=== PATIENT | female | born 1995 | race African-American/Black ===

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

== ENCOUNTER 2017-01-08 22:08 | Inpatient (IN) | payer MEDICAID ==
[~2017-01-08] VITALS: Ht 154.9 cm; Wt 49.9 kg
[2017-01-08] MEDS ORDERED: Famotidine 20 MG/ 2ML VIAL IVP ONE (22:15)
[2017-01-08] MEDS ORDERED: Morphine Sulfate 4mg/ml Inj IVP ONE (22:15)
[2017-01-08 22:35] VITALS: BP 127/63
[2017-01-08 22:48] LABS: BASOPHILS % (AUTO) 1.3 % (0.0-2.0); EOSINOPHILS % (AUTO) 1.8 % (0.0-3.0); LYMPHOCYTES % (AUTO) 43.3 % (20.0-45.0); MEAN CORPUSCULAR HEMOGLOBIN 25.8 PG (27.0-31.0); MEAN CORPUSCULAR HGB CONC 28.7 G/DL (32.0-36.0); MEAN CORPUSCULAR VOLUME 90 FL (80-99); MEAN PLATELET VOLUME 4.9 FL (6.5-10.1); MONOCYTES % (AUTO) 9.4 % (1.0-10.0); NEUTROPHILS % (AUTO) 44.2 % (45.0-75.0); PLATELET COUNT 189 K/UL (150-450); RED CELL DISTRIBUTION WIDTH 20.1 % (11.6-14.8); WHITE BLOOD COUNT 3.8 K/UL (4.8-10.8)
[2017-01-08 23:12] LABS: ALANINE AMINOTRANSFERASE 23 U/L (12-78); ANION GAP 14 mmol/L (5-15); ASPARTATE AMINO TRANSFERASE 73 U/L (15-37); CARBON DIOXIDE 26 MMOL/L (21-32); CHLORIDE 99 MMOL/L (98-107); CREATININE 0.8 MG/DL (0.55-1.30); GLOMERULAR FILTRATION RATE > 60 mL/min (>60); LIPASE 839 U/L (73-393); POTASSIUM 3.8 MMOL/L (3.5-5.1); SODIUM 139 MMOL/L (136-145); TOTAL PROTEIN 8.9 G/DL (6.4-8.2)
[2017-01-09] VITALS (7 sets, daily range): BP systolic 104–128; BP diastolic 66–80
--- NOTE | 2017-01-09 00:28 | Emergency Room Report ---
History of Present Illness General Chief Complaint: Abdominal Pain Source: EMS Present Illness HPI 21-year-old female presents ED complaining of abdominal pain with vomiting which started today. Patient is coming from home stating she has history of alcohol use and gastritis. States she was vomiting blood as well. States pain is sharp, epigastric, 10 out of 10, nonradiating. Also notes history of pancreatitis. Denies fevers or chills. Denies chest pain or shortness of breath. No aggravating relieving factors. Denies any other associated symptoms Allergies: Coded Allergies: AMOXICILLIN (Unverified Allergy, Unknown, 01/08/17) Patient History Past Medical History: GERD Past Surgical History: none Pertinent Family History: none Social History: Reports: alcohol use, Denies: smoking, drug use Last Menstrual Period: 2 weeks ago Now: No Immunizations: UTD Reviewed Nursing Documentation: PMH: Agreed, PSxH: Agreed Nursing Documentation-PMH Hx Asthma: No - BRONCHITIS Review of Systems All Other Systems: negative except mentioned in HPI Physical Exam Vital Signs Date Time Temp Pulse Resp B/P (MAP) Pulse Ox O2 Delivery O2 Flow Rate FiO2 01/08/17 22:04 98.1 80 18 151/100 98 Room Air Sp02 EP Interpretation: reviewed, normal General Appearance: alert, GCS 15, non-toxic, mild distress Head: normocephalic, atraumatic Eyes: bilateral eye normal inspection, bilateral eye PERRL ENT: hearing grossly normal, normal pharynx, no angioedema, normal voice Neck: full range of motion, supple/symm/no masses Respiratory: chest non-tender, lungs clear, normal breath sounds, speaking full sentences Cardiovascular #1: regular rate, rhythm, no edema Cardiovascular #2: 2+ carotid (R), 2+ carotid (L), 2+ radial (R), 2+ radial (L) , 2+ dorsalis pedis (R), 2+ dorsalis pedis (L) Gastrointestinal: normal bowel sounds, soft, non-distended, no guarding, no rebound, tenderness - epigastric Rectal: deferred Genitourinary: normal inspection, no CVA tenderness Musculoskeletal: back normal, gait/station normal, normal range of motion, non- tender Neurologic: alert, oriented x3, responsive, motor strength/tone normal, sensory intact, speech normal Psychiatric: judgement/insight normal, memory normal, mood/affect normal, no suicidal/homicidal ideation Reflexes: 3+ bicep (R), 3+ bicep (L), 3+ tricep (R), 3+ tricep (L), 3+ knee (R) , 3+ knee (L) Skin: normal color, no rash, warm/dry, well hydrated Lymphatic: no adenopathy Medical Decision Making Diagnostic Impression: Primary Impression: Pancreatitis, alcoholic, acute Qualified Codes: K85.20 - Alcohol induced acute pancreatitis without necrosis or infection Additional Impression: Gastritis Qualified Codes: K29.21 - Alcoholic gastritis with bleeding ER Course Hospital Course 21-year-old female presents to ED with abdominal pain Differential diagnoses include: BPH, cystitis, pyelonephritis, kidney stone Clinical course 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 After initial history and physical I ordered labs, IV fluids, pain medication and CT scan Labs - no leukocytosis, Hb/Hct stable. electrolytes ok. Lipase > [address] is down. Case discussed with Dr. Nguyen and he agreed to accept the patient to his service for further care and support I feel this is a highly complex case requiring extensive working including EKG/ Rhythm strip, Xray/CT/US, Blood/urine lab work, repeat exams while in ED, and administration of strong opiates/narcotics for pain control, admission to hospital or close patient follow up. Diagnosis - alcoholic pancreatiits, gastritis Patient admitted to floor in serious condition Labs Test 01/08/17 22:20 White Blood Count 3.8 K/UL (4.8-10.8) Red Blood Count 4.10 M/UL (4.20-5.40) Hemoglobin 10.6 G/DL (12.0-16.0) Hematocrit 36.8 % (37.0-47.0) Mean Corpuscular Volume 90 FL (80-99) Mean Corpuscular Hemoglobin 25.8 PG (27.0-31.0) Mean Corpuscular Hemoglobin Concent 28.7 G/DL (32.0-36.0) Red Cell Distribution Width 20.1 % (11.6-14.8) Platelet Count 189 K/UL (150-450) Mean Platelet Volume 4.9 FL (6.5-10.1) Neutrophils (%) (Auto) 44.2 % (45.0-75.0) Lymphocytes (%) (Auto) 43.3 % (20.0-45.0) Monocytes (%) (Auto) 9.4 % (1.0-10.0) Eosinophils (%) (Auto) 1.8 % (0.0-3.0) Basophils (%) (Auto) 1.3 % (0.0-2.0) Sodium Level 139 MMOL/L (136-145) Potassium Level 3.8 MMOL/L (3.5-5.1) Chloride Level 99 MMOL/L (98-107) Carbon Dioxide Level 26 MMOL/L (21-32) Anion Gap 14 mmol/L (5-15) Blood Urea Nitrogen 11 mg/dL (7-18) Creatinine 0.8 MG/DL (0.55-1.30) Estimat Glomerular Filtration Rate > 60 mL/min (>60) Glucose Level 78 MG/DL (74-106) Calcium Level 10.0 MG/DL (8.5-10.1) Total Bilirubin 0.8 MG/DL (0.2-1.0) Aspartate Amino Transf (AST/SGOT) 73 U/L (15-37) Alanine Aminotransferase (ALT/SGPT) 23 U/L (12-78) Alkaline Phosphatase 59 U/L (46-116) Total Protein 8.9 G/DL (6.4-8.2) Albumin 4.5 G/DL (3.4-5.0) Globulin 4.4 g/dL Albumin/Globulin Ratio 1.0 (1.0-2.7) Lipase 839 U/L (73-393) Human Chorionic Gonadotropin, Qual Negative Last Vital Signs Date Time Temp Pulse Resp B/P (MAP) Pulse Ox O2 Delivery O2 Flow Rate FiO2 01/08/17 23:18 98.1 01/08/17 22:35 67 18 127/63 98 Room Air Status: improved Disposition: ADMITTED INPATIENT Condition: Serious MINOR VALLADARES M.D. Jan 09, 2017 00:28
[2017-01-09] MEDS ORDERED: Morphine Sulfate 4mg/ml Inj IVP ONE (02:00)
[2017-01-09] MEDS ORDERED: NEXIUM20 MG ORAL (02:36)
[2017-01-09] MEDS: D5NS 1,000 ML IV SCH ×3 (05:52→23:56)
[2017-01-09] MEDS: Heparin 5000 units/ml inj SUBQ SCH ×2 (08:15→20:10)
[2017-01-09 09:30] LABS: MEAN CORPUSCULAR HEMOGLOBIN 26.6 PG (27.0-31.0); MEAN CORPUSCULAR HGB CONC 29.8 G/DL (32.0-36.0); MEAN CORPUSCULAR VOLUME 89 FL (80-99); PLATELET COUNT 164 K/UL (150-450); RED CELL DISTRIBUTION WIDTH 19.6 % (11.6-14.8)
[2017-01-09 10:38] LABS: ANION GAP 13 mmol/L (5-15); CARBON DIOXIDE 25 MMOL/L (21-32); CHLORIDE 100 MMOL/L (98-107); CREATININE 0.8 MG/DL (0.55-1.30); GLOMERULAR FILTRATION RATE > 60 mL/min (>60); LIPASE 482 U/L (73-393); POTASSIUM 3.2 MMOL/L (3.5-5.1); SODIUM 138 MMOL/L (136-145)
[2017-01-09 11:27] LABS: BAND NEUTROPHILS % (MANUAL) 0 % (0-8); BASOPHILS % (MANUAL) 0 % (0-2); EOSINOPHILS % (MANUAL) 2 % (0-3); LYMPHOCYTES % (MANUAL) 52 % (20-45); NEUTROPHILS % (MANUAL) 39 % (45-75); PLATELET ESTIMATE ADEQUATE; PLATELET MORPHOLOGY NORMAL; TOTAL CELLS COUNTED 100
[2017-01-09] MEDS ORDERED: D5NS 1000ml IV ONE (17:23)
--- NOTE | 2017-01-09 19:00 | Consultation ---
DATE OF CONSULTATION: SOURCE OF INFORMATION: The patient and EMR. HISTORY OF PRESENT ILLNESS: The patient is a 21-year-old, female. She has a history of alcohol abuse for the last 5 years and has a known history of pancreatitis. The patient reported increasing worsening pain in the periumbilical area associated with nausea and vomitus x2. Denies any hematemesis or hematochezia. Denies any fever or chills. ALLERGIES: Amoxicillin. HOME MEDICATIONS: Nexium. SOCIAL HISTORY: The patient is living by herself. The patient reported using half a pint of hard liquor for the last 5 years. Denies history of illicit drug use. REVIEW OF SYSTEMS: All 12 elements of review of systems are reviewed with the patient. Pertinent negatives and positives are as above. PHYSICAL EXAMINATION: VITAL SIGNS: Blood pressure 150/100, temperature 98.2, pulse oximetry 98% on room, and pulse rate 80 to 85. HEAD AND NECK: Atraumatic and normocephalic. CHEST: Clear to auscultation. HEART: S1 and S2. Regular rate and rhythm. ABDOMEN: Soft. No organomegaly. ABDOMEN: Positive for tenderness on deep palpation in the periumbilical area. Negative for rebound tenderness. MUSCULOSKELETAL: No gross focal motor deficit. NEUROLOGIC: The patient is awake, alert, and oriented x3. LABORATORY DATA: Labs dated 01/08/2017 shows WBC of 3.8, hemoglobin 10.6, and platelets 189. Sodium 139, potassium 3.8, BUN 11, and creatinine 0.8. AST 73. Lipase 839. IMAGING: Chest x-ray, pending. ASSESSMENT: 1. Acute on chronic alcoholic pancreatitis. 2. Anemia. 3. Abnormal liver function test. 4. Gastrointestinal and deep vein thrombosis prophylaxes. PLAN OF CARE: I will check the patient for hepatitis C and human immunodeficiency virus. Matteo Nguyen M.D. DR: SHANON JOB#: [id number] CC:
[2017-01-10] VITALS: BP 119/66
[2017-01-10] MEDS: Zolpidem 5mg tab ORAL PRN ×2 (00:43→20:16)
[2017-01-10 04:00] VITALS: BP 115/69
[2017-01-10 07:52] LABS: MEAN CORPUSCULAR HEMOGLOBIN 27.1 PG (27.0-31.0); MEAN CORPUSCULAR HGB CONC 30.6 G/DL (32.0-36.0); MEAN CORPUSCULAR VOLUME 89 FL (80-99); MEAN PLATELET VOLUME 5.8 FL (6.5-10.1); PLATELET COUNT 162 K/UL (150-450); RED BLOOD COUNT 3.62 M/UL (4.20-5.40); WHITE BLOOD COUNT 2.9 K/UL (4.8-10.8)
[2017-01-10 07:55] LABS: ANION GAP 5 mmol/L (5-15); CALCIUM 8.7 MG/DL (8.5-10.1); CARBON DIOXIDE 29 MMOL/L (21-32); CHLORIDE 104 MMOL/L (98-107); CREATININE 0.7 MG/DL (0.55-1.30); GLOMERULAR FILTRATION RATE > 60 mL/min (>60); LIPASE 607 U/L (73-393); POTASSIUM 3.5 MMOL/L (3.5-5.1); SODIUM 138 MMOL/L (136-145)
[2017-01-10 08:00] VITALS: BP 109/72
[2017-01-10] MEDS: Heparin 5000 units/ml inj SUBQ SCH ×2 (08:48→20:16)
[2017-01-10 09:39] LABS: ANISOCYTOSIS 2+; BAND NEUTROPHILS % (MANUAL) 0 % (0-8); BASOPHILS % (MANUAL) 0 % (0-2); EOSINOPHILS % (MANUAL) 3 % (0-3); HYPOCHROMASIA 1+; LYMPHOCYTES % (MANUAL) 38 % (20-45); NEUTROPHILS % (MANUAL) 56 % (45-75); PLATELET ESTIMATE ADEQUATE; PLATELET MORPHOLOGY NORMAL; TOTAL CELLS COUNTED 100
[2017-01-10] MEDS: D5NS 1,000 ML IV SCH ×2 (10:09→20:16)
--- NOTE | 2017-01-10 11:20 | General Progress Note ---
Assessment/Plan Status: stable Assessment/Plan 1. Acute on chronic alcoholic pancreatitis. 2. Anemia. 3. Abnormal liver function test. 4. Gastrointestinal and deep vein thrombosis prophylaxes. Plan: Once clear by GI, may followup as outpatient Subjective ROS Limited/Unobtainable: Yes Constitutional: Reports: no symptoms HEENT: Reports: no symptoms Cardiovascular: Reports: no symptoms Allergies: Coded Allergies: AMOXICILLIN (Unverified Allergy, Unknown, 01/08/17) Objective Last 24 Hour Vital Signs Date Time Temp Pulse Resp B/P (MAP) Pulse Ox O2 Delivery O2 Flow Rate FiO2 01/10/17 08:00 95.0 62 16 109/72 94 01/10/17 04:00 97.7 52 20 115/69 99 Room Air 01/10/17 00:00 98.4 70 21 119/66 96 Room Air 01/09/17 20:00 98.6 60 22 113/75 96 Room Air 01/09/17 18:34 97.0 01/09/17 16:00 97.3 60 18 127/68 98 Room Air 01/09/17 12:00 97.2 57 18 124/70 96 Room Air Intake and Output 01/10/17 01/11/17 19:00 07:00 Intake Total 300 ml Balance 300 ml IV Total 300 ml Laboratory Tests 01/10/17 05:35: White Blood Count 2.9L, Red Blood Count 3.62L, Hemoglobin 9.8L, Hematocrit 32.1L , Mean Corpuscular Volume 89, Mean Corpuscular Hemoglobin 27.1, Mean Corpuscular Hemoglobin Concent 30.6L, Red Cell Distribution Width 20.0H, Platelet Count 162, Mean Platelet Volume 5.8L, Neutrophils (%) (Auto) , Lymphocytes (%) (Auto) , Monocytes (%) (Auto) , Eosinophils (%) (Auto) , Basophils (%) (Auto) , Differential Total Cells Counted 100, Neutrophils % ( Manual) 56, Lymphocytes % (Manual) 38, Monocytes % (Manual) 3, Eosinophils % ( Manual) 3, Basophils % (Manual) 0, Band Neutrophils 0, Platelet Estimate Adequate, Platelet Morphology Normal, Hypochromasia 1+, Anisocytosis 2+, Sodium Level 138, Potassium Level 3.5, Chloride Level 104, Carbon Dioxide Level 29, Anion Gap 5, Blood Urea Nitrogen 3L, Creatinine 0.7, Estimat Glomerular Filtration Rate > 60, Glucose Level 117H, Calcium Level 8.7, Lipase 607H Height (Feet): 5 Height (Inches): 1.00 Weight (Pounds): 110 General Appearance: no apparent distress EENT: PERRL/EOMI Neck: supple Respiratory/Chest: lungs clear Abdomen: soft Extremities: non-tender Neurologic: signal timer II-XII grossly normal Matteo Nguyen MD Jan 10, 2017 11:20
[2017-01-10 12:00] VITALS: BP 116/78
[2017-01-10 20:00] VITALS: BP 122/78
[2017-01-11] VITALS: BP 131/76
[2017-01-11 04:00] VITALS: BP 132/95
[2017-01-11 08:00] VITALS: BP 120/79
[2017-01-11] MEDS: D5NS 1,000 ML IV SCH (08:00)
[2017-01-11 08:23] LABS: MEAN CORPUSCULAR HEMOGLOBIN 27.9 PG (27.0-31.0); MEAN CORPUSCULAR HGB CONC 31.2 G/DL (32.0-36.0); MEAN CORPUSCULAR VOLUME 89 FL (80-99); MEAN PLATELET VOLUME 6.5 FL (6.5-10.1); PLATELET COUNT 163 K/UL (150-450); RED BLOOD COUNT 3.77 M/UL (4.20-5.40); RED CELL DISTRIBUTION WIDTH 19.4 % (11.6-14.8); WHITE BLOOD COUNT 3.1 K/UL (4.8-10.8)
[2017-01-11] MEDS: Heparin 5000 units/ml inj SUBQ SCH (08:51)
[2017-01-11 08:56] LABS: ANION GAP 11 mmol/L (5-15); CALCIUM 8.6 MG/DL (8.5-10.1); CARBON DIOXIDE 26 MMOL/L (21-32); CHLORIDE 103 MMOL/L (98-107); CREATININE 0.7 MG/DL (0.55-1.30); GLOMERULAR FILTRATION RATE > 60 mL/min (>60); LIPASE 408 U/L (73-393); SODIUM 140 MMOL/L (136-145)
--- NOTE | 2017-01-11 09:01 | General Progress Note ---
Assessment/Plan Status: stable Assessment/Plan 1. Acute on chronic alcoholic pancreatitis. 2. Anemia. 3. Abnormal liver function test. 4. Gastrointestinal and deep vein thrombosis prophylaxes. Plan: Once clear by GI, may followup as outpatient Subjective ROS Limited/Unobtainable: No Constitutional: Reports: malaise HEENT: Reports: no symptoms Cardiovascular: Reports: no symptoms Allergies: Coded Allergies: AMOXICILLIN (Unverified Allergy, Unknown, 01/08/17) Objective Last 24 Hour Vital Signs Date Time Temp Pulse Resp B/P (MAP) Pulse Ox O2 Delivery O2 Flow Rate FiO2 01/11/17 04:00 97.9 105 20 132/95 98 Room Air 01/11/17 00:00 97.7 68 20 131/76 97 Room Air 01/10/17 20:00 97.5 68 18 122/78 97 Room Air 01/10/17 12:36 95.0 01/10/17 12:00 95.0 69 17 116/78 100 Laboratory Tests 01/11/17 06:30: White Blood Count 3.1L, Red Blood Count 3.77L, Hemoglobin 10.5L, Hematocrit 33.7L, Mean Corpuscular Volume 89, Mean Corpuscular Hemoglobin 27.9, Mean Corpuscular Hemoglobin Concent 31.2L, Red Cell Distribution Width 19.4H, Platelet Count 163, Mean Platelet Volume 6.5, Neutrophils (%) (Auto) , Lymphocytes (%) (Auto) , Monocytes (%) (Auto) , Eosinophils (%) (Auto) , Basophils (%) (Auto) , Neutrophils % (Manual) [Pending], Lymphocytes % (Manual) [Pending], Platelet Estimate [Pending], Platelet Morphology [Pending], Sodium Level [Pending], Potassium Level [Pending], Chloride Level [Pending], Carbon Dioxide Level [Pending], Blood Urea Nitrogen [Pending], Creatinine [Pending], Estimat Glomerular Filtration Rate [Pending], Glucose Level [Pending], Calcium Level [Pending], Lipase [Pending] Height (Feet): 5 Height (Inches): 1.00 Weight (Pounds): 110 General Appearance: no apparent distress EENT: PERRL/EOMI Neck: supple Cardiovascular: normal rate Respiratory/Chest: lungs clear Abdomen: soft Extremities: non-tender Neurologic: supervisor edging II-XII grossly normal Matteo Nguyen MD Jan 11, 2017 09:01
[2017-01-11 09:05] LABS: ANISOCYTOSIS 2+; BAND NEUTROPHILS % (MANUAL) 0 % (0-8); BASOPHILS % (MANUAL) 0 % (0-2); EOSINOPHILS % (MANUAL) 0 % (0-3); HYPOCHROMASIA 1+; LYMPHOCYTES % (MANUAL) 32 % (20-45); NEUTROPHILS % (MANUAL) 59 % (45-75); PLATELET ESTIMATE ADEQUATE; PLATELET MORPHOLOGY NORMAL; TOTAL CELLS COUNTED 100
[2017-01-11 12:00] VITALS: BP 131/76
[2017-01-11] MEDS ORDERED: LORazepam 1mg tab ORAL ONE (12:45)
--- NOTE | 2017-01-13 12:56 | Discharge Summary ---
Discharge Summary Hospital Course Date of Admission Jan 09, 2017 at 02:22 Date of Discharge Jan 11, 2017 at 12:45 Admitting Diagnosis pancreatitis HPI Heydi Johnson is a 21 year old female who was admitted on Jan 09, 2017 at 02:22 for Pancreatits Hospital Course [id number] Discharge Discharge Disposition Patient left AMA Discharge Diagnoses: Rosetta Tineo NP Jan 13, 2017 12:56
--- NOTE | 2017-01-13 23:16 | Discharge Summary 2 SIG ---
DATE OF ADMISSION: 01/09/2017 DATE OF DISCHARGE: 01/11/2017 BRIEF HOSPITAL COURSE: The patient is a 21-year-old female with history of alcohol abuse for the last five years and has known history of pancreatitis. The patient reported increasing worsening of pain in the periumbilical area associated with nausea and vomiting x2. On evaluation at ED, lipase was greater than 800. There was no leukocytosis. AST was 73. She was admitted for alcoholic pancreatitis and for evaluation of abnormal liver tests. Hepatitis panel was negative. Full treatment was not carried out as the patient left against medical advice. FINAL DIAGNOSES: 1. Acute on chronic alcoholic pancreatitis. 2. Anemia. 3. Abnormal liver function tests. 4. Noncompliance as the patient signed out against medical advice. Matteo Nguyen M.D. I have been assigned to dictate discharge summary on this account and I was not involved in the patient's management. Rosetta Tineo N.P. DR: LUI JOB#: [id number] CC:
== END 2017-01-11 12:45 | disposition left against medical advice (07) | DRG 282 ==
LOC: EDBD 22:08 → EMR 22:40 → ENRESERV 23:45 → 4E 01-09 02:22 → EDBEDREQ 01-09 02:28 → 4E 01-09 05:31
DX: K85.20 Alcohol induced acute pancreatitis without necrosis or infection (principal); K29.21 Alcoholic gastritis with bleeding; D64.9 Anemia, unspecified; K86.0 Alcohol-induced chronic pancreatitis; R94.5 Abnormal results of liver function studies; Z88.0 Allergy status to penicillin
CPT/HCPCS: 36415; 74177; 80048; 80053; 83690; 84703; 85007; 85025; 86703; 86705; 86709; 86803; 87340; 99285; J2405

== ENCOUNTER 2018-01-21 14:13 | Inpatient (IN) | payer MEDICAID ==
[~2018-01-21] VITALS: Ht 157.5 cm; Wt 62.6 kg
[~2018-01-21 14:13] MED LIST changes: +NEXIUM20 MG ORAL
[2018-01-21 14:15] VITALS: BP 123/78
--- NOTE | 2018-01-21 14:28 | Emergency Room Report ---
History of Present Illness General Chief Complaint: Abdominal Pain Source: Patient Present Illness HPI Patient is a 22-year-old female brought in by EMS after increased abdominal pain. Patient reports having prior history of CHF as well as pancreatitis. The patient presented increased the sharp intermittent abdominal pain. This is associated with nausea and vomiting. The patient stated that she had the been drinking alcohol. She states she was discharged from the hospital 2 days ago.Patient denies any fever. She states she that she drank several shots as well as some beer Allergies: Coded Allergies: AMOXICILLIN (Unverified Allergy, Unknown, 01/08/17) Uncoded Allergies: AMOXICILIN (Allergy, Unknown, 01/21/18) Patient History Past Medical History: see triage record Last Menstrual Period: 12/2017 Now: No Reviewed Nursing Documentation: PMH: Agreed; PSxH: Agreed Nursing Documentation-PMH Past Medical History: No History, Except For Hx Hypertension: Yes Hx Asthma: No - BRONCHITIS Hx Cancer: No Hx Gastrointestinal Problems: Yes - Gastritis History Of Psychiatric Problem: Yes - Depression, Anxiety, Substance Abuse Hx Neurological Problems: No Review of Systems All Other Systems: negative except mentioned in HPI Physical Exam Vital Signs Date Time Temp Pulse Resp B/P (MAP) Pulse Ox O2 Delivery O2 Flow Rate FiO2 01/21/18 14:10 99.0 105 14 111/77 99 Room Air Sp02 EP Interpretation: reviewed, normal General Appearance: normal inspection, well appearing, no apparent distress, alert, GCS 15, Chronically Ill Head: atraumatic ENT: normal ENT inspection, hearing grossly normal, normal voice Neck: normal inspection, full range of motion, supple, no bony tend Respiratory: normal inspection, lungs clear, normal breath sounds, no respiratory distress, no retraction, no wheezing Cardiovascular #1: regular rate, rhythm, no edema Gastrointestinal: normal inspection, soft, no guarding, no hernia, tenderness - mild diffuse tenderness Genitourinary: no CVA tenderness Musculoskeletal: normal inspection, back normal, normal range of motion Neurologic: normal inspection, alert, oriented x3, responsive, artist blacksmith III-XII nml as tested, speech normal Psychiatric: normal inspection, judgement/insight normal, mood/affect normal Skin: normal inspection, normal color, no rash Medical Decision Making Diagnostic Impression: Primary Impression: Pancreatitis Additional Impressions: Alcohol abuse Anemia ER Course Patient presented for abdominal pain. Differential diagnoses included ischemic bowel, appendicitis, perforated viscus, abdominal aortic aneurysm, inferior myocardial infarction, viral gastroenteritis Because of complexity of patient's case laboratory studies were ordered. The patient was noted to have evidence of anemia as well as pancreatitis on laboratory testing. Noted also noted to have elevated blood alcohol level. The patient given IV acid blockers as well as pain medications. The patient was advised alcohol cessation. Dr. Nguyen was contacted for inpatient management due to need for inpatient monitoring and treatment. Labs Test 01/21/18 14:30 01/21/18 14:35 White Blood Count 3.5 K/UL (4.8-10.8) Red Blood Count 3.61 M/UL (4.20-5.40) Hemoglobin 9.3 G/DL (12.0-16.0) Hematocrit 30.6 % (37.0-47.0) Mean Corpuscular Volume 85 FL (80-99) Mean Corpuscular Hemoglobin 25.7 PG (27.0-31.0) Mean Corpuscular Hemoglobin Concent 30.2 G/DL (32.0-36.0) Red Cell Distribution Width 16.1 % (11.6-14.8) Platelet Count 372 K/UL (150-450) Mean Platelet Volume 6.0 FL (6.5-10.1) Neutrophils (%) (Auto) 47.0 % (45.0-75.0) Lymphocytes (%) (Auto) 41.0 % (20.0-45.0) Monocytes (%) (Auto) 10.1 % (1.0-10.0) Eosinophils (%) (Auto) 0.7 % (0.0-3.0) Basophils (%) (Auto) 1.2 % (0.0-2.0) Prothrombin Time 11.5 SEC (9.30-11.50) Prothromb Time International Ratio 1.1 (0.9-1.1) Activated Partial Thromboplast Time 25 SEC (23-33) Sodium Level 143 MMOL/L (136-145) Potassium Level 3.8 MMOL/L (3.5-5.1) Chloride Level 109 MMOL/L (98-107) Carbon Dioxide Level 25 MMOL/L (21-32) Anion Gap 9 mmol/L (5-15) Blood Urea Nitrogen 6 mg/dL (7-18) Creatinine 0.8 MG/DL (0.55-1.30) Estimat Glomerular Filtration Rate > 60 mL/min (>60) Glucose Level 93 MG/DL (74-106) Calcium Level 8.9 MG/DL (8.5-10.1) Total Bilirubin 0.4 MG/DL (0.2-1.0) Aspartate Amino Transf (AST/SGOT) 30 U/L (15-37) Alanine Aminotransferase (ALT/SGPT) 22 U/L (12-78) Alkaline Phosphatase 65 U/L (46-116) Total Protein 7.1 G/DL (6.4-8.2) Albumin 3.0 G/DL (3.4-5.0) Globulin 4.1 g/dL Albumin/Globulin Ratio 0.7 (1.0-2.7) Lipase 565 U/L (73-393) Serum Alcohol 137 mg/dL Urine Color Pale yellow Urine Appearance Clear Urine pH 7 (4.5-8.0) Urine Specific Almo 1.010 (1.005-1.035) Urine Protein Negative (NEGATIVE) Urine Glucose (UA) Negative (NEGATIVE) Urine Ketones Negative (NEGATIVE) Urine Blood 1+ (NEGATIVE) Urine Nitrite Negative (NEGATIVE) Urine Bilirubin Negative (NEGATIVE) Urine Urobilinogen Normal MG/DL (0.0-1.0) Urine Leukocyte Esterase 1+ (NEGATIVE) Urine RBC 0-2 /HPF (0 - 2) Urine WBC 0-2 /HPF (0 - 2) Urine Squamous Epithelial Cells Occasional /LPF Urine Bacteria Occasional /HPF (NONE) Urine HCG, Qualitative Negative (NEGATIVE) Urine Opiates Screen Negative (NEGATIVE) Urine Barbiturates Screen Negative (NEGATIVE) Phencyclidine (PCP) Screen Negative (NEGATIVE) Urine Amphetamines Screen Negative (NEGATIVE) Urine Benzodiazepines Screen Negative (NEGATIVE) Urine Cocaine Screen Negative (NEGATIVE) Urine Marijuana (THC) Screen Negative (NEGATIVE) Last Vital Signs Date Time Temp Pulse Resp B/P (MAP) Pulse Ox O2 Delivery O2 Flow Rate FiO2 01/21/18 14:10 99.0 105 14 111/77 99 Room Air Status: unchanged Disposition: XFER SHT-TRM HOSP Condition: Stable Rodrigo Thrasher MD Jan 21, 2018 14:28
[2018-01-21] MEDS ORDERED: Pantoprazole Inj IV ONE (14:30)
[2018-01-21] MEDS ORDERED: Sucralfate 1gm tab ORAL ONE (14:30)
[2018-01-21 14:53] LABS: BASOPHILS % (AUTO) 1.2 % (0.0-2.0); EOSINOPHILS % (AUTO) 0.7 % (0.0-3.0); HEMATOCRIT 30.6 % (37.0-47.0); HEMOGLOBIN 9.3 G/DL (12.0-16.0); MEAN CORPUSCULAR VOLUME 85 FL (80-99); MONOCYTES % (AUTO) 10.1 % (1.0-10.0); PLATELET COUNT 372 K/UL (150-450); RED BLOOD COUNT 3.61 M/UL (4.20-5.40); RED CELL DISTRIBUTION WIDTH 16.1 % (11.6-14.8); WHITE BLOOD COUNT 3.5 K/UL (4.8-10.8)
[2018-01-21 14:54] LABS: APPEARANCE,URINE CLEAR; BILIRUBIN, URINE NEGATIVE (NEGATIVE); COLOR,URINE PALE YELLOW; GLUCOSE, URINE (UA) NEGATIVE (NEGATIVE); KETONES,URINE NEGATIVE (NEGATIVE); LEUKOCYTE ESTERASE ,URINE 1+ (NEGATIVE); NITRITE,URINE NEGATIVE (NEGATIVE); PH,URINE 7 (4.5-8.0); PROTEIN,URINE NEGATIVE (NEGATIVE); UROBILINOGEN,URINE NORMAL MG/DL (0.0-1.0)
[2018-01-21 15:03] LABS: ANION GAP 9 mmol/L (5-15); BLOOD UREA NITROGEN 6 mg/dL (7-18); CALCIUM 8.9 MG/DL (8.5-10.1); CARBON DIOXIDE 25 MMOL/L (21-32); CHLORIDE 109 MMOL/L (98-107); CREATININE 0.8 MG/DL (0.55-1.30); POTASSIUM 3.8 MMOL/L (3.5-5.1); SODIUM 143 MMOL/L (136-145)
[2018-01-21 15:08] LABS: ALANINE AMINOTRANSFERASE 22 U/L (12-78); ALBUMIN/GLOBULIN RATIO 0.7 (1.0-2.7); ALKALINE PHOSPHATASE 65 U/L (46-116); ASPARTATE AMINO TRANSFERASE 30 U/L (15-37); BILIRUBIN,TOTAL 0.4 MG/DL (0.2-1.0)
[2018-01-21 15:17] LABS: INR 1.1 (0.9-1.1)
[2018-01-21] MEDS ORDERED: PROTONIX40 MG ORAL (15:18)
[2018-01-21] MEDS ORDERED: Norco 5mg/325mg tab ORAL ONE (15:30)
[2018-01-21] MEDS ORDERED: Sodium Chloride 500ML 500 ML IV ONE (15:30)
[2018-01-21] MEDS ORDERED: Thiamine HCl 100 MG in D5W 55 ML IVPB ONE (15:30)
--- NOTE | 2018-01-21 15:31 | Diagnostic Imaging Report ---
EXAM: XR Chest, 1 View CLINICAL HISTORY: SOB TECHNIQUE: Frontal view of the chest. COMPARISON: 12/02/13. FINDINGS: Lungs: Unremarkable. No consolidation. Pleural space: Unremarkable. No pneumothorax. Heart: Borderline cardiomegaly. Mediastinum: Unremarkable. Bones/joints: Thoracic dextrocurvature is likely positional as it was not demonstrated previously. IMPRESSION: Borderline cardiomegaly. No overt edema. No consolidation.
[2018-01-21 16:00] VITALS: BP 116/73
[2018-01-21] MEDS ORDERED: Morphine Sulfate 4mg/ml Inj (IV/IM USE ONLY) IVP ONE (16:00)
[2018-01-21 18:00] VITALS: BP 126/68
[2018-01-21 18:10] VITALS: BP 103/72
[2018-01-21] MEDS ORDERED: Ketorolac 30mg Inj IV PRN (18:30)
[2018-01-21] MEDS ORDERED: LORazepam 1mg tab ORAL PRN (18:30)
[2018-01-21] MEDS: D5NS 1,000 ML IV SCH (19:30)
[2018-01-21] MEDS: Morphine Sulfate 2mg/ml Inj IVP PRN (19:58)
[2018-01-21 20:00] VITALS: BP 108/73
[2018-01-21 20:03] LABS: BASOPHILS % (AUTO) 1.1 % (0.0-2.0); EOSINOPHILS % (AUTO) 0.5 % (0.0-3.0); HEMATOCRIT 31.7 % (37.0-47.0); HEMOGLOBIN 9.8 G/DL (12.0-16.0); LYMPHOCYTES % (AUTO) 42.5 % (20.0-45.0); MEAN CORPUSCULAR VOLUME 87 FL (80-99); NEUTROPHILS % (AUTO) 47.8 % (45.0-75.0); PLATELET COUNT 361 K/UL (150-450); RED BLOOD COUNT 3.62 M/UL (4.20-5.40); RED CELL DISTRIBUTION WIDTH 15.9 % (11.6-14.8); WHITE BLOOD COUNT 3.7 K/UL (4.8-10.8)
[2018-01-21] MEDS: chlordiazePOXIDE 25mg Cap ORAL SCH (21:33)
[2018-01-22] VITALS (8 sets, daily range): BP systolic 99–147; BP diastolic 60–95
[2018-01-22] MEDS: Morphine Sulfate 2mg/ml Inj IVP PRN ×2 (04:07→22:35)
[2018-01-22] MEDS: D5NS 1,000 ML IV SCH ×2 (04:50→12:55)
[2018-01-22 05:06] LABS: HEMATOCRIT 30.5 % (37.0-47.0); HEMOGLOBIN 9.2 G/DL (12.0-16.0); MEAN CORPUSCULAR VOLUME 85 FL (80-99); PLATELET COUNT 313 K/UL (150-450); RED BLOOD COUNT 3.58 M/UL (4.20-5.40); RED CELL DISTRIBUTION WIDTH 16.2 % (11.6-14.8); WHITE BLOOD COUNT 3.1 K/UL (4.8-10.8)
[2018-01-22 06:38] LABS: ALANINE AMINOTRANSFERASE 23 U/L (12-78); ALBUMIN 2.9 G/DL (3.4-5.0); ALBUMIN/GLOBULIN RATIO 0.7 (1.0-2.7); ALKALINE PHOSPHATASE 64 U/L (46-116); ANION GAP 10 mmol/L (5-15); ASPARTATE AMINO TRANSFERASE 31 U/L (15-37); BILIRUBIN,TOTAL 0.4 MG/DL (0.2-1.0); BLOOD UREA NITROGEN 5 mg/dL (7-18); CALCIUM 8.1 MG/DL (8.5-10.1); CARBON DIOXIDE 24 MMOL/L (21-32); CHLORIDE 109 MMOL/L (98-107); CREATININE 0.9 MG/DL (0.55-1.30); SODIUM 143 MMOL/L (136-145)
[2018-01-22] MEDS ORDERED: LORazepam Inj 2mg/ml 1ml IVP PRN (08:00)
--- NOTE | 2018-01-22 08:25 | History & Physical ---
History and Physical History & Physicial History and exam are reviewed. Dictation is completed Matteo Nguyen MD Jan 22, 2018 08:25
[2018-01-22] MEDS: chlordiazePOXIDE 25mg Cap ORAL SCH ×4 (08:48→21:46)
[2018-01-22] MEDS ORDERED: Pantoprazole Inj IVP SCH (09:00)
[2018-01-22 09:18] LABS: % IRON SATURATION 5 % (15-50); IRON 20 ug/dL (50-175); TOTAL IRON BINDING CAPACITY 389 ug/dL (250-450)
[2018-01-22] MEDS ORDERED: Morphine Sulfate 2mg/ml Inj IVP PRN ×2 (10:00→12:33)
--- NOTE | 2018-01-22 10:32 | General Progress Note ---
Assessment/Plan Assessment/Plan GI CONSULT Dictated Assessment - Recurrent EtOH pancreatitis Recommendations - abdominal U/S - Bowel rest - IVF - d/c EtOH Thank you Kalin Tena MD Subjective Allergies: Coded Allergies: AMOXICILLIN (Unverified Allergy, Unknown, 01/08/17) Uncoded Allergies: AMOXICILIN (Allergy, Unknown, 01/21/18) Objective Last 24 Hour Vital Signs Date Time Temp Pulse Resp B/P (MAP) Pulse Ox O2 Delivery O2 Flow Rate FiO2 01/22/18 09:23 Room Air 01/22/18 08:03 98.4 112 20 123/89 (100) 91 01/22/18 04:00 97.6 117 20 128/90 (103) 96 01/22/18 00:00 97.2 97 17 99/60 (73) 93 01/21/18 21:00 Room Air 01/21/18 21:00 Room Air 01/21/18 20:28 97.7 01/21/18 20:00 97.5 79 18 108/73 (85) 94 01/21/18 18:10 97.7 86 20 103/72 (82) 100 01/21/18 18:00 98.5 82 14 126/68 95 Room Air 2.0 01/21/18 18:00 98.5 82 14 126/68 95 Room Air 2.0 01/21/18 16:00 98.5 80 15 116/73 98 Room Air 01/21/18 14:20 78 14 Room Air 01/21/18 14:15 98.7 78 14 123/78 99 Room Air 01/21/18 14:10 99.0 105 14 111/77 99 Room Air Intake and Output 01/21/18 01/22/18 18:59 06:59 Intake Total 2760 ml Balance 2760 ml Intake Oral 1760 ml IV Total 1000 ml # Voids 2 2 Laboratory Tests 01/21/18 14:30: White Blood Count 3.5L, Red Blood Count 3.61L, Hemoglobin 9.3L, Hematocrit 30.6L , Mean Corpuscular Volume 85, Mean Corpuscular Hemoglobin 25.7L, Mean Corpuscular Hemoglobin Concent 30.2L, Red Cell Distribution Width 16.1H, Platelet Count 372, Mean Platelet Volume 6.0L, Neutrophils (%) (Auto) 47.0, Lymphocytes (%) (Auto) 41.0, Monocytes (%) (Auto) 10.1H, Eosinophils (%) (Auto) 0.7, Basophils (%) (Auto) 1.2, Prothrombin Time 11.5, Prothromb Time International Ratio 1.1, Activated Partial Thromboplast Time 25, Sodium Level 143, Potassium Level 3.8, Chloride Level 109H, Carbon Dioxide Level 25, Anion Gap 9, Blood Urea Nitrogen 6L, Creatinine 0.8, Estimat Glomerular Filtration Rate > 60, Glucose Level 93, Calcium Level 8.9, Total Bilirubin 0.4, Aspartate Amino Transf (AST/SGOT) 30, Alanine Aminotransferase (ALT/SGPT) 22, Alkaline Phosphatase 65, Total Protein 7.1, Albumin 3.0L, Globulin 4.1, Albumin/Globulin Ratio 0.7L, Lipase 565H, Serum Alcohol 137 01/21/18 14:35: Urine Color Pale yellow, Urine Appearance Clear, Urine pH 7, Urine Specific [place] 1.010, Urine Protein Negative, Urine Glucose (UA) Negative, Urine Ketones Negative, Urine Blood 1+H, Urine Nitrite Negative, Urine Bilirubin Negative, Urine Urobilinogen Normal, Urine Leukocyte Esterase 1+H, Urine RBC 0-2 , Urine WBC 0-2, Urine Squamous Epithelial Cells Occasional, Urine Bacteria Occasional, Urine HCG, Qualitative Negative, Urine Opiates Screen Negative, Urine Barbiturates Screen Negative, Phencyclidine (PCP) Screen Negative, Urine Amphetamines Screen Negative, Urine Benzodiazepines Screen Negative, Urine Cocaine Screen Negative, Urine Marijuana (THC) Screen Negative 01/21/18 19:45: White Blood Count 3.7L, Red Blood Count 3.62L, Hemoglobin 9.8L, Hematocrit 31.7L , Mean Corpuscular Volume 87, Mean Corpuscular Hemoglobin 27.0, Mean Corpuscular Hemoglobin Concent 30.9L, Red Cell Distribution Width 15.9H, Platelet Count 361, Mean Platelet Volume 5.6L, Neutrophils (%) (Auto) 47.8, Lymphocytes (%) (Auto) 42.5, Monocytes (%) (Auto) 8.0, Eosinophils (%) (Auto) 0.5, Basophils (%) (Auto) 1.1 01/22/18 04:40: Iron Level 20L, Total Iron Binding Capacity 389, Percent Iron Saturation 5L, Unsaturated Iron Binding 369H, HIV (1&2) Antibody Rapid Negative 01/22/18 04:45: White Blood Count 3.1L, Red Blood Count 3.58L, Hemoglobin 9.2L, Hematocrit 30.5L , Mean Corpuscular Volume 85, Mean Corpuscular Hemoglobin 25.8L, Mean Corpuscular Hemoglobin Concent 30.3L, Red Cell Distribution Width 16.2H, Platelet Count 313, Mean Platelet Volume 5.4L, Neutrophils (%) (Auto) , Lymphocytes (%) (Auto) , Monocytes (%) (Auto) , Eosinophils (%) (Auto) , Basophils (%) (Auto) , Differential Total Cells Counted 100, Neutrophils % ( Manual) 32L, Lymphocytes % (Manual) 63H, Monocytes % (Manual) 5, Eosinophils % ( Manual) 0, Basophils % (Manual) 0, Band Neutrophils 0, Platelet Estimate Adequate, Platelet Morphology Normal, Anisocytosis 1+, Sodium Level 143, Potassium Level 4.0, Chloride Level 109H, Carbon Dioxide Level 24, Anion Gap 10 , Blood Urea Nitrogen 5L, Creatinine 0.9, Estimat Glomerular Filtration Rate > 60, Glucose Level 98, Calcium Level 8.1L, Total Bilirubin 0.4, Aspartate Amino Transf (AST/SGOT) 31, Alanine Aminotransferase (ALT/SGPT) 23, Alkaline Phosphatase 64, Troponin I 0.008, Total Protein 7.3, Albumin 2.9L, Globulin 4.4 , Albumin/Globulin Ratio 0.7L Height (Feet): 5 Height (Inches): 2.00 Weight (Pounds): 120 Kalin Tena MD Jan 22, 2018 10:32
[2018-01-22] MEDS ORDERED: D5NS 1,000 ML IV SCH (12:00)
[2018-01-22] MEDS ORDERED: Ketorolac 30mg Inj IV PRN (12:33)
[2018-01-22] MEDS ORDERED: Albuterol ud Inhalation HHN PRN (12:50)
[2018-01-22] MEDS: Levalbuterol Inh UD 1.25mg/0.5ml HHN SCH ×2 (13:07→19:13)
[2018-01-22] MEDS: Pantoprazole Inj IVP SCH (17:53)
--- NOTE | 2018-01-22 20:29 | History and Physical Report ---
DATE OF ADMISSION: 01/21/2018 SOURCE OF INFORMATION: The patient and EMR. HISTORY OF PRESENT ILLNESS: The patient is a 22-year-old female with a history of alcoholism, who presented with acute onset of pain in the left upper quadrant of abdomen. The patient describes the pain as sharp as 9, positive for radiation to the back. Positive for nausea. The patient reportedly had given care. The patient denies any diarrhea. Denies any fever or chills. REVIEW OF SYSTEMS: All 14 elements of review of systems reviewed, pertinent positive and negative as above. PAST SURGICAL HISTORY: Denies. FAMILY HISTORY: Reviewed and noncontributory. SOCIAL HISTORY: Positive for alcohol abuse (quantification limited). The patient is single. The patient denies history of illicit drug abuse. Describes herself as a social tobacco user. MEDICATIONS: Current hospital medications including, but not limited to, , folic acid, lorazepam, morphine sulfate, and multivitamin. IMAGING: The chest x-ray shows borderline cardiomegaly, otherwise unremarkable. PHYSICAL EXAMINATION: VITAL SIGNS: Blood pressure 110/80, temperature 98.2 degrees, pulse oximetry 98% on room air, and pulse rate 110. HEAD AND NECK: Atraumatic and normocephalic. CHEST: Clear to auscultation. HEART: S1 and S2. Regular rate and rhythm. ABDOMEN: Positive for tenderness. Negative for rebound tenderness. NEUROLOGIC: The patient is awake, alert, and oriented x3. LABORATORY DATA: Laboratories dated January 21, 2018 shows WBC 3.5, hemoglobin 9.3, and platelet count of 372,000. Sodium 143, potassium 3.8, BUN 6, and creatinine 0.8. Albumin of 3. Lipase of 565. Urinalysis is unremarkable. Serum alcohol of 137. ASSESSMENT: 1. Acute alcoholic pancreatitis. 2. Leukopenia. 3. Anemia. 4. GI and DVT prophylaxis. PLAN OF CARE: I agree to keep the patient NPO. We will continue with the IV fluids maintenance rate. Pain management. GI and Infectious Disease are consulted. I will check for the HIV and also for the iron levels. Matteo Nguyen M.D. DR: ABRAHAM JOB#: [id number] CC:
--- NOTE | 2018-01-22 22:29 | Consultation ---
DATE OF CONSULTATION: 01/22/2018 GASTROENTEROLOGY CONSULTATION CONSULTING PHYSICIAN: Kalin Tena M.D. REFERRING PHYSICIAN: Matteo Nguyen M.D. CHIEF COMPLAINT: I was asked to see this patient by Dr. Nguyen for evaluation of pancreatitis. HISTORY OF PRESENT ILLNESS: The patient states that she was having abdominal pain, which was severe. She was discharged from a hospital about two days ago for similar issue. She has been drinking alcohol. She has had history of pancreatitis and alcohol abuse. She also has history of congestive heart failure. PAST MEDICAL HISTORY: History of bronchitis, history of gastritis, history of anxiety, substance abuse, depression, recurrent pancreatitis, congestive heart failure. FAMILY HISTORY: Noncontributory. SOCIAL HISTORY: The patient drinks alcohol and smokes cigarettes. REVIEW OF SYSTEMS: Otherwise negative. MEDICATIONS: See the chart list for details. PHYSICAL EXAMINATION: GENERAL: Thin woman seen in her room with a nurse at bedside. HEENT: Normocephalic and atraumatic. NECK: Supple. CHEST: Clear to auscultation. CARDIOVASCULAR: Revealed regular rate. ABDOMEN: Soft with epigastric tenderness and voluntary guarding. EXTREMITIES: Revealed no edema. LABORATORY DATA: Noted. ASSESSMENT: This patient presents with enzymatic pancreatitis with abdominal pain and elevated lipase as the laboratory diagnosis. The patient should have an ultrasound to evaluate the gallbladder and biliary tract for gallstones. The presumptive diagnosis however is recurrent alcoholic pancreatitis. The patient was strongly advised to discontinue drinking in order to avoid recurrent pancreatitis and long-term consequences of this disease. RECOMMENDATIONS: 1. Bowel rest. 2. Pain control. 3. IV fluids. 4. Abdominal ultrasound. Thank you for asking me to participate in the care of this patient. Kalin Tena M.D. DR: Poonam JOB#: [id number] CC: TACOS
[2018-01-23] VITALS: BP 126/95
[2018-01-23] MEDS: LORazepam Inj 2mg/ml 1ml IVP PRN ×3 (01:15→18:07)
[2018-01-23] MEDS: D5NS 1,000 ML IV SCH ×2 (01:16→18:08)
[2018-01-23 04:00] VITALS: BP 131/97
[2018-01-23] MEDS: Morphine Sulfate 2mg/ml Inj IVP PRN ×3 (04:57→22:04)
[2018-01-23] MEDS: Levalbuterol Inh UD 1.25mg/0.5ml HHN SCH ×3 (07:23→19:00)
[2018-01-23 08:00] VITALS: BP 125/89
[2018-01-23 08:04] LABS: BASOPHILS % (AUTO) 1.2 % (0.0-2.0); EOSINOPHILS % (AUTO) 0.4 % (0.0-3.0); HEMATOCRIT 30.8 % (37.0-47.0); HEMOGLOBIN 9.7 G/DL (12.0-16.0); LYMPHOCYTES % (AUTO) 30.1 % (20.0-45.0); MEAN CORPUSCULAR VOLUME 85 FL (80-99); MONOCYTES % (AUTO) 5.6 % (1.0-10.0); NEUTROPHILS % (AUTO) 62.8 % (45.0-75.0); PLATELET COUNT 290 K/UL (150-450); RED BLOOD COUNT 3.63 M/UL (4.20-5.40); RED CELL DISTRIBUTION WIDTH 16.5 % (11.6-14.8); WHITE BLOOD COUNT 5.7 K/UL (4.8-10.8)
[2018-01-23 08:23] LABS: ALANINE AMINOTRANSFERASE 19 U/L (12-78); ALBUMIN 2.6 G/DL (3.4-5.0); ALBUMIN/GLOBULIN RATIO 0.6 (1.0-2.7); ALKALINE PHOSPHATASE 63 U/L (46-116); ANION GAP 10 mmol/L (5-15); ASPARTATE AMINO TRANSFERASE 29 U/L (15-37); BILIRUBIN,TOTAL 1.1 MG/DL (0.2-1.0); BLOOD UREA NITROGEN 9 mg/dL (7-18); CALCIUM 8.1 MG/DL (8.5-10.1); CARBON DIOXIDE 23 MMOL/L (21-32); CHLORIDE 108 MMOL/L (98-107); CREATININE 0.9 MG/DL (0.55-1.30); POTASSIUM 3.7 MMOL/L (3.5-5.1); SODIUM 141 MMOL/L (136-145)
[2018-01-23 08:34] LABS: BILIRUBIN,DIRECT 0.2 MG/DL (0.0-0.3)
[2018-01-23] MEDS: chlordiazePOXIDE 25mg Cap ORAL SCH ×4 (09:07→21:58)
[2018-01-23] MEDS: Pantoprazole Inj IVP SCH ×2 (09:08→18:07)
--- NOTE | 2018-01-23 10:29 | General Progress Note ---
Assessment/Plan Assessment/Plan S: I have lots of pain O: appears comfortable, denies any diarrhea or fever PHYSICAL EXAMINATION: HEAD AND NECK: Atraumatic and normocephalic. CHEST: Clear to auscultation. HEART: S1 and S2. Regular rate and rhythm. ABDOMEN: Positive for tenderness. Negative for rebound tenderness. NEUROLOGIC: The patient is awake, alert, and oriented x3. Medication: including Morphin 2 mg IV tid PRN , reviewed and reconciled in the chart ASSESSMENT: 1. Acute alcoholic pancreatitis. 2. Leukopenia. 3. Anemia. 4. GI and DVT prophylaxis. Plan: Advance diet as tolerated. Will followup with GI services rec Subjective Allergies: Coded Allergies: AMOXICILLIN (Unverified Allergy, Unknown, 01/08/17) Uncoded Allergies: AMOXICILIN (Allergy, Unknown, 01/21/18) Objective Last 24 Hour Vital Signs Date Time Temp Pulse Resp B/P (MAP) Pulse Ox O2 Delivery O2 Flow Rate FiO2 01/23/18 09:00 Nasal Cannula 3.0 01/23/18 08:00 97.7 110 20 125/89 (101) 97 01/23/18 07:34 115 21 98 Nasal Cannula 2.0 28 01/23/18 07:24 113 23 96 Nasal Cannula 3.0 32 01/23/18 04:00 99.1 115 22 131/97 (108) 95 01/23/18 04:00 107 01/23/18 00:00 98.4 109 28 126/95 (105) 98 01/23/18 00:00 106 01/22/18 20:14 Nasal Cannula 3.0 01/22/18 20:00 98.4 107 28 125/95 (105) 98 01/22/18 20:00 106 01/22/18 19:25 103 20 97 Nasal Cannula 3.0 32 01/22/18 19:13 103 22 Room Air 01/22/18 19:13 103 22 98 Nasal Cannula 3.0 32 01/22/18 19:13 36 01/22/18 16:00 99.5 123 20 123/94 (104) 98 01/22/18 16:00 119 01/22/18 13:11 123 32 100 Nasal Cannula 3.0 32 01/22/18 13:02 125 28 94 Nasal Cannula 3.0 32 01/22/18 13:02 36 01/22/18 12:30 98.6 125 20 121/94 (103) 96 01/22/18 12:00 127 01/22/18 12:00 98.4 116 21 123/89 (100) 90 01/22/18 11:44 97.6 117 20 123/90 (101) 96 01/22/18 10:58 98.4 Intake and Output 01/22/18 01/23/18 19:00 07:00 Intake Total 950 ml 880 ml Balance 950 ml 880 ml IV Total 950 ml 880 ml # Voids 2 2 Laboratory Tests 01/23/18 07:20: White Blood Count 5.7#, Red Blood Count 3.63L, Hemoglobin 9.7L, Hematocrit 30.8L , Mean Corpuscular Volume 85, Mean Corpuscular Hemoglobin 26.6L, Mean Corpuscular Hemoglobin Concent 31.4L, Red Cell Distribution Width 16.5H, Platelet Count 290, Mean Platelet Volume 6.0L, Neutrophils (%) (Auto) 62.8, Lymphocytes (%) (Auto) 30.1, Monocytes (%) (Auto) 5.6, Eosinophils (%) (Auto) 0.4, Basophils (%) (Auto) 1.2, Sodium Level 141, Potassium Level 3.7, Chloride Level 108H, Carbon Dioxide Level 23, Anion Gap 10, Blood Urea Nitrogen 9, Creatinine 0.9, Estimat Glomerular Filtration Rate > 60, Glucose Level 103, Calcium Level 8.1L, Total Bilirubin 1.1H, Direct Bilirubin 0.2, Aspartate Amino Transf (AST/SGOT) 29, Alanine Aminotransferase (ALT/SGPT) 19, Alkaline Phosphatase 63, Total Protein 6.6, Albumin 2.6L, Globulin 4.0, Albumin/Globulin Ratio 0.6L, Lipase [Pending] Height (Feet): 5 Height (Inches): 2.00 Weight (Pounds): 120 Matteo Nguyen MD Jan 23, 2018 10:29
--- NOTE | 2018-01-23 11:06 | GI Progress Note ---
Assessment/Plan Problems: (1) Drug-seeking behavior ICD Codes: Z76.5 - Malingerer [conscious simulation] SNOMED: 287597978 (2) Alcohol abuse ICD Codes: F10.10 - Alcohol abuse, uncomplicated SNOMED: 58930403 (3) Anemia ICD Codes: D64.9 - Anemia, unspecified SNOMED: 741657145 (4) Pancreatitis ICD Codes: K85.90 - Acute pancreatitis without necrosis or infection, unspecified SNOMED: 05970636 Status: unchanged Status Narrative Discussed with Dr. Smith. Assessment/Plan CLD, adv as tolerated pain mgmt IV/PO hydration venofer avoid ETOH trend lipase The patient was seen and examined at bedside and all new and available data was reviewed in the patients chart. I agree with the above findings, impression and plan. (Patient seen earlier today. Signature stamp does not reflect patient encounter time.). - Margarito Smith MD Subjective Subjective c/o of worsening abdominal pain requesting dilaudid 2mg Objective Last 24 Hour Vital Signs Date Time Temp Pulse Resp B/P (MAP) Pulse Ox O2 Delivery O2 Flow Rate FiO2 01/23/18 09:00 Nasal Cannula 3.0 01/23/18 08:00 97.7 110 20 125/89 (101) 97 01/23/18 08:00 109 01/23/18 07:34 115 21 98 Nasal Cannula 2.0 28 01/23/18 07:24 113 23 96 Nasal Cannula 3.0 32 01/23/18 04:00 99.1 115 22 131/97 (108) 95 01/23/18 04:00 107 01/23/18 00:00 98.4 109 28 126/95 (105) 98 01/23/18 00:00 106 01/22/18 20:14 Nasal Cannula 3.0 01/22/18 20:00 98.4 107 28 125/95 (105) 98 01/22/18 20:00 106 01/22/18 19:25 103 20 97 Nasal Cannula 3.0 32 01/22/18 19:13 103 22 Room Air 01/22/18 19:13 103 22 98 Nasal Cannula 3.0 32 01/22/18 19:13 36 01/22/18 16:00 99.5 123 20 123/94 (104) 98 01/22/18 16:00 119 01/22/18 13:11 123 32 100 Nasal Cannula 3.0 32 01/22/18 13:02 125 28 94 Nasal Cannula 3.0 32 01/22/18 13:02 36 01/22/18 12:30 98.6 125 20 121/94 (103) 96 01/22/18 12:00 127 01/22/18 12:00 98.4 116 21 123/89 (100) 90 01/22/18 11:44 97.6 117 20 123/90 (101) 96 Intake and Output 01/22/18 01/23/18 18:59 06:59 Intake Total 950 ml 805 ml Balance 950 ml 805 ml IV Total 950 ml 805 ml # Voids 2 2 Laboratory Tests Test 01/23/18 07:20 White Blood Count 5.7 K/UL (4.8-10.8) # Red Blood Count 3.63 M/UL (4.20-5.40) L Hemoglobin 9.7 G/DL (12.0-16.0) L Hematocrit 30.8 % (37.0-47.0) L Mean Corpuscular Volume 85 FL (80-99) Mean Corpuscular Hemoglobin 26.6 PG (27.0-31.0) L Mean Corpuscular Hemoglobin Concent 31.4 G/DL (32.0-36.0) L Red Cell Distribution Width 16.5 % (11.6-14.8) H Platelet Count 290 K/UL (150-450) Mean Platelet Volume 6.0 FL (6.5-10.1) L Neutrophils (%) (Auto) 62.8 % (45.0-75.0) Lymphocytes (%) (Auto) 30.1 % (20.0-45.0) Monocytes (%) (Auto) 5.6 % (1.0-10.0) Eosinophils (%) (Auto) 0.4 % (0.0-3.0) Basophils (%) (Auto) 1.2 % (0.0-2.0) Sodium Level 141 MMOL/L (136-145) Potassium Level 3.7 MMOL/L (3.5-5.1) Chloride Level 108 MMOL/L (98-107) H Carbon Dioxide Level 23 MMOL/L (21-32) Anion Gap 10 mmol/L (5-15) Blood Urea Nitrogen 9 mg/dL (7-18) Creatinine 0.9 MG/DL (0.55-1.30) Estimat Glomerular Filtration Rate > 60 mL/min (>60) Glucose Level 103 MG/DL (74-106) Calcium Level 8.1 MG/DL (8.5-10.1) L Total Bilirubin 1.1 MG/DL (0.2-1.0) H Direct Bilirubin 0.2 MG/DL (0.0-0.3) Aspartate Amino Transf (AST/SGOT) 29 U/L (15-37) Alanine Aminotransferase (ALT/SGPT) 19 U/L (12-78) Alkaline Phosphatase 63 U/L (46-116) Total Protein 6.6 G/DL (6.4-8.2) Albumin 2.6 G/DL (3.4-5.0) L Globulin 4.0 g/dL Albumin/Globulin Ratio 0.6 (1.0-2.7) L Lipase 235 U/L (73-393) Height (Feet): 5 Height (Inches): 2.00 Weight (Pounds): 120 General Appearance: WD/WN, no apparent distress, alert Cardiovascular: normal rate Respiratory/Chest: normal breath sounds, no respiratory distress Abdominal Exam: normal bowel sounds, non tender, soft Extremities: normal range of motion, non-tender Ayesha Chavarria NP Jan 23, 2018 11:06
[2018-01-23 12:00] VITALS: BP 132/93
--- NOTE | 2018-01-23 14:13 | Cardiology Progress Note ---
Assessment/Plan Assessment/Plan The patient is seen and examined, full consult report will be dictated shortly. Objective Last 24 Hour Vital Signs Date Time Temp Pulse Resp B/P (MAP) Pulse Ox O2 Delivery O2 Flow Rate FiO2 01/23/18 13:46 106 20 98 Room Air 21 01/23/18 13:36 104 18 94 Room Air 21 01/23/18 12:00 98.9 107 17 132/93 (106) 92 01/23/18 09:00 Nasal Cannula 3.0 01/23/18 08:00 97.7 110 20 125/89 (101) 97 01/23/18 08:00 109 01/23/18 07:34 115 21 98 Nasal Cannula 2.0 28 01/23/18 07:24 113 23 96 Nasal Cannula 3.0 32 01/23/18 04:00 99.1 115 22 131/97 (108) 95 01/23/18 04:00 107 01/23/18 00:00 98.4 109 28 126/95 (105) 98 01/23/18 00:00 106 01/22/18 20:14 Nasal Cannula 3.0 01/22/18 20:00 98.4 107 28 125/95 (105) 98 01/22/18 20:00 106 01/22/18 19:25 103 20 97 Nasal Cannula 3.0 32 01/22/18 19:13 103 22 Room Air 01/22/18 19:13 103 22 98 Nasal Cannula 3.0 32 01/22/18 19:13 36 01/22/18 16:00 99.5 123 20 123/94 (104) 98 01/22/18 16:00 119 Intake and Output 01/22/18 01/23/18 18:59 06:59 Intake Total 950 ml 805 ml Balance 950 ml 805 ml IV Total 950 ml 805 ml # Voids 2 2 Laboratory Tests Test 01/23/18 07:20 White Blood Count 5.7 K/UL (4.8-10.8) # Red Blood Count 3.63 M/UL (4.20-5.40) L Hemoglobin 9.7 G/DL (12.0-16.0) L Hematocrit 30.8 % (37.0-47.0) L Mean Corpuscular Volume 85 FL (80-99) Mean Corpuscular Hemoglobin 26.6 PG (27.0-31.0) L Mean Corpuscular Hemoglobin Concent 31.4 G/DL (32.0-36.0) L Red Cell Distribution Width 16.5 % (11.6-14.8) H Platelet Count 290 K/UL (150-450) Mean Platelet Volume 6.0 FL (6.5-10.1) L Neutrophils (%) (Auto) 62.8 % (45.0-75.0) Lymphocytes (%) (Auto) 30.1 % (20.0-45.0) Monocytes (%) (Auto) 5.6 % (1.0-10.0) Eosinophils (%) (Auto) 0.4 % (0.0-3.0) Basophils (%) (Auto) 1.2 % (0.0-2.0) Sodium Level 141 MMOL/L (136-145) Potassium Level 3.7 MMOL/L (3.5-5.1) Chloride Level 108 MMOL/L (98-107) H Carbon Dioxide Level 23 MMOL/L (21-32) Anion Gap 10 mmol/L (5-15) Blood Urea Nitrogen 9 mg/dL (7-18) Creatinine 0.9 MG/DL (0.55-1.30) Estimat Glomerular Filtration Rate > 60 mL/min (>60) Glucose Level 103 MG/DL (74-106) Calcium Level 8.1 MG/DL (8.5-10.1) L Total Bilirubin 1.1 MG/DL (0.2-1.0) H Direct Bilirubin 0.2 MG/DL (0.0-0.3) Aspartate Amino Transf (AST/SGOT) 29 U/L (15-37) Alanine Aminotransferase (ALT/SGPT) 19 U/L (12-78) Alkaline Phosphatase 63 U/L (46-116) Total Protein 6.6 G/DL (6.4-8.2) Albumin 2.6 G/DL (3.4-5.0) L Globulin 4.0 g/dL Albumin/Globulin Ratio 0.6 (1.0-2.7) L Lipase 235 U/L (73-393) Efrain Golden MD Jan 23, 2018 14:13
[2018-01-23] MEDS ORDERED: Iron Sucrose 100 MG in NS 55 ML IV SCH (14:30)
[2018-01-23] MEDS: Enalapril 5mg tab ORAL SCH (14:58)
[2018-01-23 16:00] VITALS: BP 137/101
[2018-01-23] MEDS ORDERED: Morphine Sulfate 2mg/ml Inj IVP PRN (18:15)
[2018-01-23 20:00] VITALS: BP 122/94
[2018-01-24] VITALS: BP 116/80
--- NOTE | 2018-01-24 03:45 | Consultation ---
DATE OF CONSULTATION: 01/23/2018 CARDIOLOGY CONSULTATION CONSULTING PHYSICIAN: Efrain Golden M.D. REFERRING PHYSICIAN: Matteo Nguyen M.D. REASON FOR CONSULTATION: Congestive heart failure. HISTORY OF PRESENT ILLNESS: The patient is a very unfortunate 22-year-old female with history of alcohol abuse, who was brought in by EMS after increased abdominal pain. The patient apparently has history of prior congestive heart failure as well as pancreatitis. The patient had associated nausea and vomiting and according to the records, the patient had been drinking alcohol. She was just recently discharged from the hospital 2 days prior to this event. At the time of arrival to the hospital, blood pressure was 111/77 and heart rate was 105. She had a urine tox screen, which showed no evidence of recreational drugs. However, her serum lipase levels confirmed the presence of acute pancreatitis. The serum alcohol level was 137 mg/dL as well. She was admitted to Med/Surg unit with diagnosis of hypertension, however, she remained to be tachycardic and given the abnormal 2D echocardiography findings, she was transferred to telemetry for further evaluation and management. At the time of my evaluation, the patient was sedated with morphine as well as Librium. PAST MEDICAL HISTORY: 1. History of congestive heart failure. 2. History of bronchitis. 3. History of hypertension. 4. History of gastritis. 5. History of pancreatitis. 6. History of depression. 7. History of anxiety disorder. 8. History of substance abuse. PAST SURGICAL HISTORY: None. LIST OF MEDICATIONS: Nexium 20 mg p.o. daily and pantoprazole 40 mg p.o. daily. The rest of medication is unknown. ALLERGIES: Amoxicillin. SOCIAL HISTORY: Drink alcohol heavily. Denies any tobacco or illicit drug use. REVIEW OF SYSTEM: A 12-system review could not be done due to the patient's lethargic state. PHYSICAL EXAMINATION: VITAL SIGNS: Blood pressure at the time of arrival to the hospital was 111/77, pulse of 105, respiration rate 14, temperature 98.2 degrees Fahrenheit, and O2 saturation 99% on room air. GENERAL: The patient is a very unfortunate 22-year-old, female, who appears to be diaphoretic, ill-appearing, currently lethargic, and not verbally communicating HEENT: Atraumatic and normocephalic. Anicteric. Pupils are equal, round, and reactive to light and accommodation. NECK: Hyperdynamic carotid. JVP is elevated about 10 cm. No carotid bruit. CVS: Normal S1, S2, tachycardic. There is some mention of gallop, both S3 and S4. A 2/6 mid systolic murmur at the left sternal border. PMI is at fourth intercostal space at the midclavicular line. LUNGS: Clear to auscultation bilaterally. ABDOMEN: Soft, nontender, and nondistended. Positive bowel sounds. EXTREMITIES: No evidence of edema, clubbing, or cyanosis. LABORATORY FINDINGS: WBC was 3.5, hemoglobin 9.3, hematocrit of 30.6, and platelet count 372,000. Sodium 142, potassium 3.8, chloride 109, bicarb 25, BUN of 6, creatinine 0.8, glucose 93, and calcium is 8.9. Magnesium was 1.2. Lipase was 565. INR is 1.1. A 2D echocardiography showed global left ventricular hypokinesia with left ventricular ejection fraction of approximately 30 to 35 percent, [id number] mitral regurgitation, moderate tricuspid regurgitation with right ventricular systolic pressure measured at 69 mmHg, and presence of a pseudo normal LV physiology consistent with moderately elevated left atrial pressure. There is evidence of mild pulmonary regurgitation as well. Chest x-ray was significant for borderline cardiomegaly, but no acute cardiopulmonary disease. ASSESSMENT AND PLAN: The patient is a very unfortunate 22-year-old female seen in Cardiology consultation. 1. Acute systolic and diastolic congestive heart failure. 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 The patient will require to be on beta-blockers, JACOB inhibitor, as well as digoxin. Doubt, in view of her age, ischemic workup is necessary. We will continue guideline directed medical therapy. The patient requires rehab social work professor for alcohol abstinence. We may require clonidine to sympathetic activity from central nervous system as well. 2. Acute relapsing on chronic pancreatitis. Pain control, bowel rest, currently on benzodiazepines for withdrawal symptoms. 3. Severe pulmonary hypertension due to left heart failure. 4. History of depression. I would like to thank, Dr. Coy, for allowing me to participate in the care of this patient. Efrain Golden M.D. DR: RALPH JOB#: [id number] CC:
[2018-01-24] MEDS: Morphine Sulfate 2mg/ml Inj IVP PRN ×3 (04:12→17:12)
[2018-01-24] MEDS: D5NS 1,000 ML IV SCH (04:14)
[2018-01-24 07:16] LABS: BASOPHILS % (AUTO) 0.4 % (0.0-2.0); EOSINOPHILS % (AUTO) 0.9 % (0.0-3.0); HEMATOCRIT 28.2 % (37.0-47.0); HEMOGLOBIN 8.7 G/DL (12.0-16.0); LYMPHOCYTES % (AUTO) 24.6 % (20.0-45.0); MEAN CORPUSCULAR VOLUME 84 FL (80-99); MONOCYTES % (AUTO) 6.3 % (1.0-10.0); NEUTROPHILS % (AUTO) 67.8 % (45.0-75.0); PLATELET COUNT 252 K/UL (150-450); RED BLOOD COUNT 3.35 M/UL (4.20-5.40); RED CELL DISTRIBUTION WIDTH 16.3 % (11.6-14.8); WHITE BLOOD COUNT 5.5 K/UL (4.8-10.8)
[2018-01-24] MEDS: Levalbuterol Inh UD 1.25mg/0.5ml HHN SCH ×2 (07:27→13:11)
[2018-01-24 07:35] LABS: ALANINE AMINOTRANSFERASE 25 U/L (12-78); ALBUMIN 2.4 G/DL (3.4-5.0); ALBUMIN/GLOBULIN RATIO 0.6 (1.0-2.7); ALKALINE PHOSPHATASE 61 U/L (46-116); ASPARTATE AMINO TRANSFERASE 46 U/L (15-37); BILIRUBIN,TOTAL 1.2 MG/DL (0.2-1.0); BLOOD UREA NITROGEN 10 mg/dL (7-18); CHLORIDE 109 MMOL/L (98-107); POTASSIUM 4.1 MMOL/L (3.5-5.1); SODIUM 138 MMOL/L (136-145)
[2018-01-24 07:49] LABS: BILIRUBIN,DIRECT 0.2 MG/DL (0.0-0.3)
[2018-01-24 07:55] LABS: CARBON DIOXIDE 19 MMOL/L (21-32)
[2018-01-24 08:00] VITALS: BP_SYST 128; BP_SYST 152; BP_DIAS 84; BP_DIAS 96
--- NOTE | 2018-01-24 08:13 | Cardiology Report ---
APPROVED REPORT EXAM: Two-dimensional and M-mode echocardiogram with Doppler and color Doppler. INDICATION Atrial Fibrillation M-Mode DIMENSIONS IVSd1.1 (0.7-1.1cm)Left Atrium (MM)4.0 (1.6-4.0cm) LVDd5.0 (3.5-5.6cm)Aortic Root2.2 (2.0-3.7cm) PWd1.0 (0.7-1.1cm)Aortic Cusp Exc.1.6 (1.5-2.0cm) LVDs4.0 (2.5-4.0cm) PWs1.6 cm Mild left ventricularl enlargment . Global left ventricular hypokinesia. A round amorphous density is seen in the apical wall which may represent apical wall thrombus. Left ventricular ejection fraction estimated to be 30%. Borderline left ventricular hypertrophy. Trivial pericardial effusion. Mild left atrial enlargment . Right cardiac chamber sizes are within normal limits. Normal aortic valve structure with adequate cusp excursion. Mildly thickened mitral valve leaflets with normal excursion. Mild mitral annulus and aortic root calcification. Normal pulmonic valve structure. Normal tricuspid valve structure. IVC dilated at 2.3 cm without physiological collapse, suggestive of increased RA pressure. A color flow and spectral Doppler study was performed and revealed: No aortic insufficiency. Moderate mitral regurgitation. Mitral inflow velocities indicates possible E/A reversal implying impaired LV relaxation (Grade I ). Moderate tricuspid regurgitation. Tricuspid systolic velocities suggests peak right ventricular systolic pressure of 69 mmHg, consistent with severe pulmonary hypertension. Mild pulmonic regurgitation present.
--- NOTE | 2018-01-24 08:25 | Cardiology Report ---
APPROVED REPORT EKG Measurement Heart [id number] Sinus tachycardia Rightward axis T wave abnormality, consider anterior ischemia Abnormal ECG
--- NOTE | 2018-01-24 08:28 | Cardiology Report ---
APPROVED REPORT EKG Measurement Heart [id number] Sinus tachycardia Nonspecific T wave abnormality Abnormal ECG
[2018-01-24] MEDS: Enalapril 5mg tab ORAL SCH (09:54)
[2018-01-24] MEDS: chlordiazePOXIDE 25mg Cap ORAL SCH ×4 (09:57→21:43)
[2018-01-24] MEDS ORDERED: NovoLOG Insulin Flexpen SUBQ SCH ×2 (11:30→11:50)
[2018-01-24 12:00] VITALS: BP 116/83
--- NOTE | 2018-01-24 12:12 | General Progress Note ---
Assessment/Plan Assessment/Plan S: I have lots of pain O: appears comfortable, denies any diarrhea or fever PHYSICAL EXAMINATION: HEAD AND NECK: Atraumatic and normocephalic. CHEST: Clear to auscultation. HEART: S1 and S2. Regular rate and rhythm. ABDOMEN: Positive for tenderness. Negative for rebound tenderness. NEUROLOGIC: The patient is awake, alert, and oriented x3. Medication: including Morphin 2 mg IV tid PRN , reviewed and reconciled in the chart ASSESSMENT: 1. Acute alcoholic pancreatitis. 2. Leukopenia. 3. CHF- D+E : Stable. 4. Anemia. 5. Alcoholism 6. Narcotic seeking behavior 4. GI and DVT prophylaxis. Plan: Advance diet as tolerated. Medically stable for outpatient followup after Gurpreet by GI services rec Subjective Allergies: Coded Allergies: AMOXICILLIN (Unverified Allergy, Unknown, 01/08/17) Uncoded Allergies: AMOXICILIN (Allergy, Unknown, 01/21/18) Objective Last 24 Hour Vital Signs Date Time Temp Pulse Resp B/P (MAP) Pulse Ox O2 Delivery O2 Flow Rate FiO2 01/24/18 09:54 128/96 01/24/18 09:54 109 01/24/18 09:54 109 128/96 01/24/18 09:00 Room Air 01/24/18 08:32 108 20 99 Room Air 21 01/24/18 08:32 109 20 99 Room Air 21 01/24/18 08:00 98.5 113 21 128/96 (107) 99 01/24/18 07:51 114 01/24/18 04:00 102 01/24/18 04:00 97.9 99 20 99 01/24/18 00:00 98.2 100 20 116/80 (92) 92 01/23/18 23:57 99 01/23/18 21:59 111 122/94 01/23/18 21:00 Room Air 01/23/18 20:03 Room Air 21 01/23/18 20:02 Room Air 21 01/23/18 20:00 97.4 111 18 122/94 (103) 97 01/23/18 20:00 101 01/23/18 16:00 113 01/23/18 16:00 97.5 110 18 137/101 (113) 97 01/23/18 14:58 127/87 01/23/18 14:57 112 127/87 11/5/18 14:55 112 01/23/18 13:46 106 20 98 Room Air 21 01/23/18 13:36 104 18 94 Room Air 21 Intake and Output 01/23/18 01/24/18 19:00 07:00 Intake Total 480 ml Balance 480 ml Intake Oral 480 ml # Voids 4 1 Laboratory Tests 01/24/18 05:20: White Blood Count 5.5, Red Blood Count 3.35L, Hemoglobin 8.7L, Hematocrit 28.2L , Mean Corpuscular Volume 84, Mean Corpuscular Hemoglobin 26.0L, Mean Corpuscular Hemoglobin Concent 30.9L, Red Cell Distribution Width 16.3H, Platelet Count 252, Mean Platelet Volume 6.3L, Neutrophils (%) (Auto) 67.8, Lymphocytes (%) (Auto) 24.6, Monocytes (%) (Auto) 6.3, Eosinophils (%) (Auto) 0.9, Basophils (%) (Auto) 0.4, Sodium Level 138, Potassium Level 4.1, Chloride Level 109H, Carbon Dioxide Level 19L, Blood Urea Nitrogen 10, Creatinine 1.0, Estimat Glomerular Filtration Rate > 60, Glucose Level 112H, Calcium Level 8.0L , Total Bilirubin 1.2H, Direct Bilirubin 0.2, Aspartate Amino Transf (AST/SGOT) 46H, Alanine Aminotransferase (ALT/SGPT) 25, Alkaline Phosphatase 61, Total Protein 6.3L, Albumin 2.4L, Globulin 3.9, Albumin/Globulin Ratio 0.6L, Lipase 309 Height (Feet): 5 Height (Inches): 2.00 Weight (Pounds): 120 Matteo Nguyen MD Jan 24, 2018 12:12
--- NOTE | 2018-01-24 13:36 | Consultation ---
History of Present Illness General Chief Complaint: Abdominal Pain Present Illness HPI 22-year-old female with a history of alcoholism, who presented with acute onset of pain in the left upper quadrant of abdomen. The patient describes the pain as sharp as 9. the pt has tachycardia and is very agitated. the pt is minimizing her drinking. Allergies: Coded Allergies: AMOXICILLIN (Unverified Allergy, Unknown, 01/08/17) Uncoded Allergies: AMOXICILIN (Allergy, Unknown, 01/21/18) Medication History Scheduled Esomeprazole Magnesium (Nexium), 20 MG ORAL DAILY, (Reported) No Known Medications* (NKM - No Known Medications*), 0 ., (Reported) Pantoprazole* (Protonix*), 40 MG ORAL DAILY, (Reported) Patient History Limited by: medical condition History Provided By: Patient, Medical Record Healthcare decision maker REID WHE[employer]ER Resuscitation status Full Code Advanced Directive on File No Past Medical/Surgical History Past Medical/Surgical History: (1) Alcohol abuse (2) Anemia (3) Pancreatitis Review of Systems Psychiatric: Reports: prior hx, anxiety, depressed feelings, emotional problems Physical Exam General Appearance: no apparent distress, alert Neurologic: oriented x 3, responsive, depressed affect Last 24 Hour Vital Signs Date Time Temp Pulse Resp B/P (MAP) Pulse Ox O2 Delivery O2 Flow Rate FiO2 01/24/18 13:15 100 20 99 Room Air 21 01/24/18 13:12 111 20 97 Room Air 21 01/24/18 12:00 98.8 110 18 116/83 (94) 98 01/24/18 11:24 107 01/24/18 09:54 128/96 01/24/18 09:54 109 01/24/18 09:54 109 128/96 01/24/18 09:00 Room Air 01/24/18 08:32 108 20 99 Room Air 21 01/24/18 08:32 109 20 99 Room Air 21 01/24/18 08:00 98.5 113 21 128/96 (107) 99 01/24/18 07:51 114 01/24/18 04:00 102 01/24/18 04:00 97.9 99 20 99 01/24/18 00:00 98.2 100 20 116/80 (92) 92 01/23/18 23:57 99 01/23/18 21:59 111 122/94 01/23/18 21:00 Room Air 01/23/18 20:03 Room Air 21 01/23/18 20:02 Room Air 21 01/23/18 20:00 97.4 111 18 122/94 (103) 97 01/23/18 20:00 101 01/23/18 16:00 113 01/23/18 16:00 97.5 110 18 137/101 (113) 97 01/23/18 14:58 127/87 01/23/18 14:57 112 127/87 01/23/18 14:55 112 01/23/18 13:46 106 20 98 Room Air 21 01/23/18 13:36 104 18 94 Room Air 21 Intake and Output 01/23/18 01/24/18 18:59 06:59 Intake Total 555 ml Balance 555 ml Intake Oral 480 ml IV Total 75 ml # Voids 4 1 Laboratory Tests Test 01/24/18 05:20 White Blood Count 5.5 K/UL (4.8-10.8) Red Blood Count 3.35 M/UL (4.20-5.40) L Hemoglobin 8.7 G/DL (12.0-16.0) L Hematocrit 28.2 % (37.0-47.0) L Mean Corpuscular Volume 84 FL (80-99) Mean Corpuscular Hemoglobin 26.0 PG (27.0-31.0) L Mean Corpuscular Hemoglobin Concent 30.9 G/DL (32.0-36.0) L Red Cell Distribution Width 16.3 % (11.6-14.8) H Platelet Count 252 K/UL (150-450) Mean Platelet Volume 6.3 FL (6.5-10.1) L Neutrophils (%) (Auto) 67.8 % (45.0-75.0) Lymphocytes (%) (Auto) 24.6 % (20.0-45.0) Monocytes (%) (Auto) 6.3 % (1.0-10.0) Eosinophils (%) (Auto) 0.9 % (0.0-3.0) Basophils (%) (Auto) 0.4 % (0.0-2.0) Sodium Level 138 MMOL/L (136-145) Potassium Level 4.1 MMOL/L (3.5-5.1) Chloride Level 109 MMOL/L (98-107) H Carbon Dioxide Level 19 MMOL/L (21-32) L Blood Urea Nitrogen 10 mg/dL (7-18) Creatinine 1.0 MG/DL (0.55-1.30) Estimat Glomerular Filtration Rate > 60 mL/min (>60) Glucose Level 112 MG/DL (74-106) H Calcium Level 8.0 MG/DL (8.5-10.1) L Total Bilirubin 1.2 MG/DL (0.2-1.0) H Direct Bilirubin 0.2 MG/DL (0.0-0.3) Aspartate Amino Transf (AST/SGOT) 46 U/L (15-37) H Alanine Aminotransferase (ALT/SGPT) 25 U/L (12-78) Alkaline Phosphatase 61 U/L (46-116) Total Protein 6.3 G/DL (6.4-8.2) L Albumin 2.4 G/DL (3.4-5.0) L Globulin 3.9 g/dL Albumin/Globulin Ratio 0.6 (1.0-2.7) L Lipase 309 U/L (73-393) Height (Feet): 5 Height (Inches): 2.00 Weight (Pounds): 120 Medications Current Medications Medications (Trade) Dose Ordered Sig/Leora Route PRN Reason Start Time Stop Time Status Last Admin Dose Admin Albuterol Sulfate (Proventil) 2.5 mg Q4H PRN HHN Shortness of Breath 01/22/18 12:50 01/27/18 12:49 Carvedilol (Coreg) 3.125 mg EVERY 12 HOURS ORAL 01/23/18 14:33 02/22/18 14:32 01/24/18 09:54 Chlordiazepoxide (Librium) 25 mg QID ORAL 01/22/18 13:00 01/28/18 20:59 01/24/18 13:25 Digoxin (Lanoxin) 0.25 mg DAILY ORAL 01/23/18 14:34 02/22/18 14:33 01/24/18 09:54 Enalapril Maleate (Vasotec) 5 mg DAILY ORAL 01/23/18 14:33 02/22/18 14:32 01/24/18 09:54 Folic Acid (Folate) 1 mg DAILY ORAL 11/5/18 09:00 02/21/18 08:59 01/24/18 09:57 Ketorolac Tromethamine (Toradol 30mg) 30 mg Q12H PRN IV PAIN 1-6 01/22/18 12:33 01/26/18 12:32 01/22/18 17:03 Levalbuterol HCl (Xopenex) 1.25 mg TIDRT HHN 01/22/18 13:02 01/27/18 13:01 01/24/18 13:11 Lorazepam (Ativan 2mg/ml 1ml) 1 mg TIDPRN PRN IVP For Anxiety 01/22/18 12:33 01/29/18 12:32 01/23/18 18:07 Morphine Sulfate (Morphine Sulfate) 2 mg Q6H PRN IVP Severe Pain (Pain Scale 7-10) 01/23/18 18:30 01/30/18 18:14 01/24/18 10:58 Multivitamins (Multivitamins) 1 tab DAILY ORAL 01/23/18 09:00 02/21/18 08:59 01/24/18 09:55 Pantoprazole (Protonix) 40 mg EVERY 12 HOURS ORAL 01/24/18 09:00 02/23/18 08:59 01/24/18 09:54 Assessment/Plan Problem List: (1) Alcohol abuse ICD Codes: F10.10 - Alcohol abuse, uncomplicated SNOMED: 26884533 Assessment/Plan dc Ativan Valium prn folate and thiamine Raciel Stout MD Jan 24, 2018 13:36
[2018-01-24] MEDS ORDERED: Thiamine 100mg tab ORAL SCH (13:45)
--- NOTE | 2018-01-24 14:51 | GI Progress Note ---
Assessment/Plan Problems: (1) Drug-seeking behavior ICD Codes: Z76.5 - Malingerer [conscious simulation] SNOMED: 615593135 (2) Alcohol abuse ICD Codes: F10.10 - Alcohol abuse, uncomplicated SNOMED: 63523531 (3) Anemia ICD Codes: D64.9 - Anemia, unspecified SNOMED: 039928063 (4) Pancreatitis ICD Codes: K85.90 - Acute pancreatitis without necrosis or infection, unspecified SNOMED: 22048047 Status: unchanged Status Narrative Discussed with Dr. Smith. Assessment/Plan history of CHF, EF 20% patient is medically cleared for discharge per GI standpoint lipase levels are within normal limits patient states she vomited her breakfast, however no reports from nursing noted pain mgmt IV/PO hydration venofer folate/MVI bowel regime avoid ETOH The patient was seen and examined at bedside and all new and available data was reviewed in the patients chart. I agree with the above findings, impression and plan. (Patient seen earlier today. Signature stamp does not reflect patient encounter time.). - Margarito Smith MD Subjective Subjective c/o of worsening abdominal pain 12/28 states she vomited this morning states she is not tolerating diet requesting dilaudid 2mg, which is the only thing that relieves her pain Objective Last 24 Hour Vital Signs Date Time Temp Pulse Resp B/P (MAP) Pulse Ox O2 Delivery O2 Flow Rate FiO2 01/24/18 13:15 100 20 99 Room Air 21 01/24/18 13:12 111 20 97 Room Air 21 01/24/18 12:00 98.8 110 18 116/83 (94) 98 01/24/18 11:24 107 01/24/18 09:54 128/96 01/24/18 09:54 109 01/24/18 09:54 109 128/96 01/24/18 09:00 Room Air 01/24/18 08:32 108 20 99 Room Air 21 01/24/18 08:32 109 20 99 Room Air 21 01/24/18 08:00 98.5 113 21 128/96 (107) 99 01/24/18 07:51 114 01/24/18 04:00 102 01/24/18 04:00 97.9 99 20 99 01/24/18 00:00 98.2 100 20 116/80 (92) 92 01/23/18 23:57 99 01/23/18 21:59 111 122/94 01/23/18 21:00 Room Air 01/23/18 20:03 Room Air 21 01/23/18 20:02 Room Air 21 01/23/18 20:00 97.4 111 18 122/94 (103) 97 01/23/18 20:00 101 01/23/18 16:00 113 01/23/18 16:00 97.5 110 18 137/101 (113) 97 01/23/18 14:58 127/87 01/23/18 14:57 112 127/87 01/23/18 14:55 112 Intake and Output 01/23/18 01/24/18 18:59 06:59 Intake Total 555 ml Balance 555 ml Intake Oral 480 ml IV Total 75 ml # Voids 4 1 Laboratory Tests Test 01/24/18 05:20 White Blood Count 5.5 K/UL (4.8-10.8) Red Blood Count 3.35 M/UL (4.20-5.40) L Hemoglobin 8.7 G/DL (12.0-16.0) L Hematocrit 28.2 % (37.0-47.0) L Mean Corpuscular Volume 84 FL (80-99) Mean Corpuscular Hemoglobin 26.0 PG (27.0-31.0) L Mean Corpuscular Hemoglobin Concent 30.9 G/DL (32.0-36.0) L Red Cell Distribution Width 16.3 % (11.6-14.8) H Platelet Count 252 K/UL (150-450) Mean Platelet Volume 6.3 FL (6.5-10.1) L Neutrophils (%) (Auto) 67.8 % (45.0-75.0) Lymphocytes (%) (Auto) 24.6 % (20.0-45.0) Monocytes (%) (Auto) 6.3 % (1.0-10.0) Eosinophils (%) (Auto) 0.9 % (0.0-3.0) Basophils (%) (Auto) 0.4 % (0.0-2.0) Sodium Level 138 MMOL/L (136-145) Potassium Level 4.1 MMOL/L (3.5-5.1) Chloride Level 109 MMOL/L (98-107) H Carbon Dioxide Level 19 MMOL/L (21-32) L Blood Urea Nitrogen 10 mg/dL (7-18) Creatinine 1.0 MG/DL (0.55-1.30) Estimat Glomerular Filtration Rate > 60 mL/min (>60) Glucose Level 112 MG/DL (74-106) H Calcium Level 8.0 MG/DL (8.5-10.1) L Total Bilirubin 1.2 MG/DL (0.2-1.0) H Direct Bilirubin 0.2 MG/DL (0.0-0.3) Aspartate Amino Transf (AST/SGOT) 46 U/L (15-37) H Alanine Aminotransferase (ALT/SGPT) 25 U/L (12-78) Alkaline Phosphatase 61 U/L (46-116) Total Protein 6.3 G/DL (6.4-8.2) L Albumin 2.4 G/DL (3.4-5.0) L Globulin 3.9 g/dL Albumin/Globulin Ratio 0.6 (1.0-2.7) L Lipase 309 U/L (73-393) Height (Feet): 5 Height (Inches): 2.00 Weight (Pounds): 120 General Appearance: WD/WN, no apparent distress, alert Cardiovascular: normal rate Respiratory/Chest: normal breath sounds, no respiratory distress Abdominal Exam: normal bowel sounds, non tender, soft Extremities: normal range of motion, non-tender Ayesha Chavarria NP Jan 24, 2018 14:51
[2018-01-24 16:00] VITALS: BP 119/83
[2018-01-24 20:00] VITALS: BP 125/91
[2018-01-24 20:43] VITALS: BP 116/79
[2018-01-24] MEDS ORDERED: Albuterol ud Inhalation HHN PRN (21:00)
[2018-01-24] MEDS ORDERED: Carvedilol 6.25mg Tab ORAL SCH (21:00)
[2018-01-24] MEDS ORDERED: Ketorolac 30mg Inj IV PRN (21:30)
[2018-01-24] MEDS: Carvedilol 6.25mg Tab ORAL SCH (21:43)
--- NOTE | 2018-01-24 23:55 | Cardiology Progress Note ---
Assessment/Plan Assessment/Plan 1. Acute systolic congestive heart failure. Continue GDMT, optimize carvedilol since she is still tachycardic. Echo showed probably well compensated CHF. 2. Acute relapsing on chronic pancreatitis. Pain control, bowel rest, currently on benzodiazepines for withdrawal symptoms. 3. Severe pulmonary hypertension due to left heart failure. 4. History of depression. Subjective Subjective Sinus rhythm at rate of 92. Objective Last 24 Hour Vital Signs Date Time Temp Pulse Resp B/P (MAP) Pulse Ox O2 Delivery O2 Flow Rate FiO2 01/24/18 21:43 92 116/79 01/24/18 20:43 98.7 92 16 116/79 (91) 93 01/24/18 20:00 98.2 90 20 125/91 (102) 98 01/24/18 20:00 92 01/24/18 20:00 Room Air 01/24/18 16:00 98.7 99 18 119/83 (95) 98 01/24/18 15:44 95 01/24/18 13:15 100 20 99 Room Air 21 01/24/18 13:12 111 20 97 Room Air 21 01/24/18 12:00 98.8 110 18 116/83 (94) 98 01/24/18 11:24 107 01/24/18 09:54 128/96 01/24/18 09:54 109 01/24/18 09:54 109 128/96 01/24/18 09:00 Room Air 01/24/18 08:32 108 20 99 Room Air 21 01/24/18 08:32 109 20 99 Room Air 21 01/24/18 08:00 98.5 113 21 128/96 (107) 99 01/24/18 07:51 114 01/24/18 04:00 102 01/24/18 04:00 97.9 99 20 99 01/24/18 00:00 98.2 100 20 116/80 (92) 92 01/23/18 23:57 99 Intake and Output 01/23/18 01/24/18 19:00 07:00 Intake Total 480 ml Balance 480 ml Intake Oral 480 ml # Voids 4 1 2D Echo: LVEF ~30%, Moderate-Sev MR, RVSP 69 mmHg, E/A reversal or Grade I LVDD Laboratory Tests Test 01/24/18 05:20 White Blood Count 5.5 K/UL (4.8-10.8) Red Blood Count 3.35 M/UL (4.20-5.40) L Hemoglobin 8.7 G/DL (12.0-16.0) L Hematocrit 28.2 % (37.0-47.0) L Mean Corpuscular Volume 84 FL (80-99) Mean Corpuscular Hemoglobin 26.0 PG (27.0-31.0) L Mean Corpuscular Hemoglobin Concent 30.9 G/DL (32.0-36.0) L Red Cell Distribution Width 16.3 % (11.6-14.8) H Platelet Count 252 K/UL (150-450) Mean Platelet Volume 6.3 FL (6.5-10.1) L Neutrophils (%) (Auto) 67.8 % (45.0-75.0) Lymphocytes (%) (Auto) 24.6 % (20.0-45.0) Monocytes (%) (Auto) 6.3 % (1.0-10.0) Eosinophils (%) (Auto) 0.9 % (0.0-3.0) Basophils (%) (Auto) 0.4 % (0.0-2.0) Sodium Level 138 MMOL/L (136-145) Potassium Level 4.1 MMOL/L (3.5-5.1) Chloride Level 109 MMOL/L (98-107) H Carbon Dioxide Level 19 MMOL/L (21-32) L Blood Urea Nitrogen 10 mg/dL (7-18) Creatinine 1.0 MG/DL (0.55-1.30) Estimat Glomerular Filtration Rate > 60 mL/min (>60) Glucose Level 112 MG/DL (74-106) H Calcium Level 8.0 MG/DL (8.5-10.1) L Total Bilirubin 1.2 MG/DL (0.2-1.0) H Direct Bilirubin 0.2 MG/DL (0.0-0.3) Aspartate Amino Transf (AST/SGOT) 46 U/L (15-37) H Alanine Aminotransferase (ALT/SGPT) 25 U/L (12-78) Alkaline Phosphatase 61 U/L (46-116) Total Protein 6.3 G/DL (6.4-8.2) L Albumin 2.4 G/DL (3.4-5.0) L Globulin 3.9 g/dL Albumin/Globulin Ratio 0.6 (1.0-2.7) L Lipase 309 U/L (73-393) Objective HEENT: Atraumatic and normocephalic. Anicteric. Pupils are equal, round, and reactive to light and accommodation. NECK: Hyperdynamic carotid. JVP is elevated about 10 cm. No carotid bruit. CVS: Normal S1, S2, summation gallop(S3 and S4). A 2/6 mid systolic murmur at the left sternal border. PMI is at fourth intercostal space at the midclavicular line. LUNGS: Clear to auscultation bilaterally. ABDOMEN: Soft, nontender, and nondistended. Positive bowel sounds. EXTREMITIES: No evidence of edema, clubbing, or cyanosis. Efrain Golden MD Jan 24, 2018 23:55
[2018-01-25] VITALS: BP 116/81
[2018-01-25] MEDS: Morphine Sulfate 2mg/ml Inj IVP PRN ×2 (02:22→08:20)
[2018-01-25 04:00] VITALS: BP 119/81
[2018-01-25] MEDS ORDERED: Levalbuterol Inh UD 1.25mg/0.5ml HHN SCH (07:00)
[2018-01-25 07:15] LABS: EOSINOPHILS % (AUTO) 1.5 % (0.0-3.0); HEMATOCRIT 27.5 % (37.0-47.0); HEMOGLOBIN 8.5 G/DL (12.0-16.0); LYMPHOCYTES % (AUTO) 32.2 % (20.0-45.0); MEAN CORPUSCULAR VOLUME 83 FL (80-99); MONOCYTES % (AUTO) 6.4 % (1.0-10.0); PLATELET COUNT 217 K/UL (150-450); RED BLOOD COUNT 3.31 M/UL (4.20-5.40); RED CELL DISTRIBUTION WIDTH 16.4 % (11.6-14.8); WHITE BLOOD COUNT 4.3 K/UL (4.8-10.8)
[2018-01-25 07:29] LABS: ALANINE AMINOTRANSFERASE 31 U/L (12-78); ALBUMIN 2.4 G/DL (3.4-5.0); ALBUMIN/GLOBULIN RATIO 0.6 (1.0-2.7); ALKALINE PHOSPHATASE 60 U/L (46-116); ANION GAP 9 mmol/L (5-15); ASPARTATE AMINO TRANSFERASE 45 U/L (15-37); BILIRUBIN,TOTAL 0.9 MG/DL (0.2-1.0); BLOOD UREA NITROGEN 9 mg/dL (7-18); CALCIUM 8.3 MG/DL (8.5-10.1); CARBON DIOXIDE 23 MMOL/L (21-32); CHLORIDE 108 MMOL/L (98-107); POTASSIUM 3.8 MMOL/L (3.5-5.1); SODIUM 140 MMOL/L (136-145)
[2018-01-25 08:00] VITALS: BP 128/88
[2018-01-25] MEDS: chlordiazePOXIDE 25mg Cap ORAL SCH (08:20)
[2018-01-25] MEDS: Carvedilol 6.25mg Tab ORAL SCH (08:25)
[2018-01-25] MEDS ORDERED: Spironolactone 25mg tab ORAL SCH (09:00)
[2018-01-25] MEDS ORDERED: Thiamine 100mg tab ORAL SCH (09:00)
[2018-01-25] MEDS ORDERED: Enalapril 5mg tab ORAL SCH (09:00)
[2018-01-25] MEDS ORDERED: ALDACTONE25 MG ORAL (10:42)
[2018-01-25] MEDS ORDERED: ENALAPRIL MALEAT5 MG ORAL (10:42)
[2018-01-25] MEDS ORDERED: COREG6.25 MG ORAL (10:42)
[2018-01-25] MEDS ORDERED: LANOXIN250 MCG ORAL (10:42)
--- NOTE | 2018-01-25 10:48 | General Progress Note ---
Assessment/Plan Assessment/Plan S: I have lots of pain O: appears comfortable, denies any diarrhea or fever PHYSICAL EXAMINATION: HEAD AND NECK: Atraumatic and normocephalic. CHEST: Clear to auscultation. HEART: S1 and S2. Regular rate and rhythm. ABDOMEN: Positive for tenderness. Negative for rebound tenderness. NEUROLOGIC: The patient is awake, alert, and oriented x3. Medication: including Morphin 2 mg IV tid PRN , reviewed and reconciled in the chart ASSESSMENT: 1. Acute alcoholic pancreatitis. 2. Leukopenia. 3. CHF- D+E : Stable. 4. Anemia. 5. Alcoholism 6. Narcotic seeking behavior 4. GI and DVT prophylaxis. Plan: Advance diet as tolerated. Medically stable for outpatient followup after Gurpreet by GI services rec Subjective Allergies: Coded Allergies: AMOXICILLIN (Unverified Allergy, Unknown, 01/08/17) Uncoded Allergies: AMOXICILIN (Allergy, Unknown, 01/21/18) Objective Last 24 Hour Vital Signs Date Time Temp Pulse Resp B/P (MAP) Pulse Ox O2 Delivery O2 Flow Rate FiO2 01/25/18 09:00 Room Air 01/25/18 08:26 128/88 01/25/18 08:25 88 128/88 01/25/18 08:20 88 01/25/18 08:00 99.0 88 20 128/88 (101) 96 01/25/18 07:55 95 20 99 Room Air 01/25/18 07:46 93 20 99 Room Air 01/25/18 04:00 97.9 93 16 119/81 (94) 92 01/25/18 02:52 97.9 01/25/18 00:00 97.9 95 16 116/81 (93) 96 01/24/18 21:43 92 116/79 01/24/18 20:43 98.7 92 16 116/79 (91) 93 01/24/18 20:00 98.2 90 20 125/91 (102) 98 01/24/18 20:00 92 01/24/18 20:00 Room Air 01/24/18 16:00 98.7 99 18 119/83 (95) 98 01/24/18 15:44 95 01/24/18 13:15 100 20 99 Room Air 21 01/24/18 13:12 111 20 97 Room Air 21 01/24/18 12:00 98.8 110 18 116/83 (94) 98 01/24/18 11:24 107 Intake and Output 01/24/18 01/25/18 19:00 07:00 Intake Total 240 ml Balance 240 ml Intake Oral 240 ml # Voids 2 3 Laboratory Tests 01/25/18 06:42: White Blood Count 4.3L, Red Blood Count 3.31L, Hemoglobin 8.5L, Hematocrit 27.5L , Mean Corpuscular Volume 83, Mean Corpuscular Hemoglobin 25.8L, Mean Corpuscular Hemoglobin Concent 30.9L, Red Cell Distribution Width 16.4H, Platelet Count 217, Mean Platelet Volume 6.2L, Neutrophils (%) (Auto) 59.0, Lymphocytes (%) (Auto) 32.2, Monocytes (%) (Auto) 6.4, Eosinophils (%) (Auto) 1.5, Basophils (%) (Auto) 1.0, Sodium Level 140, Potassium Level 3.8, Chloride Level 108H, Carbon Dioxide Level 23, Anion Gap 9, Blood Urea Nitrogen 9, Creatinine 1.0, Estimat Glomerular Filtration Rate > 60, Glucose Level 103, Calcium Level 8.3L, Total Bilirubin 0.9, Aspartate Amino Transf (AST/SGOT) 45H, Alanine Aminotransferase (ALT/SGPT) 31, Alkaline Phosphatase 60, Total Protein 6.5, Albumin 2.4L, Globulin 4.1, Albumin/Globulin Ratio 0.6L Height (Feet): 5 Height (Inches): 2.00 Weight (Pounds): 138 Matteo Nguyen MD Jan 25, 2018 10:48
--- NOTE | 2018-01-25 11:03 | General Progress Note ---
Assessment/Plan Problem List: (1) Alcohol abuse ICD Codes: F10.10 - Alcohol abuse, uncomplicated SNOMED: 10995620 Status: stable, progressing Assessment/Plan provided ro/st Valium prn folate and thiamine Subjective Date patient seen: Jan 25, 2018 Neurologic/Psychiatric: Reports: anxiety Allergies: Coded Allergies: AMOXICILLIN (Unverified Allergy, Unknown, 01/08/17) Uncoded Allergies: AMOXICILIN (Allergy, Unknown, 01/21/18) Subjective the pt c/o pain GI cleared her. she is on valium for withdrawal stable Objective Last 24 Hour Vital Signs Date Time Temp Pulse Resp B/P (MAP) Pulse Ox O2 Delivery O2 Flow Rate FiO2 01/25/18 09:00 Room Air 01/25/18 08:26 128/88 01/25/18 08:25 88 128/88 01/25/18 08:20 88 01/25/18 08:00 99.0 88 20 128/88 (101) 96 01/25/18 07:55 95 20 99 Room Air 21 01/25/18 07:46 93 20 99 Room Air 21 01/25/18 04:00 97.9 93 16 119/81 (94) 92 01/25/18 02:52 97.9 01/25/18 00:00 97.9 95 16 116/81 (93) 96 01/24/18 21:43 92 116/79 01/24/18 20:43 98.7 92 16 116/79 (91) 93 01/24/18 20:00 98.2 90 20 125/91 (102) 98 01/24/18 20:00 92 01/24/18 20:00 Room Air 01/24/18 16:00 98.7 99 18 119/83 (95) 98 01/24/18 15:44 95 01/24/18 13:15 100 20 99 Room Air 21 01/24/18 13:12 111 20 97 Room Air 21 01/24/18 12:00 98.8 110 18 116/83 (94) 98 01/24/18 11:24 107 Intake and Output 01/24/18 01/25/18 19:00 07:00 Intake Total 240 ml Balance 240 ml Intake Oral 240 ml # Voids 2 3 Laboratory Tests 01/25/18 06:42: White Blood Count 4.3L, Red Blood Count 3.31L, Hemoglobin 8.5L, Hematocrit 27.5L , Mean Corpuscular Volume 83, Mean Corpuscular Hemoglobin 25.8L, Mean Corpuscular Hemoglobin Concent 30.9L, Red Cell Distribution Width 16.4H, Platelet Count 217, Mean Platelet Volume 6.2L, Neutrophils (%) (Auto) 59.0, Lymphocytes (%) (Auto) 32.2, Monocytes (%) (Auto) 6.4, Eosinophils (%) (Auto) 1.5, Basophils (%) (Auto) 1.0, Sodium Level 140, Potassium Level 3.8, Chloride Level 108H, Carbon Dioxide Level 23, Anion Gap 9, Blood Urea Nitrogen 9, Creatinine 1.0, Estimat Glomerular Filtration Rate > 60, Glucose Level 103, Calcium Level 8.3L, Total Bilirubin 0.9, Aspartate Amino Transf (AST/SGOT) 45H, Alanine Aminotransferase (ALT/SGPT) 31, Alkaline Phosphatase 60, Total Protein 6.5, Albumin 2.4L, Globulin 4.1, Albumin/Globulin Ratio 0.6L Height (Feet): 5 Height (Inches): 2.00 Weight (Pounds): 138 General Appearance: alert Neurologic: oriented x 3, responsive, depressed affect Raciel Stout MD Jan 25, 2018 11:03
[2018-01-25 12:08] VITALS: BP 113/74
[2018-01-25] MEDS ORDERED: D5NS 1000ml IV ONE (12:29)
[2018-01-25] MEDS ORDERED: Tubing IV Secondary IV ONE (12:29)
--- NOTE | 2018-01-25 12:54 | GI Progress Note ---
Assessment/Plan Problems: (1) Drug-seeking behavior ICD Codes: Z76.5 - Malingerer [conscious simulation] SNOMED: 929777844 (2) Alcohol abuse ICD Codes: F10.10 - Alcohol abuse, uncomplicated SNOMED: 26407390 (3) Anemia ICD Codes: D64.9 - Anemia, unspecified SNOMED: 911310478 (4) Pancreatitis ICD Codes: K85.90 - Acute pancreatitis without necrosis or infection, unspecified SNOMED: 57244026 Status: stable Status Narrative Discussed with Dr. Smith. Assessment/Plan history of CHF, EF 20% patient is medically cleared for discharge per GI standpoint lipase levels are within normal limits patient states she vomited her breakfast, however no reports from nursing noted pain mgmt IV/PO hydration venofer folate/MVI bowel regime avoid ETOH The patient was seen and examined at bedside and all new and available data was reviewed in the patients chart. I agree with the above findings, impression and plan. (Patient seen earlier today. Signature stamp does not reflect patient encounter time.). - Margarito Smith MD Subjective Subjective c/o of worsening abdominal pain 12/28 states she vomited this morning states she is not tolerating diet requesting dilaudid 2mg, which is the only thing that relieves her pain Objective Last 24 Hour Vital Signs Date Time Temp Pulse Resp B/P (MAP) Pulse Ox O2 Delivery O2 Flow Rate FiO2 01/25/18 12:08 98.1 100 19 113/74 (87) 01/25/18 09:00 Room Air 01/25/18 08:26 128/88 01/25/18 08:25 88 128/88 01/25/18 08:20 88 01/25/18 08:00 99.0 88 20 128/88 (101) 96 01/25/18 07:55 95 20 99 Room Air 21 01/25/18 07:46 93 20 99 Room Air 21 01/25/18 04:00 97.9 93 16 119/81 (94) 92 01/25/18 02:52 97.9 01/25/18 00:00 97.9 95 16 116/81 (93) 96 01/24/18 21:43 92 116/79 01/24/18 20:43 98.7 92 16 116/79 (91) 93 01/24/18 20:00 98.2 90 20 125/91 (102) 98 01/24/18 20:00 92 01/24/18 20:00 Room Air 01/24/18 16:00 98.7 99 18 119/83 (95) 98 01/24/18 15:44 95 01/24/18 13:15 100 20 99 Room Air 21 01/24/18 13:12 111 20 97 Room Air 21 Intake and Output 01/24/18 01/25/18 19:00 07:00 Intake Total 240 ml Balance 240 ml Intake Oral 240 ml # Voids 2 3 Laboratory Tests Test 01/25/18 06:42 White Blood Count 4.3 K/UL (4.8-10.8) L Red Blood Count 3.31 M/UL (4.20-5.40) L Hemoglobin 8.5 G/DL (12.0-16.0) L Hematocrit 27.5 % (37.0-47.0) L Mean Corpuscular Volume 83 FL (80-99) Mean Corpuscular Hemoglobin 25.8 PG (27.0-31.0) L Mean Corpuscular Hemoglobin Concent 30.9 G/DL (32.0-36.0) L Red Cell Distribution Width 16.4 % (11.6-14.8) H Platelet Count 217 K/UL (150-450) Mean Platelet Volume 6.2 FL (6.5-10.1) L Neutrophils (%) (Auto) 59.0 % (45.0-75.0) Lymphocytes (%) (Auto) 32.2 % (20.0-45.0) Monocytes (%) (Auto) 6.4 % (1.0-10.0) Eosinophils (%) (Auto) 1.5 % (0.0-3.0) Basophils (%) (Auto) 1.0 % (0.0-2.0) Sodium Level 140 MMOL/L (136-145) Potassium Level 3.8 MMOL/L (3.5-5.1) Chloride Level 108 MMOL/L (98-107) H Carbon Dioxide Level 23 MMOL/L (21-32) Anion Gap 9 mmol/L (5-15) Blood Urea Nitrogen 9 mg/dL (7-18) Creatinine 1.0 MG/DL (0.55-1.30) Estimat Glomerular Filtration Rate > 60 mL/min (>60) Glucose Level 103 MG/DL (74-106) Calcium Level 8.3 MG/DL (8.5-10.1) L Total Bilirubin 0.9 MG/DL (0.2-1.0) Aspartate Amino Transf (AST/SGOT) 45 U/L (15-37) H Alanine Aminotransferase (ALT/SGPT) 31 U/L (12-78) Alkaline Phosphatase 60 U/L (46-116) Total Protein 6.5 G/DL (6.4-8.2) Albumin 2.4 G/DL (3.4-5.0) L Globulin 4.1 g/dL Albumin/Globulin Ratio 0.6 (1.0-2.7) L Height (Feet): 5 Height (Inches): 2.00 Weight (Pounds): 138 General Appearance: WD/WN, no apparent distress, alert Cardiovascular: normal rate Respiratory/Chest: normal breath sounds, no respiratory distress Abdominal Exam: normal bowel sounds, non tender, soft Extremities: normal range of motion, non-tender Ayesha Chavarria TOUCH UP CARVER Jan 25, 2018 12:53
--- NOTE | 2018-01-25 23:05 | Cardiology Progress Note ---
Assessment/Plan Assessment/Plan 1. Acute systolic congestive heart failure. Continue GDMT, Echo showed probably well compensated CHF. 2. Acute relapsing on chronic pancreatitis. Pain control, bowel rest, currently on benzodiazepines for withdrawal symptoms. 3. Severe pulmonary hypertension due to left heart failure. 4. History of depression. Subjective Subjective No cardiac events. Transferred to the med-surg unit. Objective Last 24 Hour Vital Signs Date Time Temp Pulse Resp B/P (MAP) Pulse Ox O2 Delivery O2 Flow Rate FiO2 01/25/18 12:08 98.1 100 19 113/74 (87) 01/25/18 09:00 Room Air 01/25/18 08:26 128/88 01/25/18 08:25 88 128/88 01/25/18 08:20 88 01/25/18 08:00 99.0 88 20 128/88 (101) 96 01/25/18 07:55 95 20 99 Room Air 21 01/25/18 07:46 93 20 99 Room Air 21 01/25/18 04:00 97.9 93 16 119/81 (94) 92 01/25/18 02:52 97.9 01/25/18 00:00 97.9 95 16 116/81 (93) 96 Intake and Output 01/24/18 01/25/18 18:59 06:59 Intake Total 240 ml Balance 240 ml Intake Oral 240 ml # Voids 2 3 2D Echo: LVEF ~30%, Moderate-Sev MR, RVSP 69 mmHg, E/A reversal or Grade I LVDD Laboratory Tests Test 01/25/18 06:42 White Blood Count 4.3 K/UL (4.8-10.8) L Red Blood Count 3.31 M/UL (4.20-5.40) L Hemoglobin 8.5 G/DL (12.0-16.0) L Hematocrit 27.5 % (37.0-47.0) L Mean Corpuscular Volume 83 FL (80-99) Mean Corpuscular Hemoglobin 25.8 PG (27.0-31.0) L Mean Corpuscular Hemoglobin Concent 30.9 G/DL (32.0-36.0) L Red Cell Distribution Width 16.4 % (11.6-14.8) H Platelet Count 217 K/UL (150-450) Mean Platelet Volume 6.2 FL (6.5-10.1) L Neutrophils (%) (Auto) 59.0 % (45.0-75.0) Lymphocytes (%) (Auto) 32.2 % (20.0-45.0) Monocytes (%) (Auto) 6.4 % (1.0-10.0) Eosinophils (%) (Auto) 1.5 % (0.0-3.0) Basophils (%) (Auto) 1.0 % (0.0-2.0) Sodium Level 140 MMOL/L (136-145) Potassium Level 3.8 MMOL/L (3.5-5.1) Chloride Level 108 MMOL/L (98-107) H Carbon Dioxide Level 23 MMOL/L (21-32) Anion Gap 9 mmol/L (5-15) Blood Urea Nitrogen 9 mg/dL (7-18) Creatinine 1.0 MG/DL (0.55-1.30) Estimat Glomerular Filtration Rate > 60 mL/min (>60) Glucose Level 103 MG/DL (74-106) Calcium Level 8.3 MG/DL (8.5-10.1) L Total Bilirubin 0.9 MG/DL (0.2-1.0) Aspartate Amino Transf (AST/SGOT) 45 U/L (15-37) H Alanine Aminotransferase (ALT/SGPT) 31 U/L (12-78) Alkaline Phosphatase 60 U/L (46-116) Total Protein 6.5 G/DL (6.4-8.2) Albumin 2.4 G/DL (3.4-5.0) L Globulin 4.1 g/dL Albumin/Globulin Ratio 0.6 (1.0-2.7) L Objective HEENT: Atraumatic and normocephalic. Anicteric. Pupils are equal, round, and reactive to light and accommodation. NECK: Hyperdynamic carotid. JVP is elevated about 10 cm. No carotid bruit. CVS: Normal S1, S2, summation gallop(S3 and S4). A 2/6 mid systolic murmur at the left sternal border. PMI is at fourth intercostal space at the midclavicular line. LUNGS: Clear to auscultation bilaterally. ABDOMEN: Soft, nontender, and nondistended. Positive bowel sounds. EXTREMITIES: No evidence of edema, clubbing, or cyanosis. [place],Efrain MD Jan 25, 2018 23:05
--- NOTE | 2018-01-26 15:45 | Discharge Summary ---
Discharge Summary Discharge Summary _ DATE OF ADMISSION: 01/21/2018 DATE OF DISCHARGE: 01/25/2018 CONSULTANTS: Dr. Margarito Stout BRIEF HOSPITAL COURSE: Patient is a 22-year-old female, with history of alcoholism, presented to ED with acute onset of pain in the left upper quadrant of the abdomen. The patient described pain to be sharp, 9 out of 10, with radiation to the back. Positive for nausea. She denied diarrhea. Denied fever or chills. On evaluation at ED, blood pressure was 111/77, pulse rate 105, temperature 99. Blood work showed elevated lipase and blood alcohol level. WBC was 3.5, hemoglobin 9.3, hematocrit 30, LFTs were normal. Urine toxicology was negative. She was given IV acid jie. She was counselled against alcohol cessation. She was then admitted for acute alcoholic pancreatitis. She was placed on NPO and was given bowel rest. She was given multivitamin, thiamine and folate. She was placed on Librium 4 times a day. She was placed on benzodiazepine prn withdrawal symptoms/anxiety. She had leukopenia. HIV screen was negative. Warehouse Operations Manager was consulted for evaluation of CHF. Echocardiogram showed global left ventricular hypokinesia with left ventricular ejection fraction of approximately 30-35%, moderate to severe mitral regurgitation, moderate tricuspid regurgitation with right ventricular systolic pressure measured at 69 mmHg, and presence of pseudo-normal LV physiology consistent with moderately elevated left atrial pressure. There is evidence of mild pulmonary regurgitation as well. She was given beta blockers, JACOB inhibitor as well as digoxin. In view of her age, ischemic workup was not necessary. She was given guidelines directed medical therapy. Lipase down trended and normalized. Diet was advanced. She was given Morphine although was requesting for Dilaudid for pain relief. She was seen by psychiatrist for substance abuse disorder. She was also seen by social service. Patient was not receptive to substance abuse resources. She was eventually cleared for discharge back to recuperative care. FINAL DIAGNOSES: Acute alcoholic pancreatitis Acute systolic heart failure, well compensated Leukopenia Anemia Alcoholism Narcotic seeking behavior Severe pulmonary hypertension due to left heart failure Depression DISPOSITION: Patient was discharged back to recuperative care. DISCHARGE MEDICATIONS: Refer to Discharge Medication List. DISCHARGE INSTRUCTIONS: Follow up with PCP in a week. I have been assigned to dictate discharge summary on this account, and I was not involved in the patient's management. Rosetta Tineo NP Jan 26, 2018 15:45
== END 2018-01-25 12:30 | disposition home or self-care (01) | DRG 282 ==
LOC: EDBD 14:13 → EMR 15:36 → 3E 16:50 → EDBEDREQ 16:57 → 2E 01-22 12:30 → 4E 01-24 20:25
DX: K85.20 Alcohol induced acute pancreatitis without necrosis or infection (principal); I50.21 Acute systolic (congestive) heart failure; I27.20 Pulmonary hypertension, unspecified; I36.1 Nonrheumatic tricuspid (valve) insufficiency; K86.1 Other chronic pancreatitis; D64.9 Anemia, unspecified; F10.20 Alcohol dependence, uncomplicated; Z76.5 Malingerer [conscious simulation]; I34.0 Nonrheumatic mitral (valve) insufficiency; F32.9 Major depressive disorder, single episode, unspecified; F41.9 Anxiety disorder, unspecified; Z88.1 Allergy status to other antibiotic agents
CPT/HCPCS: 36415; 71045; 80053; 80307; 80329; 81003; 81025; 82248; 83540; 83550; 83690; 83735; 84484; 85007; 85025; 85610; 85730; 86703; 86850; 86900; 86901; 93005; 93306; 94640; 94664; 96361; 96365; 96375; 99285; J1815; J2405

== ENCOUNTER 2018-01-31 16:21 | Inpatient (IN) | payer MEDICAID ==
[~2018-01-31] VITALS: Ht 162.6 cm; Wt 60.8 kg
[~2018-01-31 16:21] MED LIST changes: +ALDACTONE25 MG ORAL; +COREG6.25 MG ORAL; +ENALAPRIL MALEAT5 MG ORAL; +LANOXIN250 MCG ORAL; +PROTONIX40 MG ORAL
[2018-01-31] MEDS ORDERED: FUROSEMIDE20 M1 ORAL (16:27)
[2018-01-31] MEDS ORDERED: NORCO 7.5-3251 EACH ORAL (16:27)
[2018-01-31 16:40] VITALS: BP 104/67
--- NOTE | 2018-01-31 16:51 | Emergency Room Report ---
History of Present Illness General Chief Complaint: Abdominal Pain Source: Patient, Medical Record, EMS Present Illness HPI 22-year-old female, history of alcoholism, pancreatitis, new onset CHF likely alcohol related, recent discharge from [facility], presenting with abdominal pain. Patient states that she has had return of her abdominal pain, it was in the same region and same character as last time she was admitted and diagnosed pancreatitis, constant, nauseous, not vomiting. No fever no chills. Allergies: Coded Allergies: AMOXICILLIN (Unverified Allergy, Unknown, 01/08/17) Patient History Past Medical History: see triage record Past Surgical History: none Pertinent Family History: none Reviewed Nursing Documentation: PMH: Agreed; PSxH: Agreed Nursing Documentation-PMH Past Medical History: No History, Except For Hx Hypertension: Yes Hx Asthma: Yes Hx Cancer: No Hx Gastrointestinal Problems: Yes - GASTRITIS, pancreatitis Hx Neurological Problems: No Review of Systems All Other Systems: negative except mentioned in HPI Physical Exam Vital Signs Date Time Temp Pulse Resp B/P (MAP) Pulse Ox O2 Delivery O2 Flow Rate FiO2 01/31/18 16:24 98.1 96 18 105/69 98 Room Air Sp02 EP Interpretation: reviewed, normal General Appearance: alert, GCS 15, non-toxic, mild distress Head: normocephalic, atraumatic Eyes: bilateral eye normal inspection, bilateral eye PERRL, bilateral eye EOMI ENT: normal ENT inspection, normal pharynx, normal voice, moist mucus membranes Neck: normal inspection, full range of motion, supple Respiratory: normal inspection, lungs clear, normal breath sounds, no respiratory distress, no retraction, no wheezing, speaking full sentences, chest symmetrical Cardiovascular #1: normal inspection, regular rate, rhythm, no edema, normal capillary refill Cardiovascular #2: 2+ radial (R), 2+ radial (L) Gastrointestinal: other - Epigastric tenderness midline and left upper quadrant , no guarding no rebound Musculoskeletal: normal inspection, back normal, normal range of motion, non- tender Neurologic: normal inspection, alert, oriented x3, responsive, motor strength/ tone normal, sensory intact, normal gait, speech normal Psychiatric: normal inspection, judgement/insight normal, memory normal Skin: normal inspection, normal color, no rash, warm/dry, well hydrated, normal turgor Medical Decision Making Diagnostic Impression: Primary Impression: Pancreatitis Additional Impression: Intractable abdominal pain ER Course 22-year-old female with upper abdominal pain Differential Diagnosis: Pancreatitis, Gastritis, gastroenteritis, cholecystitis,UTI/pyelo Plan: Basic labs, ua, ekg Pepcid, maalox, pain control, IVF ER course: Patient has remained stable during ED stay continues to have pain nausea. Disposition: Patient is to be admitted to Dr Nguyen Please note that this Emergency Department Report was dictated using [employer] clerk technology software, occasionally this can lead to erroneous entry secondary to interpretation by the dictation equipment Laboratory Tests Test 01/31/18 17:17 01/31/18 17:18 Urine Color Pale yellow Urine Appearance Clear Urine pH 6.5 (4.5-8.0) Urine Specific [place] 1.005 (1.005-1.035) Urine Protein Negative (NEGATIVE) Urine Glucose (UA) Negative (NEGATIVE) Urine Ketones Negative (NEGATIVE) Urine Blood Negative (NEGATIVE) Urine Nitrite Negative (NEGATIVE) Urine Bilirubin Negative (NEGATIVE) Urine Urobilinogen Normal MG/DL (0.0-1.0) Urine Leukocyte Esterase Negative (NEGATIVE) Urine HCG, Qualitative Negative (NEGATIVE) White Blood Count 4.3 K/UL (4.8-10.8) L Red Blood Count 3.63 M/UL (4.20-5.40) L Hemoglobin 9.5 G/DL (12.0-16.0) L Hematocrit 30.8 % (37.0-47.0) L Mean Corpuscular Volume 85 FL (80-99) Mean Corpuscular Hemoglobin 26.3 PG (27.0-31.0) L Mean Corpuscular Hemoglobin Concent 31.0 G/DL (32.0-36.0) L Red Cell Distribution Width 18.0 % (11.6-14.8) H Platelet Count 227 K/UL (150-450) Mean Platelet Volume 6.8 FL (6.5-10.1) Neutrophils (%) (Auto) 50.9 % (45.0-75.0) Lymphocytes (%) (Auto) 35.6 % (20.0-45.0) Monocytes (%) (Auto) 9.8 % (1.0-10.0) Eosinophils (%) (Auto) 2.1 % (0.0-3.0) Basophils (%) (Auto) 1.7 % (0.0-2.0) Sodium Level 141 MMOL/L (136-145) Potassium Level 5.0 MMOL/L (3.5-5.1) Chloride Level 104 MMOL/L (98-107) Carbon Dioxide Level 28 MMOL/L (21-32) Anion Gap 9 mmol/L (5-15) Blood Urea Nitrogen 6 mg/dL (7-18) L Creatinine 0.8 MG/DL (0.55-1.30) Estimate Glomerular Filtration Rate > 60 mL/min (>60) Glucose Level 87 MG/DL (74-106) Calcium Level 9.4 MG/DL (8.5-10.1) Total Bilirubin 0.6 MG/DL (0.2-1.0) Aspartate Amino Transferase (AST) 54 U/L (15-37) H Alanine Aminotransferase (ALT) 30 U/L (12-78) Alkaline Phosphatase 85 U/L (46-116) Total Protein 8.3 G/DL (6.4-8.2) H Albumin 3.3 G/DL (3.4-5.0) L Globulin 5.0 g/dL Albumin/Globulin Ratio 0.7 (1.0-2.7) L Lipase 456 U/L (73-393) H CT/MRI/US Diagnostic Results CT/MRI/US Diagnostic Results : Imaging Test Ordered: CT abdo pelvis Impression No CT evidence of acute pancreatitis. Lipase not more sensitive. Unusual enhancement pattern of liver. Clearly congestion could be related to CHF or hepatitis, other edema or infiltration of the liver. Hepatomegaly noted. Spleen normal. No ascites. Small pericardial effusion. Contracted gallbladder no free air SBO or hydronephrosis Last Vital Signs Date Time Temp Pulse Resp B/P (MAP) Pulse Ox O2 Delivery O2 Flow Rate FiO2 01/31/18 16:24 98.1 96 18 105/69 98 Room Air Disposition: ADMITTED INPATIENT Condition: Mika Crews M.D. Jan 31, 2018 16:51
[2018-01-31] MEDS ORDERED: Isovue-300 100ml vial INJ PRN (17:15)
[2018-01-31 17:29] LABS: APPEARANCE,URINE CLEAR; BILIRUBIN, URINE NEGATIVE (NEGATIVE); COLOR,URINE PALE YELLOW; GLUCOSE, URINE (UA) NEGATIVE (NEGATIVE); KETONES,URINE NEGATIVE (NEGATIVE); LEUKOCYTE ESTERASE ,URINE NEGATIVE (NEGATIVE); NITRITE,URINE NEGATIVE (NEGATIVE); PH,URINE 6.5 (4.5-8.0); PROTEIN,URINE NEGATIVE (NEGATIVE); UROBILINOGEN,URINE NORMAL MG/DL (0.0-1.0)
[2018-01-31 17:36] LABS: BASOPHILS % (AUTO) 1.7 % (0.0-2.0); EOSINOPHILS % (AUTO) 2.1 % (0.0-3.0); HEMATOCRIT 30.8 % (37.0-47.0); HEMOGLOBIN 9.5 G/DL (12.0-16.0); LYMPHOCYTES % (AUTO) 35.6 % (20.0-45.0); MEAN CORPUSCULAR VOLUME 85 FL (80-99); MONOCYTES % (AUTO) 9.8 % (1.0-10.0); NEUTROPHILS % (AUTO) 50.9 % (45.0-75.0); PLATELET COUNT 227 K/UL (150-450); RED BLOOD COUNT 3.63 M/UL (4.20-5.40); WHITE BLOOD COUNT 4.3 K/UL (4.8-10.8)
[2018-01-31 17:44] LABS: ANION GAP 9 mmol/L (5-15); BLOOD UREA NITROGEN 6 mg/dL (7-18); CALCIUM 9.4 MG/DL (8.5-10.1); CARBON DIOXIDE 28 MMOL/L (21-32); CHLORIDE 104 MMOL/L (98-107); CREATININE 0.8 MG/DL (0.55-1.30); SODIUM 141 MMOL/L (136-145)
[2018-01-31 17:49] LABS: ALANINE AMINOTRANSFERASE 30 U/L (12-78); ALBUMIN 3.3 G/DL (3.4-5.0); ALBUMIN/GLOBULIN RATIO 0.7 (1.0-2.7); ALKALINE PHOSPHATASE 85 U/L (46-116); ASPARTATE AMINO TRANSFERASE 54 U/L (15-37); BILIRUBIN,TOTAL 0.6 MG/DL (0.2-1.0)
[2018-01-31] MEDS ORDERED: Morphine Sulfate 4mg/ml Inj (IV/IM USE ONLY) IVP ONE (18:00)
[2018-01-31] MEDS ORDERED: MACROBID100 MG ORAL (18:57)
[2018-01-31] MEDS ORDERED: ONDANSETRON ODT4 MG BC (18:58)
[2018-01-31] MEDS ORDERED: NORCO 5-325 TA1 EACH ORAL (18:59)
[2018-01-31 21:20] VITALS: BP 102/50
[2018-01-31] MEDS ORDERED: Morphine Sulfate 2mg/ml Inj IVP PRN (21:30)
[2018-01-31] MEDS ORDERED: LORazepam 1mg tab ORAL PRN (21:30)
[2018-02-01 04:00] VITALS: BP 104/78
[2018-02-01 06:36] LABS: HEMATOCRIT 31.6 % (37.0-47.0); HEMOGLOBIN 9.4 G/DL (12.0-16.0); MEAN CORPUSCULAR VOLUME 85 FL (80-99); PLATELET COUNT 210 K/UL (150-450); RED BLOOD COUNT 3.71 M/UL (4.20-5.40); WHITE BLOOD COUNT 3.3 K/UL (4.8-10.8)
[2018-02-01 07:22] LABS: ANION GAP 9 mmol/L (5-15); CARBON DIOXIDE 27 MMOL/L (21-32); CHLORIDE 107 MMOL/L (98-107); POTASSIUM 4.9 MMOL/L (3.5-5.1); SODIUM 143 MMOL/L (136-145)
[2018-02-01 07:35] LABS: BLOOD UREA NITROGEN 5 mg/dL (7-18); CALCIUM 8.8 MG/DL (8.5-10.1); CREATININE 0.9 MG/DL (0.55-1.30)
[2018-02-01 08:00] VITALS: BP 104/73
[2018-02-01 09:00] VITALS: BP 104/73
[2018-02-01] MEDS ORDERED: Enalapril 5mg tab ORAL SCH (09:00)
[2018-02-01] MEDS ORDERED: Heparin 5000 units/ml inj SUBQ SCH (09:00)
[2018-02-01] MEDS ORDERED: Carvedilol 6.25mg Tab ORAL SCH (09:00)
[2018-02-01] MEDS ORDERED: Spironolactone 25mg tab ORAL SCH (09:00)
--- NOTE | 2018-02-01 09:16 | History & Physical ---
History and Physical History & Physicial HISTORY OF PRESENT ILLNESS: The patient is a 22-year-old female with a history of alcoholism, cardiomyopathy who presented with acute onset of pain in the left upper quadrant of abdomen. The patient describes the pain as sharp as 9, positive for radiation to the back. Positive for nausea. The patient reportedly had given care. The patient denies any diarrhea. Denies any fever or chills. REVIEW OF SYSTEMS: All 14 elements of review of systems reviewed, pertinent positive and negative as above. PAST SURGICAL HISTORY: Denies. FAMILY HISTORY: Reviewed and noncontributory. SOCIAL HISTORY: Positive for alcohol abuse (quantification limited). The patient is single. The patient denies history of illicit drug abuse. Describes herself as a social tobacco user. MEDICATIONS: Current hospital medications including, but not limited to, folic acid, lorazepam, morphine sulfate, and multivitamin. PMH: CHF, Alcoholism, Pancreatitis, anemia, narcotic seeking behavior IMAGING: The chest x-ray shows borderline cardiomegaly, otherwise unremarkable. PHYSICAL EXAMINATION: VITAL SIGNS: Blood pressure 110/80, temperature 98.2 degrees, pulse oximetry 98% on room air, and pulse rate 110. HEAD AND NECK: Atraumatic and normocephalic. CHEST: Clear to auscultation. HEART: S1 and S2. Regular rate and rhythm. ABDOMEN: Positive for tenderness. Negative for rebound tenderness. NEUROLOGIC: The patient is awake, alert, and oriented x3. LABORATORY DATA: Laboratories dated January 21, 2018 shows WBC 3.5, hemoglobin 9.3, and platelet count of 372,000. Sodium 143, potassium 3.8, BUN 6, and creatinine 0.8. Albumin of 3. Lipase of 565. Urinalysis is unremarkable. Serum alcohol of 137. ASSESSMENT: 1. Acute alcoholic pancreatitis. 2. Leukopenia. 3. CHF- D+E : Stable. 4. Anemia. 5. Alcoholism 6. Narcotic seeking behavior 4. GI and DVT prophylaxis. PLAN OF CARE: I agree to start patient diet as tolerated. GI is consulted. Will KOURTNEY Powell. Current medical management, as patient had refused to pickup her medications from prior admission at discharge. Matteo Nguyen MD Feb 01, 2018 09:16
[2018-02-01] MEDS ORDERED: Digoxin 0.125mg tab ONE (09:28)
[2018-02-01 09:37] VITALS: BP 104/73
--- NOTE | 2018-02-01 10:58 | Diagnostic Imaging Report ---
Clinical Indication: Abdominal pain, history of alcoholism, pancreatitis, congestive heart failure Technique: No oral contrast utilized, per emergency room physician request IV administration nonionic contrast. Venous phase spiral acquisition obtained through the abdomen and pelvis. Multiplanar reconstructions were generated. Total dose length product 516.45 mGycm. CTDIvol(s) 10.58 mGy. Dose reduction achieved using automated exposure control Comparison: none Findings: The liver is enlarged. Unusual diffusely heterogeneous contrast opacification pattern noted. No focal abnormality. The hepatic veins are not opacified but appear to be present and normal in caliber. There is a small pericardial effusion. The heart is enlarged. The gallbladder is nondistended. Bile ducts are normal in caliber. The pancreas, spleen, adrenals, kidneys are unremarkable. No retroperitoneal or mesenteric mass or adenopathy. No pelvic mass or adenopathy. Unremarkable uterus and ovaries. Trace fluid is seen in the pelvis. No evidence of diverticulosis or diverticulitis. The appendix is normal. No small bowel distention. No free intraperitoneal gas. Distal esophagus, stomach unremarkable The included lung bases demonstrate atelectasis and consolidation on the left, minimal atelectasis or scarring on the right. The bones are unremarkable. Impression: Cardiomegaly Enlarged liver with unusual enhancement pattern. Suspect related to early phase of contrast opacification combined with hepatic congestion related to congestive heart failure. Small pericardial effusion Unremarkable pancreas. No CT findings to suggest acute pancreatitis. However, diagnosis should be based on laboratory findings Trace free pelvic fluid, most likely physiologic Left basilar pulmonary consolidation and atelectasis. Minimal right basilar atelectasis or scarring This agrees with the preliminary interpretation provided overnight by Dr. Pretty The CT scanner at [facility] is accredited by the [employer] and the scans are performed using protocols designed to limit radiation exposure to as low as reasonably achievable to attain images of sufficient resolution adequate for diagnostic evaluation.
--- NOTE | 2018-02-01 11:01 | GI Initial Consult Note ---
History of Present Illness General Date patient seen: Feb 01, 2018 Time patient seen: 10:55 Reason for Hospitalization: Abdominal Pain Referring physician: NICOLE NGUYEN Reason for Consultation: ABDOMINAL PAIN Present Illness HPI 22-year-old female, history of alcoholism, pancreatitis, new onset CHF likely alcohol related, recent discharge from [facility], presenting with abdominal pain. Patient states that she has had return of her abdominal pain, it was in the same region and same character as last time she was admitted and diagnosed pancreatitis, constant, nauseous, not vomiting. No fever no chills. GI consulted for abdominal pain. Pt seen, awake A&Ox4 NAD c/o of severe abdominal pain 12/28 requesting for specific pain medication. This patient had recent admission here at [facility] [place] for similar reasons. She presents today with mild lipase elevation, now normal. CT AP unremarkable. Home Meds Active Scripts Spironolactone (ALDACTONE) 25 Mg Tablet, 25 MG ORAL DAILY for 10 Days, TAB Prov:Matteo Nguyen MD 01/25/18 Enalapril Maleate* (ENALAPRIL MALEATE*) 5 Mg Tablet, 5 MG ORAL DAILY for 10 Days , TAB Prov:Matteo Nguyen MD 01/25/18 Digoxin* (LANOXIN*) 250 Mcg Tablet, 0.25 MG ORAL DAILY for 10 Days, TAB Prov:Matteo Nguyen MD 01/25/18 Carvedilol (Coreg) 6.25 Mg Tablet, 6.25 MG ORAL EVERY 12 HOURS for 10 Days, TAB Prov:Matteo Nguyen MD 01/25/18 Reported Medications Ondansetron Odt* (ZOFRAN ODT*) 4 Mg Tab.rapdis, 4 MG BC EVERY 6 HOURS PRN for Nausea & Vomiting, #15 TAB 01/31/18 Furosemide* (LASIX*) 20 Mg Tablet, ORAL DAILY, TAB 01/31/18 Pantoprazole* (PROTONIX*) 40 Mg Tablet.dr, 40 MG ORAL DAILY, TAB 01/21/18 Discontinued Reported Medications Hydrocodone Bit/Acetaminophen 5-325* (NORCO 5-325*) 1 Each Tablet, 1 TAB ORAL Q6H PRN for For Pain 01/31/18 Nitrofurantoin Monohyd/M-Cryst (Nitrofurantoin Pacific-Mcr 100 mg) 100 Mg Capsule, 100 MG ORAL BID for 7 Days, #14 01/31/18 Esomeprazole Magnesium (NEXIUM) 20 Mg Capsule.dr, 20 MG ORAL DAILY, CAP 01/09/17 Med list reviewed/reconciled: Yes Allergies: Coded Allergies: AMOXICILLIN (Unverified Allergy, Unknown, 01/08/17) Patient History History Provided By: Patient, Medical Record PMH Narrative Past Medical History: see triage record Past Surgical History: none Pertinent Family History: none Reviewed Nursing Documentation: PMH: Agreed; PSxH: Agreed Nursing Documentation-PMH Past Medical History: No History, Except For Hx Hypertension: Yes Hx Asthma: Yes Hx Cancer: No Hx Gastrointestinal Problems: Yes - GASTRITIS, pancreatitis Hx Neurological Problems: No Social History: Reports: alcohol use Review of Systems All Other Systems: negative except mentioned in HPI Physical Exam Vital Signs Date Time Temp Pulse Resp B/P (MAP) Pulse Ox O2 Delivery O2 Flow Rate FiO2 01/31/18 16:24 98.1 96 18 105/69 98 Room Air Sp02 EP Interpretation: reviewed, normal Labs Laboratory Tests Test 01/31/18 17:17 01/31/18 17:18 02/01/18 05:00 Urine Color Pale yellow Urine Appearance Clear Urine pH 6.5 (4.5-8.0) Urine Specific [place] 1.005 (1.005-1.035) Urine Protein Negative (NEGATIVE) Urine Glucose (UA) Negative (NEGATIVE) Urine Ketones Negative (NEGATIVE) Urine Blood Negative (NEGATIVE) Urine Nitrite Negative (NEGATIVE) Urine Bilirubin Negative (NEGATIVE) Urine Urobilinogen Normal MG/DL (0.0-1.0) Urine Leukocyte Esterase Negative (NEGATIVE) Urine HCG, Qualitative Negative (NEGATIVE) White Blood Count 4.3 K/UL (4.8-10.8) L 3.3 K/UL (4.8-10.8) L Red Blood Count 3.63 M/UL (4.20-5.40) L 3.71 M/UL (4.20-5.40) L Hemoglobin 9.5 G/DL (12.0-16.0) L 9.4 G/DL (12.0-16.0) L Hematocrit 30.8 % (37.0-47.0) L 31.6 % (37.0-47.0) L Mean Corpuscular Volume 85 FL (80-99) 85 FL (80-99) Mean Corpuscular Hemoglobin 26.3 PG (27.0-31.0) L 25.3 PG (27.0-31.0) L Mean Corpuscular Hemoglobin Concent 31.0 G/DL (32.0-36.0) L 29.6 G/DL (32.0-36.0) L Red Cell Distribution Width 18.0 % (11.6-14.8) H 18.0 % (11.6-14.8) H Platelet Count 227 K/UL (150-450) 210 K/UL (150-450) Mean Platelet Volume 6.8 FL (6.5-10.1) 7.5 FL (6.5-10.1) Neutrophils (%) (Auto) 50.9 % (45.0-75.0) % (45.0-75.0) Lymphocytes (%) (Auto) 35.6 % (20.0-45.0) % (20.0-45.0) Monocytes (%) (Auto) 9.8 % (1.0-10.0) % (1.0-10.0) Eosinophils (%) (Auto) 2.1 % (0.0-3.0) % (0.0-3.0) Basophils (%) (Auto) 1.7 % (0.0-2.0) % (0.0-2.0) Sodium Level 141 MMOL/L (136-145) 143 MMOL/L (136-145) Potassium Level 5.0 MMOL/L (3.5-5.1) 4.9 MMOL/L (3.5-5.1) Chloride Level 104 MMOL/L (98-107) 107 MMOL/L (98-107) Carbon Dioxide Level 28 MMOL/L (21-32) 27 MMOL/L (21-32) Anion Gap 9 mmol/L (5-15) 9 mmol/L (5-15) Blood Urea Nitrogen 6 mg/dL (7-18) L 5 mg/dL (7-18) L Creatinine 0.8 MG/DL (0.55-1.30) 0.9 MG/DL (0.55-1.30) Estimat Glomerular Filtration Rate > 60 mL/min (>60) > 60 mL/min (>60) Glucose Level 87 MG/DL (74-106) 77 MG/DL (74-106) Calcium Level 9.4 MG/DL (8.5-10.1) 8.8 MG/DL (8.5-10.1) Total Bilirubin 0.6 MG/DL (0.2-1.0) Aspartate Amino Transf (AST/SGOT) 54 U/L (15-37) H Alanine Aminotransferase (ALT/SGPT) 30 U/L (12-78) Alkaline Phosphatase 85 U/L (46-116) Total Protein 8.3 G/DL (6.4-8.2) H Albumin 3.3 G/DL (3.4-5.0) L Globulin 5.0 g/dL Albumin/Globulin Ratio 0.7 (1.0-2.7) L Lipase 456 U/L (73-393) H 249 U/L (73-393) Differential Total Cells Counted 100 Neutrophils % (Manual) 32 % (45-75) L Lymphocytes % (Manual) 56 % (20-45) H Monocytes % (Manual) 12 % (1-10) H Eosinophils % (Manual) 0 % (0-3) Basophils % (Manual) 0 % (0-2) Band Neutrophils 0 % (0-8) Platelet Estimate Adequate Platelet Morphology Normal Polychromasia 1+ Hypochromasia 2+ Anisocytosis 1+ General Appearance: well appearing, no apparent distress, alert Head: normocephalic EENT: PERRL/EOMI, normal ENT inspection Neck: supple Respiratory: normal breath sounds, no respiratory distress Cardiovascular: normal rate Gastrointestinal: normal inspection, non tender, soft, normal bowel sounds, non -distended Rectal: deferred Genitourinary: no CVA tenderness Musculoskeletal: normal inspection, back normal Neurologic: normal inspection, alert, oriented x3, responsive Psychiatric: normal inspection, judgement/insight normal, memory normal Skin: normal inspection, normal color, no rash, warm/dry, palpation normal, well hydrated Lymphatic: normal inspection, no adenopathy Current Medications Current Medications Medications (Trade) Dose Ordered Sig/Leora Route PRN Reason Start Time Stop Time Status Last Admin Dose Admin Acetaminophen (Tylenol) 650 mg Q6H PRN ORAL Mild Pain/Temp > 100.5 01/31/18 21:30 03/02/18 21:29 Carvedilol (Coreg) 6.25 mg EVERY 12 HOURS ORAL 02/01/18 09:00 03/03/18 08:59 Digoxin (Lanoxin) 0.25 mg DAILY ORAL 02/01/18 09:00 03/03/18 08:59 Enalapril Maleate (Vasotec) 5 mg DAILY ORAL 02/01/18 09:00 03/03/18 08:59 Furosemide (Lasix) 20 mg DAILY ORAL 02/01/18 09:00 03/03/18 08:59 02/01/18 09:45 Heparin Sodium (Porcine) (Heparin 5000 units/ml) 5,000 units EVERY 12 HOURS SUBQ 02/01/18 09:00 03/03/18 08:59 Iopamidol (Isovue-300 100ml) 100 ml NOW PRN INJ Radiology Procedure 01/31/18 17:15 Lorazepam (Ativan) 1 mg Q6H PRN ORAL For Anxiety 01/31/18 21:30 02/07/18 21:29 02/01/18 09:49 Ondansetron HCl (Zofran) 4 mg Q6H PRN IVP Nausea & Vomiting 01/31/18 21:45 03/02/18 21:44 Pantoprazole (Protonix) 40 mg DAILY ORAL 02/01/18 09:00 03/03/18 08:59 02/01/18 09:46 Spironolactone (Aldactone) 25 mg DAILY ORAL 02/01/18 09:00 03/03/18 08:59 02/01/18 09:45 GI: Plan Problems: (1) ETOH abuse (2) Drug-seeking behavior (3) Intractable abdominal pain (4) Abdominal pain (5) Pancreatitis Plan history of CHF, EF 20% most likely self induced pancreatitis 2/[address] AP unremarkable lipase levels now normal patient is medically cleared for discharge per GI standpoint symptomatic treatment advance diet pain mgmt IV/PO hydration venofer folate/MVI bowel regime avoid ETOH Discussed with Dr. Smith. Thank you for this patient referral, we will follow. The patient was seen and examined at bedside and all new and available data was reviewed in the patients chart. I agree with the above findings, impression and plan. (Patient seen earlier today. Signature stamp does not reflect patient encounter time.). - Margarito Vosoghi, MD [place],[facility] [facility] Feb 01, 2018 11:01
--- NOTE | 2018-02-02 08:55 | Discharge Summary ---
Discharge Summary Discharge Summary _ DATE OF ADMISSION: 01/31/2018 DATE OF DISCHARGE: 02/01/2018 CONSULTANTS: Dr. Margarito Smith BRIEF HOSPITAL COURSE: Patient is a 22-year-old female, with history of alcoholism, cardiomyopathy and recent admission for pancreatitis, presented to ED with complaints of acute onset of pain in the left upper quadrant of the abdomen. Pain was described to be sharp, 9/10 in intensity and radiates to the back. There was nausea, no diarrhea, denied fever or chills. On admission to ED, vital signs were stable. Blood work showed WBC of 4.3, hemoglobin 9.5, platelet of 227. BUN was 6, creatinine 0.8. Lipase was elevated to 456. HCG negative. Urinalysis was unremarkable. CT of the abdomen showed unremarkable pancreas. No CT findings to suggest acute pancreatitis. There was an enlarged liver with unusual enhancement pattern. She was admitted for evaluation of acute alcoholic pancreatitis. She was initially placed on nothing by mouth. Advance diet as tolerated. GI was consulted. Patient most likely had self-induced pancreatitis secondary to EtOH abuse. She was counseled on alcohol cessation. She was continued on prior medications, digoxin, Coreg, enalapril, Lasix and Aldactone. Lipase normalized. She was cleared for discharge. She was demanding pain medications and transfer to another hospital. She was seen by clinical social work therapist, case management and warehouse team member prior to discharge. She was arranged placement to [facility], however, patient declined. Patient eventually left premises. FINAL DIAGNOSES: Acute alcoholic pancreatitis Leukopenia Acute on chronic diastolic CHF Anemia Alcoholism Narcotic seeking behavior DISPOSITION: Patient was discharged. DISCHARGE MEDICATIONS: Refer to Discharge Medication List. DISCHARGE INSTRUCTIONS: Follow up with PCP in a week. I have been assigned to dictate discharge summary on this account, and I was not involved in the patient's management. Rosetta Tineo NP Feb 02, 2018 08:55
== END 2018-02-01 13:24 | disposition home or self-care (01) | DRG 282 ==
LOC: EDBD 16:21 → EMR 16:56 → 3E 18:10 → EDBEDREQ 19:17 → 3E 20:26
DX: K85.20 Alcohol induced acute pancreatitis without necrosis or infection (principal); I50.33 Acute on chronic diastolic (congestive) heart failure; D64.9 Anemia, unspecified; F10.20 Alcohol dependence, uncomplicated; Z76.5 Malingerer [conscious simulation]; Z88.1 Allergy status to other antibiotic agents
CPT/HCPCS: 36415; 74177; 80048; 80053; 81003; 81025; 83690; 85007; 85025; 96361; 96374; 96375; 99284; J2405

== ENCOUNTER 2018-04-02 03:11 | Inpatient (IN) | payer MEDICAID ==
[~2018-04-02] VITALS: Ht 157.5 cm; Wt 45.4 kg
[~2018-04-02 03:11] MED LIST changes: +FUROSEMIDE20 M1 ORAL; +MACROBID100 MG ORAL; +NORCO 5-325 TA1 EACH ORAL; +NORCO 7.5-3251 EACH ORAL; +ONDANSETRON ODT4 MG BC
[2018-04-02 03:14] VITALS: BP 138/87
--- NOTE | 2018-04-02 03:14 | NUR ---
ED Nurse Note: Patient BIBA RA 70 from home c/o SOB, and left upper quadrant abdominal pain for 1x hour. Patient reports tightness in chest. Patient states she had 1x episode of vomiting. Pt is AO x 4times, VSS, on room air no distress. KAREND seen Pt at bedside.
--- NOTE | 2018-04-02 03:30 | NUR ---
ED Nurse Note: Blood sample sent to lab.
--- NOTE | 2018-04-02 03:31 | Emergency Room Report ---
History of Present Illness General Chief Complaint: Abdominal Pain Source: Patient, EMS Present Illness HPI Patient complains of shortness of breath and abdominal pain. She states that this started about a half an hour before calling paramedics. She's had this problem before. She claims that she has asthma and pancreatitis. She's also complaining about nausea and vomiting. there is no coffee ground emesis. She denies any fevers. She felt well recent recently. No melena. Patient feels that the abdominal pain is what triggered to shortness of breath. She states the pain is 9/10 at this time. It is aching pressure in the epigastric region not radiating to her back. It is constant. The patient also alleges to have a history of congestive heart failure. She also has anemia. She denies diabetes. She does not believe she is at this time. Denies dysuria. No fevers and chills. No sore throat, cough, chest pain, calf pain or edema. No rashes. She is unclear as to the etiology of her pancreatitis denies any gallbladder disease or alcohol ingestion. When she was initially admitted for pancreatitis she had a positive alcohol of 137. She also does not know the etiology of the congestive heart failure. Allergies: Coded Allergies: AMOXICILLIN (Unverified Allergy, Unknown, 01/08/17) Patient History Past Medical History: see triage record Social History: Reports: alcohol use - In the past; Denies: smoking Social History Narrative from home Last Menstrual Period: 03/28/2018 Now: No : 0 Para: 0 Reviewed Nursing Documentation: PMH: Agreed; PSxH: Agreed Nursing Documentation-PMH Hx Cardiac Problems: Yes - CHF, anemia Hx Hypertension: Yes Hx Asthma: Yes Hx Cancer: No Hx Gastrointestinal Problems: Yes - GASTRITIS, pancreatitis Hx Neurological Problems: No Review of Systems All Other Systems: negative except mentioned in HPI Physical Exam Vital Signs Date Time Temp Pulse Resp B/P (MAP) Pulse Ox O2 Delivery O2 Flow Rate FiO2 04/02/18 03:13 98.4 64 16 141/98 100 Room Air Sp02 EP Interpretation: reviewed, normal General Appearance: no apparent distress, alert, GCS 15, Chronically Ill Head: normocephalic Eyes: bilateral eye PERRL, bilateral eye conjunctivae pale ENT: moist mucus membranes Neck: supple Respiratory: lungs clear, normal breath sounds Cardiovascular #1: regular rate, rhythm Cardiovascular #2: 2+ radial (R) Gastrointestinal: normal inspection, normal bowel sounds, soft, no mass, non- distended, no guarding, no rebound, tenderness - Epigastric Genitourinary: no CVA tenderness Musculoskeletal: back normal, gait/station normal, normal range of motion Neurologic: alert, oriented x3, grossly normal Psychiatric: depressed affect Skin: pallor Medical Decision Making Diagnostic Impression: Primary Impression: Abdominal pain Qualified Codes: R10.13 - Epigastric pain Additional Impressions: CHF (congestive heart failure) Qualified Codes: I50.9 - Heart failure, unspecified UTI (urinary tract infection) Qualified Codes: N30.00 - Acute cystitis without hematuria ER Course Patient presents with abdominal pain and dyspnea. Differential includes acute myocardial infarction, pulmonary embolus, acute otitis, congestive heart failure amongst others. Patient will be with EKG, chest x-ray and labs. The patient will be treated with Pepcid and morphine. She'll be placed on a diagnostic cardiac sonographer. EKG without acute injury. Chest x-ray with congestive heart failure. Labs significant for anemia with normal white count. Lipase normal. Pyuria and nitrites. Troponin negative. Elevated BNP. Lasix given. Rocephin started. Patient still complaining about pain and Dilaudid given. Due to the constellation of congestive heart failure, anemia and abdominal pain the patient is admitted to telemetry unit. Laboratory Tests Test 04/02/18 03:40 04/02/18 05:00 04/03/18 12:00 04/03/18 19:25 White Blood Count 4.3 K/UL (4.8-10.8) L 4.2 K/UL (4.8-10.8) L Red Blood Count 3.28 M/UL (4.20-5.40) L 3.41 M/UL (4.20-5.40) L Hemoglobin 8.1 G/DL (12.0-16.0) L 8.3 G/DL (12.0-16.0) L Hematocrit 26.4 % (37.0-47.0) L 27.5 % (37.0-47.0) L Mean Corpuscular Volume 81 FL (80-99) 81 FL (80-99) Mean Corpuscular Hemoglobin 24.6 PG (27.0-31.0) L 24.3 PG (27.0-31.0) L Mean Corpuscular Hemoglobin Concent 30.6 G/DL (32.0-36.0) L 30.2 G/DL (32.0-36.0) L Red Cell Distribution Width 22.7 % (11.6-14.8) H 22.1 % (11.6-14.8) H Platelet Count 252 K/UL (150-450) 211 K/UL (150-450) Mean Platelet Volume 6.2 FL (6.5-10.1) L 4.9 FL (6.5-10.1) L Neutrophils (%) (Auto) 51.0 % (45.0-75.0) 69.4 % (45.0-75.0) Lymphocytes (%) (Auto) 37.5 % (20.0-45.0) 20.8 % (20.0-45.0) Monocytes (%) (Auto) 10.0 % (1.0-10.0) 9.0 % (1.0-10.0) Eosinophils (%) (Auto) 0.2 % (0.0-3.0) 0.4 % (0.0-3.0) Basophils (%) (Auto) 1.2 % (0.0-2.0) 0.4 % (0.0-2.0) Prothrombin Time 13.0 SEC (9.30-11.50) H Prothrombin Time INR 1.2 (0.9-1.1) H PTT 27 SEC (23-33) Sodium Level 139 MMOL/L (136-145) 137 MMOL/L (136-145) 140 MMOL/L (136-145) Potassium Level 3.6 MMOL/L (3.5-5.1) 3.5 MMOL/L (3.5-5.1) 3.5 MMOL/L (3.5-5.1) Chloride Level 105 MMOL/L (98-107) 99 MMOL/L (98-107) 97 MMOL/L (98-107) L Carbon Dioxide Level 22 MMOL/L (21-32) 31 MMOL/L (21-32) 34 MMOL/L (21-32) H Anion Gap 12 mmol/L (5-15) 7 mmol/L (5-15) 9 mmol/L (5-15) Blood Urea Nitrogen 6 mg/dL (7-18) L 6 mg/dL (7-18) L 8 mg/dL (7-18) Creatinine 0.8 MG/DL (0.55-1.30) 1.1 MG/DL (0.55-1.30) 1.1 MG/DL (0.55-1.30) Estimate Glomerular Filtration Rate > 60 mL/min (>60) > 60 mL/min (>60) > 60 mL/min (>60) Glucose Level 92 MG/DL (74-106) 133 MG/DL (74-106) H 109 MG/DL (74-106) H Calcium Level 8.2 MG/DL (8.5-10.1) L 7.6 MG/DL (8.5-10.1) L Pending Total Bilirubin 0.9 MG/DL (0.2-1.0) Aspartate Amino Transferase (AST) 70 U/L (15-37) H Alanine Aminotransferase (ALT) 28 U/L (12-78) Alkaline Phosphatase 118 U/L (46-116) H Total Creatine Kinase 85 U/L (26-308) Troponin I 0.013 ng/mL (0.000-0.056) 0.017 ng/mL (0.000-0.056) Pro-B-Type Natriuretic Peptide 3325 pg/mL (0-125) H Total Protein 7.4 G/DL (6.4-8.2) Albumin 2.8 G/DL (3.4-5.0) L 2.8 G/DL (3.4-5.0) L Globulin 4.6 g/dL Albumin/Globulin Ratio 0.6 (1.0-2.7) L Lipase 262 U/L (73-393) Urine Color Hoa Urine Appearance Slightly cloudy Urine pH 6 (4.5-8.0) Urine Specific [place] 1.015 (1.005-1.035) Urine Protein 3+ (NEGATIVE) H Urine Glucose (UA) Negative (NEGATIVE) Urine Ketones 1+ (NEGATIVE) H Urine Blood 4+ (NEGATIVE) H Urine Nitrite Positive (NEGATIVE) H Urine Bilirubin Negative (NEGATIVE) Urine Ictotest Neg (NEGATIVE) Urine Urobilinogen 1 MG/DL (0.0-1.0) H Urine Leukocyte Esterase 2+ (NEGATIVE) H Urine RBC 2-4 /HPF (0 - 2) H Urine WBC 10-15 /HPF (0 - 2) H Urine Squamous Epithelial Cells Many /LPF (NONE/OCC) H Urine Bacteria Moderate /HPF (NONE) H Urine Mucus Many /LPF (NONE/OCC) H Urine Opiates Screen Positive (NEGATIVE) H Urine Barbiturates Screen Negative (NEGATIVE) Phencyclidine (PCP) Screen Negative (NEGATIVE) Urine Amphetamines Screen Negative (NEGATIVE) Urine Benzodiazepines Screen Negative (NEGATIVE) Urine Cocaine Screen Negative (NEGATIVE) Urine Marijuana (THC) Screen Negative (NEGATIVE) Phosphorus Level 4.5 MG/DL (2.5-4.9) Iron Level 36 ug/dL (50-175) L Total Iron Binding Capacity 361 ug/dL (250-450) Percent Iron Saturation 10 % (15-50) L Unsaturated Iron Binding 325 ug/dL (112-346) Hepatitis A IgM Antibody Pending Hepatitis B Surface Antigen Pending Hepatitis B Core IgM Antibody Pending Hepatitis C Antibody Pending HIV (1&2) Antibody Rapid Negative (NEGATIVE) Magnesium Level Pending EKG Diagnostic Results Rate: tachycardiac ST Segments: no acute changes - Nonspecific ST-T wave changes with T-wave inversions laterally and inferiorly Rhythm Strip Diag. Results EP Interpretation: yes Rhythm: no PVC's, no ectopy, other - ST Chest X-Ray Diagnostic Results Chest X-Ray Diagnostic Results : Chest X-Ray Ordered: Yes # of Views/Limited/Complete: 1 View Indication: Other EP Interpretation: Yes Interpretation: no effusion, no pneumothorax, other - CHF Impression: Other Electronically Signed by: Electronically signed by Reinaldo Brewer MD Status: improved Disposition: ADMITTED INPATIENT Condition: Serious Referrals: NOT CHOSEN POOJA/,REFERRING (PCP) Reinaldo Brewer MD Apr 02, 2018 03:31
[2018-04-02 04:09] LABS: BASOPHILS % (AUTO) 1.2 % (0.0-2.0); EOSINOPHILS % (AUTO) 0.2 % (0.0-3.0); HEMATOCRIT 26.4 % (37.0-47.0); HEMOGLOBIN 8.1 G/DL (12.0-16.0); LYMPHOCYTES % (AUTO) 37.5 % (20.0-45.0); MEAN CORPUSCULAR VOLUME 81 FL (80-99); PLATELET COUNT 252 K/UL (150-450); RED BLOOD COUNT 3.28 M/UL (4.20-5.40); RED CELL DISTRIBUTION WIDTH 22.7 % (11.6-14.8); WHITE BLOOD COUNT 4.3 K/UL (4.8-10.8)
[2018-04-02] MEDS ORDERED: Morphine Sulfate 4mg/ml Inj (IV/IM USE ONLY) IVP ONE (04:15)
[2018-04-02 04:22] LABS: INR 1.2 (0.9-1.1)
--- NOTE | 2018-04-02 05:02 | Diagnostic Imaging Report ---
EXAM: XR Chest, 1 View CLINICAL HISTORY: CP TECHNIQUE: Frontal view of the chest. COMPARISON: 01/21/2018 FINDINGS: Lungs: Low lung volumes with bronchovascular crowding. Pleural space: No pleural effusion, pneumothorax, or focal consolidation. Heart: Unchanged prominent cardiomediastinal silhouette, likely at least partially due to low lung volumes and portable technique. Alternatively, this could represent cardiomegaly or pericardial effusion. Mediastinum: Unremarkable. Bones/joints: Unremarkable. IMPRESSION: 1. Low lung volumes with bronchovascular crowding. 2. Unchanged prominent cardiomediastinal silhouette, likely at least partially due to low lung volumes and portable technique. Alternatively, this could represent cardiomegaly or pericardial effusion. 3. Otherwise no acute cardiopulmonary disease. 4. If there is continued concern, recommend formal frontal and lateral chest radiographs.
[2018-04-02 06:00] LABS: APPEARANCE,URINE SLIGHTLY CLOUDY; BILIRUBIN, URINE NEGATIVE (NEGATIVE); GLUCOSE, URINE (UA) NEGATIVE (NEGATIVE); KETONES,URINE 1+ (NEGATIVE); LEUKOCYTE ESTERASE ,URINE 2+ (NEGATIVE); NITRITE,URINE POSITIVE (NEGATIVE); PH,URINE 6 (4.5-8.0); PROTEIN,URINE 3+ (NEGATIVE); UROBILINOGEN,URINE 1 MG/DL (0.0-1.0)
[2018-04-02 06:01] LABS: COLOR,URINE AMBER
[2018-04-02] MEDS ORDERED: cefTRIAXone 1 GM in NS 55 ML IVPB ONE (06:15)
[2018-04-02] MEDS ORDERED: Hydromorphone 0.5mg/0.5ml inj IVP ONE (06:30)
[2018-04-02 06:37] LABS: ANION GAP 12 mmol/L (5-15); BLOOD UREA NITROGEN 6 mg/dL (7-18); CALCIUM 8.2 MG/DL (8.5-10.1); CARBON DIOXIDE 22 MMOL/L (21-32); CHLORIDE 105 MMOL/L (98-107); CREATININE 0.8 MG/DL (0.55-1.30); POTASSIUM 3.6 MMOL/L (3.5-5.1); SODIUM 139 MMOL/L (136-145)
[2018-04-02 06:47] LABS: ALANINE AMINOTRANSFERASE 28 U/L (12-78); ALBUMIN 2.8 G/DL (3.4-5.0); ALBUMIN/GLOBULIN RATIO 0.6 (1.0-2.7); ALKALINE PHOSPHATASE 118 U/L (46-116); ASPARTATE AMINO TRANSFERASE 70 U/L (15-37); BILIRUBIN,TOTAL 0.9 MG/DL (0.2-1.0); CREATINE KINASE 85 U/L (26-308)
--- NOTE | 2018-04-02 07:25 | NUR ---
HAND-OFF: Report given to Sil DUMONT.
--- NOTE | 2018-04-02 07:30 | NUR ---
ED Nurse Note: received patient in bed, patient resting comfortably in bed
[2018-04-02 07:35] VITALS: BP 128/82
[2018-04-02] MEDS ORDERED: Albuterol/Ipratropium 3ml neb HHN PRN (09:00)
[2018-04-02] MEDS ORDERED: Miralax 17gm pkt ORAL PRN (09:00)
--- NOTE | 2018-04-02 10:36 | NUR ---
ED Nurse Note: left msg to Dr. Lovell PMD regarding pt's c/o pain patient refused to do 2d echo. Dr. King also made aware, per him, follow up with PMD
--- NOTE | 2018-04-02 11:16 | NUR ---
ED Nurse Note: called 2E for report, RONI Chi said will call back in 2 minutes
--- NOTE | 2018-04-02 11:16 | NUR ---
ED Nurse Note: belonging list done patient has 2 sunglasses, 3 smartphones, 1 set up and charger, 1 yellow necklace, 1 watch, 1 earphone, bhagat $15, witnessed with other nurse mohini, 1 ID, 1 debit card, and clothings
--- NOTE | 2018-04-02 11:38 | NUR ---
ED Nurse Note: report given to Paco DUMONT
--- NOTE | 2018-04-02 12:25 | NUR ---
HAND-OFF: Report given to PACO rn. all the belongings hand off to Paco, and got signed on the belonging list
--- NOTE | 2018-04-02 12:30 | NUR ---
NURSE NOTES: RN received from JULIA Mujica alert and oriented x4 complaining of 10/10 abdominal pain but no complaints or s/s of SOB or n/v. IV site asymptomatic and patent. Bed in lowest position, call light and belongings within reach. Belongings all with patient upon transfer, signed with transferring RN. No wounds upon admission. Tele box on patient, no home meds with patient.
[2018-04-02] MEDS: Morphine Sulfate 4mg/ml Inj (IV/IM USE ONLY) IVP PRN ×3 (13:21→21:41)
--- NOTE | 2018-04-02 14:59 | NUR ---
CASE MANAGEMENT: INITIAL REVIEW 04/02/2018 23 YO F NORBERT FROM HOME CC: ABD PAIN. CHEST TIGHTNESS. PMHX: ASTHAM. PANCREATITIS. CHF. ANEMIA. SI: CHF. ANEMIA. T 98.4 HR 64 RR 16 B/P 141/98 SATS 100% ON RA WBC 4.3 BUN 6 CA 8.2 AST 70 ALP 118 BNP 3325 TROPONIN 0.013 IS: LASIX IV X1 DILAUDID IV X1 ROCEPHIN IV X1 ZOFRAN IV X1 MORPHINE IV X1 PATIENT ADMITTED TO TELE 04/02/2018 @ 1136 DCP: PATIENT TO BE DISCHARGED TO HOME PLAN OF CARE: VENOUS DUPLEX 2D ECHO CXR Addendum: 04/02/18 at 1841 by Maria Fernanda Mauricio CM INTERQUAL MET FOR ACUTE
--- NOTE | 2018-04-02 15:00 | History and Physical Report ---
DATE OF ADMISSION: 04/02/2018 TIME: 10 a.m. CONSULTANTS: 1. Shonna Lovell M.D. 2. Efrain Camarillo M.D. 3. Eloy Prescott M.D. 4. Margarito Smith M.D. CHIEF COMPLAINT: Abdominal pain, nausea, vomiting, pancreatitis, UTI, CHF, and alcoholic cardiomyopathy. BRIEF HISTORY: This is a 23-year-old female, who lives at home, presents with one-day history of increased abdominal pain, nausea, and vomiting, came to [place], diagnosed the above in the ER [facility], being admitted to telemetry shortly. Currently, slightly anxious in bed, abdominal pain 7/10, no complaints. REVIEW OF SYSTEMS: No chest pain. Slight short of breath. Slight nausea and vomiting. No diarrhea. PAST MEDICAL HISTORY: Pancreatitis, CHF, and alcoholic cardiomyopathy. PAST SURGICAL HISTORY: None. ALLERGIES: Amoxicillin. SOCIAL HISTORY: Positive smoke. Positive alcohol. No intravenous drug abuse. FAMILY HISTORY: Noncontributory. PHYSICAL EXAMINATION: GENERAL: Slightly anxious in bed, oriented x3, in no acute distress. VITAL SIGNS: Temperature is 98 degrees, pulse 72, respirations 16, and blood pressure 128/82. CARDIOVASCULAR: No murmur. LUNGS: Distant and clear. ABDOMEN: Bowel sounds positive. Slightly tender. No guarding. No rigidity. No rebound. EXTREMITIES: No cyanosis, clubbing, or edema. NEUROLOGIC: The patient moves all extremities, slightly weak. LABORATORY AND DIAGNOSTIC DATA: White count 4.3, hemoglobin and hematocrit 8.1 and 26, otherwise CBC is normal. BMP shows BUN 6 and calcium 8.2. AST 70 and alkaline phosphatase 118. BNP is 3325. Albumin 2.8. Lipase 262. INR is 1.2 and PTT is 27. Urine tox positive for opiates. Urinalysis, 2+ leukocyte esterase. MEDICATIONS: Digoxin, Vasotec, Protonix, Aldactone, Coreg, Lasix, Restoril, Zofran, and MiraLAX. ASSESSMENT: 1. Pancreatitis. 2. Nausea. 3. Vomiting. 4. UTI. 5. CHF. 6. Anemia. 7. Malnutrition. 8. Alcoholic cardiomyopathy. PLAN: 1. NPO. 2. IV fluids. 3. Pain control. 4. Antibiotics per Infectious Disease. 5. CBC and BMP in the morning. 6. We will continue to follow the patient. Yaakov Wilson D.O. DR: MARA JOB#: [id number] CC:
--- NOTE | 2018-04-02 15:01 | Cardiology Report ---
APPROVED REPORT EKG Measurement Heart [id number] Sinus tachycardia Possible Anterior infarct, age undetermined Abnormal ECG
--- NOTE | 2018-04-02 15:38 | Consultation ---
History of Present Illness General Date patient seen: Apr 02, 2018 Chief Complaint: Abdominal Pain Present Illness HPI 23 year old female with ETOH induced cardiomyopathy, presented with Dyspnea and abdominal pain. she is admitted to telemetry for further work up. Allergies: Coded Allergies: AMOXICILLIN (Unverified Allergy, Unknown, 01/08/17) Medication History Scheduled Carvedilol (Coreg), 6.25 MG ORAL EVERY 12 HOURS Digoxin* (Lanoxin*), 0.25 MG ORAL DAILY Enalapril Maleate* (Enalapril Maleate*), 5 MG ORAL DAILY Furosemide* (Lasix*), Unknown Dose ORAL DAILY, (Reported) Furosemide* (Lasix*), 20 MG ORAL DAILY Pantoprazole* (Protonix*), 40 MG ORAL DAILY, (Reported) Spironolactone (Aldactone), 25 MG ORAL DAILY Scheduled PRN Ondansetron Odt* (Zofran Odt*), 4 MG BC EVERY 6 HOURS PRN for Nausea & Vomiting, (Reported) Patient History Healthcare decision maker N Resuscitation status Advanced Directive on File Past Medical/Surgical History Past Medical/Surgical History: (1) Malnutrition (2) ETOH abuse (3) Drug-seeking behavior Review of Systems Constitutional: Reports: no symptoms Physical Exam General Appearance: cachetic Lines, tubes and drains: peripheral, central line HEENT: normocephalic, atraumatic Neck: non-tender, normal alignment Respiratory/Chest: chest wall non-tender, lungs clear Cardiovascular/Chest: normal peripheral pulses, regular rhythm Abdomen: normal bowel sounds Last 24 Hour Vital Signs Date Time Temp Pulse Resp B/P (MAP) Pulse Ox O2 Delivery O2 Flow Rate FiO2 04/02/18 12:25 98.2 72 16 128/82 100 Room Air 04/02/18 12:04 Room Air 04/02/18 07:35 98.2 72 16 128/82 100 Room Air 04/02/18 04:56 77 16 Room Air 04/02/18 03:14 98.1 77 16 138/87 100 Room Air 04/02/18 03:13 98.4 64 16 141/98 100 Room Air Intake and Output 04/01/18 04/02/18 19:00 07:00 Intake Total 250 ml Balance 250 ml Intake Oral 250 ml # Voids 1 Laboratory Tests Test 04/02/18 03:40 04/02/18 05:00 White Blood Count 4.3 K/UL (4.8-10.8) L Red Blood Count 3.28 M/UL (4.20-5.40) L Hemoglobin 8.1 G/DL (12.0-16.0) L Hematocrit 26.4 % (37.0-47.0) L Mean Corpuscular Volume 81 FL (80-99) Mean Corpuscular Hemoglobin 24.6 PG (27.0-31.0) L Mean Corpuscular Hemoglobin Concent 30.6 G/DL (32.0-36.0) L Red Cell Distribution Width 22.7 % (11.6-14.8) H Platelet Count 252 K/UL (150-450) Mean Platelet Volume 6.2 FL (6.5-10.1) L Neutrophils (%) (Auto) 51.0 % (45.0-75.0) Lymphocytes (%) (Auto) 37.5 % (20.0-45.0) Monocytes (%) (Auto) 10.0 % (1.0-10.0) Eosinophils (%) (Auto) 0.2 % (0.0-3.0) Basophils (%) (Auto) 1.2 % (0.0-2.0) Prothrombin Time 13.0 SEC (9.30-11.50) H Prothromb Time International Ratio 1.2 (0.9-1.1) H Activated Partial Thromboplast Time 27 SEC (23-33) Sodium Level 139 MMOL/L (136-145) Potassium Level 3.6 MMOL/L (3.5-5.1) Chloride Level 105 MMOL/L (98-107) Carbon Dioxide Level 22 MMOL/L (21-32) Anion Gap 12 mmol/L (5-15) Blood Urea Nitrogen 6 mg/dL (7-18) L Creatinine 0.8 MG/DL (0.55-1.30) Estimat Glomerular Filtration Rate > 60 mL/min (>60) Glucose Level 92 MG/DL (74-106) Calcium Level 8.2 MG/DL (8.5-10.1) L Total Bilirubin 0.9 MG/DL (0.2-1.0) Aspartate Amino Transf (AST/SGOT) 70 U/L (15-37) H Alanine Aminotransferase (ALT/SGPT) 28 U/L (12-78) Alkaline Phosphatase 118 U/L (46-116) H Total Creatine Kinase 85 U/L (26-308) Troponin I 0.013 ng/mL (0.000-0.056) Pro-B-Type Natriuretic Peptide 3325 pg/mL (0-125) H Total Protein 7.4 G/DL (6.4-8.2) Albumin 2.8 G/DL (3.4-5.0) L Globulin 4.6 g/dL Albumin/Globulin Ratio 0.6 (1.0-2.7) L Lipase 262 U/L (73-393) Urine Color Hoa Urine Appearance Slightly cloudy Urine pH 6 (4.5-8.0) Urine Specific [place] 1.015 (1.005-1.035) Urine Protein 3+ (NEGATIVE) H Urine Glucose (UA) Negative (NEGATIVE) Urine Ketones 1+ (NEGATIVE) H Urine Blood 4+ (NEGATIVE) H Urine Nitrite Positive (NEGATIVE) H Urine Bilirubin Negative (NEGATIVE) Urine Ictotest Neg (NEGATIVE) Urine Urobilinogen 1 MG/DL (0.0-1.0) H Urine Leukocyte Esterase 2+ (NEGATIVE) H Urine RBC 2-4 /HPF (0 - 2) H Urine WBC 10-15 /HPF (0 - 2) H Urine Squamous Epithelial Cells Many /LPF (NONE/OCC) H Urine Bacteria Moderate /HPF (NONE) H Urine Mucus Many /LPF (NONE/OCC) H Urine Opiates Screen Positive (NEGATIVE) H Urine Barbiturates Screen Negative (NEGATIVE) Phencyclidine (PCP) Screen Negative (NEGATIVE) Urine Amphetamines Screen Negative (NEGATIVE) Urine Benzodiazepines Screen Negative (NEGATIVE) Urine Cocaine Screen Negative (NEGATIVE) Urine Marijuana (THC) Screen Negative (NEGATIVE) Height (Feet): 5 Height (Inches): 2.00 Weight (Pounds): 100 Medications Current Medications Medications (Trade) Dose Ordered Sig/Leora Route PRN Reason Start Time Stop Time Status Last Admin Dose Admin Acetaminophen (Tylenol) 650 mg Q4H PRN ORAL Fever 04/02/18 09:00 05/02/18 08:59 Albuterol/ Ipratropium (Albuterol/ Ipratropium) 3 ml Q4H PRN HHN Shortness of Breath 04/02/18 09:00 04/07/18 08:59 Carvedilol (Coreg) 6.25 mg EVERY 12 HOURS ORAL 04/02/18 21:00 05/02/18 20:59 Dextrose (Dextrose 50%) 25 ml Q30M PRN IV Hypoglycemia 04/02/18 09:00 05/02/18 08:59 Dextrose (Dextrose 50%) 50 ml Q30M PRN IV Hypoglycemia 04/02/18 09:00 05/02/18 08:59 Digoxin (Lanoxin) 0.25 mg DAILY ORAL 04/03/18 09:00 05/03/18 08:59 Enalapril Maleate (Vasotec) 5 mg DAILY ORAL 04/03/18 09:00 05/03/18 08:59 Furosemide (Lasix) 40 mg EVERY 8 HOURS IV 04/02/18 14:00 05/02/18 13:59 04/02/18 13:21 Heparin Sodium (Porcine) (Heparin 5000 units/ml) 5,000 units EVERY 12 HOURS SUBQ 04/02/18 21:00 05/02/18 20:59 Levofloxacin 100 ml @ 100 mls/hr Q24H IVPB 04/02/18 14:00 04/09/18 13:59 Morphine Sulfate (Morphine Sulfate) 2 mg Q4H PRN IVP For Pain 04/02/18 13:11 04/09/18 13:10 04/02/18 13:21 Ondansetron HCl (Zofran) 4 mg Q6H PRN IVP Nausea & Vomiting 04/02/18 09:00 05/02/18 08:59 Pantoprazole (Protonix) 40 mg DAILY ORAL 04/03/18 09:00 05/03/18 08:59 Polyethylene Glycol (Miralax) 17 gm DAILYPRN PRN ORAL Constipation 04/02/18 09:00 05/02/18 08:59 Spironolactone (Aldactone) 25 mg DAILY ORAL 04/03/18 09:00 05/03/18 08:59 Temazepam (Restoril) 15 mg HSPRN PRN ORAL Insomnia 04/02/18 09:00 04/09/18 08:59 Assessment/Plan Problem List: (1) UTI (urinary tract infection) ICD Codes: N39.0 - Urinary tract infection, site not specified SNOMED: 50764090 Qualifiers: Qualified Codes: N30.00 - Acute cystitis without hematuria (2) CHF (congestive heart failure) ICD Codes: I50.9 - Heart failure, unspecified SNOMED: 49969132 Qualifiers: Qualified Codes: I50.9 - Heart failure, unspecified (3) ETOH abuse ICD Codes: F10.10 - Alcohol abuse, uncomplicated SNOMED: 38384254 (4) Drug-seeking behavior ICD Codes: Z76.5 - Malingerer [conscious simulation] SNOMED: 227029590 Assessment/Plan diuretics check urine for c/s symptomatic treatment GI evaluation cardiology to see. Shonna Lovell MD Apr 02, 2018 15:38
--- NOTE | 2018-04-02 17:23 | Diagnostic Imaging Report ---
EXAM: US Duplex Bilateral Lower Extremity Veins CLINICAL HISTORY: DVT TECHNIQUE: Real-time duplex ultrasound scan of the bilateral lower extremity veins integrating B-mode two-dimensional vascular structure, Doppler spectral analysis, color flow Doppler imaging and compression. COMPARISON: No relevant prior studies available. FINDINGS: Right deep veins: Unremarkable. No DVT in the right common femoral, femoral, proximal deep femoral or popliteal veins. The veins demonstrate normal color flow, are normally compressible, with normal phasic flow and/or augmentation response. Right superficial veins: Unremarkable. No thrombus in the visualized right great saphenous vein. Left deep veins: Unremarkable. No DVT in the left common femoral, femoral, proximal deep femoral or popliteal veins. The veins demonstrate normal color flow, are normally compressible, with normal phasic flow and/or augmentation response. Left superficial veins: Unremarkable. No thrombus in the visualized left great saphenous vein. Soft tissues: No acute findings. IMPRESSION: No DVT.
--- NOTE | 2018-04-02 18:00 | Consultation ---
History of Present Illness General Date patient seen: Apr 02, 2018 Chief Complaint: Abdominal Pain Present Illness HPI 23 y/o F with hx of asthma and pancreatitis, anemia, CHF, alcoholic cardiomyopathy, gastritis presents to ED on 04/02 with SOB and acute abd pain (~ 30min before calling paramedics), nausea and vomiting Denies hematesis, fevers Allergies: Coded Allergies: AMOXICILLIN (Unverified Allergy, Unknown, 01/08/17) Medication History Scheduled Carvedilol (Coreg), 6.25 MG ORAL EVERY 12 HOURS Digoxin* (Lanoxin*), 0.25 MG ORAL DAILY Enalapril Maleate* (Enalapril Maleate*), 5 MG ORAL DAILY Furosemide* (Lasix*), Unknown Dose ORAL DAILY, (Reported) Pantoprazole* (Protonix*), 40 MG ORAL DAILY, (Reported) Spironolactone (Aldactone), 25 MG ORAL DAILY Scheduled PRN Ondansetron Odt* (Zofran Odt*), 4 MG BC EVERY 6 HOURS PRN for Nausea & Vomiting, (Reported) Patient History Healthcare decision maker N Resuscitation status Advanced Directive on File Patient History Narrative PMhx: as above SHx: Positive smoke. Positive alcohol. No intravenous drug abuse. FHx: non contributor Physical Exam Physical Exam Narrative PHYSICAL EXAMINATION: GENERAL: Slightly anxious in bed, oriented x3, in no acute distress. CARDIOVASCULAR: No murmur. LUNGS: Distant and clear. ABDOMEN: Bowel sounds positive. Slightly tender. No guarding. No rigidity. No rebound. EXTREMITIES: No cyanosis, clubbing, or edema. NEUROLOGIC: The patient moves all extremities, slightly weak. Last 24 Hour Vital Signs Date Time Temp Pulse Resp B/P (MAP) Pulse Ox O2 Delivery O2 Flow Rate FiO2 04/02/18 12:25 98.2 72 16 128/82 100 Room Air 04/02/18 12:04 Room Air 04/02/18 07:35 98.2 72 16 128/82 100 Room Air 04/02/18 04:56 77 16 Room Air 04/02/18 03:14 98.1 77 16 138/87 100 Room Air 04/02/18 03:13 98.4 64 16 141/98 100 Room Air Intake and Output 04/01/18 04/02/18 19:00 07:00 Intake Total 250 ml Balance 250 ml Intake Oral 250 ml # Voids 1 Laboratory Tests Test 04/02/18 03:40 04/02/18 05:00 White Blood Count 4.3 K/UL (4.8-10.8) L Red Blood Count 3.28 M/UL (4.20-5.40) L Hemoglobin 8.1 G/DL (12.0-16.0) L Hematocrit 26.4 % (37.0-47.0) L Mean Corpuscular Volume 81 FL (80-99) Mean Corpuscular Hemoglobin 24.6 PG (27.0-31.0) L Mean Corpuscular Hemoglobin Concent 30.6 G/DL (32.0-36.0) L Red Cell Distribution Width 22.7 % (11.6-14.8) H Platelet Count 252 K/UL (150-450) Mean Platelet Volume 6.2 FL (6.5-10.1) L Neutrophils (%) (Auto) 51.0 % (45.0-75.0) Lymphocytes (%) (Auto) 37.5 % (20.0-45.0) Monocytes (%) (Auto) 10.0 % (1.0-10.0) Eosinophils (%) (Auto) 0.2 % (0.0-3.0) Basophils (%) (Auto) 1.2 % (0.0-2.0) Prothrombin Time 13.0 SEC (9.30-11.50) H Prothromb Time International Ratio 1.2 (0.9-1.1) H Activated Partial Thromboplast Time 27 SEC (23-33) Sodium Level 139 MMOL/L (136-145) Potassium Level 3.6 MMOL/L (3.5-5.1) Chloride Level 105 MMOL/L (98-107) Carbon Dioxide Level 22 MMOL/L (21-32) Anion Gap 12 mmol/L (5-15) Blood Urea Nitrogen 6 mg/dL (7-18) L Creatinine 0.8 MG/DL (0.55-1.30) Estimat Glomerular Filtration Rate > 60 mL/min (>60) Glucose Level 92 MG/DL (74-106) Calcium Level 8.2 MG/DL (8.5-10.1) L Total Bilirubin 0.9 MG/DL (0.2-1.0) Aspartate Amino Transf (AST/SGOT) 70 U/L (15-37) H Alanine Aminotransferase (ALT/SGPT) 28 U/L (12-78) Alkaline Phosphatase 118 U/L (46-116) H Total Creatine Kinase 85 U/L (26-308) Troponin I 0.013 ng/mL (0.000-0.056) Pro-B-Type Natriuretic Peptide 3325 pg/mL (0-125) H Total Protein 7.4 G/DL (6.4-8.2) Albumin 2.8 G/DL (3.4-5.0) L Globulin 4.6 g/dL Albumin/Globulin Ratio 0.6 (1.0-2.7) L Lipase 262 U/L (73-393) Urine Color Hoa Urine Appearance Slightly cloudy Urine pH 6 (4.5-8.0) Urine Specific [place] 1.015 (1.005-1.035) Urine Protein 3+ (NEGATIVE) H Urine Glucose (UA) Negative (NEGATIVE) Urine Ketones 1+ (NEGATIVE) H Urine Blood 4+ (NEGATIVE) H Urine Nitrite Positive (NEGATIVE) H Urine Bilirubin Negative (NEGATIVE) Urine Ictotest Neg (NEGATIVE) Urine Urobilinogen 1 MG/DL (0.0-1.0) H Urine Leukocyte Esterase 2+ (NEGATIVE) H Urine RBC 2-4 /HPF (0 - 2) H Urine WBC 10-15 /HPF (0 - 2) H Urine Squamous Epithelial Cells Many /LPF (NONE/OCC) H Urine Bacteria Moderate /HPF (NONE) H Urine Mucus Many /LPF (NONE/OCC) H Urine Opiates Screen Positive (NEGATIVE) H Urine Barbiturates Screen Negative (NEGATIVE) Phencyclidine (PCP) Screen Negative (NEGATIVE) Urine Amphetamines Screen Negative (NEGATIVE) Urine Benzodiazepines Screen Negative (NEGATIVE) Urine Cocaine Screen Negative (NEGATIVE) Urine Marijuana (THC) Screen Negative (NEGATIVE) Height (Feet): 5 Height (Inches): 2.00 Weight (Pounds): 100 Medications Current Medications Medications (Trade) Dose Ordered Sig/Leora Route PRN Reason Start Time Stop Time Status Last Admin Dose Admin Acetaminophen (Tylenol) 650 mg Q4H PRN ORAL Fever 04/02/18 09:00 05/02/18 08:59 Albuterol/ Ipratropium (Albuterol/ Ipratropium) 3 ml Q4H PRN HHN Shortness of Breath 04/02/18 09:00 04/07/18 08:59 Carvedilol (Coreg) 6.25 mg EVERY 12 HOURS ORAL 04/02/18 21:00 05/02/18 20:59 Dextrose (Dextrose 50%) 25 ml Q30M PRN IV Hypoglycemia 04/02/18 09:00 05/02/18 08:59 Dextrose (Dextrose 50%) 50 ml Q30M PRN IV Hypoglycemia 04/02/18 09:00 05/02/18 08:59 Digoxin (Lanoxin) 0.25 mg DAILY ORAL 04/03/18 09:00 05/03/18 08:59 Enalapril Maleate (Vasotec) 5 mg DAILY ORAL 04/03/18 09:00 05/03/18 08:59 Furosemide (Lasix) 40 mg EVERY 8 HOURS IV 04/02/18 14:00 05/02/18 13:59 04/02/18 13:21 Heparin Sodium (Porcine) (Heparin 5000 units/ml) 5,000 units EVERY 12 HOURS SUBQ 04/02/18 21:00 05/02/18 20:59 Levofloxacin 100 ml @ 100 mls/hr Q24H IVPB 04/02/18 14:00 04/09/18 13:59 04/02/18 16:21 Morphine Sulfate (Morphine Sulfate) 2 mg Q4H PRN IVP For Pain 04/02/18 13:11 04/09/18 13:10 04/02/18 17:30 Ondansetron HCl (Zofran) 4 mg Q6H PRN IVP Nausea & Vomiting 04/02/18 09:00 05/02/18 08:59 Pantoprazole (Protonix) 40 mg DAILY ORAL 04/03/18 09:00 05/03/18 08:59 Polyethylene Glycol (Miralax) 17 gm DAILYPRN PRN ORAL Constipation 04/02/18 09:00 05/02/18 08:59 Spironolactone (Aldactone) 25 mg DAILY ORAL 04/03/18 09:00 05/03/18 08:59 Temazepam (Restoril) 15 mg HSPRN PRN ORAL Insomnia 04/02/18 09:00 04/09/18 08:59 Assessment/Plan Assessment/Plan Abx: Ceftriaxone x1 04/02 Levaquin 1/13- Assessment: Abd pain, probable pancreatitis (based on hx, n/v), however lipase normal -CXR: Low lung volumes with bronchovascular crowding. Unchanged prominent cardiomediastinal silhouette, likely at least partially due to low lung volumes and portable technique. Alternatively, this could represent cardiomegaly or pericardial effusion.. Otherwise no acute cardiopulmonary disease. Afebrile Mild leukopenia asthma and pancreatitis anemia CHF alcoholic cardiomyopathy gastritis Plan: -Continue empiric LEvaquin #1 for now -f/u cx -Monitor CBC/CMP, temperatures -HIV ab, hep panel -Abd US -aspiration precautions -GI eval Thank you for this consultation. Will continue to follow along with you. Discussed with Alma Delia Kenyon M.D. Apr 02, 2018 18:00
--- NOTE | 2018-04-02 18:45 | NUR ---
NURSE NOTES: Pt started complaining of 10/10 epigastric pain radiating towards the left abdomen and down her spine. Pt was given Morphine 2 mg IV q4h at 1800 and still complains of pain 10/10. RN endorsed and informed Jahaira BONILLA. No new orders at this time.
--- NOTE | 2018-04-02 19:35 | NUR ---
HAND-OFF: Report given to JULIA Salmon.
--- NOTE | 2018-04-02 19:40 | NUR ---
NURSE NOTES: Received pt from JULIA Antonio. Pt asleep. Bed in lowest position. Call light within reach. Will continue to monitor.
[2018-04-02 20:00] VITALS: BP 117/70
--- NOTE | 2018-04-02 20:45 | Consultation ---
DATE OF CONSULTATION: 04/02/2018 GASTROENTEROLOGY CONSULTATION CHIEF COMPLAINT: I am going to see this patient by Dr. Yaakov Wilson for evaluation of abdominal pain. HISTORY OF PRESENT ILLNESS: The patient is a 23-year-old woman who was brought into the hospital due to abdominal pain with nausea, vomiting, and shortness of breath. The patient is somewhat vague about her complaints, but states that this morning she started having all these symptoms and she had to call ambulance to bring her bring her in. She has had previous admissions to the hospital as outlined in the chart. She had an episode of alcoholic pancreatitis history of alcoholism including alcoholic cardiomyopathy. The patient states she drinks 2 to 3 beers a day on the current basis. She also has had history of anemia, although on this admission, her blood count seems to be lower. She has a pattern of liver test abnormalities, which are consistent with alcoholic hepatitis. PAST MEDICAL HISTORY: History of alcoholic pancreatitis, history of for congestive heart failure presumed to be due to alcoholism, history of anemia. FAMILY HISTORY: Noncontributory. SOCIAL HISTORY: The patient has long-term alcohol use as explained above. ALLERGIES: Penicillin. REVIEW OF SYSTEMS: Otherwise negative. MEDICATIONS: See the chart list for details. PHYSICAL EXAMINATION: GENERAL: The patient is well-developed and well-nourished woman, seen with echocardiography x ray service technician at bedside. She appeared to be in no distress upon my arrival with echocardiographic examination. HEENT: Normocephalic and atraumatic. Sclerae anicteric. Dentition was fair. NECK: Supple. ABDOMEN: Soft with a voluntary guarding, but it is clearly less tender when the patient was distracted. EXTREMITIES: Revealed no edema. NEUROLOGIC: Appeared to be grossly nonfocal. LABORATORY DATA: Noted. ASSESSMENT: The patient presents with history of abdominal pain with nausea and vomiting. Symptoms may be in part due to her alcohol use. She was strongly advised to discontinue her alcohol use especially since her cardiomyopathy showed an ejection fraction of 20% by history. The patient also has anemia, which is somewhat worse than the previous admissions. Her stool occult blood to be checked to rule out a heme-positive stools and also her iron panel should be checked. Should her pain persists or should she show heme-positive stools, then an endoscopy can be done to evaluate the upper GI tract. Proton pump inhibitor can also be given to protect gastric lining. RECOMMENDATIONS: Per above discussion and per orders written in the chart. Thank you for asking me to participate in care of this patient. Kalin Tena M.D. DR: Shadia JOB#: [id number] CC:
[2018-04-02] MEDS: Heparin 5000 units/ml inj SUBQ SCH (21:00)
--- NOTE | 2018-04-02 21:04 | NUR ---
HAND-OFF: Report given to JULIA Arreola. Endorsed pts dilaudid request.
--- NOTE | 2018-04-02 21:15 | NUR ---
NURSE NOTES: Received report from JULIA Salmon. Patient awake, alert and verbally responsive. No SOB, no acute distress, complaining of abdominal pain 10/10, pain medication administered as ordered. IV site on R hand #20, patent and intact. Bed at lowest position, call light within reach. Will continue plan of care.
[2018-04-02] MEDS: Carvedilol 6.25mg Tab ORAL SCH (21:31)
--- NOTE | 2018-04-02 22:00 | NUR ---
NURSE NOTES: Reassessment done for abdominal pain, per patient, still with 10/10 pain, Morphine 2 mg ineffective per patient, requesting for stronger pain medication, Dr. Lovell made aware, awaiting for response. Patient made comfortable at this time.
[2018-04-03] VITALS: BP 110/76
[2018-04-03] MEDS: Morphine Sulfate 4mg/ml Inj (IV/IM USE ONLY) IVP PRN ×6 (01:26→22:15)
--- NOTE | 2018-04-03 02:50 | NUR ---
NURSE NOTES: Patient awake, watching TV, breathing even and unlabored, no s/sx of pain nor any discomfort at this time. Bed at lowest position, call light within reach. Will continue to monitor.
[2018-04-03 04:00] VITALS: BP 120/70
--- NOTE | 2018-04-03 07:26 | NUR ---
NURSE NOTES: received rc t report from ami fragoso. patient is on bed awake. compalining of pain 11/28. morphine 2mg was given by the previous nurse more than an hour ago. kept npo for ultrasound of abdomen. bed is low and locked. will continue to monitor.
--- NOTE | 2018-04-03 07:28 | NUR ---
HAND-OFF: Report given to JULIA Green. Endorsed plan of care.
[2018-04-03 08:00] VITALS: BP 106/71
[2018-04-03] MEDS: Carvedilol 6.25mg Tab ORAL SCH ×2 (08:33→21:07)
[2018-04-03] MEDS: Enalapril 5mg tab ORAL SCH (08:34)
[2018-04-03] MEDS: Spironolactone 25mg tab ORAL SCH (08:34)
[2018-04-03] MEDS: Heparin 5000 units/ml inj SUBQ SCH ×2 (08:34→21:00)
--- NOTE | 2018-04-03 09:34 | NUR ---
RADIOLOGY DEPT CHEST X-RAY DONE.-P.DYE
[2018-04-03] MEDS ORDERED: Morphine Sulfate 4mg/ml Inj (IV/IM USE ONLY) IVP PRN (09:46)
[2018-04-03 12:00] VITALS: BP 118/85
--- NOTE | 2018-04-03 12:04 | GI Progress Note ---
Assessment/Plan Problems: (1) Drug-seeking behavior ICD Codes: Z76.5 - Malingerer [conscious simulation] SNOMED: 552966691 (2) ETOH abuse ICD Codes: F10.10 - Alcohol abuse, uncomplicated SNOMED: 51664466 (3) CHF (congestive heart failure) ICD Codes: I50.9 - Heart failure, unspecified SNOMED: 33556186 (4) Abdominal pain ICD Codes: R10.9 - Unspecified abdominal pain SNOMED: 83701794 Status: stable, unchanged Status Narrative Discussed with Dr. Smith Assessment/Plan Alcohol pain most likely due to alcoholic abuse History of cardiomyopathy with ejection fraction of 20% Symptomatic treatment at this time Occult blood stool to be checked to rule out any GI bleed Monitor hemoglobin and hematocrit, PRN transfusions Pain management PPI Zofran as needed Will consider endoscopy pending workup Follow-up labs The patient was seen and examined at bedside and all new and available data was reviewed in the patients chart. I agree with the above findings, impression and plan. (Patient seen earlier today. Signature stamp does not reflect patient encounter time.). - Margarito Smith MD Subjective Gastrointestinal/Abdominal: Reports: abdominal pain Objective Last 24 Hour Vital Signs Date Time Temp Pulse Resp B/P (MAP) Pulse Ox O2 Delivery O2 Flow Rate FiO2 04/03/18 10:36 99.8 04/03/18 09:00 Room Air 04/03/18 08:34 106/71 04/03/18 08:33 110 04/03/18 08:33 110 106/71 04/03/18 08:00 99.8 110 18 106/71 (83) 100 04/03/18 07:32 105 04/03/18 04:00 98.1 98 18 120/70 (87) 98 04/03/18 04:00 98 04/03/18 00:00 109 04/03/18 00:00 98.9 109 18 110/76 (87) 97 04/02/18 21:31 62 109/50 04/02/18 21:00 Room Air 04/02/18 20:00 116 04/02/18 20:00 98.2 111 18 117/70 (86) 97 04/02/18 16:00 97 04/02/18 12:25 98.2 72 16 128/82 100 Room Air 04/02/18 12:10 105 04/02/18 12:04 Room Air Intake and Output 04/02/18 04/03/18 19:00 07:00 Intake Total 360 ml 360 ml Balance 360 ml 360 ml Intake Oral 360 ml 360 ml # Voids 2 Height (Feet): 5 Height (Inches): 2.00 Weight (Pounds): 100 General Appearance: WD/WN, no apparent distress, alert Cardiovascular: normal rate Respiratory/Chest: normal breath sounds, no respiratory distress Abdominal Exam: normal bowel sounds, non tender, soft Extremities: normal range of motion, non-tender Ayesha Chavarrai NP Apr 03, 2018 12:04
[2018-04-03 12:45] LABS: BASOPHILS % (AUTO) 0.4 % (0.0-2.0); EOSINOPHILS % (AUTO) 0.4 % (0.0-3.0); HEMATOCRIT 27.5 % (37.0-47.0); HEMOGLOBIN 8.3 G/DL (12.0-16.0); LYMPHOCYTES % (AUTO) 20.8 % (20.0-45.0); MEAN CORPUSCULAR VOLUME 81 FL (80-99); NEUTROPHILS % (AUTO) 69.4 % (45.0-75.0); PLATELET COUNT 211 K/UL (150-450); RED BLOOD COUNT 3.41 M/UL (4.20-5.40); RED CELL DISTRIBUTION WIDTH 22.1 % (11.6-14.8); WHITE BLOOD COUNT 4.2 K/UL (4.8-10.8)
[2018-04-03 12:59] LABS: % IRON SATURATION 10 % (15-50); ALBUMIN 2.8 G/DL (3.4-5.0); ANION GAP 7 mmol/L (5-15); BLOOD UREA NITROGEN 6 mg/dL (7-18); CALCIUM 7.6 MG/DL (8.5-10.1); CARBON DIOXIDE 31 MMOL/L (21-32); CHLORIDE 99 MMOL/L (98-107); CREATININE 1.1 MG/DL (0.55-1.30); IRON 36 ug/dL (50-175); PHOSPHORUS 4.5 MG/DL (2.5-4.9); POTASSIUM 3.5 MMOL/L (3.5-5.1); SODIUM 137 MMOL/L (136-145); TOTAL IRON BINDING CAPACITY 361 ug/dL (250-450)
--- NOTE | 2018-04-03 13:09 | Diagnostic Imaging Report ---
Indication:Abdominal pain Technique: Grayscale and duplex Doppler imaging of the abdomen performed. Comparison: None Findings: The liver is prominent measuring 18 to 19 cm. The gallbladder is unremarkable. The demonstrated part of the pancreas, aorta and IVC show no abnormalities. Both kidneys appear unremarkable. The spleen is normal in size. There is no biliary ductal dilatation identified. Doppler evaluation of the main portal vein shows patency. There is no ascites. No hydronephrosis seen. CBD is 5 mm. Impression: Hepatomegaly. Negative exam otherwise
--- NOTE | 2018-04-03 13:13 | Diagnostic Imaging Report ---
Indication: Dyspnea Comparison: 04/02/2018 A single view chest radiograph was obtained. Findings: Borderline cardiomegaly is present. The lungs are clear. Pulmonary vascularity is within normal limits although increased on the prior day. The diaphragmatic contour is smooth and costophrenic angles are sharp. No pleural effusions are identified. The bones are unremarkable. Impression: Borderline cardiomegaly. Pulmonary vascularity is now normalized.
--- NOTE | 2018-04-03 13:50 | Infectious Diseases Prog Note ---
Assessment/Plan Assessment/Plan Abx: Ceftriaxone x1 04/02 Levaquin 04/02- Assessment: Abd pain, probable pancreatitis (based on hx, n/v), however lipase normal -Abd US: Hepatomegaly. Negative exam otherwise -CXR: Low lung volumes with bronchovascular crowding. Unchanged prominent cardiomediastinal silhouette, likely at least partially due to low lung volumes and portable technique. Alternatively, this could represent cardiomegaly or pericardial effusion.. Otherwise no acute cardiopulmonary disease. -u/a wbc 10-15,nit +, leuk +1; no dysuria Afebrile Mild leukopenia Mild AST elvation -HIV ab neg _hep ab p asthma and pancreatitis anemia CHF alcoholic cardiomyopathy gastritis Plan: -D/c Levaquin #2 and monitor off abx -f/u cx -Monitor CBC/CMP, temperatures -f/u hep panel -aspiration precautions -GI eval Thank you for this consultation. Will continue to follow along with you. Discussed with RN. Subjective Allergies: Coded Allergies: AMOXICILLIN (Unverified Allergy, Unknown, 01/08/17) Subjective afebrile no elukocytosis no dysuria Objective Vital Signs Last 24 Hour Vital Signs Date Time Temp Pulse Resp B/P (MAP) Pulse Ox O2 Delivery O2 Flow Rate FiO2 04/03/18 12:00 98.2 91 18 118/85 (96) 100 04/03/18 10:36 99.8 04/03/18 09:00 Room Air 04/03/18 08:34 106/71 04/03/18 08:33 110 04/03/18 08:33 110 106/71 04/03/18 08:00 99.8 110 18 106/71 (83) 100 04/03/18 07:32 105 04/03/18 04:00 98.1 98 18 120/70 (87) 98 04/03/18 04:00 98 04/03/18 00:00 109 04/03/18 00:00 98.9 109 18 110/76 (87) 97 04/02/18 21:31 62 109/50 04/02/18 21:00 Room Air 04/02/18 20:00 116 04/02/18 20:00 98.2 111 18 117/70 (86) 97 04/02/18 16:00 97 Height (Feet): 5 Height (Inches): 2.00 Weight (Pounds): 100 Objective GENERAL: Slightly anxious in bed, oriented x3, in no acute distress. CARDIOVASCULAR: No murmur. LUNGS: Distant and clear. ABDOMEN: Bowel sounds positive. Slightly tender. No guarding. No rigidity. No rebound. EXTREMITIES: No cyanosis, clubbing, or edema. NEUROLOGIC: The patient moves all extremities, slightly weak. Microbiology Date/Time Source Procedure Growth Status 04/02/18 05:00 Urine,Clean Catch Urine Culture - Preliminary Resulted Laboratory Tests Test 04/03/18 12:00 White Blood Count 4.2 K/UL (4.8-10.8) L Red Blood Count 3.41 M/UL (4.20-5.40) L Hemoglobin 8.3 G/DL (12.0-16.0) L Hematocrit 27.5 % (37.0-47.0) L Mean Corpuscular Volume 81 FL (80-99) Mean Corpuscular Hemoglobin 24.3 PG (27.0-31.0) L Mean Corpuscular Hemoglobin Concent 30.2 G/DL (32.0-36.0) L Red Cell Distribution Width 22.1 % (11.6-14.8) H Platelet Count 211 K/UL (150-450) Mean Platelet Volume 4.9 FL (6.5-10.1) L Neutrophils (%) (Auto) 69.4 % (45.0-75.0) Lymphocytes (%) (Auto) 20.8 % (20.0-45.0) Monocytes (%) (Auto) 9.0 % (1.0-10.0) Eosinophils (%) (Auto) 0.4 % (0.0-3.0) Basophils (%) (Auto) 0.4 % (0.0-2.0) Sodium Level 137 MMOL/L (136-145) Potassium Level 3.5 MMOL/L (3.5-5.1) Chloride Level 99 MMOL/L (98-107) Carbon Dioxide Level 31 MMOL/L (21-32) Anion Gap 7 mmol/L (5-15) Blood Urea Nitrogen 6 mg/dL (7-18) L Creatinine 1.1 MG/DL (0.55-1.30) Estimat Glomerular Filtration Rate > 60 mL/min (>60) Glucose Level 133 MG/DL (74-106) H Calcium Level 7.6 MG/DL (8.5-10.1) L Phosphorus Level 4.5 MG/DL (2.5-4.9) Iron Level 36 ug/dL (50-175) L Total Iron Binding Capacity 361 ug/dL (250-450) Percent Iron Saturation 10 % (15-50) L Unsaturated Iron Binding 325 ug/dL (112-346) Troponin I 0.017 ng/mL (0.000-0.056) Albumin 2.8 G/DL (3.4-5.0) L Hepatitis A IgM Antibody Pending Hepatitis B Surface Antigen Pending Hepatitis B Core IgM Antibody Pending Hepatitis C Antibody Pending HIV (1&2) Antibody Rapid Negative (NEGATIVE) Current Medications Medications (Trade) Dose Ordered Sig/Leora Route PRN Reason Start Time Stop Time Status Last Admin Dose Admin Acetaminophen (Tylenol) 650 mg Q4H PRN ORAL Fever 04/02/18 09:00 05/02/18 08:59 Albuterol/ Ipratropium (Albuterol/ Ipratropium) 3 ml Q4H PRN HHN Shortness of Breath 04/02/18 09:00 04/07/18 08:59 Carvedilol (Coreg) 6.25 mg EVERY 12 HOURS ORAL 04/02/18 21:00 05/02/18 20:59 04/03/18 08:33 Dextrose (Dextrose 50%) 25 ml Q30M PRN IV Hypoglycemia 04/02/18 09:00 05/02/18 08:59 Dextrose (Dextrose 50%) 50 ml Q30M PRN IV Hypoglycemia 04/02/18 09:00 05/02/18 08:59 Digoxin (Lanoxin) 0.25 mg DAILY ORAL 04/03/18 09:00 05/03/18 08:59 04/03/18 08:33 Enalapril Maleate (Vasotec) 5 mg DAILY ORAL 04/03/18 09:00 05/03/18 08:59 Furosemide (Lasix) 40 mg EVERY 8 HOURS IV 04/02/18 14:00 05/02/18 13:59 04/03/18 13:41 Heparin Sodium (Porcine) (Heparin 5000 units/ml) 5,000 units EVERY 12 HOURS SUBQ 04/02/18 21:00 05/02/18 20:59 Levofloxacin 100 ml @ 100 mls/hr Q24H IVPB 04/02/18 14:00 04/09/18 13:59 04/03/18 13:41 Morphine Sulfate (Morphine Sulfate) 2 mg Q4H PRN IVP for pain scale 1-08/2804/03/18 09:46 04/10/18 09:45 Morphine Sulfate (Morphine Sulfate) 4 mg Q4H PRN IVP Severe Pain (Pain Scale 7-10) 04/03/18 09:46 04/10/18 09:45 04/03/18 10:06 Ondansetron HCl (Zofran) 4 mg Q6H PRN IVP Nausea & Vomiting 04/02/18 09:00 05/02/18 08:59 Pantoprazole (Protonix) 40 mg DAILY ORAL 04/03/18 09:00 05/03/18 08:59 04/03/18 08:33 Polyethylene Glycol (Miralax) 17 gm DAILYPRN PRN ORAL Constipation 04/02/18 09:00 05/02/18 08:59 Spironolactone (Aldactone) 25 mg DAILY ORAL 04/03/18 09:00 05/03/18 08:59 Temazepam (Restoril) 15 mg HSPRN PRN ORAL Insomnia 04/02/18 09:00 04/09/18 08:59 Alma Delia Andrade M.D. Apr 03, 2018 13:50
--- NOTE | 2018-04-03 14:12 | Cardiac Electrophysiology PN ---
Subjective Subjective [id number] Objective Last 24 Hour Vital Signs Date Time Temp Pulse Resp B/P (MAP) Pulse Ox O2 Delivery O2 Flow Rate FiO2 04/03/18 12:00 98.2 91 18 118/85 (96) 100 04/03/18 10:36 99.8 04/03/18 09:00 Room Air 04/03/18 08:34 106/71 04/03/18 08:33 110 04/03/18 08:33 110 106/71 04/03/18 08:00 99.8 110 18 106/71 (83) 100 04/03/18 07:32 105 04/03/18 04:00 98.1 98 18 120/70 (87) 98 04/03/18 04:00 98 04/03/18 00:00 109 04/03/18 00:00 98.9 109 18 110/76 (87) 97 04/02/18 21:31 62 109/50 04/02/18 21:00 Room Air 04/02/18 20:00 116 04/02/18 20:00 98.2 111 18 117/70 (86) 97 04/02/18 16:00 97 Intake and Output 04/02/18 04/03/18 19:00 07:00 Intake Total 360 ml 360 ml Balance 360 ml 360 ml Intake Oral 360 ml 360 ml # Voids 2 Laboratory Tests Test 04/03/18 12:00 White Blood Count 4.2 K/UL (4.8-10.8) L Red Blood Count 3.41 M/UL (4.20-5.40) L Hemoglobin 8.3 G/DL (12.0-16.0) L Hematocrit 27.5 % (37.0-47.0) L Mean Corpuscular Volume 81 FL (80-99) Mean Corpuscular Hemoglobin 24.3 PG (27.0-31.0) L Mean Corpuscular Hemoglobin Concent 30.2 G/DL (32.0-36.0) L Red Cell Distribution Width 22.1 % (11.6-14.8) H Platelet Count 211 K/UL (150-450) Mean Platelet Volume 4.9 FL (6.5-10.1) L Neutrophils (%) (Auto) 69.4 % (45.0-75.0) Lymphocytes (%) (Auto) 20.8 % (20.0-45.0) Monocytes (%) (Auto) 9.0 % (1.0-10.0) Eosinophils (%) (Auto) 0.4 % (0.0-3.0) Basophils (%) (Auto) 0.4 % (0.0-2.0) Sodium Level 137 MMOL/L (136-145) Potassium Level 3.5 MMOL/L (3.5-5.1) Chloride Level 99 MMOL/L (98-107) Carbon Dioxide Level 31 MMOL/L (21-32) Anion Gap 7 mmol/L (5-15) Blood Urea Nitrogen 6 mg/dL (7-18) L Creatinine 1.1 MG/DL (0.55-1.30) Estimat Glomerular Filtration Rate > 60 mL/min (>60) Glucose Level 133 MG/DL (74-106) H Calcium Level 7.6 MG/DL (8.5-10.1) L Phosphorus Level 4.5 MG/DL (2.5-4.9) Iron Level 36 ug/dL (50-175) L Total Iron Binding Capacity 361 ug/dL (250-450) Percent Iron Saturation 10 % (15-50) L Unsaturated Iron Binding 325 ug/dL (112-346) Troponin I 0.017 ng/mL (0.000-0.056) Albumin 2.8 G/DL (3.4-5.0) L Hepatitis A IgM Antibody Pending Hepatitis B Surface Antigen Pending Hepatitis B Core IgM Antibody Pending Hepatitis C Antibody Pending HIV (1&2) Antibody Rapid Negative (NEGATIVE) Microbiology Date/Time Source Procedure Growth Status 04/02/18 05:00 Urine,Clean Catch Urine Culture - Preliminary Resulted Efrain Camarillo MD Apr 03, 2018 14:12
--- NOTE | 2018-04-03 14:31 | General Progress Note ---
Assessment/Plan Problem List: (1) Anemia ICD Codes: D64.9 - Anemia, unspecified SNOMED: 649167340 (2) Malnutrition ICD Codes: E46 - Unspecified protein-calorie malnutrition SNOMED: 08625119 (3) UTI (urinary tract infection) ICD Codes: N39.0 - Urinary tract infection, site not specified SNOMED: 28402156 (4) Abdominal pain ICD Codes: R10.9 - Unspecified abdominal pain SNOMED: 62027893 (5) CHF (congestive heart failure) ICD Codes: I50.9 - Heart failure, unspecified SNOMED: 86202072 Status: unchanged Assessment/Plan abx pain control adv diet cbc bmp am Subjective Constitutional: Reports: weakness Gastrointestinal/Abdominal: Reports: nausea Allergies: Coded Allergies: AMOXICILLIN (Unverified Allergy, Unknown, 01/08/17) All Systems: reviewed and negative except above Subjective calm in bed Objective Last 24 Hour Vital Signs Date Time Temp Pulse Resp B/P (MAP) Pulse Ox O2 Delivery O2 Flow Rate FiO2 04/03/18 12:00 98.2 91 18 118/85 (96) 100 04/03/18 11:46 78 04/03/18 10:36 99.8 04/03/18 09:00 Room Air 04/03/18 08:34 106/71 04/03/18 08:33 110 04/03/18 08:33 110 106/71 04/03/18 08:00 99.8 110 18 106/71 (83) 100 04/03/18 07:32 105 04/03/18 04:00 98.1 98 18 120/70 (87) 98 04/03/18 04:00 98 04/03/18 00:00 109 04/03/18 00:00 98.9 109 18 110/76 (87) 97 04/02/18 21:31 62 109/50 04/02/18 21:00 Room Air 04/02/18 20:00 116 04/02/18 20:00 98.2 111 18 117/70 (86) 97 04/02/18 16:00 97 Intake and Output 04/02/18 04/03/18 19:00 07:00 Intake Total 360 ml 360 ml Balance 360 ml 360 ml Intake Oral 360 ml 360 ml # Voids 2 Laboratory Tests 04/03/18 12:00: White Blood Count 4.2L, Red Blood Count 3.41L, Hemoglobin 8.3L, Hematocrit 27.5L , Mean Corpuscular Volume 81, Mean Corpuscular Hemoglobin 24.3L, Mean Corpuscular Hemoglobin Concent 30.2L, Red Cell Distribution Width 22.1H, Platelet Count 211, Mean Platelet Volume 4.9L, Neutrophils (%) (Auto) 69.4, Lymphocytes (%) (Auto) 20.8, Monocytes (%) (Auto) 9.0, Eosinophils (%) (Auto) 0.4, Basophils (%) (Auto) 0.4, Sodium Level 137, Potassium Level 3.5, Chloride Level 99, Carbon Dioxide Level 31, Anion Gap 7, Blood Urea Nitrogen 6L, Creatinine 1.1, Estimat Glomerular Filtration Rate > 60, Glucose Level 133H, Calcium Level 7.6L, Phosphorus Level 4.5, Iron Level 36L, Total Iron Binding Capacity 361, Percent Iron Saturation 10L, Unsaturated Iron Binding 325, Troponin I 0.017, Albumin 2.8L, Hepatitis A IgM Antibody [Pending], Hepatitis B Surface Antigen [Pending], Hepatitis B Core IgM Antibody [Pending], Hepatitis C Antibody [Pending], HIV (1&2) Antibody Rapid Negative Height (Feet): 5 Height (Inches): 2.00 Weight (Pounds): 100 General Appearance: lethargic EENT: normal ENT inspection Neck: normal alignment Cardiovascular: normal peripheral pulses, normal rate, regular rhythm Respiratory/Chest: chest wall non-tender, lungs clear, normal breath sounds Abdomen: normal bowel sounds, non tender, soft Extremities: normal inspection Edema: no edema noted Arm (L), no edema noted Arm (R), no edema noted Leg (L), no edema noted Leg (R), no edema noted Pedal (L), no edema noted Pedal (R), no edema noted Generalized Neurologic: responsive, motor weakness Skin: normal pigmentation, warm/dry Yaakov Wilson DO Apr 03, 2018 14:31
--- NOTE | 2018-04-03 15:57 | NUR ---
CASE MANAGEMENT:REVIEW 04/03/18 SI: ANEMIA. UTI. CHF 99.8 91 18 118/85 100% ON RA H/H-8.3/27.5 IS: IV LASIX BID IV MORPHINE Q4 PRN DIGOXIN PO QD VASOTEC PO QD PROTONIX PO QD ALDACTONE PO QD COREG PO Q12 : TELEMETRY STATUS
[2018-04-03 16:00] VITALS: BP 119/83
--- NOTE | 2018-04-03 18:04 | Consultation ---
History of Present Illness General Date patient seen: Apr 03, 2018 Time patient seen: 06:00 - pm Chief Complaint: Abdominal Pain Referring physician: Dr. Lovell Reason for Consultation: Pain Management Present Illness HPI Patient admitted with c/o abdominal pain due to alcohol abuse and gastris as per GI doctor. Has chest pain with h/o CHF. On Morphine 2-4mg IV Q4H PRN mod- severe pain. We were consulted so patient has adequate pain control while here in the hospital. Allergies: Coded Allergies: AMOXICILLIN (Unverified Allergy, Unknown, 01/08/17) Medication History Scheduled Carvedilol (Coreg), 6.25 MG ORAL EVERY 12 HOURS Digoxin* (Lanoxin*), 0.25 MG ORAL DAILY Enalapril Maleate* (Enalapril Maleate*), 5 MG ORAL DAILY Furosemide* (Lasix*), Unknown Dose ORAL DAILY, (Reported) Pantoprazole* (Protonix*), 40 MG ORAL DAILY, (Reported) Spironolactone (Aldactone), 25 MG ORAL DAILY Scheduled PRN Ondansetron Odt* (Zofran Odt*), 4 MG BC EVERY 6 HOURS PRN for Nausea & Vomiting, (Reported) Patient History Healthcare decision maker N Resuscitation status Advanced Directive on File Past Medical/Surgical History Past Medical/Surgical History: (1) CHF (congestive heart failure) (2) Abdominal pain Social History Social History: (1) ETOH abuse Review of Systems Constitutional: Reports: weakness Eye: Reports: no symptoms ENT: Reports: no symptoms Respiratory: Reports: no symptoms Cardiovascular: Reports: chest pain Gastrointestinal: Reports: abdominal pain Genitourinary: Reports: no symptoms Musculoskeletal: Reports: no symptoms Skin: Reports: no symptoms Psychiatric: Reports: no symptoms Neurological: Reports: no symptoms Endocrine: Reports: no symptoms Hematologic/Lymphatic: Reports: no symptoms Physical Exam General Appearance: no apparent distress, alert HEENT: PERRL, EOMI Neck: non-tender, supple Respiratory/Chest: lungs clear, normal breath sounds Cardiovascular/Chest: normal rate, regular rhythm Abdomen: non tender, soft Extremities: normal range of motion, non-tender Skin Exam: warm/dry Neurologic: alert, oriented x 3 Last 24 Hour Vital Signs Date Time Temp Pulse Resp B/P (MAP) Pulse Ox O2 Delivery O2 Flow Rate FiO2 04/03/18 16:00 98.2 98 18 119/83 (95) 97 04/03/18 15:16 83 04/03/18 12:00 98.2 91 18 118/85 (96) 100 04/03/18 11:46 78 04/03/18 10:36 99.8 04/03/18 09:00 Room Air 04/03/18 08:34 106/71 04/03/18 08:33 110 04/03/18 08:33 110 106/71 04/03/18 08:00 99.8 110 18 106/71 (83) 100 04/03/18 07:32 105 04/03/18 04:00 98.1 98 18 120/70 (87) 98 04/03/18 04:00 98 04/03/18 00:00 109 04/03/18 00:00 98.9 109 18 110/76 (87) 97 04/02/18 21:31 62 109/50 04/02/18 21:00 Room Air 04/02/18 20:00 116 04/02/18 20:00 98.2 111 18 117/70 (86) 97 Intake and Output 04/02/18 04/03/18 19:00 07:00 Intake Total 360 ml 360 ml Balance 360 ml 360 ml Intake Oral 360 ml 360 ml # Voids 2 Laboratory Tests Test 04/03/18 12:00 White Blood Count 4.2 K/UL (4.8-10.8) L Red Blood Count 3.41 M/UL (4.20-5.40) L Hemoglobin 8.3 G/DL (12.0-16.0) L Hematocrit 27.5 % (37.0-47.0) L Mean Corpuscular Volume 81 FL (80-99) Mean Corpuscular Hemoglobin 24.3 PG (27.0-31.0) L Mean Corpuscular Hemoglobin Concent 30.2 G/DL (32.0-36.0) L Red Cell Distribution Width 22.1 % (11.6-14.8) H Platelet Count 211 K/UL (150-450) Mean Platelet Volume 4.9 FL (6.5-10.1) L Neutrophils (%) (Auto) 69.4 % (45.0-75.0) Lymphocytes (%) (Auto) 20.8 % (20.0-45.0) Monocytes (%) (Auto) 9.0 % (1.0-10.0) Eosinophils (%) (Auto) 0.4 % (0.0-3.0) Basophils (%) (Auto) 0.4 % (0.0-2.0) Sodium Level 137 MMOL/L (136-145) Potassium Level 3.5 MMOL/L (3.5-5.1) Chloride Level 99 MMOL/L (98-107) Carbon Dioxide Level 31 MMOL/L (21-32) Anion Gap 7 mmol/L (5-15) Blood Urea Nitrogen 6 mg/dL (7-18) L Creatinine 1.1 MG/DL (0.55-1.30) Estimat Glomerular Filtration Rate > 60 mL/min (>60) Glucose Level 133 MG/DL (74-106) H Calcium Level 7.6 MG/DL (8.5-10.1) L Phosphorus Level 4.5 MG/DL (2.5-4.9) Iron Level 36 ug/dL (50-175) L Total Iron Binding Capacity 361 ug/dL (250-450) Percent Iron Saturation 10 % (15-50) L Unsaturated Iron Binding 325 ug/dL (112-346) Troponin I 0.017 ng/mL (0.000-0.056) Albumin 2.8 G/DL (3.4-5.0) L Hepatitis A IgM Antibody Pending Hepatitis B Surface Antigen Pending Hepatitis B Core IgM Antibody Pending Hepatitis C Antibody Pending HIV (1&2) Antibody Rapid Negative (NEGATIVE) Height (Feet): 5 Height (Inches): 2.00 Weight (Pounds): 100 Medications Current Medications Medications (Trade) Dose Ordered Sig/Leora Route PRN Reason Start Time Stop Time Status Last Admin Dose Admin Acetaminophen (Tylenol) 650 mg Q4H PRN ORAL Fever 04/02/18 09:00 05/02/18 08:59 Albuterol/ Ipratropium (Albuterol/ Ipratropium) 3 ml Q4H PRN HHN Shortness of Breath 04/02/18 09:00 04/07/18 08:59 Carvedilol (Coreg) 6.25 mg EVERY 12 HOURS ORAL 04/02/18 21:00 05/02/18 20:59 04/03/18 08:33 Dextrose (Dextrose 50%) 25 ml Q30M PRN IV Hypoglycemia 04/02/18 09:00 05/02/18 08:59 Dextrose (Dextrose 50%) 50 ml Q30M PRN IV Hypoglycemia 04/02/18 09:00 05/02/18 08:59 Digoxin (Lanoxin) 0.25 mg DAILY ORAL 04/03/18 09:00 05/03/18 08:59 04/03/18 08:33 Enalapril Maleate (Vasotec) 5 mg DAILY ORAL 04/03/18 09:00 05/03/18 08:59 Furosemide (Lasix) 40 mg BID IV 04/03/18 18:00 05/02/18 13:59 04/03/18 17:15 Heparin Sodium (Porcine) (Heparin 5000 units/ml) 5,000 units EVERY 12 HOURS SUBQ 04/02/18 21:00 05/02/18 20:59 Morphine Sulfate (Morphine Sulfate) 2 mg Q4H PRN IVP for pain scale 1-/10 04/03/18 09:46 04/10/18 09:45 Morphine Sulfate (Morphine Sulfate) 4 mg Q4H PRN IVP Severe Pain (Pain Scale 7-10) 04/03/18 09:46 04/10/18 09:45 04/03/18 14:13 Ondansetron HCl (Zofran) 4 mg Q6H PRN IVP Nausea & Vomiting 04/02/18 09:00 05/02/18 08:59 Pantoprazole (Protonix) 40 mg DAILY ORAL 04/03/18 09:00 05/03/18 08:59 04/03/18 08:33 Polyethylene Glycol (Miralax) 17 gm DAILYPRN PRN ORAL Constipation 04/02/18 09:00 05/02/18 08:59 Spironolactone (Aldactone) 25 mg DAILY ORAL 04/03/18 09:00 05/03/18 08:59 Temazepam (Restoril) 15 mg HSPRN PRN ORAL Insomnia 04/02/18 09:00 04/09/18 08:59 Assessment/Plan Assessment/Plan (1) Abdominal pain (2) Gastritis (3) Alcohol abuse (4) Chest pain (5) CHF Patient to be continued on Morphine as needed. D/w Dr. Dinero and he concurred. Tank you for consult. Jeovanny Campo Apr 03, 2018 18:04
--- NOTE | 2018-04-03 18:30 | NUR ---
NURSE NOTES: left a message to dr nuñez regarding the patients concern after receiving lasix 40mg IV. patient complains of tingling and cramps all over her body. awaiting callback and new order as of this time.
--- NOTE | 2018-04-03 18:30 | Consultation ---
DATE OF CONSULTATION: 04/03/2018 CARDIOLOGY CONSULTATION CONSULTING PHYSICIAN: Efrain Camarillo M.D. REFERRING PHYSICIAN: Yaakov Wilson D.O. REASON FOR CONSULTATION: Congestive heart failure. HISTORY OF PRESENT ILLNESS: The patient is a 23-year-old lady with history of hypertension and congestive heart failure. Echocardiogram showed ejection fraction of 35%. The patient presented to the emergency room with nausea, vomiting, and increased abdominal pain. The patient was admitted to telemetry and a Cardiology consultation was obtained for further evaluation. PAST MEDICAL HISTORY: Alcoholic cardiomyopathy, congestive heart failure, and pancreatitis. PAST SURGICAL HISTORY: None. ALLERGIES: She is allergic to amoxicillin. SOCIAL HISTORY: Positive for smoking and drinking alcohol. No history of intravenous drug use. REVIEW OF SYSTEMS: Review of systems was negative other than what is mentioned in the history of present illness. PHYSICAL EXAMINATION: VITAL SIGNS: Blood pressure of 118/85, pulse 91, respirations 18, and temperature 98.2. HEAD AND NECK: Showed no JVD. LUNGS: Clear. CARDIOVASCULAR: Regular S1 and S2 with no gallop or murmur. ABDOMEN: Soft. EXTREMITIES: 1+ pitting edema. LABORATORY DATA: Labs show white count of 4.2, hemoglobin 8.7, hematocrit of 27.5, and platelet count of 211,000. Sodium 137, potassium 3.5, BUN of 6, and creatinine 1.1. Troponin negative x2. BNP 3325. ASSESSMENT/PLAN: 1. Exacerbation of congestive heart failure. BNP of more than 3000 in this patient with alcoholic cardiomyopathy and the ejection fraction of 35% to 40%. Continue digoxin 0.25 mg daily, enalapril 5 mg daily, Aldactone 25 mg daily, and Coreg 6.25 mg b.i.d. The patient is on Lasix 40 mg IV every 8 hours. I will switch to 80 mg IV b.i.d. 2. Abdominal pain, likely due to abdominal pancreatitis. 3. Leukopenia and anemia. 4. Mild AST elevation. Hepatitis antibody pending. Human immunodeficiency virus antibody was negative. 5. History of asthma. 6. Gastritis. Thank you very much, Dr. Wilson, for allowing me to participate in the care of this patient. Please do not hesitate to contact me for any questions regarding my evaluation. Efrain Camarillo M.D. DR: TOM JOB#: [id number] CC:
--- NOTE | 2018-04-03 19:28 | NUR ---
NURSE NOTES: dr nuñez called back and ordered STAT BMP, Ca and Mag. will take note and carry out.
--- NOTE | 2018-04-03 19:29 | NUR ---
HAND-OFF: Report given to jaqui fragoso.
[2018-04-03 19:47] LABS: ANION GAP 9 mmol/L (5-15); BLOOD UREA NITROGEN 8 mg/dL (7-18); CALCIUM 7.8 MG/DL (8.5-10.1); CARBON DIOXIDE 34 MMOL/L (21-32); CHLORIDE 97 MMOL/L (98-107); CREATININE 1.1 MG/DL (0.55-1.30); POTASSIUM 3.5 MMOL/L (3.5-5.1); SODIUM 140 MMOL/L (136-145)
--- NOTE | 2018-04-03 19:52 | NUR ---
NURSE NOTES: Received pt from JULIA Green. Pt awake, alert, and on the phone. Bed in lowest position. Call light within reach. Will continue to monitor.
[2018-04-03 20:00] VITALS: BP 116/76
--- NOTE | 2018-04-03 20:17 | NUR ---
NURSE NOTES: Called and left a message with Dr. Wilson regarding pts complaint of tingling all over her body and stiffness on her left side. Will continue to monitor.
--- NOTE | 2018-04-03 20:26 | NUR ---
NURSE NOTES: Called and left a message with Dr. Wilson regarding the critical value of Mg 0.7. Awaiting call back.
--- NOTE | 2018-04-03 20:33 | NUR ---
NURSE NOTES: Dr. Wilson gave instructions to call Dr. Weller and Dr. Brush regarding the critical result. Called and received orders from Dr. Weller for 4gm Mg sulfate IV. Will continue to monitor.
[2018-04-04] VITALS: BP 118/65
[2018-04-04] MEDS: Morphine Sulfate 4mg/ml Inj (IV/IM USE ONLY) IVP PRN ×3 (02:05→10:51)
[2018-04-04 04:00] VITALS: BP 109/69
[2018-04-04 07:17] LABS: HEMATOCRIT 29.7 % (37.0-47.0); HEMOGLOBIN 8.8 G/DL (12.0-16.0); MEAN CORPUSCULAR VOLUME 82 FL (80-99); PLATELET COUNT 220 K/UL (150-450); RED BLOOD COUNT 3.62 M/UL (4.20-5.40); RED CELL DISTRIBUTION WIDTH 21.4 % (11.6-14.8); WHITE BLOOD COUNT 3.1 K/UL (4.8-10.8)
--- NOTE | 2018-04-04 07:19 | NUR ---
NURSE NOTES: received patient report from jaqui fragoso. patient is on bed asleep. no acute distress noted. mag level 0.8, covered with 4g mag so4. pain management. bed is low and locked. will continue to monitor.
[2018-04-04 07:35] LABS: ALANINE AMINOTRANSFERASE 27 U/L (12-78); ALBUMIN 2.5 G/DL (3.4-5.0); ALBUMIN/GLOBULIN RATIO 0.5 (1.0-2.7); ALKALINE PHOSPHATASE 121 U/L (46-116); ANION GAP 8 mmol/L (5-15); ASPARTATE AMINO TRANSFERASE 70 U/L (15-37); BILIRUBIN,TOTAL 1.2 MG/DL (0.2-1.0); BLOOD UREA NITROGEN 7 mg/dL (7-18); CALCIUM 7.6 MG/DL (8.5-10.1); CARBON DIOXIDE 32 MMOL/L (21-32); CHLORIDE 96 MMOL/L (98-107); POTASSIUM 3.2 MMOL/L (3.5-5.1); SODIUM 136 MMOL/L (136-145)
[2018-04-04 07:37] LABS: BILIRUBIN,DIRECT 0.4 MG/DL (0.0-0.3)
--- NOTE | 2018-04-04 07:47 | NUR ---
HAND-OFF: Report given to JULIA Green. pT STABLE.
[2018-04-04 08:00] VITALS: BP 109/64
[2018-04-04 08:00] LABS: PHOSPHORUS 4.1 MG/DL (2.5-4.9)
--- NOTE | 2018-04-04 08:13 | NUR ---
NURSE NOTES: Informed MD Short regarding potassium 3.2, new order potassium chloride 40 mEq IV x1. Will take note and carry out.
[2018-04-04] MEDS: Spironolactone 25mg tab ORAL SCH (08:31)
[2018-04-04] MEDS: Enalapril 5mg tab ORAL SCH (08:33)
[2018-04-04] MEDS: Carvedilol 6.25mg Tab ORAL SCH (08:33)
[2018-04-04] MEDS: Heparin 5000 units/ml inj SUBQ SCH (08:34)
[2018-04-04] MEDS ORDERED: Iron Sucrose 200 MG in NS 110 ML IV SCH (09:00)
--- NOTE | 2018-04-04 09:21 | Cardiac Electrophysiology PN ---
Assessment/Plan Assessment/Plan 1. Exacerbation of congestive heart failure. BNP of more than 3000 in this patient with alcoholic cardiomyopathy and the ejection fraction of 35% to 40%. Continue digoxin 0.25 mg daily, enalapril 5 mg daily, Aldactone 25 mg daily, Coreg 6.25 mg bid and Lasix 80 mg IV b.i.d. 2. Abdominal pain, likely due to abdominal pancreatitis. 3. Leukopenia and anemia. 4. Mild AST elevation. Hepatitis antibody pending. Human immunodeficiency virus antibody was negative. 5. History of asthma. 6. Gastritis. Subjective Subjective Diuresing well. No CP. SOB better Objective Last 24 Hour Vital Signs Date Time Temp Pulse Resp B/P (MAP) Pulse Ox O2 Delivery O2 Flow Rate FiO2 04/04/18 08:34 83 04/04/18 08:33 109/64 04/04/18 08:33 62 109/64 04/04/18 08:32 62 04/04/18 08:00 98.1 62 18 109/64 (79) 96 04/04/18 04:00 98.0 79 17 109/69 (82) 100 04/04/18 04:00 82 04/04/18 00:00 98.0 77 16 118/65 (82) 99 04/04/18 00:00 91 04/03/18 21:07 80 116/76 04/03/18 21:00 Room Air 04/03/18 20:00 98.9 80 17 116/76 (89) 100 04/03/18 20:00 86 04/03/18 16:00 98.2 98 18 119/83 (95) 97 04/03/18 15:16 83 04/03/18 12:00 98.2 91 18 118/85 (96) 100 04/03/18 11:46 78 04/03/18 10:36 99.8 Intake and Output 04/03/18 04/04/18 19:00 07:00 Intake Total 810 ml Balance 810 ml Intake Oral 710 ml IV Total 100 ml # Voids 6 2 Laboratory Tests Test 04/03/18 12:00 04/03/18 19:25 04/04/18 05:55 White Blood Count 4.2 K/UL (4.8-10.8) L 3.1 K/UL (4.8-10.8) L Red Blood Count 3.41 M/UL (4.20-5.40) L 3.62 M/UL (4.20-5.40) L Hemoglobin 8.3 G/DL (12.0-16.0) L 8.8 G/DL (12.0-16.0) L Hematocrit 27.5 % (37.0-47.0) L 29.7 % (37.0-47.0) L Mean Corpuscular Volume 81 FL (80-99) 82 FL (80-99) Mean Corpuscular Hemoglobin 24.3 PG (27.0-31.0) L 24.2 PG (27.0-31.0) L Mean Corpuscular Hemoglobin Concent 30.2 G/DL (32.0-36.0) L 29.5 G/DL (32.0-36.0) L Red Cell Distribution Width 22.1 % (11.6-14.8) H 21.4 % (11.6-14.8) H Platelet Count 211 K/UL (150-450) 220 K/UL (150-450) Mean Platelet Volume 4.9 FL (6.5-10.1) L 5.1 FL (6.5-10.1) L Neutrophils (%) (Auto) 69.4 % (45.0-75.0) % (45.0-75.0) Lymphocytes (%) (Auto) 20.8 % (20.0-45.0) % (20.0-45.0) Monocytes (%) (Auto) 9.0 % (1.0-10.0) % (1.0-10.0) Eosinophils (%) (Auto) 0.4 % (0.0-3.0) % (0.0-3.0) Basophils (%) (Auto) 0.4 % (0.0-2.0) % (0.0-2.0) Sodium Level 137 MMOL/L (136-145) 140 MMOL/L (136-145) 136 MMOL/L (136-145) Potassium Level 3.5 MMOL/L (3.5-5.1) 3.5 MMOL/L (3.5-5.1) 3.2 MMOL/L (3.5-5.1) L Chloride Level 99 MMOL/L (98-107) 97 MMOL/L (98-107) L 96 MMOL/L (98-107) L Carbon Dioxide Level 31 MMOL/L (21-32) 34 MMOL/L (21-32) H 32 MMOL/L (21-32) Anion Gap 7 mmol/L (5-15) 9 mmol/L (5-15) 8 mmol/L (5-15) Blood Urea Nitrogen 6 mg/dL (7-18) L 8 mg/dL (7-18) 7 mg/dL (7-18) Creatinine 1.1 MG/DL (0.55-1.30) 1.1 MG/DL (0.55-1.30) 1.0 MG/DL (0.55-1.30) Estimat Glomerular Filtration Rate > 60 mL/min (>60) > 60 mL/min (>60) > 60 mL/min (>60) Glucose Level 133 MG/DL (74-106) H 109 MG/DL (74-106) H 102 MG/DL (74-106) Calcium Level 7.6 MG/DL (8.5-10.1) L Pending 7.6 MG/DL (8.5-10.1) L Phosphorus Level 4.5 MG/DL (2.5-4.9) 4.1 MG/DL (2.5-4.9) Iron Level 36 ug/dL (50-175) L Total Iron Binding Capacity 361 ug/dL (250-450) Percent Iron Saturation 10 % (15-50) L Unsaturated Iron Binding 325 ug/dL (112-346) Troponin I 0.017 ng/mL (0.000-0.056) 0.012 ng/mL (0.000-0.056) Albumin 2.8 G/DL (3.4-5.0) L 2.5 G/DL (3.4-5.0) L Hepatitis A IgM Antibody Pending Hepatitis B Surface Antigen Pending Hepatitis B Core IgM Antibody Pending Hepatitis C Antibody Pending HIV (1&2) Antibody Rapid Negative (NEGATIVE) Magnesium Level 0.7 MG/DL (1.8-2.4) *L 2.1 MG/DL (1.8-2.4) Neutrophils % (Manual) Pending Lymphocytes % (Manual) Pending Platelet Estimate Pending Platelet Morphology Pending Uric Acid Pending Ferritin 66 NG/ML (8-388) Total Bilirubin 1.2 MG/DL (0.2-1.0) H Direct Bilirubin 0.4 MG/DL (0.0-0.3) H Aspartate Amino Transf (AST/SGOT) 70 U/L (15-37) H Alanine Aminotransferase (ALT/SGPT) 27 U/L (12-78) Alkaline Phosphatase 121 U/L (46-116) H Total Protein 7.6 G/DL (6.4-8.2) Globulin 5.1 g/dL Albumin/Globulin Ratio 0.5 (1.0-2.7) L Vitamin B12 Level 377 PG/ML (193-986) Folate 8.4 NG/ML (8.6-58.9) L Microbiology Date/Time Source Procedure Growth Status 04/02/18 05:00 Urine,Clean Catch Urine Culture - Preliminary Mixed Gram Positive Organism Resulted Objective HEAD AND NECK: No JVD. LUNGS: Clear. CARDIOVASCULAR: Regular S1 and S2 with no gallop or murmur. ABDOMEN: Soft. EXTREMITIES: 1+ pitting edema. Efrain Camarillo MD Apr 04, 2018 09:21
[2018-04-04] MEDS: Vitamin B12 1000mcg/ml Inj IM SCH ×2 (10:00→12:39)
--- NOTE | 2018-04-04 10:59 | Infectious Diseases Prog Note ---
Assessment/Plan Assessment/Plan Abx: Ceftriaxone x1 04/02 Levaquin 04/02- Assessment: Abd pain, probable pancreatitis (based on hx, n/v), however lipase normal -Abd US: Hepatomegaly. Negative exam otherwise -CXR: Low lung volumes with bronchovascular crowding. Unchanged prominent cardiomediastinal silhouette, likely at least partially due to low lung volumes and portable technique. Alternatively, this could represent cardiomegaly or pericardial effusion.. Otherwise no acute cardiopulmonary disease. -u/a wbc 10-15,nit +, leuk +1; ucx m ixed gram positive growth; no dysuria Afebrile Mild leukopenia Mild AST elvation -HIV ab neg _hep ab p asthma and pancreatitis anemia CHF alcoholic cardiomyopathy gastritis Plan: -Cont to monitor off abx -04/03 SP Levaquin #2 -f/u cx -Monitor CBC/CMP, temperatures -f/u hep panel -aspiration precautions -GI eval Thank you for this consultation. Will continue to follow along with you. Discussed with RN. Subjective Allergies: Coded Allergies: AMOXICILLIN (Unverified Allergy, Unknown, 01/08/17) Subjective afebrile no elukocytosis no dysuria Objective Vital Signs Last 24 Hour Vital Signs Date Time Temp Pulse Resp B/P (MAP) Pulse Ox O2 Delivery O2 Flow Rate FiO2 04/04/18 09:00 Room Air 04/04/18 08:34 83 04/04/18 08:33 109/64 04/04/18 08:33 62 109/64 04/04/18 08:32 62 04/04/18 08:00 98.1 62 18 109/64 (79) 96 04/04/18 04:00 98.0 79 17 109/69 (82) 100 04/04/18 04:00 82 04/04/18 00:00 98.0 77 16 118/65 (82) 99 04/04/18 00:00 91 04/03/18 21:07 80 116/76 04/03/18 21:00 Room Air 04/03/18 20:00 98.9 80 17 116/76 (89) 100 04/03/18 20:00 86 04/03/18 16:00 98.2 98 18 119/83 (95) 97 04/03/18 15:16 83 04/03/18 12:00 98.2 91 18 118/85 (96) 100 04/03/18 11:46 78 Height (Feet): 5 Height (Inches): 2.00 Weight (Pounds): 100 Objective GENERAL: Slightly anxious in bed, oriented x3, in no acute distress. CARDIOVASCULAR: No murmur. LUNGS: Distant and clear. ABDOMEN: Bowel sounds positive. Slightly tender. No guarding. No rigidity. No rebound. EXTREMITIES: No cyanosis, clubbing, or edema. NEUROLOGIC: The patient moves all extremities, slightly weak. Microbiology Date/Time Source Procedure Growth Status 04/02/18 05:00 Urine,Clean Catch Urine Culture - Preliminary Mixed Gram Positive Organism Resulted Laboratory Tests Test 04/03/18 12:00 04/03/18 19:25 04/04/18 05:55 White Blood Count 4.2 K/UL (4.8-10.8) L 3.1 K/UL (4.8-10.8) L Red Blood Count 3.41 M/UL (4.20-5.40) L 3.62 M/UL (4.20-5.40) L Hemoglobin 8.3 G/DL (12.0-16.0) L 8.8 G/DL (12.0-16.0) L Hematocrit 27.5 % (37.0-47.0) L 29.7 % (37.0-47.0) L Mean Corpuscular Volume 81 FL (80-99) 82 FL (80-99) Mean Corpuscular Hemoglobin 24.3 PG (27.0-31.0) L 24.2 PG (27.0-31.0) L Mean Corpuscular Hemoglobin Concent 30.2 G/DL (32.0-36.0) L 29.5 G/DL (32.0-36.0) L Red Cell Distribution Width 22.1 % (11.6-14.8) H 21.4 % (11.6-14.8) H Platelet Count 211 K/UL (150-450) 220 K/UL (150-450) Mean Platelet Volume 4.9 FL (6.5-10.1) L 5.1 FL (6.5-10.1) L Neutrophils (%) (Auto) 69.4 % (45.0-75.0) % (45.0-75.0) Lymphocytes (%) (Auto) 20.8 % (20.0-45.0) % (20.0-45.0) Monocytes (%) (Auto) 9.0 % (1.0-10.0) % (1.0-10.0) Eosinophils (%) (Auto) 0.4 % (0.0-3.0) % (0.0-3.0) Basophils (%) (Auto) 0.4 % (0.0-2.0) % (0.0-2.0) Sodium Level 137 MMOL/L (136-145) 140 MMOL/L (136-145) 136 MMOL/L (136-145) Potassium Level 3.5 MMOL/L (3.5-5.1) 3.5 MMOL/L (3.5-5.1) 3.2 MMOL/L (3.5-5.1) L Chloride Level 99 MMOL/L (98-107) 97 MMOL/L (98-107) L 96 MMOL/L (98-107) L Carbon Dioxide Level 31 MMOL/L (21-32) 34 MMOL/L (21-32) H 32 MMOL/L (21-32) Anion Gap 7 mmol/L (5-15) 9 mmol/L (5-15) 8 mmol/L (5-15) Blood Urea Nitrogen 6 mg/dL (7-18) L 8 mg/dL (7-18) 7 mg/dL (7-18) Creatinine 1.1 MG/DL (0.55-1.30) 1.1 MG/DL (0.55-1.30) 1.0 MG/DL (0.55-1.30) Estimat Glomerular Filtration Rate > 60 mL/min (>60) > 60 mL/min (>60) > 60 mL/min (>60) Glucose Level 133 MG/DL (74-106) H 109 MG/DL (74-106) H 102 MG/DL (74-106) Calcium Level 7.6 MG/DL (8.5-10.1) L Pending 7.6 MG/DL (8.5-10.1) L Phosphorus Level 4.5 MG/DL (2.5-4.9) 4.1 MG/DL (2.5-4.9) Iron Level 36 ug/dL (50-175) L Total Iron Binding Capacity 361 ug/dL (250-450) Percent Iron Saturation 10 % (15-50) L Unsaturated Iron Binding 325 ug/dL (112-346) Troponin I 0.017 ng/mL (0.000-0.056) 0.012 ng/mL (0.000-0.056) Albumin 2.8 G/DL (3.4-5.0) L 2.5 G/DL (3.4-5.0) L Hepatitis A IgM Antibody Pending Hepatitis B Surface Antigen Pending Hepatitis B Core IgM Antibody Pending Hepatitis C Antibody Pending HIV (1&2) Antibody Rapid Negative (NEGATIVE) Magnesium Level 0.7 MG/DL (1.8-2.4) *L 2.1 MG/DL (1.8-2.4) Differential Total Cells Counted 100 Neutrophils % (Manual) 50 % (45-75) Lymphocytes % (Manual) 38 % (20-45) Monocytes % (Manual) 10 % (1-10) Eosinophils % (Manual) 1 % (0-3) Basophils % (Manual) 1 % (0-2) Band Neutrophils 0 % (0-8) Nucleated Red Blood Cells 2 /100 WBC Platelet Estimate Adequate Platelet Morphology Normal Polychromasia 1+ Hypochromasia 2+ Anisocytosis 3+ Uric Acid 6.9 MG/DL (2.6-7.2) Ferritin 66 NG/ML (8-388) Total Bilirubin 1.2 MG/DL (0.2-1.0) H Direct Bilirubin 0.4 MG/DL (0.0-0.3) H Aspartate Amino Transf (AST/SGOT) 70 U/L (15-37) H Alanine Aminotransferase (ALT/SGPT) 27 U/L (12-78) Alkaline Phosphatase 121 U/L (46-116) H Total Protein 7.6 G/DL (6.4-8.2) Globulin 5.1 g/dL Albumin/Globulin Ratio 0.5 (1.0-2.7) L Vitamin B12 Level 377 PG/ML (193-986) Folate 8.4 NG/ML (8.6-58.9) L Current Medications Medications (Trade) Dose Ordered Sig/Leora Route PRN Reason Start Time Stop Time Status Last Admin Dose Admin Acetaminophen (Tylenol) 650 mg Q4H PRN ORAL Fever 04/02/18 09:00 05/02/18 08:59 Albuterol/ Ipratropium (Albuterol/ Ipratropium) 3 ml Q4H PRN HHN Shortness of Breath 04/02/18 09:00 04/07/18 08:59 Carvedilol (Coreg) 6.25 mg EVERY 12 HOURS ORAL 04/02/18 21:00 05/02/18 20:59 04/03/18 21:07 Cyanocobalamin (Vitamin B12) 1,000 mcg ONCE IM 04/04/18 10:00 04/04/18 12:00 Dextrose (Dextrose 50%) 25 ml Q30M PRN IV Hypoglycemia 04/02/18 09:00 05/02/18 08:59 Dextrose (Dextrose 50%) 50 ml Q30M PRN IV Hypoglycemia 04/02/18 09:00 05/02/18 08:59 Digoxin (Lanoxin) 0.25 mg DAILY ORAL 04/03/18 09:00 05/03/18 08:59 04/04/18 08:32 Enalapril Maleate (Vasotec) 5 mg DAILY ORAL 04/03/18 09:00 05/03/18 08:59 Folic Acid (Folate) 5 mg DAILY ORAL 04/04/18 09:00 05/04/18 08:59 04/04/18 10:41 Furosemide (Lasix) 40 mg BID IV 04/03/18 18:00 05/02/18 13:59 04/04/18 08:30 Heparin Sodium (Porcine) (Heparin 5000 units/ml) 5,000 units EVERY 12 HOURS SUBQ 04/02/18 21:00 05/02/18 20:59 Iron Sucrose 200 mg/Sodium Chloride 120 ml @ 240 mls/hr ONCE IV 04/04/18 09:00 04/04/18 11:00 04/04/18 10:36 Morphine Sulfate (Morphine Sulfate) 2 mg Q4H PRN IVP for pain scale 1-6/10 04/03/18 09:46 04/10/18 09:45 Morphine Sulfate (Morphine Sulfate) 4 mg Q4H PRN IVP Severe Pain (Pain Scale 7-10) 04/03/18 09:46 04/10/18 09:45 04/04/18 10:51 Ondansetron HCl (Zofran) 4 mg Q6H PRN IVP Nausea & Vomiting 04/02/18 09:00 05/02/18 08:59 Pantoprazole (Protonix) 40 mg DAILY ORAL 04/03/18 09:00 05/03/18 08:59 04/04/18 08:30 Polyethylene Glycol (Miralax) 17 gm DAILYPRN PRN ORAL Constipation 04/02/18 09:00 05/02/18 08:59 Potassium Chloride (K-Dur) 40 meq TWICE A DAY ORAL 04/04/18 09:00 04/05/18 08:59 04/04/18 08:30 Spironolactone (Aldactone) 25 mg DAILY ORAL 04/03/18 09:00 05/03/18 08:59 04/04/18 08:31 Temazepam (Restoril) 15 mg HSPRN PRN ORAL Insomnia 04/02/18 09:00 04/09/18 08:59 Alma Delia Andrade M.D. Apr 04, 2018 10:59
--- NOTE | 2018-04-04 11:17 | Consultation ---
Consult Note Consult Note asked to eval for fluid and electrolyte management Assessment/Plan HypoMagnesemia HypoKalemia Low folate , Iron , B12 congestive heart failure. alcoholic cardiomyopathy and the ejection fraction of 35% to 40%. Abdominal pain Leukopenia and anemia. Mild AST elevation. History of asthma. Gastritis. B12 Folate Iron Mag KCL Monitor labs Down on Lasix optimize cardiac status Jeb Weller MD Apr 04, 2018 11:17
[2018-04-04] MEDS ORDERED: FUROSEMIDE20 M1 ORAL (11:49)
--- NOTE | 2018-04-04 11:59 | Pulmonology Progress Note ---
Assessment/Plan Problems: (1) UTI (urinary tract infection) (2) CHF (congestive heart failure) (3) ETOH abuse (4) Drug-seeking behavior Assessment/Plan optimize cardiac meds symptomatic treatment dc morphine, dc home if ok with consultants Subjective ROS Limited/Unobtainable: No Interval Events: no new complains Allergies: Coded Allergies: AMOXICILLIN (Unverified Allergy, Unknown, 01/08/17) Objective Last 24 Hour Vital Signs Date Time Temp Pulse Resp B/P (MAP) Pulse Ox O2 Delivery O2 Flow Rate FiO2 04/04/18 09:00 Room Air 04/04/18 08:34 83 04/04/18 08:33 109/64 04/04/18 08:33 62 109/64 04/04/18 08:32 62 04/04/18 08:00 98.1 62 18 109/64 (79) 96 04/04/18 04:00 98.0 79 17 109/69 (82) 100 04/04/18 04:00 82 04/04/18 00:00 98.0 77 16 118/65 (82) 99 04/04/18 00:00 91 04/03/18 21:07 80 116/76 04/03/18 21:00 Room Air 04/03/18 20:00 98.9 80 17 116/76 (89) 100 04/03/18 20:00 86 04/03/18 16:00 98.2 98 18 119/83 (95) 97 04/03/18 15:16 83 04/03/18 12:00 98.2 91 18 118/85 (96) 100 Intake and Output 04/03/18 04/04/18 19:00 07:00 Intake Total 810 ml Balance 810 ml Intake Oral 710 ml IV Total 100 ml # Voids 6 2 General Appearance: WD/WN HEENT: normocephalic, anicteric Respiratory/Chest: chest wall non-tender, lungs clear Cardiovascular: normal peripheral pulses, normal rate Abdomen: normal bowel sounds, soft, non tender Microbiology Date/Time Source Procedure Growth Status 04/02/18 05:00 Urine,Clean Catch Urine Culture - Preliminary Mixed Gram Positive Organism Resulted Laboratory Tests 04/03/18 12:00: White Blood Count 4.2L, Red Blood Count 3.41L, Hemoglobin 8.3L, Hematocrit 27.5L , Mean Corpuscular Volume 81, Mean Corpuscular Hemoglobin 24.3L, Mean Corpuscular Hemoglobin Concent 30.2L, Red Cell Distribution Width 22.1H, Platelet Count 211, Mean Platelet Volume 4.9L, Neutrophils (%) (Auto) 69.4, Lymphocytes (%) (Auto) 20.8, Monocytes (%) (Auto) 9.0, Eosinophils (%) (Auto) 0.4, Basophils (%) (Auto) 0.4, Sodium Level 137, Potassium Level 3.5, Chloride Level 99, Carbon Dioxide Level 31, Anion Gap 7, Blood Urea Nitrogen 6L, Creatinine 1.1, Estimat Glomerular Filtration Rate > 60, Glucose Level 133H, Calcium Level 7.6L, Phosphorus Level 4.5, Iron Level 36L, Total Iron Binding Capacity 361, Percent Iron Saturation 10L, Unsaturated Iron Binding 325, Troponin I 0.017, Albumin 2.8L, Hepatitis A IgM Antibody [Pending], Hepatitis B Surface Antigen [Pending], Hepatitis B Core IgM Antibody [Pending], Hepatitis C Antibody [Pending], HIV (1&2) Antibody Rapid Negative 04/03/18 19:25: Sodium Level 140, Potassium Level 3.5, Chloride Level 97L, Carbon Dioxide Level 34H, Anion Gap 9, Blood Urea Nitrogen 8, Creatinine 1.1, Estimat Glomerular Filtration Rate > 60, Glucose Level 109H, Calcium Level [Pending], Magnesium Level 0.7*L 04/04/18 05:55: White Blood Count 3.1L, Red Blood Count 3.62L, Hemoglobin 8.8L, Hematocrit 29.7L , Mean Corpuscular Volume 82, Mean Corpuscular Hemoglobin 24.2L, Mean Corpuscular Hemoglobin Concent 29.5L, Red Cell Distribution Width 21.4H, Platelet Count 220, Mean Platelet Volume 5.1L, Neutrophils (%) (Auto) , Lymphocytes (%) (Auto) , Monocytes (%) (Auto) , Eosinophils (%) (Auto) , Basophils (%) (Auto) , Sodium Level 136, Potassium Level 3.2L, Chloride Level 96L, Carbon Dioxide Level 32, Anion Gap 8, Blood Urea Nitrogen 7, Creatinine 1.0 , Estimat Glomerular Filtration Rate > 60, Glucose Level 102, Calcium Level 7.6L , Phosphorus Level 4.1, Troponin I 0.012, Albumin 2.5L, Magnesium Level 2.1, Differential Total Cells Counted 100, Neutrophils % (Manual) 50, Lymphocytes % ( Manual) 38, Monocytes % (Manual) 10, Eosinophils % (Manual) 1, Basophils % ( Manual) 1, Band Neutrophils 0, Nucleated Red Blood Cells 2, Platelet Estimate Adequate, Platelet Morphology Normal, Polychromasia 1+, Hypochromasia 2+, Anisocytosis 3+, Uric Acid 6.9, Ferritin 66, Total Bilirubin 1.2H, Direct Bilirubin 0.4H, Aspartate Amino Transf (AST/SGOT) 70H, Alanine Aminotransferase (ALT/SGPT) 27, Alkaline Phosphatase 121H, C-Reactive Protein, Quantitative 1.2H , Total Protein 7.6, Globulin 5.1, Albumin/Globulin Ratio 0.5L, Vitamin B12 Level 377, Folate 8.4L Current Medications Medications (Trade) Dose Ordered Sig/Leora Route PRN Reason Start Time Stop Time Status Last Admin Dose Admin Acetaminophen (Tylenol) 650 mg Q4H PRN ORAL Fever 04/02/18 09:00 05/02/18 08:59 Albuterol/ Ipratropium (Albuterol/ Ipratropium) 3 ml Q4H PRN HHN Shortness of Breath 04/02/18 09:00 04/07/18 08:59 Carvedilol (Coreg) 6.25 mg EVERY 12 HOURS ORAL 04/02/18 21:00 05/02/18 20:59 04/03/18 21:07 Cyanocobalamin (Vitamin B12) 1,000 mcg ONCE IM 04/04/18 10:00 04/04/18 12:00 Dextrose (Dextrose 50%) 25 ml Q30M PRN IV Hypoglycemia 04/02/18 09:00 05/02/18 08:59 Dextrose (Dextrose 50%) 50 ml Q30M PRN IV Hypoglycemia 04/02/18 09:00 05/02/18 08:59 Digoxin (Lanoxin) 0.25 mg DAILY ORAL 04/03/18 09:00 05/03/18 08:59 04/04/18 08:32 Enalapril Maleate (Vasotec) 5 mg DAILY ORAL 04/03/18 09:00 05/03/18 08:59 Ergocalciferol (Drisdol) 50,000 intlu QWEEK ORAL 04/04/18 12:00 05/04/18 11:59 Folic Acid (Folate) 5 mg DAILY ORAL 04/04/18 09:00 05/04/18 08:59 04/04/18 10:41 Furosemide (Lasix) 40 mg DAILY IV 04/05/18 09:00 05/02/18 13:59 Heparin Sodium (Porcine) (Heparin 5000 units/ml) 5,000 units EVERY 12 HOURS SUBQ 04/02/18 21:00 05/02/18 20:59 Iron Sucrose 200 mg/Sodium Chloride 60 ml @ 200 mls/hr ONCE ONCE IV 04/04/18 13:00 04/04/18 13:17 Ondansetron HCl (Zofran) 4 mg Q6H PRN IVP Nausea & Vomiting 04/02/18 09:00 05/02/18 08:59 Pantoprazole (Protonix) 40 mg DAILY ORAL 04/03/18 09:00 05/03/18 08:59 04/04/18 08:30 Polyethylene Glycol (Miralax) 17 gm DAILYPRN PRN ORAL Constipation 04/02/18 09:00 05/02/18 08:59 Potassium Chloride (K-Dur) 40 meq TWICE A DAY ORAL 04/04/18 09:00 04/05/18 08:59 04/04/18 08:30 Spironolactone (Aldactone) 25 mg DAILY ORAL 04/03/18 09:00 05/03/18 08:59 04/04/18 08:31 Temazepam (Restoril) 15 mg HSPRN PRN ORAL Insomnia 04/02/18 09:00 04/09/18 08:59 Shonna Lovell MD Apr 04, 2018 11:59
[2018-04-04 12:00] VITALS: BP 104/64
[2018-04-04] MEDS ORDERED: Morphine Sulfate 4mg/ml Inj (IV/IM USE ONLY) IVP PRN (12:00)
[2018-04-04] MEDS ORDERED: Vitamin D 50,000 units cap ORAL SCH (12:00)
--- NOTE | 2018-04-04 12:45 | NUR ---
NURSE NOTES: Patient refused vitamin b12 injection and requesting oral instead. Will request from .
[2018-04-04] MEDS ORDERED: Iron Sucrose 200 MG in NS 50 ML IV ONE (13:00)
--- NOTE | 2018-04-04 13:45 | GI Progress Note ---
Assessment/Plan Problems: (1) Drug-seeking behavior ICD Codes: Z76.5 - Malingerer [conscious simulation] SNOMED: 398777301 (2) ETOH abuse ICD Codes: F10.10 - Alcohol abuse, uncomplicated SNOMED: 54621592 (3) CHF (congestive heart failure) ICD Codes: I50.9 - Heart failure, unspecified SNOMED: 98102740 Qualifiers: Qualified Codes: I50.9 - Heart failure, unspecified (4) Abdominal pain ICD Codes: R10.9 - Unspecified abdominal pain SNOMED: 60428497 Qualifiers: Qualified Codes: R10.13 - Epigastric pain Status: stable, unchanged Status Narrative Discussed with Dr. Smith Assessment/Plan Alcohol pain most likely due to alcoholic abuse History of cardiomyopathy with ejection fraction of 20% Hepatitis panel negative Symptomatic treatment at this time Occult blood stool to be checked to rule out any GI bleed Monitor hemoglobin and hematocrit, PRN transfusions Pain management PPI Zofran as needed Will consider endoscopy pending workup Follow-up labs The patient was seen and examined at bedside and all new and available data was reviewed in the patients chart. I agree with the above findings, impression and plan. (Patient seen earlier today. Signature stamp does not reflect patient encounter time.). - Margarito Smith MD Subjective Subjective Has complaint of mild abdominal pain Complaint of odynophagia Objective Last 24 Hour Vital Signs Date Time Temp Pulse Resp B/P (MAP) Pulse Ox O2 Delivery O2 Flow Rate FiO2 04/04/18 12:00 98.0 64 18 104/64 (77) 95 04/04/18 09:00 Room Air 04/04/18 08:34 83 04/04/18 08:33 109/64 04/04/18 08:33 62 109/64 04/04/18 08:32 62 04/04/18 08:00 98.1 62 18 109/64 (79) 96 04/04/18 04:00 98.0 79 17 109/69 (82) 100 04/04/18 04:00 82 04/04/18 00:00 98.0 77 16 118/65 (82) 99 04/04/18 00:00 91 04/03/18 21:07 80 116/76 04/03/18 21:00 Room Air 04/03/18 20:00 98.9 80 17 116/76 (89) 100 04/03/18 20:00 86 04/03/18 16:00 98.2 98 18 119/83 (95) 97 04/03/18 15:16 83 Intake and Output 04/03/18 04/04/18 19:00 07:00 Intake Total 810 ml Balance 810 ml Intake Oral 710 ml IV Total 100 ml # Voids 6 2 Laboratory Tests Test 04/03/18 19:25 04/04/18 05:55 Sodium Level 140 MMOL/L (136-145) 136 MMOL/L (136-145) Potassium Level 3.5 MMOL/L (3.5-5.1) 3.2 MMOL/L (3.5-5.1) L Chloride Level 97 MMOL/L (98-107) L 96 MMOL/L (98-107) L Carbon Dioxide Level 34 MMOL/L (21-32) H 32 MMOL/L (21-32) Anion Gap 9 mmol/L (5-15) 8 mmol/L (5-15) Blood Urea Nitrogen 8 mg/dL (7-18) 7 mg/dL (7-18) Creatinine 1.1 MG/DL (0.55-1.30) 1.0 MG/DL (0.55-1.30) Estimat Glomerular Filtration Rate > 60 mL/min (>60) > 60 mL/min (>60) Glucose Level 109 MG/DL (74-106) H 102 MG/DL (74-106) Calcium Level Pending 7.6 MG/DL (8.5-10.1) L Magnesium Level 0.7 MG/DL (1.8-2.4) *L 2.1 MG/DL (1.8-2.4) White Blood Count 3.1 K/UL (4.8-10.8) L Red Blood Count 3.62 M/UL (4.20-5.40) L Hemoglobin 8.8 G/DL (12.0-16.0) L Hematocrit 29.7 % (37.0-47.0) L Mean Corpuscular Volume 82 FL (80-99) Mean Corpuscular Hemoglobin 24.2 PG (27.0-31.0) L Mean Corpuscular Hemoglobin Concent 29.5 G/DL (32.0-36.0) L Red Cell Distribution Width 21.4 % (11.6-14.8) H Platelet Count 220 K/UL (150-450) Mean Platelet Volume 5.1 FL (6.5-10.1) L Neutrophils (%) (Auto) % (45.0-75.0) Lymphocytes (%) (Auto) % (20.0-45.0) Monocytes (%) (Auto) % (1.0-10.0) Eosinophils (%) (Auto) % (0.0-3.0) Basophils (%) (Auto) % (0.0-2.0) Differential Total Cells Counted 100 Neutrophils % (Manual) 50 % (45-75) Lymphocytes % (Manual) 38 % (20-45) Monocytes % (Manual) 10 % (1-10) Eosinophils % (Manual) 1 % (0-3) Basophils % (Manual) 1 % (0-2) Band Neutrophils 0 % (0-8) Nucleated Red Blood Cells 2 /100 WBC Platelet Estimate Adequate Platelet Morphology Normal Polychromasia 1+ Hypochromasia 2+ Anisocytosis 3+ Uric Acid 6.9 MG/DL (2.6-7.2) Phosphorus Level 4.1 MG/DL (2.5-4.9) Ferritin 66 NG/ML (8-388) Total Bilirubin 1.2 MG/DL (0.2-1.0) H Direct Bilirubin 0.4 MG/DL (0.0-0.3) H Aspartate Amino Transf (AST/SGOT) 70 U/L (15-37) H Alanine Aminotransferase (ALT/SGPT) 27 U/L (12-78) Alkaline Phosphatase 121 U/L (46-116) H Troponin I 0.012 ng/mL (0.000-0.056) C-Reactive Protein, Quantitative 1.2 mg/dL (0.00-0.90) H Total Protein 7.6 G/DL (6.4-8.2) Albumin 2.5 G/DL (3.4-5.0) L Globulin 5.1 g/dL Albumin/Globulin Ratio 0.5 (1.0-2.7) L Vitamin B12 Level 377 PG/ML (193-986) Folate 8.4 NG/ML (8.6-58.9) L Height (Feet): 5 Height (Inches): 2.00 Weight (Pounds): 100 General Appearance: WD/WN, no apparent distress, alert Cardiovascular: normal rate Respiratory/Chest: normal breath sounds, no respiratory distress Abdominal Exam: normal bowel sounds, non tender, soft Extremities: normal range of motion, non-tender Ayesha Chavarria NP Apr 04, 2018 13:45
--- NOTE | 2018-04-04 13:51 | General Progress Note ---
Assessment/Plan Problem List: (1) Anemia ICD Codes: D64.9 - Anemia, unspecified SNOMED: 554010040 (2) Malnutrition ICD Codes: E46 - Unspecified protein-calorie malnutrition SNOMED: 74088687 (3) UTI (urinary tract infection) ICD Codes: N39.0 - Urinary tract infection, site not specified SNOMED: 00659008 Qualifiers: Qualified Codes: N30.00 - Acute cystitis without hematuria (4) Abdominal pain ICD Codes: R10.9 - Unspecified abdominal pain SNOMED: 60218811 Qualifiers: Qualified Codes: R10.13 - Epigastric pain (5) CHF (congestive heart failure) ICD Codes: I50.9 - Heart failure, unspecified SNOMED: 01136952 Qualifiers: Qualified Codes: I50.9 - Heart failure, unspecified Status: stable, progressing Assessment/Plan abx pain control adv diet cbc bmp am dc if clear Subjective Constitutional: Reports: weakness Allergies: Coded Allergies: AMOXICILLIN (Unverified Allergy, Unknown, 01/08/17) All Systems: reviewed and negative except above Subjective calm in bed Objective Last 24 Hour Vital Signs Date Time Temp Pulse Resp B/P (MAP) Pulse Ox O2 Delivery O2 Flow Rate FiO2 04/04/18 12:00 98.0 64 18 104/64 (77) 95 04/04/18 09:00 Room Air 04/04/18 08:34 83 04/04/18 08:33 109/64 04/04/18 08:33 62 109/64 04/04/18 08:32 62 04/04/18 08:00 98.1 62 18 109/64 (79) 96 04/04/18 04:00 98.0 79 17 109/69 (82) 100 04/04/18 04:00 82 04/04/18 00:00 98.0 77 16 118/65 (82) 99 04/04/18 00:00 91 04/03/18 21:07 80 116/76 04/03/18 21:00 Room Air 04/03/18 20:00 98.9 80 17 116/76 (89) 100 04/03/18 20:00 86 04/03/18 16:00 98.2 98 18 119/83 (95) 97 04/03/18 15:16 83 Intake and Output 04/03/18 04/04/18 19:00 07:00 Intake Total 810 ml Balance 810 ml Intake Oral 710 ml IV Total 100 ml # Voids 6 2 Laboratory Tests 04/03/18 19:25: Sodium Level 140, Potassium Level 3.5, Chloride Level 97L, Carbon Dioxide Level 34H, Anion Gap 9, Blood Urea Nitrogen 8, Creatinine 1.1, Estimat Glomerular Filtration Rate > 60, Glucose Level 109H, Calcium Level [Pending], Magnesium Level 0.7*L 04/04/18 05:55: Sodium Level 136, Potassium Level 3.2L, Chloride Level 96L, Carbon Dioxide Level 32, Anion Gap 8, Blood Urea Nitrogen 7, Creatinine 1.0, Estimat Glomerular Filtration Rate > 60, Glucose Level 102, Calcium Level 7.6L, Magnesium Level 2.1, White Blood Count 3.1L, Red Blood Count 3.62L, Hemoglobin 8.8L, Hematocrit 29.7L, Mean Corpuscular Volume 82, Mean Corpuscular Hemoglobin 24.2L, Mean Corpuscular Hemoglobin Concent 29.5L, Red Cell Distribution Width 21.4H, Platelet Count 220, Mean Platelet Volume 5.1L, Neutrophils (%) (Auto) , Lymphocytes (%) (Auto) , Monocytes (%) (Auto) , Eosinophils (%) (Auto) , Basophils (%) (Auto) , Differential Total Cells Counted 100, Neutrophils % ( Manual) 50, Lymphocytes % (Manual) 38, Monocytes % (Manual) 10, Eosinophils % ( Manual) 1, Basophils % (Manual) 1, Band Neutrophils 0, Nucleated Red Blood Cells 2, Platelet Estimate Adequate, Platelet Morphology Normal, Polychromasia 1 +, Hypochromasia 2+, Anisocytosis 3+, Uric Acid 6.9, Phosphorus Level 4.1, Ferritin 66, Total Bilirubin 1.2H, Direct Bilirubin 0.4H, Aspartate Amino Transf (AST/SGOT) 70H, Alanine Aminotransferase (ALT/SGPT) 27, Alkaline Phosphatase 121H, Troponin I 0.012, C-Reactive Protein, Quantitative 1.2H, Total Protein 7.6, Albumin 2.5L, Globulin 5.1, Albumin/Globulin Ratio 0.5L, Vitamin B12 Level 377, Folate 8.4L Height (Feet): 5 Height (Inches): 2.00 Weight (Pounds): 100 General Appearance: lethargic EENT: normal ENT inspection Neck: normal alignment Cardiovascular: normal peripheral pulses, normal rate, regular rhythm Respiratory/Chest: chest wall non-tender, lungs clear, normal breath sounds Abdomen: normal bowel sounds, non tender, soft Extremities: normal inspection Edema: no edema noted Arm (L), no edema noted Arm (R), no edema noted Leg (L), no edema noted Leg (R), no edema noted Pedal (L), no edema noted Pedal (R), no edema noted Generalized Neurologic: responsive, motor weakness Skin: normal pigmentation, warm/dry Yaakov Wilson DO Apr 04, 2018 13:51
--- NOTE | 2018-04-04 14:54 | NUR ---
CASE MANAGEMENT:REVIEW 04/04/18 SI: ANEMIA. UTI. CHF 98.0 64 18 104/64 95% ON RA H/H-8.8/29.7 IS: IV LASIX BID IV MORPHINE Q4 PRN DIGOXIN PO QD VASOTEC PO QD PROTONIX PO QD ALDACTONE PO QD COREG PO Q12 : TELEMETRY STATUS DCP: FROM HOME
[2018-04-04 16:00] VITALS: BP 108/70
--- NOTE | 2018-04-04 18:04 | NUR ---
NURSE NOTES: PATIENT WAS SO UPSET THAT HER PAIN MEDS (MORPHINE 4MG) WAS DCD. CALLED DR HUNG AND MADE AWARE THAT PATIENT WANTS TO SIGN AMA. DR HUNG ORDERED TO CALL DR RINALDI. DR RINALDI WAS PAGED TO CALL THE STATION. 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 RISK OF SIGNING AMA WAS EXPLAINED. STILL PATIENT INISITED ON SIGNING AMA. PATIENT IS AOX4. NO ACUTE DISTRESS NOTED. EATING CANDY WHILE WALKING THE WHEELER.POST SPLITTER WAS INFORMED.
--- NOTE | 2018-04-05 10:01 | Discharge Summary ---
Discharge Summary Discharge Summary _ DATE OF ADMISSION: 04/02/2018 DATE OF DISCHARGE: 04/04/2018 Patient signed AGAINST MEDICAL ADVICE REASON FOR ADMISSION: 23 years old female with alcohol induced cardiomyopathy presented with complaint of dyspnea and abdominal pain . Upon evaluation, troponin negative. ProBNP 3325. EKG revealed sinus rhythm , no acute ischemic changes. Chest x-ray demonstrated evidence of congestive heart failure. Laboratory workup revealed leukopenia, hemoglobin 8.1 hematocrit 26.4. Lipase in range. Urinalysis revealed evidence of pyuria and positive for nitrate. Urine toxicology screen was positive for opiates. AST 70. Patient received Lasix and Rocephin andrae with analgesia and admitted to telemetry floor for further management. CONSULTANTS: transition advisor Dr. Dela Cruz pulmonary Dr. Lovell ID specialist Dr. Prescott GI specialist Dr. Smith technical designer Dr. Weller [facility] COURSE: Patient admitted to telemetry floor. Serial troponin x3 were negative. EKG revealed no acute ischemic changes. Patient was ruled out for acute ND. Echocardiogram revealed global left ventricular hypokinesis with ejection fraction 25-30%. Borderline left ventricular hypertrophy. Grade 3 diastolic dysfunction and moderate mitral regurgitation. Engineered Wood Designer closely followed. Anti-failure regimen was optimized by transition advisor, including beta-jie ,JACOB inhibitor ,digoxin and diuretics: Lasix and Aldactone. Volumes and cardiorenal parameters were closely monitored. GI specialist closely followed. Pain management was addressed. GI prophylaxis with PPI provided. Hepatitis panel was negative. HIV test nonreactive. Stool for occult blood was ordered. Abdominal ultrasound revealed hepatomegaly, negative exam otherwise. Abdominal pain was likely due to gastritis secondary to alcohol abuse, or possible pancreatitis , given symptoms and chronic ETOH abuse, despite negative lipase ( as per ID specialist). Antiemetic provided symptomatically . GI was considering endoscopy which could be done as an outpatient. Hemoglobin and hematocrit were closely monitored with goal to keep hemoglobin above 7. No need for transfusion. Prior to signing AGAINST MEDICAL ADVICE hemoglobin 8.8 hematocrit 29.7. Blood counts were closely monitored. Patient with evidence of anemia and leukopenia, possibly related to myelosuppression from chronic alcohol use . Patient will benefit from outpatient hematology evaluation. Anemia workup revealed low iron, low B12 and folate. Patient started on replacement with B12 , folate and IV iron infusion. Woven Paper Hat Mender followed. Noted low potassium and extremely low magnesium -0.7. Electrolytes were corrected, and remained stable. Renal parameters were closely monitored. Nephrotoxins were avoided. Supplemental oxygen provided as needed to keep pulse oximetry above 92%. Pulmonary toilet provided as needed. Venous Duplex revealed no evidence of acute DVT. Prior to signing AMA , pulse oximetry 95% on room air. Follow-up chest x-ray revealed improvement . Urine culture revealed mixed gram-positive organism. Antibiotic discontinued as per ID recommendations, and patient was monitored off antibiotics. Pain management was addressed, however patient requested only IV opioids which initially were given and then transitioned to oral. Patient decided to sign AGAINST MEDICAL ADVICE . The risks and consequences of signing AGAINST MEDICAL ADVICE were discussed with patient in detail. Patient verbalized understanding, nevertheless signed AMA form and left. 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 I was not involved in the patient's management. Hodan Stearns NP Apr 05, 2018 10:01
--- NOTE | 2018-04-05 14:40 | Cardiology Report ---
APPROVED REPORT EXAM: Two-dimensional and M-mode echocardiogram with Doppler and color Doppler. INDICATION Left ventricular function M-Mode DIMENSIONS IVSd1.0 (0.7-1.1cm)Left Atrium (MM)3.7 (1.6-4.0cm) LVDd4.9 (3.5-5.6cm)Aortic Root2.2 (2.0-3.7cm) PWd1.1 (0.7-1.1cm)Aortic Cusp Exc.1.4 (1.5-2.0cm) LVDs4.3 (2.5-4.0cm) PWs1.3 cm Normal left ventricular chamber size. Echogenic material noted in left ventricular apex, cannot r/o LV thrombus. Global left ventricular hypokinesis. Left ventricular ejection fraction estimated to be 20-25 %. Borderline left ventricular hypertrophy. Trivial pericardial effusion. All other cardiac chamber sizes are within normal limits. Normal aortic valve structure with adequate cusp excursion. Mildly thickened mitral valve leaflets with normal excursion. Mild mitral annulus and aortic root calcification. Normal pulmonic valve structure. Normal tricuspid valve structure. IVC dilated at 2.5 cm without physiological collapse, suggestive of increased RA pressure. A color flow and spectral Doppler study was performed and revealed: No aortic insufficiency. Moderate mitral regurgitation. Mitral inflow indicates increased left atrial pressure, suggestive restrictive pattern (Grade III). Mild to moderate tricuspid regurgitation. Tricuspid systolic velocities suggests peak right ventricular systolic pressure of 35 mmHg, consistent with mild pulmonary hypertension. No pulmonic regurgitation present.
== END 2018-04-04 17:45 | disposition left against medical advice (07) | DRG 194 ==
LOC: EDBD 03:11 → EMR 03:24 → EDBEDREQ 11:13 → 2E 11:36
DX: I50.33 Acute on chronic diastolic (congestive) heart failure (principal); K85.90 Acute pancreatitis without necrosis or infection, unspecified; I42.6 Alcoholic cardiomyopathy; F10.188 Alcohol abuse with other alcohol-induced disorder; K29.70 Gastritis, unspecified, without bleeding; D64.9 Anemia, unspecified; Z76.5 Malingerer [conscious simulation]; E83.42 Hypomagnesemia; E87.6 Hypokalemia; E53.8 Deficiency of other specified B group vitamins; J45.909 Unspecified asthma, uncomplicated; Z88.1 Allergy status to other antibiotic agents; K70.10 Alcoholic hepatitis without ascites; Z88.0 Allergy status to penicillin; I34.0 Nonrheumatic mitral (valve) insufficiency
CPT/HCPCS: 36415; 71045; 76700; 80048; 80053; 80069; 80307; 81003; 82248; 82550; 82607; 82728; 82746; 83540; 83550; 83690; 83735; 83880; 84100; 84484; 84550; 85007; 85025; 85610; 85730; 86140; 86703; 86705; 86709; 86803; 86900; 86901; 87086; 87340; 93005; 93306; 93970; 96368; 96375; 99285; J2405; J8499

== ENCOUNTER 2018-06-20 08:09 | Emergency (ER) | payer MEDICAID ==
[~2018-06-20] VITALS: Ht 157.5 cm; Wt 54.4 kg
--- NOTE | 2018-06-20 08:31 | Emergency Room Report ---
History of Present Illness General Chief Complaint: Abdominal Pain Source: Patient Present Illness HPI Patient present with complaints of seen blood on the toilet paper after wiping Patient reports that she has had problems in the past with her pancreas and CHF And given that finding she was concerned and presents to the ER patient reports that she recently had a physical by her primary physician Currently denies any chest pain or short of breath She did have an episode of vomiting as well earlier yesterday Complains of epigastric discomfort off-and-on denies any acute pain at this time denies any neck pain or photophobia denies any recent travel or trauma Allergies: Coded Allergies: AMOXICILLIN (Unverified Allergy, Unknown, 01/08/17) Patient History Past Medical History: see triage record Pertinent Family History: none Last Menstrual Period: 05/2018 Now: No Reviewed Nursing Documentation: PMH: Agreed; PSxH: Agreed Nursing Documentation-PMH Past Medical History: No History, Except For Hx Cardiac Problems: Yes - CHF, anemia Hx Hypertension: Yes Hx Asthma: Yes Hx Cancer: No Hx Gastrointestinal Problems: Yes - GASTRITIS, pancreatitis Hx Neurological Problems: No Review of Systems All Other Systems: negative except mentioned in HPI Physical Exam Vital Signs Date Time Temp Pulse Resp B/P (MAP) Pulse Ox O2 Delivery O2 Flow Rate FiO2 06/20/18 08:18 97.9 87 20 124/61 96 Room Air Sp02 EP Interpretation: reviewed, normal General Appearance: well appearing, no apparent distress Head: normocephalic, atraumatic Eyes: bilateral eye PERRL, bilateral eye EOMI ENT: hearing grossly normal, normal pharynx, TMs + canals normal, uvula midline Neck: full range of motion, supple, no meningismus, no bony tend Respiratory: lungs clear, normal breath sounds, no rhonchi, no respiratory distress, no retraction, no accessory muscle use Cardiovascular #1: normal peripheral pulses, regular rate, rhythm, no edema, no gallop, no JVD, no murmur Gastrointestinal: normal bowel sounds, non tender, soft, no mass, no organomegaly, non-distended, no guarding, no hernia, no pulsatile mass, no rebound Genitourinary: no CVA tenderness Musculoskeletal: normal inspection Neurologic: oriented x3, responsive, chemistry manager III-XII nml as tested, motor strength/ tone normal, sensory intact Psychiatric: mood/affect normal Skin: normal color, no rash, warm/dry, palpation normal Lymphatic: normal inspection, no adenopathy Medical Decision Making Diagnostic Impression: Primary Impression: Anemia Additional Impression: Gastritis ER Course With the history exam and presentation, multiple differentials considered, including but not limited to appendicitis, gastritis, cholecystitis, diverticulitis Patient appears comfortable at this time I did not feel IV establishment was required Patient's blood work reveals similar presentation to previous hemoglobin count actually appears improved Lipase has been elevated previously and is not appeared changed significantly from previous Patient's repeat abdominal exam continues to be soft and benign Patient has not had any signs of nausea vomiting and requires close outpatient follow-up Labs Test 06/20/18 08:35 White Blood Count 3.2 K/UL (4.8-10.8) Red Blood Count 4.05 M/UL (4.20-5.40) Hemoglobin 10.9 G/DL (12.0-16.0) Hematocrit 36.5 % (37.0-47.0) Mean Corpuscular Volume 90 FL (80-99) Mean Corpuscular Hemoglobin 27.0 PG (27.0-31.0) Mean Corpuscular Hemoglobin Concent 29.9 G/DL (32.0-36.0) Red Cell Distribution Width 19.0 % (11.6-14.8) Platelet Count 195 K/UL (150-450) Mean Platelet Volume 6.1 FL (6.5-10.1) Neutrophils (%) (Auto) % (45.0-75.0) Lymphocytes (%) (Auto) % (20.0-45.0) Monocytes (%) (Auto) % (1.0-10.0) Eosinophils (%) (Auto) % (0.0-3.0) Basophils (%) (Auto) % (0.0-2.0) Differential Total Cells Counted 100 Neutrophils % (Manual) 50 % (45-75) Lymphocytes % (Manual) 33 % (20-45) Monocytes % (Manual) 14 % (1-10) Eosinophils % (Manual) 2 % (0-3) Basophils % (Manual) 1 % (0-2) Band Neutrophils 0 % (0-8) Platelet Estimate Adequate Platelet Morphology Normal Anisocytosis 1+ Sodium Level 138 MMOL/L (136-145) Potassium Level 3.9 MMOL/L (3.5-5.1) Chloride Level 101 MMOL/L (98-107) Carbon Dioxide Level 27 MMOL/L (21-32) Anion Gap 10 mmol/L (5-15) Blood Urea Nitrogen 11 mg/dL (7-18) Creatinine 0.7 MG/DL (0.55-1.30) Estimat Glomerular Filtration Rate > 60 mL/min (>60) Glucose Level 86 MG/DL (74-106) Calcium Level 9.6 MG/DL (8.5-10.1) Total Bilirubin 0.9 MG/DL (0.2-1.0) Aspartate Amino Transf (AST/SGOT) 89 U/L (15-37) Alanine Aminotransferase (ALT/SGPT) 40 U/L (12-78) Alkaline Phosphatase 94 U/L (46-116) Total Protein 8.9 G/DL (6.4-8.2) Albumin 3.5 G/DL (3.4-5.0) Globulin 5.4 g/dL Albumin/Globulin Ratio 0.6 (1.0-2.7) Lipase 737 U/L (73-393) Last Vital Signs Date Time Temp Pulse Resp B/P (MAP) Pulse Ox O2 Delivery O2 Flow Rate FiO2 06/20/18 08:18 97.9 87 20 124/61 96 Room Air Status: improved Disposition: HOME, SELF-CARE Condition: Improved Scripts Famotidine (PEPCID AC) 20 Mg Tablet 20 MG PO DAILY, #15 TAB Prov: Mercedes King DO 06/20/18 Additional Instructions: Patient is provided with the discharge instructions notified to follow up with primary doctor in the next 2-3 days otherwise return to the er with any worsening symptoms. Please note that this report is being documented using [employer] technology. This can lead to erroneous entry secondary to incorrect interpretation by the dictating instrument. Mercedes King DO Jun 20, 2018 08:31
[2018-06-20 08:39] VITALS: BP 124/77
--- NOTE | 2018-06-20 08:44 | NUR ---
ED Nurse Note: Patient walked in to ER c/o N/V/D and bright red blood in stool since 0600 this morning. pt aao x 4 and ambulatory and calm and cooperative. pt was able to provide urine and ERMD spoke to pt at bedside. skin clean and intact.
--- NOTE | 2018-06-20 08:47 | NUR ---
ED Nurse Note: Patient reported abdominal pain 10/10.
[2018-06-20 08:55] LABS: HEMATOCRIT 36.5 % (37.0-47.0); HEMOGLOBIN 10.9 G/DL (12.0-16.0); MEAN CORPUSCULAR VOLUME 90 FL (80-99); PLATELET COUNT 195 K/UL (150-450); RED BLOOD COUNT 4.05 M/UL (4.20-5.40); WHITE BLOOD COUNT 3.2 K/UL (4.8-10.8)
[2018-06-20 09:01] LABS: ANION GAP 10 mmol/L (5-15); BLOOD UREA NITROGEN 11 mg/dL (7-18); CALCIUM 9.6 MG/DL (8.5-10.1); CARBON DIOXIDE 27 MMOL/L (21-32); CHLORIDE 101 MMOL/L (98-107); CREATININE 0.7 MG/DL (0.55-1.30); POTASSIUM 3.9 MMOL/L (3.5-5.1); SODIUM 138 MMOL/L (136-145)
[2018-06-20 09:05] LABS: ALANINE AMINOTRANSFERASE 40 U/L (12-78); ALBUMIN 3.5 G/DL (3.4-5.0); ALBUMIN/GLOBULIN RATIO 0.6 (1.0-2.7); ALKALINE PHOSPHATASE 94 U/L (46-116); ASPARTATE AMINO TRANSFERASE 89 U/L (15-37); BILIRUBIN,TOTAL 0.9 MG/DL (0.2-1.0)
[2018-06-20] MEDS ORDERED: PEPCID AC20 M2 PO (10:03)
[2018-06-20 10:12] VITALS: BP 122/83
--- NOTE | 2018-06-20 10:14 | NUR ---
ER DISCHARGE NOTE: Patient is cleared to be discharged per ERMD, pt is aox4, on room air, with stable vital signs. pt was given dc and prescription instructions, prescription was sent electronically and the pharmacy information was provided to pt. pt was able to verbalize understanding, pt id band removed. pt is able to ambulate with steady gait. pt took all belongings.
== END 2018-06-20 10:15 | disposition home or self-care (01) ==
LOC: EMR 08:34
DX: D64.9 Anemia, unspecified (principal); K29.70 Gastritis, unspecified, without bleeding; I11.0 Hypertensive heart disease with heart failure; I50.9 Heart failure, unspecified; Z88.0 Allergy status to penicillin
CPT/HCPCS: 36415; 80053; 83690; 85007; 85025; 99283

== ENCOUNTER 2018-06-20 22:46 | Inpatient (IN) | payer MEDICAID ==
[~2018-06-20] VITALS: Ht 165.1 cm; Wt 62.6 kg
[~2018-06-20 22:46] MED LIST changes: +PEPCID AC20 M2 PO
[2018-06-20 22:50] VITALS: BP 120/78
--- NOTE | 2018-06-20 22:50 | NUR ---
ED Nurse Note: pt arrived ambulatory with complaint of chronic adominal pain. Pt was recently d/c'd earlier this AM for same issue. Pt states pain is a 10/10, located throughout abdomen and radiating towards back. Pain described as sharp. VSS. Showing no signs of acute distress.
[2018-06-20] MEDS ORDERED: Pantoprazole Inj IVP ONE (23:00)
[2018-06-20] MEDS ORDERED: Morphine Sulfate 4mg/ml Inj (IV USE ONLY) IVP ONE (23:00)
[2018-06-20] MEDS ORDERED: Promethazine HCl 25 MG in NS 55 ML IVPB ONE (23:00)
--- NOTE | 2018-06-20 23:06 | Emergency Room Report ---
History of Present Illness General Chief Complaint: Abdominal Pain Source: Patient, Medical Record, EMS Present Illness HPI This is a 23-year-old female with history of chronic abdominal pain. She also has a history of nonischemic cardiomyopathy and chronic CHF. She presents with chief complaint abdominal pain. Onset for about 2 days now. Pain is severe 10 out of 10. Epigastric and left upper quadrant. No diarrhea. Has nausea and vomiting. Nothing made it better. Pain is so severe that she can't walk. She was here earlier this morning for same thing. Was discharged home. Denies any other complaint. Asking for IV opioids. Allergies: Coded Allergies: AMOXICILLIN (Unverified Allergy, Unknown, 01/08/17) Patient History Past Medical History: see triage record, old chart reviewed, HTN, CHF Past Surgical History: other Pertinent Family History: none Social History: Denies: smoking Last Menstrual Period: 06/06 Now: No : 0 Para: 0 Immunizations: other Reviewed Nursing Documentation: PMH: Agreed; PSxH: Agreed Nursing Documentation-PMH Hx Cardiac Problems: Yes - CHF, anemia Hx Hypertension: Yes Hx Asthma: Yes Hx Cancer: No Hx Gastrointestinal Problems: Yes - GASTRITIS, pancreatitis Hx Neurological Problems: No Review of Systems Eye: Denies: eye pain, blurred vision ENT: Denies: ear pain, nose congestion, throat swelling Respiratory: Denies: cough, shortness of breath Cardiovascular: Denies: chest pain, palpitations Gastrointestinal: Reports: abdominal pain, nausea, vomiting; Denies: diarrhea Musculoskeletal: Denies: back pain, joint pain Skin: Denies: rash Neurological: Denies: headache, numbness Endocrine: Denies: increased thirst, increased urine Hematologic/Lymphatic: Denies: easy bruising All Other Systems: negative except mentioned in HPI Physical Exam Vital Signs Date Time Temp Pulse Resp B/P (MAP) Pulse Ox O2 Delivery O2 Flow Rate FiO2 06/20/18 22:41 97.9 105 20 120/78 100 Room Air vitals normal Sp02 EP Interpretation: reviewed, normal General Appearance: well appearing, no apparent distress, alert Head: normocephalic, atraumatic Eyes: bilateral eye PERRL, bilateral eye EOMI ENT: hearing grossly normal, normal pharynx Neck: full range of motion, supple, no meningismus Respiratory: chest non-tender, lungs clear, normal breath sounds Cardiovascular #1: regular rate, rhythm, no murmur Gastrointestinal: normal bowel sounds, no mass, no organomegaly, no bruit, non- distended, tenderness - Epigastric and left upper quadrant Musculoskeletal: back normal, gait/station normal, normal range of motion Psychiatric: mood/affect normal Skin: warm/dry Medical Decision Making Diagnostic Impression: Primary Impression: Pancreatitis, acute Qualified Codes: K85.90 - Acute pancreatitis without necrosis or infection, unspecified Additional Impression: Abdominal pain Qualified Codes: R10.12 - Left upper quadrant pain ER Course Patient presents with abdominal pain with nausea and vomiting. Labs show pancreatitis. Abdomen is soft otherwise. This is a episodic issue with her. 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 Ejection fraction is around 3540%. Her oxygenation here is normal. No respiratory issue. Lungs are clear. I contacted Dr. Marroquin for admission. Lab Results Impression labs with elevated lipase Last Vital Signs Date Time Temp Pulse Resp B/P (MAP) Pulse Ox O2 Delivery O2 Flow Rate FiO2 06/20/18 22:41 97.9 105 20 120/78 100 Room Air Status: improved Disposition: ADMITTED INPATIENT Condition: Serious Henrry Chavarria MD Jun 20, 2018 23:06
[2018-06-20 23:29] LABS: EOSINOPHILS % (AUTO) 0.6 % (0.0-3.0); HEMATOCRIT 36.2 % (37.0-47.0); HEMOGLOBIN 11.4 G/DL (12.0-16.0); LYMPHOCYTES % (AUTO) 42.9 % (20.0-45.0); MEAN CORPUSCULAR VOLUME 88 FL (80-99); MONOCYTES % (AUTO) 13.1 % (1.0-10.0); NEUTROPHILS % (AUTO) 42.5 % (45.0-75.0); PLATELET COUNT 226 K/UL (150-450); RED BLOOD COUNT 4.12 M/UL (4.20-5.40); RED CELL DISTRIBUTION WIDTH 18.8 % (11.6-14.8); WHITE BLOOD COUNT 4.3 K/UL (4.8-10.8)
[2018-06-20 23:31] LABS: APPEARANCE,URINE CLEAR; BILIRUBIN, URINE NEGATIVE (NEGATIVE); GLUCOSE, URINE (UA) NEGATIVE (NEGATIVE); KETONES,URINE NEGATIVE (NEGATIVE); LEUKOCYTE ESTERASE ,URINE 1+ (NEGATIVE); NITRITE,URINE NEGATIVE (NEGATIVE); PH,URINE 6 (4.5-8.0); PROTEIN,URINE 1+ (NEGATIVE); UROBILINOGEN,URINE 1 MG/DL (0.0-1.0)
[2018-06-20 23:36] LABS: ANION GAP 12 mmol/L (5-15); BLOOD UREA NITROGEN 11 mg/dL (7-18); CALCIUM 9.4 MG/DL (8.5-10.1); CARBON DIOXIDE 27 MMOL/L (21-32); CHLORIDE 104 MMOL/L (98-107); CREATININE 0.9 MG/DL (0.55-1.30); POTASSIUM 4.1 MMOL/L (3.5-5.1); SODIUM 143 MMOL/L (136-145)
[2018-06-20 23:40] LABS: COLOR,URINE YELLOW
[2018-06-20 23:41] LABS: ALANINE AMINOTRANSFERASE 41 U/L (12-78); ALBUMIN 3.4 G/DL (3.4-5.0); ALBUMIN/GLOBULIN RATIO 0.6 (1.0-2.7); ALKALINE PHOSPHATASE 91 U/L (46-116); ASPARTATE AMINO TRANSFERASE 92 U/L (15-37); BILIRUBIN,TOTAL 0.7 MG/DL (0.2-1.0)
[2018-06-21] MEDS ORDERED: Morphine Sulfate 4mg/ml Inj (IV USE ONLY) IVP ONE
[2018-06-21] MEDS ORDERED: Morphine Sulfate 4mg/ml Inj (IV USE ONLY) IVP PRN (00:30)
--- NOTE | 2018-06-21 00:53 | NUR ---
NURSE NOTES: Received telephone report from JULIA Nevarez (ED).
--- NOTE | 2018-06-21 01:15 | NUR ---
ED Nurse Note: PT SENT UP WITH RAFIQ DOTSON. PT IS AOX4, PT IS IN NO ACUTE DISTRESS, PT SKIN INTACT. ALL BELONGINGS HAVE BEEN SENT UP WITH PT.
[2018-06-21 01:35] VITALS: BP 107/65
--- NOTE | 2018-06-21 01:35 | NUR ---
NURSE NOTES: Received pt from ED. Pt is ambulatory with steady gait. Pt belongings checked & accounted for. Med-recon done. Skin intact. IV site intact & S/L'd. Oriented pt to hospital facility. Bed in lowest position, call light within reach. Will continue to monitor. Called & left msg to Dr. Diaz for admission orders. Addendum: 06/21/18 at 0610 by Denice Dougherty RN @ 0135: Pt has $100 bhagat & refused to keep in hospital safe. Pt wants to keep bhagat instead.
--- NOTE | 2018-06-21 03:30 | NUR ---
NURSE NOTES: Called & left msg again for Dr. Diaz for admission orders. Charge nurse aware.
--- NOTE | 2018-06-21 03:50 | NUR ---
NURSE NOTES: Called ED & asked if pt can have bridging orders from Dr. Chavarria. Pt c/o 10/28 abd pain.
[2018-06-21 04:00] VITALS: BP 91/53
--- NOTE | 2018-06-21 04:07 | NUR ---
NURSE NOTES: RN went down to ER for bridging orders. Pt complaining of abd pain & Dr. diaz hasn't called back yet. RN explained no orders are popping out regarding bridging orders ever since pt came up from ED. RN talked to Dr. Chavarria (ERMD) for bridging orders, & per MD, "I'm not gonna write any more bridging orders. I already did earlier. She's gonna have to wait for Dr. Diaz in the morning. She's not gonna ." Charge nurse Tamia & [facility] aware.
--- NOTE | 2018-06-21 04:55 | NUR ---
NURSE NOTES: Dr. Diaz called back with admission orders
[2018-06-21] MEDS: Morphine Sulfate 4mg/ml Inj (IV USE ONLY) IVP PRN ×5 (05:21→21:33)
--- NOTE | 2018-06-21 07:30 | NUR ---
HAND-OFF: Report given to JULIA Bedoya.
[2018-06-21 08:00] VITALS: BP 94/56
--- NOTE | 2018-06-21 08:00 | NUR ---
NURSE NOTES: Received report from Denice DUMONT, pt in stable condition, laying in bed a/a/o x4 with no signs of distress. during round with outgoing nurse, Rn's saw pt eating chips ([employer]), RN's removed all food that was in her purse since she had other bags of chips and a peace of sandwich as well as some candies and a bottle of juice. pt REFUSED to trow her bottle of juice, she stated that she will put it away. RN educated patient on the importance of keeping her self NPO. pt verbalized understanding and stated that she won't eat nor drink as ordered by MD. pt c/o of pain in upper abdomen. RN will medicated as ordered but explained pt that she was not due for pain medication at this time. call light within reach, bed in lowest position, side rales up x2. I will f/u as needed.
--- NOTE | 2018-06-21 08:48 | General Progress Note ---
Assessment/Plan Assessment/Plan (1) Abdominal pain (2) Alcoholic Pancreatitis (3) Alcohol abuse (4) Chest pain (5) CHF Patient to be continued on Morphine as needed. D/w Dr. Dinero and he concurred. Thank you for consult. Subjective Date patient seen: Jun 21, 2018 Time patient seen: 07:45 - am Allergies: Coded Allergies: AMOXICILLIN (Unverified Allergy, Unknown, 01/08/17) Subjective Constitutional: Reports: weakness Eye: Reports: no symptoms ENT: Reports: no symptoms Respiratory: Reports: no symptoms Cardiovascular: Reports: chest pain Gastrointestinal: Reports: abdominal pain Genitourinary: Reports: no symptoms Musculoskeletal: Reports: no symptoms Skin: Reports: no symptoms Psychiatric: Reports: no symptoms Neurological: Reports: no symptoms Endocrine: Reports: no symptoms Hematologic/Lymphatic: Reports: no symptoms SUBJECTIVE: Patient is a known patient from prior admission now admitted due to abdominal pain and pancreatitis. Started on Morphine 4mg IV Q4H PRN which patient is tolerating her pain with. No new complaints at this time. Objective Last 24 Hour Vital Signs Date Time Temp Pulse Resp B/P (MAP) Pulse Ox O2 Delivery O2 Flow Rate FiO2 06/21/18 04:00 97.5 67 20 91/53 (66) 96 06/21/18 02:41 Room Air 06/21/18 01:35 97.9 73 20 107/65 (79) 95 06/21/18 01:15 97.8 88 18 121/74 100 Room Air 06/21/18 00:56 97.8 06/20/18 22:50 105 20 Room Air 06/20/18 22:50 97.9 98 20 120/78 100 Room Air 06/20/18 22:41 97.9 105 20 120/78 100 Room Air Intake and Output 06/20/18 06/21/18 19:00 07:00 Intake Total 75 ml Balance 75 ml Intake IV Total 75 ml # Voids 1 Laboratory Tests 06/20/18 23:15: White Blood Count 4.3L, Red Blood Count 4.12L, Hemoglobin 11.4L, Hematocrit 36.2L, Mean Corpuscular Volume 88, Mean Corpuscular Hemoglobin 27.6, Mean Corpuscular Hemoglobin Concent 31.4L, Red Cell Distribution Width 18.8H, Platelet Count 226, Mean Platelet Volume 7.7, Neutrophils (%) (Auto) 42.5L, Lymphocytes (%) (Auto) 42.9, Monocytes (%) (Auto) 13.1H, Eosinophils (%) (Auto) 0.6, Basophils (%) (Auto) 1.0, Urine Color Yellow, Urine Appearance Clear, Urine pH 6, Urine Specific [place] 1.020, Urine Protein 1+H, Urine Glucose (UA) Negative, Urine Ketones Negative, Urine Blood 4+H, Urine Nitrite Negative, Urine Bilirubin Negative, Urine Urobilinogen 1H, Urine Leukocyte Esterase 1+H, Urine RBC 40-60H, Urine WBC 0-2, Urine Squamous Epithelial Cells ModerateH, Urine Bacteria Few, Urine HCG, Qualitative Negative, Sodium Level 143, Potassium Level 4.1, Chloride Level 104, Carbon Dioxide Level 27, Anion Gap 12, Blood Urea Nitrogen 11, Creatinine 0.9, Estimat Glomerular Filtration Rate > 60 , Glucose Level 91, Calcium Level 9.4, Total Bilirubin 0.7, Aspartate Amino Transf (AST/SGOT) 92H, Alanine Aminotransferase (ALT/SGPT) 41, Alkaline Phosphatase 91, Total Protein 8.8H, Albumin 3.4, Globulin 5.4, Albumin/Globulin Ratio 0.6L, Lipase 1084H, Urine Opiates Screen Negative, Urine Barbiturates Screen Negative, Phencyclidine (PCP) Screen Negative, Urine Amphetamines Screen Negative, Urine Benzodiazepines Screen Negative, Urine Cocaine Screen Negative, Urine Marijuana (THC) Screen Negative Height (Feet): 5 Height (Inches): 5.00 Weight (Pounds): 138 Objective General Appearance: no apparent distress, alert HEENT: PERRL, EOMI Neck: non-tender, supple Respiratory/Chest: lungs clear, normal breath sounds Cardiovascular/Chest: normal rate, regular rhythm Abdomen: tender, soft Extremities: normal range of motion, non-tender Skin Exam: warm/dry Neurologic: alert, oriented x 3 Jeovanny Campo Jun 21, 2018 08:48
--- NOTE | 2018-06-21 11:17 | GI Initial Consult Note ---
History of Present Illness General Date patient seen: Jun 21, 2018 Time patient seen: 11:16 Reason for Hospitalization: Abdominal Pain Referring physician: MERCEDES Ordoñez Reason for Consultation: PANCREATITIS Present Illness HPI This is a 23-year-old female with history of chronic abdominal pain. She also has a history of nonischemic cardiomyopathy and chronic CHF. She presents with chief complaint abdominal pain. Onset for about 2 days now. Pain is severe 10 out of 10. Epigastric and left upper quadrant. No diarrhea. Has nausea and vomiting. Nothing made it better. Pain is so severe that she can't walk. She was here earlier this morning for same thing. Was discharged home. Denies any other complaint. Asking for IV opioids. GI consulted for pancreatitis. Patient is known to us, with history of chronic alcohol abuse, iron deficiency, folate deficiency. Patient was seen, awake alert and oriented x4. Presents today with chief abdominal pain, elevated lipase levels of 1090 and AST of 92. Denies any diarrhea. Reported morning emesis after p.o. intake despite being n.p.o. no history of endoscopic colonoscopy. Home Meds Active Scripts Famotidine (PEPCID AC) 20 Mg Tablet, 20 MG PO DAILY, #15 TAB Prov:Mercedes King DO 06/20/18 Spironolactone (ALDACTONE) 25 Mg Tablet, 25 MG ORAL DAILY for 10 Days, TAB Prov:Matteo Nguyen MD 01/25/18 Enalapril Maleate* (ENALAPRIL MALEATE*) 5 Mg Tablet, 5 MG ORAL DAILY for 10 Days , TAB Prov:Matteo Nguyen MD 01/25/18 Digoxin* (LANOXIN*) 250 Mcg Tablet, 0.25 MG ORAL DAILY for 10 Days, TAB Prov:Matteo Nguyen MD 01/25/18 Carvedilol (Coreg) 6.25 Mg Tablet, 6.25 MG ORAL EVERY 12 HOURS for 10 Days, TAB Prov:Matteo Nguyen MD 01/25/18 Reported Medications Ondansetron Odt* (ZOFRAN ODT*) 4 Mg Tab.rapdis, 4 MG BC EVERY 6 HOURS PRN for Nausea & Vomiting, #15 TAB 01/31/18 Furosemide* (LASIX*) 20 Mg Tablet, 40 MG ORAL DAILY, TAB 01/31/18 Pantoprazole* (PROTONIX*) 40 Mg Tablet.dr, 40 MG ORAL DAILY, TAB 01/21/18 Discontinued Scripts Furosemide* (LASIX*) 20 Mg Tablet, 20 MG ORAL DAILY for 30 Days, TAB Prov:Shonna Lovell MD 04/04/18 Med list reviewed/reconciled: Yes Allergies: Coded Allergies: AMOXICILLIN (Unverified Allergy, Unknown, 01/08/17) Patient History History Provided By: Patient, Medical Record PMH Narrative Past Medical History: see triage record, old chart reviewed, HTN, CHF Past Surgical History: other Pertinent Family History: none Social History: Denies: smoking Last Menstrual Period: 06/06 Now: No : 0 Para: 0 Immunizations: other Reviewed Nursing Documentation: PMH: Agreed; PSxH: Agreed Nursing Documentation-PMH Hx Cardiac Problems: Yes - CHF, anemia Hx Hypertension: Yes Hx Asthma: Yes Hx Cancer: No Hx Gastrointestinal Problems: Yes - GASTRITIS, pancreatitis Hx Neurological Problems: No Social History: Reports: alcohol use Review of Systems All Other Systems: negative except mentioned in HPI Physical Exam Vital Signs Date Time Temp Pulse Resp B/P (MAP) Pulse Ox O2 Delivery O2 Flow Rate FiO2 06/20/18 22:41 97.9 105 20 120/78 100 Room Air Sp02 EP Interpretation: reviewed, normal Labs Laboratory Tests Test 06/20/18 23:15 White Blood Count 4.3 K/UL (4.8-10.8) L Red Blood Count 4.12 M/UL (4.20-5.40) L Hemoglobin 11.4 G/DL (12.0-16.0) L Hematocrit 36.2 % (37.0-47.0) L Mean Corpuscular Volume 88 FL (80-99) Mean Corpuscular Hemoglobin 27.6 PG (27.0-31.0) Mean Corpuscular Hemoglobin Concent 31.4 G/DL (32.0-36.0) L Red Cell Distribution Width 18.8 % (11.6-14.8) H Platelet Count 226 K/UL (150-450) Mean Platelet Volume 7.7 FL (6.5-10.1) Neutrophils (%) (Auto) 42.5 % (45.0-75.0) L Lymphocytes (%) (Auto) 42.9 % (20.0-45.0) Monocytes (%) (Auto) 13.1 % (1.0-10.0) H Eosinophils (%) (Auto) 0.6 % (0.0-3.0) Basophils (%) (Auto) 1.0 % (0.0-2.0) Urine Color Yellow Urine Appearance Clear Urine pH 6 (4.5-8.0) Urine Specific [place] 1.020 (1.005-1.035) Urine Protein 1+ (NEGATIVE) H Urine Glucose (UA) Negative (NEGATIVE) Urine Ketones Negative (NEGATIVE) Urine Blood 4+ (NEGATIVE) H Urine Nitrite Negative (NEGATIVE) Urine Bilirubin Negative (NEGATIVE) Urine Urobilinogen 1 MG/DL (0.0-1.0) H Urine Leukocyte Esterase 1+ (NEGATIVE) H Urine RBC 40-60 /HPF (0 - 2) H Urine WBC 0-2 /HPF (0 - 2) Urine Squamous Epithelial Cells Moderate /LPF (NONE/OCC) H Urine Bacteria Few /HPF (NONE) Urine HCG, Qualitative Negative (NEGATIVE) Sodium Level 143 MMOL/L (136-145) Potassium Level 4.1 MMOL/L (3.5-5.1) Chloride Level 104 MMOL/L (98-107) Carbon Dioxide Level 27 MMOL/L (21-32) Anion Gap 12 mmol/L (5-15) Blood Urea Nitrogen 11 mg/dL (7-18) Creatinine 0.9 MG/DL (0.55-1.30) Estimat Glomerular Filtration Rate > 60 mL/min (>60) Glucose Level 91 MG/DL (74-106) Calcium Level 9.4 MG/DL (8.5-10.1) Total Bilirubin 0.7 MG/DL (0.2-1.0) Aspartate Amino Transf (AST/SGOT) 92 U/L (15-37) H Alanine Aminotransferase (ALT/SGPT) 41 U/L (12-78) Alkaline Phosphatase 91 U/L (46-116) Total Protein 8.8 G/DL (6.4-8.2) H Albumin 3.4 G/DL (3.4-5.0) Globulin 5.4 g/dL Albumin/Globulin Ratio 0.6 (1.0-2.7) L Lipase 1084 U/L (73-393) H Urine Opiates Screen Negative (NEGATIVE) Urine Barbiturates Screen Negative (NEGATIVE) Phencyclidine (PCP) Screen Negative (NEGATIVE) Urine Amphetamines Screen Negative (NEGATIVE) Urine Benzodiazepines Screen Negative (NEGATIVE) Urine Cocaine Screen Negative (NEGATIVE) Urine Marijuana (THC) Screen Negative (NEGATIVE) General Appearance: well appearing, no apparent distress, alert Head: normocephalic EENT: PERRL/EOMI, normal ENT inspection Neck: supple Respiratory: normal breath sounds, no respiratory distress Cardiovascular: normal rate Gastrointestinal: normal inspection, non tender, soft, normal bowel sounds, non -distended Rectal: deferred Genitourinary: no CVA tenderness Musculoskeletal: normal inspection, back normal Neurologic: normal inspection, alert, oriented x3, responsive Psychiatric: normal inspection, judgement/insight normal, memory normal Skin: normal inspection, normal color, no rash, warm/dry, palpation normal, well hydrated Lymphatic: normal inspection, no adenopathy Current Medications Current Medications Medications (Trade) Dose Ordered Sig/Leora Route PRN Reason Start Time Stop Time Status Last Admin Dose Admin Morphine Sulfate (Morphine Sulfate) 4 mg Q4H PRN IVP Severe Pain (Pain Scale 7-10) 06/21/18 05:00 06/28/18 04:59 06/21/18 09:26 Ondansetron HCl (Zofran) 4 mg Q6H PRN IVP Nausea & Vomiting 06/21/18 05:00 07/21/18 04:59 06/21/18 09:26 Sodium Chloride 1,000 ml @ 75 mls/hr [id number] IV 06/21/18 05:00 07/21/18 04:59 06/21/18 05:21 GI: Plan Problems: (1) Alcoholic pancreatitis (2) Pancreatitis, acute (3) ETOH abuse (4) Electrolyte imbalance (5) Malnutrition (6) Abdominal pain Plan Medical management for pancreatitis Maintain n.p.o. plus IV fluids Pain management Avoid alcohol Folate We will check iron levels given history of deficiency PPI Zofran as needed Repeat LFTs Discussed with Dr. Smith. Thank you for this patient referral, we will follow. The patient was seen and examined at bedside and all new and available data was reviewed in the patients chart. I agree with the above findings, impression and plan. (Patient seen earlier today. Signature stamp does not reflect patient encounter time.). - MD Aura Glass,[facility] PULMONARY FUNCTION TECHNICIAN Jun 21, 2018 11:17
[2018-06-21 12:00] VITALS: BP 97/56
--- NOTE | 2018-06-21 12:00 | NUR ---
NURSE NOTES: During rounds with Dr. Diaz, pt was cut again eating and complaining of epigastric pain. Dr. Diaz and RN educated again pt of the importance to remain NPO. pt verbalized understanding and stated that she was "hungry". MD explained pt that he will advance diet once she is ready. I will f/u as needed.
--- NOTE | 2018-06-21 13:53 | NUR ---
CASE MANAGEMENT:REVIEW 23 YR OLD FEMALE BIBA FROM HOME CC; ABDOMINAL PAIN SI: ACUTE PANCREATITIS 97.8 105 20 120/78 100% ON RA LIPASE+1084 IS: IV MORPHINE X2 500CC NS BOLUS IV PROTONIX : TO MED/SURG PLAN: NPO
--- NOTE | 2018-06-21 14:14 | Consultation ---
Consult Note Consult Note asked to eval at the request of Dr Frank for fluid management This is a 23-year-old female with history of chronic abdominal pain. She also has a history of nonischemic cardiomyopathy and chronic CHF. She presents with chief complaint abdominal pain. Onset for about 2 days now. Pain is severe 10 out of 10. Epigastric and left upper quadrant. No diarrhea. Has nausea and vomiting. Nothing made it better. Pain is so severe that she can't walk. She was here earlier this morning for same thing. Was discharged home. Denies any other complaint. Asking for IV opioids. Allergies: AMOXICILLIN (Unverified Allergy, Unknown, 01/08/17) Patient History Past Medical History: see triage record, old chart reviewed, HTN, CHF Past Surgical History: other Pertinent Family History: none Social History: Denies: smoking Last Menstrual Period: 06/06 Now: No : 0 Para: 0 Immunizations: other Reviewed Nursing Documentation: PMH: Agreed; PSxH: Agreed Hx Cardiac Problems: Yes - CHF, anemia Hx Hypertension: Yes Hx Asthma: Yes Hx Gastrointestinal Problems: Yes - GASTRITIS, pancreatitis abd tender . Assessment/Plan Alcoholic pancreatitis , Pancreatitis, acute Electrolyte imbalance Malnutrition Abdominal pain Anemia IV fluids Monitor electrolytes IV protonix Anemia Jeb Rosales MD Jun 21, 2018 14:14
[2018-06-21] MEDS: Thiamine HCl 100 MG in D5W 55 ML IVPB SCH (15:50)
[2018-06-21 16:00] VITALS: BP 99/58
--- NOTE | 2018-06-21 18:00 | NUR ---
NURSE NOTES: During hourly rounds, RN caught pt eating starburst and a can of soda in the floor. RN confronted pt who stated that was her visitors food. she stated that she is been complain she we talk in the morning. RN notified Jayde DUMONT. I will f/u as needed.
--- NOTE | 2018-06-21 19:15 | History and Physical Report ---
DATE OF ADMISSION: 06/21/2018 HISTORY OF PRESENT ILLNESS: The patient was admitted for pancreatitis. The patient complains of abdominal pain for the past two days. The patient was admitted for pancreatitis, alcoholic cardiomyopathy with ejection fraction of 35% to 40%, also has abdominal pain with vomiting blood as well as rectal bleeding and elevated lipase. The patient has history of alcohol abuse, history of drug abuse, and history of smoking, complains of vomiting blood and rectal bleeding for the past two days and epigastric tenderness. PAST MEDICAL HISTORY: Significant for hypertension, congestive heart failure, GERD, history of anemia, history of hypertension, history of asthma, history of gastritis. PAST SURGICAL HISTORY: None. SOCIAL HISTORY: History of smoking, history of drug and alcohol abuse. ALLERGIES: To penicillin. MEDICATIONS: Coreg, digoxin, Pepcid, Lasix, Aldactone. FAMILY HISTORY: Noncontributory. REVIEW OF SYSTEMS: HEENT: Denies headaches. RESPIRATORY: Denies shortness of breath. Denies cough. CARDIOVASCULAR: Denies chest pain. GASTROINTESTINAL: Reports abdominal pain for two days, vomiting blood and rectal bleeding for two days. Denies constipation. EXTREMITIES: Denies any pain in the lower extremities. CENTRAL NERVOUS SYSTEM: No change in vision or speech pattern. PHYSICAL EXAMINATION: VITAL SIGNS: Temperature 97.8, pulse 88, and blood pressure 121/74. HEENT: PERRLA. NECK: Supple. No lymphadenopathy. CHEST: Clear to auscultation. CARDIOVASCULAR: Regular rate and rhythm. ABDOMEN: Epigastric tenderness. No rebound. Abdomen is soft. Positive bowel sounds. No organomegaly EXTREMITIES: No edema. Reflexes are equal on both sides. Moves all four extremities. LABORATORY DATA: WBC of 4.3, hemoglobin 11.4, platelets 226. Sodium 143, potassium 4.1, BUN of 11, creatinine of 0.9, and glucose of 91. Lipase of 1084. ASSESSMENT AND PLAN: . Give intravenous fluids. Pancreatitis due to alcohol abuse most likely vomited blood and the patient has had congestive heart failure. Keep NPO for time being. I have consulted, Dr. Dinero, Dr. Smith, Dr. Golden, Dr. Weller for pain management as well as further management of the CHF as well as for the management of the GI bleed and pancreatitis. The patient also clinically looks dehydrated. Dr. Weller will help for the management of that as well. Mercedes Diaz M.D. DR: Mario JOB#: [id number] CC:
[2018-06-21 20:00] VITALS: BP 108/71
--- NOTE | 2018-06-21 20:01 | NUR ---
HAND-OFF: Report given to Denice DUMONT, pt in stable condition. RN endorsed to the incoming nurse that pt has been none complain with her diet.
--- NOTE | 2018-06-21 20:02 | NUR ---
NURSE NOTES: Received report & pt from JULIA Bedoya. Pt lying in bed, a&ox4, in room air. No s/s of acute distress & c/o 9/10 pain. Will give PRN pain med when due & pt verbalized understanding. Skin intact. IV site intact with IVF running as ordered. Bed in lowest position, call light within reach. Will continue to monitor.
--- NOTE | 2018-06-21 20:06 | NUR ---
NURSE NOTES: Pt requesting for sleeping pill. Informed Dr. Diaz & said, "denied"
--- NOTE | 2018-06-21 20:51 | Consultation ---
History of Present Illness General Chief Complaint: Abdominal Pain Referring physician: MERCEDES Ordoñez Reason for Consultation: PANCREATITIS Present Illness Allergies: Coded Allergies: AMOXICILLIN (Unverified Allergy, Unknown, 01/08/17) Medication History Scheduled Carvedilol (Coreg), 6.25 MG ORAL EVERY 12 HOURS Digoxin* (Lanoxin*), 0.25 MG ORAL DAILY Enalapril Maleate* (Enalapril Maleate*), 5 MG ORAL DAILY Famotidine (Pepcid Ac), 20 MG PO DAILY Furosemide* (Lasix*), 40 MG ORAL DAILY, (Reported) Pantoprazole* (Protonix*), 40 MG ORAL DAILY, (Reported) Spironolactone (Aldactone), 25 MG ORAL DAILY Scheduled PRN Ondansetron Odt* (Zofran Odt*), 4 MG BC EVERY 6 HOURS PRN for Nausea & Vomiting, (Reported) Discontinued Medications Furosemide* (Lasix*), 20 MG ORAL DAILY Discontinued Reason: Medication dose changed Patient History Healthcare decision maker Resuscitation status Full Code Advanced Directive on File No Physical Exam Last 24 Hour Vital Signs Date Time Temp Pulse Resp B/P (MAP) Pulse Ox O2 Delivery O2 Flow Rate FiO2 06/21/18 18:05 98.0 06/21/18 16:00 98.0 68 17 99/58 (72) 96 06/21/18 12:00 98.2 64 17 97/56 (70) 96 06/21/18 09:00 Room Air 06/21/18 08:00 97.3 78 17 94/56 (69) 96 06/21/18 04:00 97.5 67 20 91/53 (66) 96 06/21/18 02:41 Room Air 06/21/18 01:35 97.9 73 20 107/65 (79) 95 06/21/18 01:15 97.8 88 18 121/74 100 Room Air 06/21/18 00:56 97.8 06/20/18 22:50 105 20 Room Air 06/20/18 22:50 97.9 98 20 120/78 100 Room Air 06/20/18 22:41 97.9 105 20 120/78 100 Room Air Intake and Output 06/20/18 06/21/18 19:00 07:00 Intake Total 75 ml Balance 75 ml Intake IV Total 75 ml # Voids 1 Laboratory Tests Test 06/20/18 23:15 White Blood Count 4.3 K/UL (4.8-10.8) L Red Blood Count 4.12 M/UL (4.20-5.40) L Hemoglobin 11.4 G/DL (12.0-16.0) L Hematocrit 36.2 % (37.0-47.0) L Mean Corpuscular Volume 88 FL (80-99) Mean Corpuscular Hemoglobin 27.6 PG (27.0-31.0) Mean Corpuscular Hemoglobin Concent 31.4 G/DL (32.0-36.0) L Red Cell Distribution Width 18.8 % (11.6-14.8) H Platelet Count 226 K/UL (150-450) Mean Platelet Volume 7.7 FL (6.5-10.1) Neutrophils (%) (Auto) 42.5 % (45.0-75.0) L Lymphocytes (%) (Auto) 42.9 % (20.0-45.0) Monocytes (%) (Auto) 13.1 % (1.0-10.0) H Eosinophils (%) (Auto) 0.6 % (0.0-3.0) Basophils (%) (Auto) 1.0 % (0.0-2.0) Urine Color Yellow Urine Appearance Clear Urine pH 6 (4.5-8.0) Urine Specific [place] 1.020 (1.005-1.035) Urine Protein 1+ (NEGATIVE) H Urine Glucose (UA) Negative (NEGATIVE) Urine Ketones Negative (NEGATIVE) Urine Blood 4+ (NEGATIVE) H Urine Nitrite Negative (NEGATIVE) Urine Bilirubin Negative (NEGATIVE) Urine Urobilinogen 1 MG/DL (0.0-1.0) H Urine Leukocyte Esterase 1+ (NEGATIVE) H Urine RBC 40-60 /HPF (0 - 2) H Urine WBC 0-2 /HPF (0 - 2) Urine Squamous Epithelial Cells Moderate /LPF (NONE/OCC) H Urine Bacteria Few /HPF (NONE) Urine HCG, Qualitative Negative (NEGATIVE) Sodium Level 143 MMOL/L (136-145) Potassium Level 4.1 MMOL/L (3.5-5.1) Chloride Level 104 MMOL/L (98-107) Carbon Dioxide Level 27 MMOL/L (21-32) Anion Gap 12 mmol/L (5-15) Blood Urea Nitrogen 11 mg/dL (7-18) Creatinine 0.9 MG/DL (0.55-1.30) Estimat Glomerular Filtration Rate > 60 mL/min (>60) Glucose Level 91 MG/DL (74-106) Calcium Level 9.4 MG/DL (8.5-10.1) Total Bilirubin 0.7 MG/DL (0.2-1.0) Aspartate Amino Transf (AST/SGOT) 92 U/L (15-37) H Alanine Aminotransferase (ALT/SGPT) 41 U/L (12-78) Alkaline Phosphatase 91 U/L (46-116) Total Protein 8.8 G/DL (6.4-8.2) H Albumin 3.4 G/DL (3.4-5.0) Globulin 5.4 g/dL Albumin/Globulin Ratio 0.6 (1.0-2.7) L Lipase 1084 U/L (73-393) H Urine Opiates Screen Negative (NEGATIVE) Urine Barbiturates Screen Negative (NEGATIVE) Phencyclidine (PCP) Screen Negative (NEGATIVE) Urine Amphetamines Screen Negative (NEGATIVE) Urine Benzodiazepines Screen Negative (NEGATIVE) Urine Cocaine Screen Negative (NEGATIVE) Urine Marijuana (THC) Screen Negative (NEGATIVE) Height (Feet): 5 Height (Inches): 5.00 Weight (Pounds): 138 Medications Current Medications Medications (Trade) Dose Ordered Sig/Leora Route PRN Reason Start Time Stop Time Status Last Admin Dose Admin Dextrose/ Electrolytes 1,000 ml @ 100 mls/hr Q10H IV 06/21/18 15:00 07/21/18 14:59 06/21/18 15:51 Folic Acid (Folate) 1 mg DAILY ORAL 06/22/18 09:00 07/22/18 08:59 Morphine Sulfate (Morphine Sulfate) 4 mg Q4H PRN IVP Severe Pain (Pain Scale 7-10) 06/21/18 05:00 06/28/18 04:59 06/21/18 17:35 Ondansetron HCl (Zofran) 4 mg Q6H PRN IVP Nausea & Vomiting 06/21/18 05:00 07/21/18 04:59 06/21/18 09:26 Pantoprazole (Protonix) 40 mg EVERY 12 HOURS IVP 06/21/18 21:00 07/21/18 20:59 Thiamine HCl 100 mg/Dextrose 56 ml @ 112 mls/hr Q24H IVPB 06/21/18 16:00 07/21/18 15:59 06/21/18 15:50 Assessment/Plan Assessment/Plan Hematology Consultation DOS: 06/21/18 Reason for Hospitalization: Abdominal Pain Referring physician: MERCEDES Ordoñez Reason for Consultation: Leukopenia, hyperproteinemia ID This is a 23-year-old female with history of chronic abdominal pain. She also has a history of nonischemic cardiomyopathy and chronic CHF. She presents with chief complaint abdominal pain. Onset for about 2 days now. Pain is severe 10 out of 10. Epigastric and left upper quadrant. No diarrhea. Has nausea and vomiting. Nothing made it better. Pain is so severe that she can't walk. She was here earlier this morning for same thing. Was discharged home. Denies any other complaint. Asking for IV opioids. GI consulted for pancreatitis. Patient is known to us, with history of chronic alcohol abuse, iron deficiency, folate deficiency. Patient was seen, awake alert and oriented x4. Presents today with chief abdominal pain, elevated lipase levels of 1090 and AST of 92. Denies any diarrhea. Reported morning emesis after p.o. intake despite being n.p.o. no history of endoscopic colonoscopy. meds Active Scripts Famotidine (PEPCID AC) 20 Mg Tablet, 20 MG PO DAILY, #15 TAB Prov:Mercedes King DO 06/20/18 Spironolactone (ALDACTONE) 25 Mg Tablet, 25 MG ORAL DAILY for 10 Days, TAB Prov:Matteo Nguyen MD 01/25/18 Enalapril Maleate* (ENALAPRIL MALEATE*) 5 Mg Tablet, 5 MG ORAL DAILY for 10 Days , TAB Prov:Matteo Nguyen MD 01/25/18 Digoxin* (LANOXIN*) 250 Mcg Tablet, 0.25 MG ORAL DAILY for 10 Days, TAB Prov:Matteo Nguyen MD 01/25/18 Carvedilol (Coreg) 6.25 Mg Tablet, 6.25 MG ORAL EVERY 12 HOURS for 10 Days, TAB Prov:Matteo Nguyen MD 01/25/18 Reported Medications Ondansetron Odt* (ZOFRAN ODT*) 4 Mg Tab.rapdis, 4 MG BC EVERY 6 HOURS PRN for Nausea & Vomiting, #15 TAB 01/31/18 Furosemide* (LASIX*) 20 Mg Tablet, 40 MG ORAL DAILY, TAB 01/31/18 Pantoprazole* (PROTONIX*) 40 Mg Tablet.dr, 40 MG ORAL DAILY, TAB 01/21/18 Discontinued Scripts Furosemide* (LASIX*) 20 Mg Tablet, 20 MG ORAL DAILY for 30 Days, TAB Prov:Shonna Lovell MD 04/04/18 Med list reviewed/reconciled: Yes Allergies: Coded Allergies: AMOXICILLIN (Unverified Allergy, Unknown, 01/08/17) History Provided By: Patient, Medical Record PMH Narrative Past Medical History: see triage record, old chart reviewed, HTN, CHF Past Surgical History: other Pertinent Family History: none Social History: Denies: smoking Last Menstrual Period: 06/06 Now: No : 0 Para: 0 Immunizations: other Reviewed Nursing Documentation: PMH: Agreed; PSxH: Agreed Nursing Documentation-PMH Hx Cardiac Problems: Yes - CHF, anemia Hx Hypertension: Yes Hx Asthma: Yes Hx Cancer: No Hx Gastrointestinal Problems: Yes - GASTRITIS, pancreatitis Hx Neurological Problems: No Social History: Reports: alcohol use Review of Systems: negative except mentioned in HPI PE Vital Signs Date Time Temp Pulse Resp B/P (MAP) Pulse Ox O2 Delivery O2 Flow Rate FiO2 06/20/18 22:41 97.9 105 20 120/78 100 Room Air Laboratory Tests Test 06/20/18 23:15 White Blood Count 4.3 K/UL (4.8-10.8) L Red Blood Count 4.12 M/UL (4.20-5.40) L Hemoglobin 11.4 G/DL (12.0-16.0) L Hematocrit 36.2 % (37.0-47.0) L Mean Corpuscular Volume 88 FL (80-99) Mean Corpuscular Hemoglobin 27.6 PG (27.0-31.0) Mean Corpuscular Hemoglobin Concent 31.4 G/DL (32.0-36.0) L Red Cell Distribution Width 18.8 % (11.6-14.8) H Platelet Count 226 K/UL (150-450) Mean Platelet Volume 7.7 FL (6.5-10.1) Neutrophils (%) (Auto) 42.5 % (45.0-75.0) L Lymphocytes (%) (Auto) 42.9 % (20.0-45.0) Monocytes (%) (Auto) 13.1 % (1.0-10.0) H Eosinophils (%) (Auto) 0.6 % (0.0-3.0) Basophils (%) (Auto) 1.0 % (0.0-2.0) Urine Color Yellow Urine Appearance Clear Urine pH 6 (4.5-8.0) Urine Specific [place] 1.020 (1.005-1.035) Urine Protein 1+ (NEGATIVE) H Urine Glucose (UA) Negative (NEGATIVE) Urine Ketones Negative (NEGATIVE) Urine Blood 4+ (NEGATIVE) H Urine Nitrite Negative (NEGATIVE) Urine Bilirubin Negative (NEGATIVE) Urine Urobilinogen 1 MG/DL (0.0-1.0) H Urine Leukocyte Esterase 1+ (NEGATIVE) H Urine RBC 40-60 /HPF (0 - 2) H Urine WBC 0-2 /HPF (0 - 2) Urine Squamous Epithelial Cells Moderate /LPF (NONE/OCC) H Urine Bacteria Few /HPF (NONE) Urine HCG, Qualitative Negative (NEGATIVE) Sodium Level 143 MMOL/L (136-145) Potassium Level 4.1 MMOL/L (3.5-5.1) Chloride Level 104 MMOL/L (98-107) Carbon Dioxide Level 27 MMOL/L (21-32) Anion Gap 12 mmol/L (5-15) Blood Urea Nitrogen 11 mg/dL (7-18) Creatinine 0.9 MG/DL (0.55-1.30) Estimat Glomerular Filtration Rate > 60 mL/min (>60) Glucose Level 91 MG/DL (74-106) Calcium Level 9.4 MG/DL (8.5-10.1) Total Bilirubin 0.7 MG/DL (0.2-1.0) Aspartate Amino Transf (AST/SGOT) 92 U/L (15-37) H Alanine Aminotransferase (ALT/SGPT) 41 U/L (12-78) Alkaline Phosphatase 91 U/L (46-116) Total Protein 8.8 G/DL (6.4-8.2) H Albumin 3.4 G/DL (3.4-5.0) Globulin 5.4 g/dL Albumin/Globulin Ratio 0.6 (1.0-2.7) L Lipase 1084 U/L (73-393) H Urine Opiates Screen Negative (NEGATIVE) Urine Barbiturates Screen Negative (NEGATIVE) Phencyclidine (PCP) Screen Negative (NEGATIVE) Urine Amphetamines Screen Negative (NEGATIVE) Urine Benzodiazepines Screen Negative (NEGATIVE) Urine Cocaine Screen Negative (NEGATIVE) Urine Marijuana (THC) Screen Negative (NEGATIVE) General Appearance: well appearing, no apparent distress, alert Head: normocephalic EENT: PERRL/EOMI, normal ENT inspection Neck: supple Respiratory: normal breath sounds, no respiratory distress Cardiovascular: normal rate Gastrointestinal: normal inspection, mild abd pain Rectal: deferred Genitourinary: no CVA tenderness Musculoskeletal: normal inspection, back normal Neurologic: normal inspection, alert, oriented x3, responsive Psychiatric: normal inspection, judgement/insight normal, memory normal Skin: normal inspection, normal color, no rash Lymphatic: normal inspection, no adenopathy Current Medications Current Medications Medications (Trade) Dose Ordered Sig/Leora Route PRN Reason Start Time Stop Time Status Last Admin Dose Admin Morphine Sulfate (Morphine Sulfate) 4 mg Q4H PRN IVP Severe Pain (Pain Scale 7-10) 06/21/18 05:00 06/28/18 04:59 06/21/18 09:26 Ondansetron HCl (Zofran) 4 mg Q6H PRN IVP Nausea & Vomiting 06/21/18 05:00 07/21/18 04:59 06/21/18 09:26 Sodium Chloride 1,000 ml @ 75 mls/hr [id number] IV 06/21/18 05:00 07/21/18 04:59 06/21/18 05:21 Assessment and Recs # Decreased white blood cell count, unspec (aka leukopenia) - wbc under 4k, could be related to infection/pancreatitis versus alcohol abuse --> if the total ANC is less than 2000, consider neupogen --> continue antibiotics with ID service, appreciate recs --> medications have been reviewed --> hepatitis and hiv have been ordered # Anemia of chronic disease (or of iron deficiency) due to underlying chronic medical issues, multifactorial --> Anemia workup has been ordered --> No evidence of hemolysis is noted, peripheral smear has been reviewed. --> Hgb goal >7. Transfuse prn. --> Epogen or iron at this time is not particularly indicated --> Medications have been reviewed --> evaluate with Gi team prn # Alcoholic pancreatitis --> eval gi pain, monitor for symptoms # Pancreatitis, acute --> as per surg, gi # ETOH abuse # Electrolyte imbalance # Malnutrition # Abdominal pain The timing of this note does not necessarily reflect the time of the patient was seen. Greatly appreciate consultation! João Eng MD Jun 21, 2018 20:51
--- NOTE | 2018-06-21 21:00 | NUR ---
NURSE NOTES: Vascular lab called stating they will do US ABD tomorrow (no specific time given). Addendum: 06/21/18 at 2220 by Denice Dougherty RN @2100: Pt made aware. Reminded pt of NPO status for US ABD.
[2018-06-21] MEDS: Pantoprazole Inj IVP SCH (21:32)
--- NOTE | 2018-06-21 23:37 | Cardiology Progress Note ---
Assessment/Plan Assessment/Plan The patient is seen and examined, full consult note will be dictated. Objective Last 24 Hour Vital Signs Date Time Temp Pulse Resp B/P (MAP) Pulse Ox O2 Delivery O2 Flow Rate FiO2 06/21/18 21:00 Room Air 06/21/18 20:00 98.6 80 18 108/71 (83) 97 06/21/18 18:05 98.0 06/21/18 16:00 98.0 68 17 99/58 (72) 96 06/21/18 12:00 98.2 64 17 97/56 (70) 96 06/21/18 09:00 Room Air 06/21/18 08:00 97.3 78 17 94/56 (69) 96 06/21/18 04:00 97.5 67 20 91/53 (66) 96 06/21/18 02:41 Room Air 06/21/18 01:35 97.9 73 20 107/65 (79) 95 06/21/18 01:15 97.8 88 18 121/74 100 Room Air 06/21/18 00:56 97.8 Intake and Output 06/20/18 06/21/18 19:00 07:00 Intake Total 75 ml Balance 75 ml Intake IV Total 75 ml # Voids 1 Laboratory Tests Test 06/21/18 21:12 Fibrinogen Pending Total Protein (PEP) Pending Albumin (PEP) Pending Globulin (PEP) Pending Albumin/Globulin Ratio Pending [id number] Pending [id number] Pending Beta Globulins Pending Beta Gamma Globulin Pending PEP Abnormal Protein Bands Pending Protein Electrophoresis Interpret Pending Hepatitis A IgM Antibody Pending Hepatitis B Surface Antigen Pending Hepatitis B Core IgM Antibody Pending Hepatitis C Antibody Pending HIV (1&2) Antibody Rapid Negative (NEGATIVE) Efrain Golden MD Jun 21, 2018 23:37
[2018-06-22] VITALS (7 sets, daily range): BP systolic 110–124; BP diastolic 75–93
--- NOTE | 2018-06-22 01:15 | Consultation ---
DATE OF CONSULTATION: 06/21/2018 CARDIOLOGY CONSULTATION CONSULTING PHYSICIAN: Efrain Golden M.D. REFERRING PHYSICIAN: Mercedes Diaz M.D. REASON FOR CONSULTATION: Management of tachycardia as well as cardiomyopathy. HISTORY OF PRESENT ILLNESS: The patient is a very unfortunate 23-year-old lady with history of nonischemic cardiomyopathy, who presents to the hospital with abdominal pain that is described as diffuse, chronic that has worsened in the past two days. The intensity at 10/10 with associated nausea and vomiting. She states that the pain is so disabling that she was asking for opiates. PAST MEDICAL HISTORY: 1. Hypertension. 2. Congestive heart failure. 3. Nonischemic cardiomyopathy. 4. Chronic abdominal pain. PAST SURGICAL HISTORY: None. FAMILY HISTORY: No premature coronary artery disease in the first-degree relatives. ALLERGIES: Amoxicillin. MEDICATIONS: List of medications at home - digoxin 0.25 mg p.o. daily, carvedilol 6.25 mg q.12 h., enalapril 5 mg p.o. daily, Pepcid AC 20 mg p.o. daily, Lasix 40 mg p.o. daily, Zofran 4 mg before food every six hours p.r.n. nausea and vomiting, Pantoprazole 40 mg p.o. daily, and Aldactone 25 mg p.o. daily. REVIEW OF SYSTEMS: A 12-system review done essentially negative except what is mentioned in History of Present Illness. PHYSICAL EXAMINATION: VITAL SIGNS: Blood pressure 120/78, pulse 105, respirations 20, O2 saturation 100% on room air, and temperature 97.9 degrees Fahrenheit. GENERAL: The patient is a very unfortunate 23-year-old, in no apparent respiratory distress. Alert and oriented x4. HEENT: Atraumatic and normocephalic. Anicteric. Pupils are equal, round, and reactive to light and accommodation. Extraocular muscles intact. NECK: JVP less than 5 cm. No carotid bruit. Carotid upstroke is 2+ bilaterally. CARDIOVASCULAR: Normal S1, S2. Regular rate and rhythm. No murmurs, gallops, or rubs. PMI is at fourth intercostal space in the midclavicular line. LUNGS: Clear to auscultation bilaterally. ABDOMEN: Soft, nontender, and nondistended. No hepatosplenomegaly. Positive bowel sounds. EXTREMITIES: No edema, clubbing, or cyanosis. LABORATORY FINDINGS: WBC 4.3, hemoglobin 11.4, hematocrit 36.2, and platelet count 226,000. Sodium 142, potassium 4.1, chloride 104, bicarbonate 27, BUN 11, and creatinine 0.9. Glucose is 91. Calcium is 9.4. Total protein is 8.8 and albumin 3.4. Lipase is 1084. INR is pending. Urine tox screen was negative. A 2-D echocardiography from March 2018 reveals global left ventricular hypokinesia with LVEF approximately 20% to 25%, echogenic material in the left atrial apex, possibility of LV thrombus, borderline LV hypertrophy with trivial pericardial effusion, moderate mitral regurgitation, and grade 3 LV diastolic dysfunction or restrictive LV physiology. ASSESSMENT AND PLAN: 1. Sinus tachycardia, likely secondary to systemic inflammatory response disease as the patient had acute pancreatitis with elevated lipase level. The treatment is hydration, bowel rest, and pain control. 2. Hx of cardiomyopathy with LVEF at 20-25%, well compensated, continue the current medical therapy. 3. Moderate MR. I would like to thank, Dr. Diaz, for allowing me to participate in the care of this patient. Efrain Golden M.D. DR: DANIEL JOB#: [id number] CC: TACOS
[2018-06-22] MEDS: Morphine Sulfate 4mg/ml Inj (IV USE ONLY) IVP PRN ×6 (01:30→22:10)
--- NOTE | 2018-06-22 06:13 | NUR ---
NURSE NOTES: Per pt, still no BM since last night. Will endorse to AM. Stool sample still needed for OB stool.
[2018-06-22 06:57] LABS: BASOPHILS % (AUTO) 0.4 % (0.0-2.0); EOSINOPHILS % (AUTO) 1.5 % (0.0-3.0); HEMOGLOBIN 9.4 G/DL (12.0-16.0); LYMPHOCYTES % (AUTO) 30.4 % (20.0-45.0); MEAN CORPUSCULAR VOLUME 91 FL (80-99); MONOCYTES % (AUTO) 8.7 % (1.0-10.0); PLATELET COUNT 159 K/UL (150-450); RED BLOOD COUNT 3.41 M/UL (4.20-5.40); RED CELL DISTRIBUTION WIDTH 18.4 % (11.6-14.8)
[2018-06-22 07:11] LABS: ALANINE AMINOTRANSFERASE 36 U/L (12-78); ALBUMIN 3.1 G/DL (3.4-5.0); ALBUMIN/GLOBULIN RATIO 0.7 (1.0-2.7); ALKALINE PHOSPHATASE 77 U/L (46-116); ANION GAP 9 mmol/L (5-15); ASPARTATE AMINO TRANSFERASE 75 U/L (15-37); BLOOD UREA NITROGEN 10 mg/dL (7-18); CALCIUM 8.5 MG/DL (8.5-10.1); CARBON DIOXIDE 27 MMOL/L (21-32); CHLORIDE 101 MMOL/L (98-107); CHOLESTEROL 162 MG/DL (< 200); CREATININE 0.7 MG/DL (0.55-1.30); FERRITIN 95 NG/ML (8-388); HDL CHOLESTEROL 82 MG/DL (40-60); SODIUM 137 MMOL/L (136-145); TRIGLYCERIDES 42 MG/DL (30-150)
[2018-06-22 07:12] LABS: PHOSPHORUS 3.9 MG/DL (2.5-4.9)
--- NOTE | 2018-06-22 07:30 | NUR ---
HAND-OFF: Report given to JULIA Bedoya. Pt in stable condition.
[2018-06-22 07:44] LABS: % IRON SATURATION 42 % (15-50); IRON 145 ug/dL (50-175); TOTAL IRON BINDING CAPACITY 343 ug/dL (250-450)
--- NOTE | 2018-06-22 08:00 | NUR ---
NURSE NOTES: Received report from Denice DUMONT, pt a/a/o x4 laying in bed with no signs of distress or other issues at this time. pt is able to ambulate around the room with steady gait. IV on the right CORLEY gauge #20 running D51/2 +20mEq@100ml/hr. call light with in reach, bed in lowest position, side rales up x2. plan: NPO for abd US. I will f/u as needed.
[2018-06-22] MEDS: Pantoprazole Inj IVP SCH ×2 (08:54→21:00)
--- NOTE | 2018-06-22 09:58 | Diagnostic Imaging Report ---
Indication: Epigastric and left upper quadrant pain, nausea, vomiting, history of pancreatitis, history of abnormal liver function tests Technique: Salgado-scale and duplex images of the upper abdomen were obtained. Doppler interrogation of the hepatic and pancreatic vessels Comparison: 04/03/2018 Findings: Gallbladder is unremarkable, without stones, wall thickening, nor pericholecystic fluid. Sonographic Brown's sign is negative. Common bile duct measures for mm in diameter. No intrahepatic biliary ductal dilatation. Liver demonstrates slightly increased echogenicity. No focal abnormality. It is enlarged. Portal vein and hepatic veins are patent. Pancreas is unremarkable. Spleen is unremarkable, demonstrates an accessory splenule in the hilum. Left kidney measures 9.4 cm in length. Right kidney measures 9.9 cm length. Both kidneys demonstrate normal echogenicity. There is no hydronephrosis. 5 mm echogenic focus is seen in the right upper pole renal sinus . Non-aneurysmal abdominal aorta . Trace free fluid is seen adjacent to the spleen Impression: Mild hepatomegaly, also previously demonstrated. Equivocally slightly increased hepatic echogenicity, if real could indicate hepatocellular disease, most likely fatty change Trace perisplenic fluid fluid, possibly related to stated clinical history of pancreatitis Possible nonobstructive right upper pole renal calculus Negative for gallstones or dilated bile ducts
[2018-06-22] MEDS: Vitamin B12 1000mcg/ml Inj IM ONE ×2 (10:00→11:05)
--- NOTE | 2018-06-22 11:07 | GI Progress Note ---
Assessment/Plan Problems: (1) Alcoholic pancreatitis ICD Codes: K85.20 - Alcohol induced acute pancreatitis without necrosis or infection SNOMED: 883344797 (2) Malnutrition ICD Codes: E46 - Unspecified protein-calorie malnutrition SNOMED: 48600939 (3) Electrolyte imbalance ICD Codes: E87.8 - Other disorders of electrolyte and fluid balance, not elsewhere classified SNOMED: 440100201 (4) Anemia ICD Codes: D64.9 - Anemia, unspecified SNOMED: 359028913 (5) Abdominal pain ICD Codes: R10.9 - Unspecified abdominal pain SNOMED: 86711618 Qualifiers: Qualified Codes: R10.12 - Left upper quadrant pain (6) Drug-seeking behavior ICD Codes: Z76.5 - Malingerer [conscious simulation] SNOMED: 496029393 (7) ETOH abuse ICD Codes: F10.10 - Alcohol abuse, uncomplicated SNOMED: 42213479 Status: progressing Status Narrative Discussed with Dr. Smith Assessment/Plan Abdominal ultrasound reviewed, hepatomegaly with fatty changes Iron levels reviewed, within normal limits Folate deficiency Pancreatitis, trend lipase levels Medical management for pancreatitis Trial clear liquid diet today, advance as tolerated Pain management Avoid alcohol Folate PPI Zofran as needed Repeat LFTs The patient was seen and examined at bedside and all new and available data was reviewed in the patients chart. I agree with the above findings, impression and plan. (Patient seen earlier today. Signature stamp does not reflect patient encounter time.). - Margarito Smith MD Subjective Subjective Patient still has complaint of abdominal pain Objective Last 24 Hour Vital Signs Date Time Temp Pulse Resp B/P (MAP) Pulse Ox O2 Delivery O2 Flow Rate FiO2 06/22/18 08:00 97.7 70 18 115/76 (89) 94 06/22/18 04:00 97.6 71 17 117/78 (91) 96 06/22/18 00:00 97.7 86 16 119/84 (96) 94 06/21/18 21:00 Room Air 06/21/18 20:00 98.6 80 18 108/71 (83) 97 06/21/18 18:05 98.0 06/21/18 16:00 98.0 68 17 99/58 (72) 96 06/21/18 12:00 98.2 64 17 97/56 (70) 96 Intake and Output 06/21/18 06/22/18 19:00 07:00 Intake Total 900 ml 1100 ml Balance 900 ml 1100 ml Intake IV Total 900 ml 1100 ml # Voids 7 Laboratory Tests Test 06/21/18 21:12 06/22/18 05:45 Fibrinogen 222 mg/dL (200-400) Total Protein (PEP) Pending Albumin (PEP) Pending Globulin (PEP) Pending Albumin/Globulin Ratio Pending 0.7 (1.0-2.7) L Lqgmr-4-Ltmtxiydc Pending Eooqe-6-Vtkphiifb Pending Beta Globulins Pending Beta Gamma Globulin Pending PEP Abnormal Protein Bands Pending Protein Electrophoresis Interpret Pending Hepatitis A IgM Antibody Pending Hepatitis B Surface Antigen Pending Hepatitis B Core IgM Antibody Pending Hepatitis C Antibody Pending HIV (1&2) Antibody Rapid Negative (NEGATIVE) White Blood Count 4.0 K/UL (4.8-10.8) L Red Blood Count 3.41 M/UL (4.20-5.40) L Hemoglobin 9.4 G/DL (12.0-16.0) L Hematocrit 31.0 % (37.0-47.0) L Mean Corpuscular Volume 91 FL (80-99) Mean Corpuscular Hemoglobin 27.6 PG (27.0-31.0) Mean Corpuscular Hemoglobin Concent 30.3 G/DL (32.0-36.0) L Red Cell Distribution Width 18.4 % (11.6-14.8) H Platelet Count 159 K/UL (150-450) Mean Platelet Volume 7.7 FL (6.5-10.1) Neutrophils (%) (Auto) 59.0 % (45.0-75.0) Lymphocytes (%) (Auto) 30.4 % (20.0-45.0) Monocytes (%) (Auto) 8.7 % (1.0-10.0) Eosinophils (%) (Auto) 1.5 % (0.0-3.0) Basophils (%) (Auto) 0.4 % (0.0-2.0) Sodium Level 137 MMOL/L (136-145) Potassium Level 4.0 MMOL/L (3.5-5.1) Chloride Level 101 MMOL/L (98-107) Carbon Dioxide Level 27 MMOL/L (21-32) Anion Gap 9 mmol/L (5-15) Blood Urea Nitrogen 10 mg/dL (7-18) Creatinine 0.7 MG/DL (0.55-1.30) Estimat Glomerular Filtration Rate > 60 mL/min (>60) Glucose Level 86 MG/DL (74-106) Hemoglobin A1c 5.4 % (4.3-6.0) Uric Acid 5.4 MG/DL (2.6-7.2) Calcium Level 8.5 MG/DL (8.5-10.1) Phosphorus Level 3.9 MG/DL (2.5-4.9) Magnesium Level 1.0 MG/DL (1.8-2.4) L Iron Level 145 ug/dL (50-175) Total Iron Binding Capacity 343 ug/dL (250-450) Percent Iron Saturation 42 % (15-50) Unsaturated Iron Binding 198 ug/dL (112-346) Ferritin 95 NG/ML (8-388) Total Bilirubin 1.0 MG/DL (0.2-1.0) Aspartate Amino Transf (AST/SGOT) 75 U/L (15-37) H Alanine Aminotransferase (ALT/SGPT) 36 U/L (12-78) Alkaline Phosphatase 77 U/L (46-116) C-Reactive Protein, Quantitative < 0.4 mg/dL (0.00-0.90) Total Protein 7.8 G/DL (6.4-8.2) Albumin 3.1 G/DL (3.4-5.0) L Globulin 4.7 g/dL Triglycerides Level 42 MG/DL (30-150) Cholesterol Level 162 MG/DL (< 200) LDL Cholesterol 73 mg/dL (<100) HDL Cholesterol 82 MG/DL (40-60) H Cholesterol/HDL Ratio 2.0 (3.3-4.4) L Lipase 465 U/L (73-393) H Vitamin B12 Level 322 PG/ML (193-986) Folate 4.5 NG/ML (8.6-58.9) L Thyroid Stimulating Hormone (TSH) 0.650 uiU/mL (0.358-3.740) Height (Feet): 5 Height (Inches): 5.00 Weight (Pounds): 138 General Appearance: WD/WN, no apparent distress, alert Cardiovascular: normal rate Respiratory/Chest: normal breath sounds, no respiratory distress Abdominal Exam: normal bowel sounds, non tender, soft Extremities: normal range of motion, non-tender Ayesha Chavarria NP Jun 22, 2018 11:07
--- NOTE | 2018-06-22 15:36 | Nephrology Progress Note ---
Assessment/Plan Problem List: (1) Alcoholic pancreatitis (2) Electrolyte imbalance (3) Abdominal pain (4) Anemia Assessment Alcoholic pancreatitis , Pancreatitis, acute Electrolyte imbalance Malnutrition Abdominal pain Anemia Plan IV fluids Monitor electrolytes IV protonix Anemia miranda Subjective ROS Limited/Unobtainable: No Constitutional: Reports: malaise Objective Objective Last 24 Hour Vital Signs Date Time Temp Pulse Resp B/P (MAP) Pulse Ox O2 Delivery O2 Flow Rate FiO2 06/22/18 14:13 97.4 06/22/18 12:00 97.4 82 18 110/75 (87) 96 06/22/18 09:00 Room Air 06/22/18 08:00 97.7 70 18 115/76 (89) 94 06/22/18 04:00 97.6 71 17 117/78 (91) 96 06/22/18 00:00 97.7 86 16 119/84 (96) 94 06/21/18 21:00 Room Air 06/21/18 20:00 98.6 80 18 108/71 (83) 97 06/21/18 16:00 98.0 68 17 99/58 (72) 96 Intake and Output 06/21/18 06/22/18 19:00 07:00 Intake Total 900 ml 1100 ml Balance 900 ml 1100 ml Intake IV Total 900 ml 1100 ml # Voids 7 Laboratory Tests 06/21/18 21:12: Fibrinogen 222, Total Protein (PEP) [Pending], Albumin (PEP) [Pending], Globulin (PEP) [Pending], Albumin/Globulin Ratio [Pending], Bpusl-5-Gxfgakfbp [ Pending], Kzzrd-1-Owdnlduhq [Pending], Beta Globulins [Pending], Beta Gamma Globulin [Pending], PEP Abnormal Protein Bands [Pending], Protein Electrophoresis Interpret [Pending], Hepatitis A IgM Antibody [Pending], Hepatitis B Surface Antigen [Pending], Hepatitis B Core IgM Antibody [Pending], Hepatitis C Antibody [Pending], HIV (1&2) Antibody Rapid Negative 06/22/18 05:45: Albumin/Globulin Ratio 0.7L, White Blood Count 4.0L, Red Blood Count 3.41L, Hemoglobin 9.4L, Hematocrit 31.0L, Mean Corpuscular Volume 91, Mean Corpuscular Hemoglobin 27.6, Mean Corpuscular Hemoglobin Concent 30.3L, Red Cell Distribution Width 18.4H, Platelet Count 159, Mean Platelet Volume 7.7, Neutrophils (%) (Auto) 59.0, Lymphocytes (%) (Auto) 30.4, Monocytes (%) (Auto) 8.7, Eosinophils (%) (Auto) 1.5, Basophils (%) (Auto) 0.4, Sodium Level 137, Potassium Level 4.0, Chloride Level 101, Carbon Dioxide Level 27, Anion Gap 9, Blood Urea Nitrogen 10, Creatinine 0.7, Estimat Glomerular Filtration Rate > 60 , Glucose Level 86, Hemoglobin A1c 5.4, Uric Acid 5.4, Calcium Level 8.5, Phosphorus Level 3.9, Magnesium Level 1.0L, Iron Level 145, Total Iron Binding Capacity 343, Percent Iron Saturation 42, Unsaturated Iron Binding 198, Ferritin 95, Total Bilirubin 1.0, Aspartate Amino Transf (AST/SGOT) 75H, Alanine Aminotransferase (ALT/SGPT) 36, Alkaline Phosphatase 77, C-Reactive Protein, Quantitative < 0.4, Total Protein 7.8, Albumin 3.1L, Globulin 4.7, Triglycerides Level 42, Cholesterol Level 162, LDL Cholesterol 73, HDL Cholesterol 82H, Cholesterol/HDL Ratio 2.0L, Lipase 465H, Vitamin B12 Level 322 , Folate 4.5L, Thyroid Stimulating Hormone (TSH) 0.650 Height (Feet): 5 Height (Inches): 5.00 Weight (Pounds): 138 General Appearance: no apparent distress Cardiovascular: normal rate Abdomen: absent bowel sounds Jeb Weller MD Jun 22, 2018 15:36
--- NOTE | 2018-06-22 16:03 | NUR ---
CASE MANAGEMENT:REVIEW 06/22/18 SI: ACUTE PANCREATITIS 97.4 82 18 110/75 96% ON RA LIPASE+465 IS: IV MAG SULFATE Q1HRS X6 IV PROTONIX Q12 IV THIAMINE Q24 IVF@100/HR IV MORPHINE Q4HRS PRN : MED/SURG STATUS 3 EAST PLAN: CLEAR LIQUIDS
[2018-06-22] MEDS: Thiamine HCl 100 MG in D5W 55 ML IVPB SCH (16:19)
--- NOTE | 2018-06-22 16:20 | General Progress Note ---
Assessment/Plan Assessment/Plan Assessment and Recs # Decreased white blood cell count, unspec (aka leukopenia) - wbc under 4k, could be related to infection/pancreatitis versus alcohol abuse --> if the total ANC is less than 2000, consider neupogen --> continue antibiotics with ID service, appreciate recs --> medications have been reviewed --> hepatitis and hiv have been ordered/pend --> trend wbc 4.3-->4 # Anemia of chronic disease (or of iron deficiency) due to underlying chronic medical issues, multifactorial --> Anemia workup has been ordered --> No evidence of hemolysis is noted, peripheral smear has been reviewed. --> Hgb goal >7. Transfuse prn. --> Epogen or iron at this time is not particularly indicated --> Medications have been reviewed --> evaluate with Gi team prn # Alcoholic pancreatitis --> eval gi pain, monitor for symptoms # Pancreatitis, acute --> as per surg, gi # ETOH abuse # Electrolyte imbalance # Malnutrition # Abdominal pain The timing of this note does not necessarily reflect the time of the patient was seen. Greatly appreciate consultation! Subjective Constitutional: Denies: no symptoms, chills, diaphoresis, fever, malaise, weakness, other HEENT: Denies: no symptoms, eye pain, blurred vision, tearing, double vision, ear pain, ear discharge, nose pain, nose congestion, throat pain, throat swelling, mouth pain, mouth swelling, other Cardiovascular: Denies: no symptoms, chest pain, edema, irregular heart rate, lightheadedness, palpitations, syncope, other Respiratory: Denies: no symptoms, cough, orthopnea, shortness of breath, SOB with excertion, SOB at rest, sputum, stridor, wheezing, other Gastrointestinal/Abdominal: Denies: no symptoms, abdomen distended, abdominal pain, black stools, tarry stools, blood in stool, constipated, diarrhea, difficulty swallowing, nausea, poor appetite, poor fluid intake, rectal bleeding , vomiting, other Genitourinary: Denies: no symptoms, burning, discharge, frequency, flank pain, hematuria, incontinence, pain, urgency, other Neurologic/Psychiatric: Denies: no symptoms, anxiety, depressed, emotional problems, headache, numbness, paresthesia, pre-existing deficit, seizure, tingling, tremors, weakness, other Endocrine: Denies: no symptoms, excessive sweating, flushing, intolerance to cold, intolerance to heat, increased hunger, increased thirst, increased urine, unexplained weight gain, unexplained weight loss, other Hematologic/Lymphatic: Denies: no symptoms, anemia, easy bleeding, easy bruising, other Allergies: Coded Allergies: AMOXICILLIN (Unverified Allergy, Unknown, 01/08/17) Subjective 06/22: no events to report, no f/c, hep and hiv is pending Objective Last 24 Hour Vital Signs Date Time Temp Pulse Resp B/P (MAP) Pulse Ox O2 Delivery O2 Flow Rate FiO2 06/22/18 14:13 97.4 06/22/18 12:00 97.4 82 18 110/75 (87) 96 06/22/18 09:00 Room Air 06/22/18 08:00 97.7 70 18 115/76 (89) 94 06/22/18 04:00 97.6 71 17 117/78 (91) 96 06/22/18 00:00 97.7 86 16 119/84 (96) 94 06/21/18 21:00 Room Air 06/21/18 20:00 98.6 80 18 108/71 (83) 97 Intake and Output 06/21/18 06/22/18 19:00 07:00 Intake Total 900 ml 1100 ml Balance 900 ml 1100 ml IV Total 900 ml 1100 ml # Voids 7 Laboratory Tests 06/21/18 21:12: Fibrinogen 222, Total Protein (PEP) [Pending], Albumin (PEP) [Pending], Globulin (PEP) [Pending], Albumin/Globulin Ratio [Pending], Ldoxl-1-Kqqpuqdna [ Pending], Dtknn-7-Lrdqsxtbe [Pending], Beta Globulins [Pending], Beta Gamma Globulin [Pending], PEP Abnormal Protein Bands [Pending], Protein Electrophoresis Interpret [Pending], Hepatitis A IgM Antibody [Pending], Hepatitis B Surface Antigen [Pending], Hepatitis B Core IgM Antibody [Pending], Hepatitis C Antibody [Pending], HIV (1&2) Antibody Rapid Negative 06/22/18 05:45: Albumin/Globulin Ratio 0.7L, White Blood Count 4.0L, Red Blood Count 3.41L, Hemoglobin 9.4L, Hematocrit 31.0L, Mean Corpuscular Volume 91, Mean Corpuscular Hemoglobin 27.6, Mean Corpuscular Hemoglobin Concent 30.3L, Red Cell Distribution Width 18.4H, Platelet Count 159, Mean Platelet Volume 7.7, Neutrophils (%) (Auto) 59.0, Lymphocytes (%) (Auto) 30.4, Monocytes (%) (Auto) 8.7, Eosinophils (%) (Auto) 1.5, Basophils (%) (Auto) 0.4, Sodium Level 137, Potassium Level 4.0, Chloride Level 101, Carbon Dioxide Level 27, Anion Gap 9, Blood Urea Nitrogen 10, Creatinine 0.7, Estimat Glomerular Filtration Rate > 60 , Glucose Level 86, Hemoglobin A1c 5.4, Uric Acid 5.4, Calcium Level 8.5, Phosphorus Level 3.9, Magnesium Level 1.0L, Iron Level 145, Total Iron Binding Capacity 343, Percent Iron Saturation 42, Unsaturated Iron Binding 198, Ferritin 95, Total Bilirubin 1.0, Aspartate Amino Transf (AST/SGOT) 75H, Alanine Aminotransferase (ALT/SGPT) 36, Alkaline Phosphatase 77, C-Reactive Protein, Quantitative < 0.4, Total Protein 7.8, Albumin 3.1L, Globulin 4.7, Triglycerides Level 42, Cholesterol Level 162, LDL Cholesterol 73, HDL Cholesterol 82H, Cholesterol/HDL Ratio 2.0L, Lipase 465H, Vitamin B12 Level 322 , Folate 4.5L, Thyroid Stimulating Hormone (TSH) 0.650 Height (Feet): 5 Height (Inches): 5.00 Weight (Pounds): 138 Objective General Appearance: well appearing, no apparent distress, alert Head: normocephalic EENT: PERRL/EOMI, normal ENT inspection Neck: supple Respiratory: normal breath sounds, no respiratory distress Cardiovascular: normal rate Gastrointestinal: normal inspection, mild abd pain Rectal: deferred Genitourinary: no CVA tenderness Musculoskeletal: normal inspection, back normal Neurologic: normal inspection, alert, oriented x3, responsive Psychiatric: normal inspection, judgement/insight normal, memory normal Skin: normal inspection, normal color, no rash Lymphatic: normal inspection, no adenopathy Current Medications João Eng MD Jun 22, 2018 16:20
--- NOTE | 2018-06-22 17:23 | Cardiology Progress Note ---
Assessment/Plan Assessment/Plan 1. Sinus tachycardia, resolved, likely secondary to systemic inflammatory response, continue gentle hydration, bowel rest, and pain control. 2. Hx of cardiomyopathy with LVEF at 20-25%, well compensated, continue the current medical therapy. 3. Moderate MR. 4. 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 Subjective Subjective Sinus rhythm at rate of 82. Objective Last 24 Hour Vital Signs Date Time Temp Pulse Resp B/P (MAP) Pulse Ox O2 Delivery O2 Flow Rate FiO2 06/22/18 14:13 97.4 06/22/18 12:00 97.4 82 18 110/75 (87) 96 06/22/18 09:00 Room Air 06/22/18 08:00 97.7 70 18 115/76 (89) 94 06/22/18 04:00 97.6 71 17 117/78 (91) 96 06/22/18 00:00 97.7 86 16 119/84 (96) 94 06/21/18 21:00 Room Air 06/21/18 20:00 98.6 80 18 108/71 (83) 97 Intake and Output 06/21/18 06/22/18 19:00 07:00 Intake Total 900 ml 1100 ml Balance 900 ml 1100 ml IV Total 900 ml 1100 ml # Voids 7 2D Echo: EF 20%, Global LV hypokinesia, LV apical thrombus, Mod MR, Grade III LVDD Laboratory Tests Test 06/21/18 21:12 06/22/18 05:45 Fibrinogen 222 mg/dL (200-400) Total Protein (PEP) Pending Albumin (PEP) Pending Globulin (PEP) Pending Albumin/Globulin Ratio Pending 0.7 (1.0-2.7) L Swlpk-4-Bchglmvoc Pending Zuuwk-3-Yllnssxbv Pending Beta Globulins Pending Beta Gamma Globulin Pending PEP Abnormal Protein Bands Pending Protein Electrophoresis Interpret Pending Hepatitis A IgM Antibody Pending Hepatitis B Surface Antigen Pending Hepatitis B Core IgM Antibody Pending Hepatitis C Antibody Pending HIV (1&2) Antibody Rapid Negative (NEGATIVE) White Blood Count 4.0 K/UL (4.8-10.8) L Red Blood Count 3.41 M/UL (4.20-5.40) L Hemoglobin 9.4 G/DL (12.0-16.0) L Hematocrit 31.0 % (37.0-47.0) L Mean Corpuscular Volume 91 FL (80-99) Mean Corpuscular Hemoglobin 27.6 PG (27.0-31.0) Mean Corpuscular Hemoglobin Concent 30.3 G/DL (32.0-36.0) L Red Cell Distribution Width 18.4 % (11.6-14.8) H Platelet Count 159 K/UL (150-450) Mean Platelet Volume 7.7 FL (6.5-10.1) Neutrophils (%) (Auto) 59.0 % (45.0-75.0) Lymphocytes (%) (Auto) 30.4 % (20.0-45.0) Monocytes (%) (Auto) 8.7 % (1.0-10.0) Eosinophils (%) (Auto) 1.5 % (0.0-3.0) Basophils (%) (Auto) 0.4 % (0.0-2.0) Sodium Level 137 MMOL/L (136-145) Potassium Level 4.0 MMOL/L (3.5-5.1) Chloride Level 101 MMOL/L (98-107) Carbon Dioxide Level 27 MMOL/L (21-32) Anion Gap 9 mmol/L (5-15) Blood Urea Nitrogen 10 mg/dL (7-18) Creatinine 0.7 MG/DL (0.55-1.30) Estimat Glomerular Filtration Rate > 60 mL/min (>60) Glucose Level 86 MG/DL (74-106) Hemoglobin A1c 5.4 % (4.3-6.0) Uric Acid 5.4 MG/DL (2.6-7.2) Calcium Level 8.5 MG/DL (8.5-10.1) Phosphorus Level 3.9 MG/DL (2.5-4.9) Magnesium Level 1.0 MG/DL (1.8-2.4) L Iron Level 145 ug/dL (50-175) Total Iron Binding Capacity 343 ug/dL (250-450) Percent Iron Saturation 42 % (15-50) Unsaturated Iron Binding 198 ug/dL (112-346) Ferritin 95 NG/ML (8-388) Total Bilirubin 1.0 MG/DL (0.2-1.0) Aspartate Amino Transf (AST/SGOT) 75 U/L (15-37) H Alanine Aminotransferase (ALT/SGPT) 36 U/L (12-78) Alkaline Phosphatase 77 U/L (46-116) C-Reactive Protein, Quantitative < 0.4 mg/dL (0.00-0.90) Total Protein 7.8 G/DL (6.4-8.2) Albumin 3.1 G/DL (3.4-5.0) L Globulin 4.7 g/dL Triglycerides Level 42 MG/DL (30-150) Cholesterol Level 162 MG/DL (< 200) LDL Cholesterol 73 mg/dL (<100) HDL Cholesterol 82 MG/DL (40-60) H Cholesterol/HDL Ratio 2.0 (3.3-4.4) L Lipase 465 U/L (73-393) H Vitamin B12 Level 322 PG/ML (193-986) Folate 4.5 NG/ML (8.6-58.9) L Thyroid Stimulating Hormone (TSH) 0.650 uiU/mL (0.358-3.740) Objective HEENT: Atraumatic and normocephalic. Anicteric. Pupils are equal, round, and reactive to light and accommodation. Extraocular muscles intact. NECK: JVP less than 5 cm. No carotid bruit. Carotid upstroke is 2+ bilaterally. CARDIOVASCULAR: Normal S1, S2. Regular rate and rhythm. No murmurs, gallops, or rubs. PMI is at fourth intercostal space in the midclavicular line. LUNGS: Clear to auscultation bilaterally. ABDOMEN: Soft, nontender, and nondistended. No hepatosplenomegaly. Positive bowel sounds. EXTREMITIES: No edema, clubbing, or cyanosis. Efrain Golden MD Jun 22, 2018 17:23
--- NOTE | 2018-06-22 20:17 | NUR ---
HAND-OFF: Report given to Loc Beckman pt in stable condition.
--- NOTE | 2018-06-22 20:38 | NUR ---
NURSE NOTES: Recvd pt from jaycob RN; pt in bed a/o x 4; pt on room air no pain at this time; iv fluids running and tolerated well; bed at low position, call light in reach; needs attended in stable condition.
--- NOTE | 2018-06-22 21:57 | General Progress Note ---
Assessment/Plan Problem List: (1) Abdominal pain ICD Codes: R10.9 - Unspecified abdominal pain SNOMED: 41009210 Qualifiers: Qualified Codes: R10.12 - Left upper quadrant pain (2) Pancreatitis, acute ICD Codes: K85.90 - Acute pancreatitis without necrosis or infection, unspecified SNOMED: 660837850 Qualifiers: Qualified Codes: K85.90 - Acute pancreatitis without necrosis or infection, unspecified (3) Electrolyte imbalance ICD Codes: E87.8 - Other disorders of electrolyte and fluid balance, not elsewhere classified SNOMED: 845939829 (4) Malnutrition ICD Codes: E46 - Unspecified protein-calorie malnutrition SNOMED: 12125252 (5) Alcoholic pancreatitis ICD Codes: K85.20 - Alcohol induced acute pancreatitis without necrosis or infection SNOMED: 408467413 (6) Anemia ICD Codes: D64.9 - Anemia, unspecified SNOMED: 246203360 Status: progressing Assessment/Plan pancreatitis is improving diet per gi polysubstance abuse afebrile anemia h/h and check lytes Subjective ROS Limited/Unobtainable: Yes Gastrointestinal/Abdominal: Reports: abdominal pain Allergies: Coded Allergies: AMOXICILLIN (Unverified Allergy, Unknown, 01/08/17) Objective Last 24 Hour Vital Signs Date Time Temp Pulse Resp B/P (MAP) Pulse Ox O2 Delivery O2 Flow Rate FiO2 06/22/18 18:32 97.4 06/22/18 16:00 97.4 92 18 124/85 (98) 98 06/22/18 12:00 97.4 82 18 110/75 (87) 96 06/22/18 09:00 Room Air 06/22/18 08:00 97.7 70 18 115/76 (89) 94 06/22/18 04:00 97.6 71 17 117/78 (91) 96 06/22/18 00:00 97.7 86 16 119/84 (96) 94 Intake and Output 06/21/18 06/22/18 19:00 07:00 Intake Total 900 ml 1100 ml Balance 900 ml 1100 ml IV Total 900 ml 1100 ml # Voids 7 Laboratory Tests 06/22/18 05:45: White Blood Count 4.0L, Red Blood Count 3.41L, Hemoglobin 9.4L, Hematocrit 31.0L , Mean Corpuscular Volume 91, Mean Corpuscular Hemoglobin 27.6, Mean Corpuscular Hemoglobin Concent 30.3L, Red Cell Distribution Width 18.4H, Platelet Count 159, Mean Platelet Volume 7.7, Neutrophils (%) (Auto) 59.0, Lymphocytes (%) (Auto) 30.4, Monocytes (%) (Auto) 8.7, Eosinophils (%) (Auto) 1.5, Basophils (%) (Auto) 0.4, Sodium Level 137, Potassium Level 4.0, Chloride Level 101, Carbon Dioxide Level 27, Anion Gap 9, Blood Urea Nitrogen 10, Creatinine 0.7, Estimat Glomerular Filtration Rate > 60, Glucose Level 86, Hemoglobin A1c 5.4, Uric Acid 5.4, Calcium Level 8.5, Phosphorus Level 3.9, Magnesium Level 1.0L, Iron Level 145, Total Iron Binding Capacity 343, Percent Iron Saturation 42, Unsaturated Iron Binding 198, Ferritin 95, Total Bilirubin 1.0, Aspartate Amino Transf (AST/SGOT) 75H, Alanine Aminotransferase (ALT/SGPT) 36, Alkaline Phosphatase 77, C-Reactive Protein, Quantitative < 0.4, Total Protein 7.8, Albumin 3.1L, Globulin 4.7, Albumin/Globulin Ratio 0.7L, Triglycerides Level 42, Cholesterol Level 162, LDL Cholesterol 73, HDL Cholesterol 82H, Cholesterol/HDL Ratio 2.0L, Lipase 465H, Vitamin B12 Level 322 , Folate 4.5L, Thyroid Stimulating Hormone (TSH) 0.650 Height (Feet): 5 Height (Inches): 5.00 Weight (Pounds): 138 Respiratory/Chest: lungs clear Abdomen: soft Mercedes Diaz MD Jun 22, 2018 21:57
[2018-06-23] VITALS: BP 115/76
[2018-06-23] MEDS: Morphine Sulfate 4mg/ml Inj (IV USE ONLY) IVP PRN ×5 (02:06→18:08)
[2018-06-23 04:00] VITALS: BP 120/77
[2018-06-23 06:16] LABS: HEMATOCRIT 32.7 % (37.0-47.0); HEMOGLOBIN 9.7 G/DL (12.0-16.0); MEAN CORPUSCULAR VOLUME 92 FL (80-99); PLATELET COUNT 159 K/UL (150-450); RED BLOOD COUNT 3.54 M/UL (4.20-5.40); RED CELL DISTRIBUTION WIDTH 17.1 % (11.6-14.8); WHITE BLOOD COUNT 3.2 K/UL (4.8-10.8)
[2018-06-23 06:27] LABS: ANION GAP 7 mmol/L (5-15); BLOOD UREA NITROGEN 4 mg/dL (7-18); CALCIUM 8.2 MG/DL (8.5-10.1); CARBON DIOXIDE 27 MMOL/L (21-32); CHLORIDE 104 MMOL/L (98-107); CREATININE 0.7 MG/DL (0.55-1.30); SODIUM 137 MMOL/L (136-145)
--- NOTE | 2018-06-23 07:35 | NUR ---
NURSE NOTES: WALKING ROUNDS DONE WITH OUTGOING RN. PATIENT AWAKE IN BED. QUESTIONS ANSWERED NEEDS MET. DISCUSSED PLAN OF CARE THE DAY. VERBALIZED UNDERSTANDING. CALL LIGHT WITHIN REACH.
[2018-06-23 07:50] LABS: ALANINE AMINOTRANSFERASE 27 U/L (12-78); ALBUMIN 2.7 G/DL (3.4-5.0); ALKALINE PHOSPHATASE 67 U/L (46-116); ASPARTATE AMINO TRANSFERASE 47 U/L (15-37); BILIRUBIN,DIRECT 0.2 MG/DL (0.0-0.3); BILIRUBIN,TOTAL 0.9 MG/DL (0.2-1.0); PHOSPHORUS 3.3 MG/DL (2.5-4.9)
[2018-06-23 08:00] VITALS: BP 114/81
[2018-06-23] MEDS: Pantoprazole Inj IVP SCH (10:19)
[2018-06-23 12:00] VITALS: BP 127/93
--- NOTE | 2018-06-23 12:22 | GI Progress Note ---
Assessment/Plan Problems: (1) Alcoholic pancreatitis ICD Codes: K85.20 - Alcohol induced acute pancreatitis without necrosis or infection SNOMED: 047266978 (2) Malnutrition ICD Codes: E46 - Unspecified protein-calorie malnutrition SNOMED: 04789688 (3) Electrolyte imbalance ICD Codes: E87.8 - Other disorders of electrolyte and fluid balance, not elsewhere classified SNOMED: 544856246 (4) Anemia ICD Codes: D64.9 - Anemia, unspecified SNOMED: 764978940 (5) Abdominal pain ICD Codes: R10.9 - Unspecified abdominal pain SNOMED: 05086799 Qualifiers: Qualified Codes: R10.12 - Left upper quadrant pain (6) Drug-seeking behavior ICD Codes: Z76.5 - Malingerer [conscious simulation] SNOMED: 646771990 (7) ETOH abuse ICD Codes: F10.10 - Alcohol abuse, uncomplicated SNOMED: 32085992 Status: stable Status Narrative Discussed with Dr. Smith Assessment/Plan Abdominal ultrasound reviewed, hepatomegaly with fatty changes Iron levels reviewed, within normal limits Folate deficiency Pancreatitis, trend lipase levels >> resolved okay for DC per GI standpoint Pain management Avoid alcohol Folate PPI Zofran as needed Repeat LFTs The patient was seen and examined at bedside and all new and available data was reviewed in the patients chart. I agree with the above findings, impression and plan. (Patient seen earlier today. Signature stamp does not reflect patient encounter time.). - Margarito Smith MD Subjective Subjective Tolerating regular diet Has minimal amounts of pain Objective Last 24 Hour Vital Signs Date Time Temp Pulse Resp B/P (MAP) Pulse Ox O2 Delivery O2 Flow Rate FiO2 06/23/18 12:00 98.2 87 19 127/93 (104) 97 06/23/18 10:49 98.4 06/23/18 09:00 Room Air 06/23/18 08:00 98.4 87 17 114/81 (92) 99 06/23/18 04:00 98.0 81 17 120/77 (91) 99 06/23/18 00:00 98.1 75 16 115/76 (89) 97 06/22/18 21:00 Room Air 06/22/18 20:00 98.5 94 18 124/93 (103) 99 06/22/18 16:00 97.4 92 18 124/85 (98) 98 Intake and Output 06/22/18 06/23/18 18:59 06:59 Intake Total 1100 ml 1600 ml Balance 1100 ml 1600 ml Intake Oral 600 ml 800 ml IV Total 500 ml 800 ml # Voids 3 2 Laboratory Tests Test 06/23/18 05:35 White Blood Count 3.2 K/UL (4.8-10.8) L Red Blood Count 3.54 M/UL (4.20-5.40) L Hemoglobin 9.7 G/DL (12.0-16.0) L Hematocrit 32.7 % (37.0-47.0) L Mean Corpuscular Volume 92 FL (80-99) Mean Corpuscular Hemoglobin 27.4 PG (27.0-31.0) Mean Corpuscular Hemoglobin Concent 29.6 G/DL (32.0-36.0) L Red Cell Distribution Width 17.1 % (11.6-14.8) H Platelet Count 159 K/UL (150-450) Mean Platelet Volume 6.9 FL (6.5-10.1) Neutrophils (%) (Auto) % (45.0-75.0) Lymphocytes (%) (Auto) % (20.0-45.0) Monocytes (%) (Auto) % (1.0-10.0) Eosinophils (%) (Auto) % (0.0-3.0) Basophils (%) (Auto) % (0.0-2.0) Differential Total Cells Counted 100 Neutrophils % (Manual) 53 % (45-75) Lymphocytes % (Manual) 33 % (20-45) Monocytes % (Manual) 9 % (1-10) Eosinophils % (Manual) 5 % (0-3) H Basophils % (Manual) 0 % (0-2) Band Neutrophils 0 % (0-8) Platelet Estimate Adequate Platelet Morphology Normal Hypochromasia 2+ Anisocytosis 1+ Sodium Level 137 MMOL/L (136-145) Potassium Level 4.0 MMOL/L (3.5-5.1) Chloride Level 104 MMOL/L (98-107) Carbon Dioxide Level 27 MMOL/L (21-32) Anion Gap 7 mmol/L (5-15) Blood Urea Nitrogen 4 mg/dL (7-18) L Creatinine 0.7 MG/DL (0.55-1.30) Estimat Glomerular Filtration Rate > 60 mL/min (>60) Glucose Level 114 MG/DL (74-106) H Calcium Level 8.2 MG/DL (8.5-10.1) L Phosphorus Level 3.3 MG/DL (2.5-4.9) Magnesium Level 1.7 MG/DL (1.8-2.4) L Total Bilirubin 0.9 MG/DL (0.2-1.0) Direct Bilirubin 0.2 MG/DL (0.0-0.3) Aspartate Amino Transf (AST/SGOT) 47 U/L (15-37) H Alanine Aminotransferase (ALT/SGPT) 27 U/L (12-78) Alkaline Phosphatase 67 U/L (46-116) Total Protein 7.1 G/DL (6.4-8.2) Albumin 2.7 G/DL (3.4-5.0) L Lipase 182 U/L (73-393) Height (Feet): 5 Height (Inches): 5.00 Weight (Pounds): 138 General Appearance: WD/WN, no apparent distress, alert Cardiovascular: normal rate Respiratory/Chest: normal breath sounds, no respiratory distress Abdominal Exam: normal bowel sounds, non tender, soft Extremities: normal range of motion, non-tender Ayesha Chavarria NP Jun 23, 2018 12:22
[2018-06-23 16:00] VITALS: BP 130/95
--- NOTE | 2018-06-23 16:50 | Nephrology Progress Note ---
Assessment/Plan Problem List: (1) Alcoholic pancreatitis (2) Electrolyte imbalance (3) Abdominal pain (4) Anemia Assessment Alcoholic pancreatitis , Pancreatitis, acute Electrolyte imbalance Malnutrition Abdominal pain Anemia Plan down on IV fluids Monitor electrolytes mag supplement as needed PO protonix PO B1 Anemia miranda Subjective ROS Limited/Unobtainable: No Objective Objective Last 24 Hour Vital Signs Date Time Temp Pulse Resp B/P (MAP) Pulse Ox O2 Delivery O2 Flow Rate FiO2 06/23/18 15:01 98.2 06/23/18 12:00 98.2 87 19 127/93 (104) 97 06/23/18 09:00 Room Air 06/23/18 08:00 98.4 87 17 114/81 (92) 99 06/23/18 04:00 98.0 81 17 120/77 (91) 99 06/23/18 00:00 98.1 75 16 115/76 (89) 97 06/22/18 21:00 Room Air 06/22/18 20:00 98.5 94 18 124/93 (103) 99 Intake and Output 06/22/18 06/23/18 19:00 07:00 Intake Total 1200 ml 1500 ml Balance 1200 ml 1500 ml Intake Oral 600 ml 800 ml IV Total 600 ml 700 ml # Voids 3 2 Laboratory Tests 06/23/18 05:35: White Blood Count 3.2L, Red Blood Count 3.54L, Hemoglobin 9.7L, Hematocrit 32.7L , Mean Corpuscular Volume 92, Mean Corpuscular Hemoglobin 27.4, Mean Corpuscular Hemoglobin Concent 29.6L, Red Cell Distribution Width 17.1H, Platelet Count 159, Mean Platelet Volume 6.9, Neutrophils (%) (Auto) , Lymphocytes (%) (Auto) , Monocytes (%) (Auto) , Eosinophils (%) (Auto) , Basophils (%) (Auto) , Differential Total Cells Counted 100, Neutrophils % ( Manual) 53, Lymphocytes % (Manual) 33, Monocytes % (Manual) 9, Eosinophils % ( Manual) 5H, Basophils % (Manual) 0, Band Neutrophils 0, Platelet Estimate Adequate, Platelet Morphology Normal, Hypochromasia 2+, Anisocytosis 1+, Sodium Level 137, Potassium Level 4.0, Chloride Level 104, Carbon Dioxide Level 27, Anion Gap 7, Blood Urea Nitrogen 4L, Creatinine 0.7, Estimat Glomerular Filtration Rate > 60, Glucose Level 114H, Calcium Level 8.2L, Phosphorus Level 3.3, Magnesium Level 1.7L, Total Bilirubin 0.9, Direct Bilirubin 0.2, Aspartate Amino Transf (AST/SGOT) 47H, Alanine Aminotransferase (ALT/SGPT) 27, Alkaline Phosphatase 67, Total Protein 7.1, Albumin 2.7L, Lipase 182 Height (Feet): 5 Height (Inches): 5.00 Weight (Pounds): 138 General Appearance: no apparent distress Cardiovascular: normal rate Respiratory/Chest: lungs clear Abdomen: distended Jeb Weller MD Jun 23, 2018 16:50
--- NOTE | 2018-06-23 17:15 | NUR ---
NURSE NOTES: PATIENT READY DISCHARGE. PRESCRIPTIONS CALLED IN [place] [facility] AND [facility] ([facility] P.[facility] PATIENT AWARE.RX'S TO BE DELIVERED TO [address] [place] [address].
--- NOTE | 2018-06-23 18:12 | General Progress Note ---
Assessment/Plan Assessment/Plan Assessment and Recs # Decreased white blood cell count, unspec (aka leukopenia) - wbc under 4k, could be related to infection/pancreatitis versus alcohol abuse --> if the total ANC is less than 2000, consider neupogen --> continue antibiotics with ID service, appreciate recs --> medications have been reviewed --> hepatitis and hiv negative --> trend wbc 4.3-->4-->3.2 # Anemia of chronic disease due to underlying chronic medical issues, multifactorial --> Anemia workup has been reviewed and no significant aid noted --> No evidence of hemolysis is noted, peripheral smear has been reviewed. --> Hgb goal >7. Transfuse prn. --> Epogen or iron at this time is not particularly indicated --> imaging of the abdomen has been reviewed --> Medications have been reviewed --> evaluate with Gi team prn # Alcoholic pancreatitis --> eval gi pain, monitor for symptoms # Pancreatitis, acute --> as per surg, gi # ETOH abuse --> monitor for withdrawal # Electrolyte imbalance # Malnutrition # Abdominal pain The timing of this note does not necessarily reflect the time of the patient was seen. Greatly appreciate consultation! Subjective Constitutional: Denies: no symptoms, chills, diaphoresis, fever, malaise, weakness, other HEENT: Denies: no symptoms, eye pain, blurred vision, tearing, double vision, ear pain, ear discharge, nose pain, nose congestion, throat pain, throat swelling, mouth pain, mouth swelling, other Respiratory: Denies: no symptoms, cough, orthopnea, shortness of breath, SOB with excertion, SOB at rest, sputum, stridor, wheezing, other Gastrointestinal/Abdominal: Denies: no symptoms, abdomen distended, abdominal pain, black stools, tarry stools, blood in stool, constipated, diarrhea, difficulty swallowing, nausea, poor appetite, poor fluid intake, rectal bleeding , vomiting, other Genitourinary: Denies: no symptoms, burning, discharge, frequency, flank pain, hematuria, incontinence, pain, urgency, other Neurologic/Psychiatric: Denies: no symptoms, anxiety, depressed, emotional problems, headache, numbness, paresthesia, pre-existing deficit, seizure, tingling, tremors, weakness, other Endocrine: Denies: no symptoms, excessive sweating, flushing, intolerance to cold, intolerance to heat, increased hunger, increased thirst, increased urine, unexplained weight gain, unexplained weight loss, other Allergies: Coded Allergies: AMOXICILLIN (Unverified Allergy, Unknown, 01/08/17) Subjective 06/22: no events to report, no f/c, hep and hiv is pending 06/23: appears stable for discharge, seen by other providers Objective Last 24 Hour Vital Signs Date Time Temp Pulse Resp B/P (MAP) Pulse Ox O2 Delivery O2 Flow Rate FiO2 06/23/18 16:00 98.4 90 17 130/95 (107) 97 06/23/18 15:01 98.2 06/23/18 12:00 98.2 87 19 127/93 (104) 97 06/23/18 09:00 Room Air 06/23/18 08:00 98.4 87 17 114/81 (92) 99 06/23/18 04:00 98.0 81 17 120/77 (91) 99 06/23/18 00:00 98.1 75 16 115/76 (89) 97 06/22/18 21:00 Room Air 06/22/18 20:00 98.5 94 18 124/93 (103) 99 Intake and Output 06/22/18 06/23/18 19:00 07:00 Intake Total 1200 ml 1500 ml Balance 1200 ml 1500 ml Intake Oral 600 ml 800 ml IV Total 600 ml 700 ml # Voids 3 2 Laboratory Tests 06/23/18 05:35: White Blood Count 3.2L, Red Blood Count 3.54L, Hemoglobin 9.7L, Hematocrit 32.7L , Mean Corpuscular Volume 92, Mean Corpuscular Hemoglobin 27.4, Mean Corpuscular Hemoglobin Concent 29.6L, Red Cell Distribution Width 17.1H, Platelet Count 159, Mean Platelet Volume 6.9, Neutrophils (%) (Auto) , Lymphocytes (%) (Auto) , Monocytes (%) (Auto) , Eosinophils (%) (Auto) , Basophils (%) (Auto) , Differential Total Cells Counted 100, Neutrophils % ( Manual) 53, Lymphocytes % (Manual) 33, Monocytes % (Manual) 9, Eosinophils % ( Manual) 5H, Basophils % (Manual) 0, Band Neutrophils 0, Platelet Estimate Adequate, Platelet Morphology Normal, Hypochromasia 2+, Anisocytosis 1+, Sodium Level 137, Potassium Level 4.0, Chloride Level 104, Carbon Dioxide Level 27, Anion Gap 7, Blood Urea Nitrogen 4L, Creatinine 0.7, Estimat Glomerular Filtration Rate > 60, Glucose Level 114H, Calcium Level 8.2L, Phosphorus Level 3.3, Magnesium Level 1.7L, Total Bilirubin 0.9, Direct Bilirubin 0.2, Aspartate Amino Transf (AST/SGOT) 47H, Alanine Aminotransferase (ALT/SGPT) 27, Alkaline Phosphatase 67, Total Protein 7.1, Albumin 2.7L, Lipase 182 Height (Feet): 5 Height (Inches): 5.00 Weight (Pounds): 138 Objective General Appearance: well appearing, no apparent distress, alert Head: normocephalic EENT: PERRL/EOMI, normal ENT inspection Neck: supple Respiratory: normal breath sounds, no respiratory distress Cardiovascular: normal rate Gastrointestinal: normal inspection, mild abd pain Rectal: deferred Genitourinary: no CVA tenderness Musculoskeletal: normal inspection, back normal Neurologic: normal inspection, alert, oriented x3, responsive Psychiatric: normal inspection, judgement/insight normal, memory normal Skin: normal inspection, normal color, no rash Lymphatic: normal inspection, no adenopathy Current Medications João Eng MD Jun 23, 2018 18:12
--- NOTE | 2018-06-23 18:30 | NUR ---
NURSE NOTES: PATIENT READY FOR DISCHARGE. INSTRUCTIONS WITH PATIENT EDUCATION PROVIDED. MEDICATIONS DELIVERED FROM [facility] AND PLACED IN LOCKED DRAW.
--- NOTE | 2018-06-23 19:10 | NUR ---
NURSE NOTES: PATIENT READY FOR PILOT INSTRUCTOR VIA [facility]. PERSONAL MED VIA [facility] GIVEN WITH NEW RX FILLED @ [id number]. PATIENT ESCORTED DOWNSTAIRS TO [facility]. AMBULATORY. GAIT STEADY.
--- NOTE | 2018-06-23 23:55 | Cardiology Progress Note ---
Assessment/Plan Assessment/Plan 1. Sinus tachycardia, resolved, likely secondary to systemic inflammatory response, continue gentle hydration, bowel rest, and pain control. 2. Hx of cardiomyopathy with LVEF at 20-25%, well compensated, continue the current medical therapy. 3. Moderate MR. 4. 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 Subjective Subjective The patient is transferred to the med-surg unit. No cardiac events noted. Objective Last 24 Hour Vital Signs Date Time Temp Pulse Resp B/P (MAP) Pulse Ox O2 Delivery O2 Flow Rate FiO2 06/23/18 18:38 98.4 06/23/18 16:00 98.4 90 17 130/95 (107) 97 06/23/18 12:00 98.2 87 19 127/93 (104) 97 06/23/18 09:00 Room Air 06/23/18 08:00 98.4 87 17 114/81 (92) 99 06/23/18 04:00 98.0 81 17 120/77 (91) 99 06/23/18 00:00 98.1 75 16 115/76 (89) 97 Intake and Output 06/22/18 06/23/18 19:00 07:00 Intake Total 1200 ml 1500 ml Balance 1200 ml 1500 ml Intake Oral 600 ml 800 ml IV Total 600 ml 700 ml # Voids 3 2 2D Echo: EF 20%, Global LV hypokinesia, LV apical thrombus, Mod MR, Grade III LVDD Laboratory Tests Test 06/23/18 05:35 White Blood Count 3.2 K/UL (4.8-10.8) L Red Blood Count 3.54 M/UL (4.20-5.40) L Hemoglobin 9.7 G/DL (12.0-16.0) L Hematocrit 32.7 % (37.0-47.0) L Mean Corpuscular Volume 92 FL (80-99) Mean Corpuscular Hemoglobin 27.4 PG (27.0-31.0) Mean Corpuscular Hemoglobin Concent 29.6 G/DL (32.0-36.0) L Red Cell Distribution Width 17.1 % (11.6-14.8) H Platelet Count 159 K/UL (150-450) Mean Platelet Volume 6.9 FL (6.5-10.1) Neutrophils (%) (Auto) % (45.0-75.0) Lymphocytes (%) (Auto) % (20.0-45.0) Monocytes (%) (Auto) % (1.0-10.0) Eosinophils (%) (Auto) % (0.0-3.0) Basophils (%) (Auto) % (0.0-2.0) Differential Total Cells Counted 100 Neutrophils % (Manual) 53 % (45-75) Lymphocytes % (Manual) 33 % (20-45) Monocytes % (Manual) 9 % (1-10) Eosinophils % (Manual) 5 % (0-3) H Basophils % (Manual) 0 % (0-2) Band Neutrophils 0 % (0-8) Platelet Estimate Adequate Platelet Morphology Normal Hypochromasia 2+ Anisocytosis 1+ Sodium Level 137 MMOL/L (136-145) Potassium Level 4.0 MMOL/L (3.5-5.1) Chloride Level 104 MMOL/L (98-107) Carbon Dioxide Level 27 MMOL/L (21-32) Anion Gap 7 mmol/L (5-15) Blood Urea Nitrogen 4 mg/dL (7-18) L Creatinine 0.7 MG/DL (0.55-1.30) Estimat Glomerular Filtration Rate > 60 mL/min (>60) Glucose Level 114 MG/DL (74-106) H Calcium Level 8.2 MG/DL (8.5-10.1) L Phosphorus Level 3.3 MG/DL (2.5-4.9) Magnesium Level 1.7 MG/DL (1.8-2.4) L Total Bilirubin 0.9 MG/DL (0.2-1.0) Direct Bilirubin 0.2 MG/DL (0.0-0.3) Aspartate Amino Transf (AST/SGOT) 47 U/L (15-37) H Alanine Aminotransferase (ALT/SGPT) 27 U/L (12-78) Alkaline Phosphatase 67 U/L (46-116) Total Protein 7.1 G/DL (6.4-8.2) Albumin 2.7 G/DL (3.4-5.0) L Lipase 182 U/L (73-393) Objective HEENT: Atraumatic and normocephalic. Anicteric. Pupils are equal, round, and reactive to light and accommodation. Extraocular muscles intact. NECK: JVP less than 5 cm. No carotid bruit. Carotid upstroke is 2+ bilaterally. CARDIOVASCULAR: Normal S1, S2. Regular rate and rhythm. No murmurs, gallops, or rubs. PMI is at fourth intercostal space in the midclavicular line. LUNGS: Clear to auscultation bilaterally. ABDOMEN: Soft, nontender, and nondistended. No hepatosplenomegaly. Positive bowel sounds. EXTREMITIES: No edema, clubbing, or cyanosis. Efrain Golden MD Jun 23, 2018 23:55
[2018-06-24] MEDS ORDERED: Thiamine 100mg tab ORAL SCH (09:00)
--- NOTE | 2018-06-26 14:07 | Discharge Summary ---
Discharge Summary Discharge Summary _ DATE OF ADMISSION: 06/21/2018 DATE OF DISCHARGE: 06/23/2018 DISCHARGED BY: Dr Diaz REASON FOR ADMISSION: 23 years old female with past medical history of hypertension, asthma, chronic CHF, nonischemic cardiomyopathy , gastritis, pancreatitis, chronic abdominal pain, history of alcohol abuse, presented with abdominal pain for 2 days. Pain reported as severe ,10 out of 10, located at epigastric and left upper quadrant areas. No diarrhea. Patient admitted to nausea and vomiting. Upon evaluation patient was tachycardic . Laboratory workup revealed leukopenia with WBC 4.3, hemoglobin 11.4 , hematocrit 36.2 ,stable platelet count . AST 92 , ALT 41. Lipase 1084. Last echocardiogram in March 2018 with ejection fraction 20-25%. No respiratory issues . Stable pulse oximetry. [place] patient was admitted for abdominal pain and acute pancreatitis. CONSULTANTS: insurance defense paralegal Dr. Golden GI specialist Dr. Smith shake backboard notcher Dr. Weller accessories repairer/oncologist Dr. Eng pain specialist Dr. Dinero HOSPITAL COURSE: Patient admitted to medical surgical floor. Patient initially was kept n.p.o. Pain management was addressed. GI prophylaxis provided. Antiemetic provided as needed. Abdominal ultrasound revealed mild hepatomegaly ,slightly increased hepatic echogenicity, if real could indicate hepatocellular disease, most likely fatty changes. Negative for gallstones or dilated bile ducts. GI specialist closely followed. Iron levels within normal limits . Anemia workup revealed folate deficiency . Patient started on folic acid supplement. Patient also started on thiamine . Lipase trending down , 182. Pancreatitis resolved. Patient was counseled on abstinence from alcohol. Vice President Of Development followed. Renal parameters and electrolytes were closely monitor. Electrolytes corrected as needed , and nephrotoxins were avoided. Per accessories repairer, patient had anemia of chronic disease due to underlying chronic medical issues, multifactorial. Epogen or iron at this time were not particularly indicated. Per nutritional assessment , patient had moderate nutritional risk. Patient started on thiamine , folate and multivitamin. Pain management was addressed as per pain specialist recommendation . WBC count was monitored. Hepatitis panel negative . HIV test nonreactive. Abdominal ultrasound with possible hepatocellular disease Leukopenia could be possibly due to early hepatocellular disease. Hemoglobin and hematocrit remained at the baseline. Noted initially elevated protein. Serum protein electrophoresis revealed no abnormal protein bands. Protein down to normal. Floor And Wall Applier Liquid followed due to history of cardiomyopathy . Echocardiogram was done in March 2018 , which revealed ejection fraction of 20 -25% with borderline left ventricular hypertrophy and global left ventricular hypokinesis. Echogenic material was noted in the left ventricular apex , could not rule out left ventricular thrombus. Mild to moderate tricuspid regurgitation. Moderate mitral regurgitation Grade 3 diastolic dysfunction. Right ventricular systolic pressure of 35 consistent with mild pulmonary hypertension. Per insurance defense paralegal patient was well compensated . Continue current medical therapy at this time. Patient also probably had a left ventricle apical thrombus identified on the previous admission, however patient was noncompliant with medication. Sinus tachycardia resolved. Sinus tachycardia was likely secondary to systemic inflammatory response. Patient was initially on gentle IV hydration with pain control and bowel rest. Patient clinically stabilized and was ready for discharge home. Patient was strongly advised on abstinence from alcohol. FINAL DIAGNOSES: Acute alcoholic pancreatitis Anemia of chronic disease ETOH abuse Malnutrition Electrolyte abnormalities Cardiomyopathy ( EF 20-25%) Moderate mitral regurgitation Left ventricular apical thrombus Sinus tachycardia- resolved likely secondary to systemic inflammatory response patient was on gentle IV hydration bowel rest and pain control and sinus tachycardia resolved Drug-seeking behavior Leukopenia DISCHARGE MEDICATIONS: See Medication Reconciliation list. DISCHARGE INSTRUCTIONS: Patient was discharged home . Patient was counseled on abstinence from alcohol. Follow up with primary care provider in one week. I have been assigned to dictate discharge summary for this account. I was not involved in the patient's management. Hodan Stearns NP Jun 26, 2018 14:06
== END 2018-06-23 19:00 | disposition home or self-care (01) | DRG 282 ==
LOC: EDBD 22:46 → EMR 22:56 → 3E 06-21 00:05 → EDBEDREQ 06-21 00:53
DX: K85.20 Alcohol induced acute pancreatitis without necrosis or infection (principal); E87.8 Other disorders of electrolyte and fluid balance, not elsewhere classified; R65.10 Systemic inflammatory response syndrome (SIRS) of non-infectious origin without acute organ dysfunction; E46 Unspecified protein-calorie malnutrition; I51.3 Intracardiac thrombosis, not elsewhere classified; I36.1 Nonrheumatic tricuspid (valve) insufficiency; Z68.23 Body mass index [BMI] 23.0-23.9, adult; Z87.891 Personal history of nicotine dependence; I10 Essential (primary) hypertension; D63.8 Anemia in other chronic diseases classified elsewhere; F10.10 Alcohol abuse, uncomplicated; I34.0 Nonrheumatic mitral (valve) insufficiency; Z76.5 Malingerer [conscious simulation]; J45.909 Unspecified asthma, uncomplicated; Z88.1 Allergy status to other antibiotic agents
CPT/HCPCS: 36415; 76700; 80048; 80053; 80061; 80076; 80307; 81003; 81025; 82607; 82728; 82746; 83036; 83540; 83550; 83690; 83735; 84100; 84165; 84443; 84550; 85007; 85025; 85384; 86140; 86703; 86705; 86709; 86803; 87340; 96365; 96375; 96376; 99285; J2405

== ENCOUNTER 2018-07-27 22:58 | Inpatient (IN) | payer MEDICAID ==
[~2018-07-27] VITALS: Ht 157.5 cm; Wt 54.4 kg
[2018-07-27 23:00] VITALS: BP 113/72
--- NOTE | 2018-07-27 23:00 | NUR ---
ED Nurse Note: Pt brought in by [facility] for complaint of abdominal pain 12/28. Pt has hx of ETOH. Pt states she woke up with severe pain a few hours ago. Currently living in transitional home and states her roommate saw pt vomit blood. Pt described as sharp, abdomen severely tender throughout all lobes but moreso on LUQ. VSS. Showing no signs of acute distress. Will continue to monitor.
[2018-07-27 23:57] LABS: BASOPHILS % (AUTO) 0.8 % (0.0-2.0); EOSINOPHILS % (AUTO) 0.2 % (0.0-3.0); HEMOGLOBIN 10.8 G/DL (12.0-16.0); LYMPHOCYTES % (AUTO) 34.8 % (20.0-45.0); MEAN CORPUSCULAR VOLUME 89 FL (80-99); MONOCYTES % (AUTO) 13.4 % (1.0-10.0); NEUTROPHILS % (AUTO) 50.7 % (45.0-75.0); PLATELET COUNT 228 K/UL (150-450); RED BLOOD COUNT 3.91 M/UL (4.20-5.40); RED CELL DISTRIBUTION WIDTH 14.9 % (11.6-14.8); WHITE BLOOD COUNT 3.6 K/UL (4.8-10.8)
[2018-07-28 00:04] LABS: INR 0.9 (0.9-1.1)
[2018-07-28 00:24] LABS: ANION GAP 11 mmol/L (5-15); BLOOD UREA NITROGEN 10 mg/dL (7-18); CARBON DIOXIDE 27 MMOL/L (21-32); CHLORIDE 104 MMOL/L (98-107); CREATININE 0.8 MG/DL (0.55-1.30); POTASSIUM 3.8 MMOL/L (3.5-5.1); SODIUM 142 MMOL/L (136-145)
[2018-07-28 00:27] LABS: ALANINE AMINOTRANSFERASE 46 U/L (12-78); ALBUMIN 3.4 G/DL (3.4-5.0); ALBUMIN/GLOBULIN RATIO 0.6 (1.0-2.7); ALKALINE PHOSPHATASE 94 U/L (46-116); ASPARTATE AMINO TRANSFERASE 150 U/L (15-37); BILIRUBIN,TOTAL 0.4 MG/DL (0.2-1.0)
--- NOTE | 2018-07-28 01:40 | NUR ---
ED Nurse Note: Pt refused VRE/CRE swabbing. MRSA swab sent to lab
--- NOTE | 2018-07-28 03:25 | Emergency Room Report ---
History of Present Illness General Chief Complaint: Abdominal Pain Source: Patient Present Illness HPI Patient is a 23-year-old female presented after increased abdominal discomfort. Patient had reports of increased epigastric pain. She had a prior history of pancreatitis and alcohol abuse. Patient denies any fever. She had previous hospitalization approximately 1 month ago after alcoholic pancreatitis. Patient had been having increased discomfort radiating to her back. Patient denies any hematemesis or bloody stools. Allergies: Coded Allergies: AMOXICILLIN (Unverified Allergy, Unknown, 01/08/17) Patient History Past Medical History: see triage record Last Menstrual Period: Two weeks ago Now: No Reviewed Nursing Documentation: PMH: Agreed; PSxH: Agreed Nursing Documentation-PMH Hx Cardiac Problems: Yes Hx Hypertension: Yes Hx Asthma: Yes Hx Cancer: No Hx Gastrointestinal Problems: Yes - Pancreatitis Hx Neurological Problems: No Review of Systems All Other Systems: negative except mentioned in HPI Physical Exam Vital Signs Date Time Temp Pulse Resp B/P (MAP) Pulse Ox O2 Delivery O2 Flow Rate FiO2 07/27/18 22:52 98.2 84 16 98 Room Air 07/27/18 23:00 113/72 Sp02 EP Interpretation: reviewed, normal General Appearance: normal inspection, well appearing, no apparent distress, alert, GCS 15 Head: atraumatic ENT: normal ENT inspection, hearing grossly normal, normal voice Neck: normal inspection, full range of motion, supple, no bony tend Respiratory: normal inspection, lungs clear, normal breath sounds, no respiratory distress, no retraction, no wheezing Cardiovascular #1: regular rate, rhythm, no edema Gastrointestinal: normal inspection, normal bowel sounds, soft, no guarding, no hernia, tenderness - epigastric Genitourinary: no CVA tenderness Musculoskeletal: normal inspection, back normal, normal range of motion Neurologic: normal inspection, alert, oriented x3, responsive, guest relations associate III-XII nml as tested, motor strength/tone normal, speech normal Psychiatric: normal inspection, judgement/insight normal, mood/affect normal Skin: normal inspection, normal color, no rash Medical Decision Making Diagnostic Impression: Primary Impression: Alcoholic pancreatitis ER Course Patient presented for abdominal pain. Differential diagnoses included ischemic bowel, appendicitis, perforated viscus, abdominal aortic aneurysm, inferior myocardial infarction, viral gastroenteritis among others. Because of complexity of patient's case laboratory testing and imaging studies were ordered. Patient was noted to have alcohol intoxication as well as evidence of pancreatitis on laboratory testing. Patient has had this multiple times in the past. Patient was given IV fluids she was noted to be significantly intoxicated and was not given narcotic pain medication because of this. Patient was started on IV fluids as well as IV antiemetics. Dr. Mercedes Frank was contacted for inpatient management due to prior admission. Labs Test 07/27/18 23:00 07/28/18 03:16 White Blood Count 3.6 K/UL (4.8-10.8) Red Blood Count 3.91 M/UL (4.20-5.40) Hemoglobin 10.8 G/DL (12.0-16.0) Hematocrit 35.0 % (37.0-47.0) Mean Corpuscular Volume 89 FL (80-99) Mean Corpuscular Hemoglobin 27.7 PG (27.0-31.0) Mean Corpuscular Hemoglobin Concent 30.9 G/DL (32.0-36.0) Red Cell Distribution Width 14.9 % (11.6-14.8) Platelet Count 228 K/UL (150-450) Mean Platelet Volume 6.3 FL (6.5-10.1) Neutrophils (%) (Auto) 50.7 % (45.0-75.0) Lymphocytes (%) (Auto) 34.8 % (20.0-45.0) Monocytes (%) (Auto) 13.4 % (1.0-10.0) Eosinophils (%) (Auto) 0.2 % (0.0-3.0) Basophils (%) (Auto) 0.8 % (0.0-2.0) Prothrombin Time 10.0 SEC (9.30-11.50) Prothromb Time International Ratio 0.9 (0.9-1.1) Activated Partial Thromboplast Time 27 SEC (23-33) Sodium Level 142 MMOL/L (136-145) Potassium Level 3.8 MMOL/L (3.5-5.1) Chloride Level 104 MMOL/L (98-107) Carbon Dioxide Level 27 MMOL/L (21-32) Anion Gap 11 mmol/L (5-15) Blood Urea Nitrogen 10 mg/dL (7-18) Creatinine 0.8 MG/DL (0.55-1.30) Estimat Glomerular Filtration Rate > 60 mL/min (>60) Glucose Level 105 MG/DL (74-106) Calcium Level 9.0 MG/DL (8.5-10.1) Total Bilirubin 0.4 MG/DL (0.2-1.0) Aspartate Amino Transf (AST/SGOT) 150 U/L (15-37) Alanine Aminotransferase (ALT/SGPT) 46 U/L (12-78) Alkaline Phosphatase 94 U/L (46-116) Total Protein 8.8 G/DL (6.4-8.2) Albumin 3.4 G/DL (3.4-5.0) Globulin 5.4 g/dL Albumin/Globulin Ratio 0.6 (1.0-2.7) Lipase 752 U/L (73-393) Serum Alcohol 391 mg/dL Last Vital Signs Date Time Temp Pulse Resp B/P (MAP) Pulse Ox O2 Delivery O2 Flow Rate FiO2 07/27/18 23:00 98.2 91 16 113/72 98 Room Air Status: unchanged Disposition: ADMITTED INPATIENT Condition: Serious Referrals: NON PHYSICIAN (PCP) Rodrigo Thrasher MD July 28, 2018 03:25
--- NOTE | 2018-07-28 03:39 | NUR ---
ED Nurse Note: Pt transferred to Med/Surg unit. Report given to RONI Bartlett RN. Pt A/Ox4, VSS. Showing no signs of acute distress. All belongings taken with patient, along with belongings list.
[2018-07-28] MEDS ORDERED: FUROSEMIDE20 M1 ORAL (04:01)
[2018-07-28 04:06] VITALS: BP 93/63
--- NOTE | 2018-07-28 04:20 | NUR ---
NURSE NOTES: Pt arrived in the unit from ER at 0400am in stable condition Dx with pancreatitis under DR. Momin.Pt is awake and alert. Report was received from Keysha in ER. Pt has abdominal pain 11/28. Pt was changed into gown. Skin intact. Abdomen tender to touch. Pt reports having BM yesterday. No nausea or vomiting at this time. Pt is requesting pain medication. Pt oriented to the unit, education related to smoking secession and alcohol abuse provided. Pt refuses to send valuables for safe keeping thus signed the waiver portion of belonging sheet, all belongings checked with patient and verified. Belongings remain by bedside. Dr. Horne called for admission orders. Bed locked low in position,side rails up and call light within reach.
--- NOTE | 2018-07-28 06:00 | NUR ---
NURSE NOTES: Pt is in baed calm. No acute distress noted.
[2018-07-28] MEDS ORDERED: Morphine Sulfate 2mg/ml Inj(IV/IM USE ONLY) IVP PRN (06:30)
--- NOTE | 2018-07-28 06:45 | NUR ---
NURSE NOTES: Admission orders received from Dr. Erwin. Orders acknowledged, 2mg morphine given IVP as ordered PRN pain. Pt is calm in bed. Pt is NPO except meds.
--- NOTE | 2018-07-28 07:10 | NUR ---
HAND-OFF: Report given to Cami Juares RN.
--- NOTE | 2018-07-28 07:35 | NUR ---
NURSE NOTES: pt in bed with no sob nor in any form of distress noted. kept NPO except for meds and ice chips. IVF running. denies pain at this time. will continue to monitor
[2018-07-28 08:00] VITALS: BP 101/67
--- NOTE | 2018-07-28 08:39 | NUR ---
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
--- NOTE | 2018-07-28 09:05 | General Progress Note ---
Assessment/Plan Assessment/Plan: (1) Abdominal pain (2) Alcoholic Pancreatitis (3) Alcohol abuse (4) Chest pain (5) CHF Patient to be continued on Morphine increased to 4mg IV Q4H PRN severe pain. D/w Dr. Dinero and he concurred. Thank you for consult. Subjective Date patient seen: July 28, 2018 Time patient seen: 07:00 - am Allergies: Coded Allergies: AMOXICILLIN (Unverified Allergy, Unknown, 01/08/17) Subjective Constitutional: Reports: weakness Eye: Reports: no symptoms ENT: Reports: no symptoms Respiratory: Reports: no symptoms Cardiovascular: Reports: chest pain Gastrointestinal: Reports: abdominal pain Genitourinary: Reports: no symptoms Musculoskeletal: Reports: no symptoms Skin: Reports: no symptoms Psychiatric: Reports: no symptoms Neurological: Reports: no symptoms Endocrine: Reports: no symptoms Hematologic/Lymphatic: Reports: no symptoms SUBJECTIVE: Patient is a known patient from prior admission now admitted due to abdominal pain and pancreatitis. Started on Morphine 2mg IV Q3H PRN which patient is reports has not reduced her pain. Due to this we were consulted so patient has adequate pain control while here in the hospital. Objective Last 24 Hour Vital Signs Date Time Temp Pulse Resp B/P (MAP) Pulse Ox O2 Delivery O2 Flow Rate FiO2 07/28/18 08:50 Room Air 07/28/18 08:00 98.1 74 16 101/67 (78) 96 66 07/28/18 04:29 Room Air 07/28/18 04:06 98.1 66 16 93/63 (73) 95 66 07/28/18 03:39 98.6 99 22 146/77 99 Room Air 07/27/18 23:00 98.2 91 16 113/72 98 Room Air 07/27/18 23:00 84 16 Room Air 07/27/18 22:52 98.2 84 16 98 Room Air Intake and Output 07/27/18 07/28/18 19:00 07:00 Intake Total 500 ml Balance 500 ml Intake IV Total 500 ml Laboratory Tests 07/27/18 23:00: White Blood Count 3.6L, Red Blood Count 3.91L, Hemoglobin 10.8L, Hematocrit 35.0L, Mean Corpuscular Volume 89, Mean Corpuscular Hemoglobin 27.7, Mean Corpuscular Hemoglobin Concent 30.9L, Red Cell Distribution Width 14.9H, Platelet Count 228, Mean Platelet Volume 6.3L, Neutrophils (%) (Auto) 50.7, Lymphocytes (%) (Auto) 34.8, Monocytes (%) (Auto) 13.4H, Eosinophils (%) (Auto) 0.2, Basophils (%) (Auto) 0.8, Prothrombin Time 10.0, Prothromb Time International Ratio 0.9, Activated Partial Thromboplast Time 27, Sodium Level 142, Potassium Level 3.8, Chloride Level 104, Carbon Dioxide Level 27, Anion Gap 11, Blood Urea Nitrogen 10, Creatinine 0.8, Estimat Glomerular Filtration Rate > 60, Glucose Level 105, Calcium Level 9.0, Total Bilirubin 0.4, Aspartate Amino Transf (AST/SGOT) 150H, Alanine Aminotransferase (ALT/SGPT) 46, Alkaline Phosphatase 94, Total Protein 8.8H, Albumin 3.4, Globulin 5.4, Albumin/Globulin Ratio 0.6L, Lipase 752H, Serum Alcohol 391 07/28/18 03:16: Human Chorionic Gonadotropin, Qual Negative Height (Feet): 5 Height (Inches): 2.00 Weight (Pounds): 120 Objective General Appearance: no apparent distress, alert HEENT: PERRL, EOMI Neck: non-tender, supple Respiratory/Chest: lungs clear, normal breath sounds Cardiovascular/Chest: normal rate, regular rhythm Abdomen: tender, soft Extremities: normal range of motion, non-tender Skin Exam: warm/dry Neurologic: alert, oriented x 3 Jeovanny Campo July 28, 2018 09:04
[2018-07-28] MEDS: Thiamine 100mg tab ORAL SCH (09:26)
[2018-07-28] MEDS: Morphine Sulfate 4mg/ml Inj (IV USE ONLY) IVP PRN ×4 (09:27→22:02)
--- NOTE | 2018-07-28 11:56 | GI Initial Consult Note ---
History of Present Illness General Date patient seen: July 28, 2018 Time patient seen: 11:53 Reason for Hospitalization: Abdominal Pain Referring physician: KWASI HAILE Reason for Consultation: Alcoholic pancreatitis Present Illness HPI Patient is a 23-year-old female presented after increased abdominal discomfort. Patient had reports of increased epigastric pain. She had a prior history of pancreatitis and alcohol abuse. Patient denies any fever. She had previous hospitalization approximately 1 month ago after alcoholic pancreatitis. Patient had been having increased discomfort radiating to her back. Patient denies any hematemesis or bloody stools. GI consulted for alcoholic pancreatitis. Patient is known to us, with a history of chronic alcohol abuse, iron deficiency, folate deficiency. Patient was seen, awake alert and oriented x4. Patient unable to recall the amount of alcohol he drank. Presents today with abdominal pain and elevated lipase levels. Denies any hematemesis or coffee-ground. No history of endoscopic colonoscopy. Home Meds Reported Medications Furosemide* (LASIX*) 20 Mg Tablet, 20 MG ORAL BID, TAB 07/28/18 Med list reviewed/reconciled: Yes Allergies: Coded Allergies: AMOXICILLIN (Unverified Allergy, Unknown, 01/08/17) Patient History History Provided By: Patient, Medical Record PMH Narrative Past Medical History: see triage record Last Menstrual Period: Two weeks ago Now: No Reviewed Nursing Documentation: PMH: Agreed; PSxH: Agreed Nursing Documentation-PMH Hx Cardiac Problems: Yes Hx Hypertension: Yes Hx Asthma: Yes Hx Cancer: No Hx Gastrointestinal Problems: Yes - Pancreatitis Hx Neurological Problems: No Social History: Reports: alcohol use Review of Systems All Other Systems: negative except mentioned in HPI Physical Exam Vital Signs Date Time Temp Pulse Resp B/P (MAP) Pulse Ox O2 Delivery O2 Flow Rate FiO2 07/27/18 22:52 98.2 84 16 98 Room Air 07/27/18 23:00 113/72 Sp02 EP Interpretation: reviewed, normal Labs Laboratory Tests Test 07/27/18 23:00 07/28/18 03:16 White Blood Count 3.6 K/UL (4.8-10.8) L Red Blood Count 3.91 M/UL (4.20-5.40) L Hemoglobin 10.8 G/DL (12.0-16.0) L Hematocrit 35.0 % (37.0-47.0) L Mean Corpuscular Volume 89 FL (80-99) Mean Corpuscular Hemoglobin 27.7 PG (27.0-31.0) Mean Corpuscular Hemoglobin Concent 30.9 G/DL (32.0-36.0) L Red Cell Distribution Width 14.9 % (11.6-14.8) H Platelet Count 228 K/UL (150-450) Mean Platelet Volume 6.3 FL (6.5-10.1) L Neutrophils (%) (Auto) 50.7 % (45.0-75.0) Lymphocytes (%) (Auto) 34.8 % (20.0-45.0) Monocytes (%) (Auto) 13.4 % (1.0-10.0) H Eosinophils (%) (Auto) 0.2 % (0.0-3.0) Basophils (%) (Auto) 0.8 % (0.0-2.0) Prothrombin Time 10.0 SEC (9.30-11.50) Prothromb Time International Ratio 0.9 (0.9-1.1) Activated Partial Thromboplast Time 27 SEC (23-33) Sodium Level 142 MMOL/L (136-145) Potassium Level 3.8 MMOL/L (3.5-5.1) Chloride Level 104 MMOL/L (98-107) Carbon Dioxide Level 27 MMOL/L (21-32) Anion Gap 11 mmol/L (5-15) Blood Urea Nitrogen 10 mg/dL (7-18) Creatinine 0.8 MG/DL (0.55-1.30) Estimat Glomerular Filtration Rate > 60 mL/min (>60) Glucose Level 105 MG/DL (74-106) Calcium Level 9.0 MG/DL (8.5-10.1) Total Bilirubin 0.4 MG/DL (0.2-1.0) Aspartate Amino Transf (AST/SGOT) 150 U/L (15-37) H Alanine Aminotransferase (ALT/SGPT) 46 U/L (12-78) Alkaline Phosphatase 94 U/L (46-116) Total Protein 8.8 G/DL (6.4-8.2) H Albumin 3.4 G/DL (3.4-5.0) Globulin 5.4 g/dL Albumin/Globulin Ratio 0.6 (1.0-2.7) L Lipase 752 U/L (73-393) H Serum Alcohol 391 mg/dL Human Chorionic Gonadotropin, Qual Negative (NEGATIVE) General Appearance: well appearing, no apparent distress, alert Head: normocephalic EENT: PERRL/EOMI, normal ENT inspection Neck: supple Respiratory: normal breath sounds, no respiratory distress Cardiovascular: normal rate Gastrointestinal: normal inspection, non tender, soft, normal bowel sounds, non -distended Rectal: deferred Genitourinary: no CVA tenderness Musculoskeletal: normal inspection, back normal Neurologic: normal inspection, alert, oriented x3, responsive Psychiatric: normal inspection, judgement/insight normal, memory normal Skin: normal inspection, normal color, no rash, warm/dry, palpation normal, well hydrated Lymphatic: normal inspection, no adenopathy Current Medications Current Medications Medications (Trade) Dose Ordered Sig/Leora Route PRN Reason Start Time Stop Time Status Last Admin Dose Admin Diazepam (Valium) 10 mg EVERY 2 HOURS PRN ORAL For Anxiety 07/28/18 09:00 08/04/18 08:59 Folic Acid (Folate) 1 mg DAILY ORAL 07/28/18 09:00 08/27/18 08:59 07/28/18 09:26 Morphine Sulfate (Morphine Sulfate) 4 mg Q4H PRN IVP Severe Pain (Pain Scale 7-10) 07/28/18 09:30 08/04/18 06:29 07/28/18 09:27 Ondansetron HCl (Zofran) 4 mg Q6H PRN IVP Nausea & Vomiting 07/28/18 06:30 08/27/18 06:29 Sodium Chloride 1,000 ml @ 70 mls/hr [id number] IV 07/28/18 06:45 08/27/18 06:44 07/28/18 06:53 Thiamine HCl (Vitamin B1) 100 mg DAILY ORAL 07/28/18 09:00 08/27/18 08:59 07/28/18 09:26 GI: Plan Problems: (1) Alcoholic pancreatitis (2) Anemia (3) Malnutrition (4) Electrolyte imbalance (5) ETOH abuse (6) Drug-seeking behavior Plan Medical management for pancreatitis Advance diet as tolerated Pain management Avoid alcohol Folate PPI Zofran as needed Repeat LFTs, lipase Discussed with Dr. Smith. Thank you for this patient referral, we will follow. The patient was seen and examined at bedside and all new and available data was reviewed in the patients chart. I agree with the above findings, impression and plan. (Patient seen earlier today. Signature stamp does not reflect patient encounter time.). - MD Aura GlassBanner Gateway Medical CenterJeff HERNANDEZ July 28, 2018 11:56
[2018-07-28 12:00] VITALS: BP 101/55
--- NOTE | 2018-07-28 14:51 | Consultation ---
History of Present Illness General Chief Complaint: Abdominal Pain Referring physician: MERCEDES ORDOÑEZ Reason for Consultation: Alcoholic pancreatitis Present Illness Allergies: Coded Allergies: AMOXICILLIN (Unverified Allergy, Unknown, 01/08/17) Medication History Scheduled Furosemide* (Lasix*), 20 MG ORAL BID, (Reported) Patient History Healthcare decision maker Resuscitation status Full Code Advanced Directive on File Physical Exam Last 24 Hour Vital Signs Date Time Temp Pulse Resp B/P (MAP) Pulse Ox O2 Delivery O2 Flow Rate FiO2 07/28/18 14:04 97.7 07/28/18 12:00 97.7 60 17 101/55 (70) 96 66 07/28/18 08:50 Room Air 07/28/18 08:00 98.1 74 16 101/67 (78) 96 66 07/28/18 04:29 Room Air 07/28/18 04:06 98.1 66 16 93/63 (73) 95 66 07/28/18 03:39 98.6 99 22 146/77 99 Room Air 07/27/18 23:00 98.2 91 16 113/72 98 Room Air 07/27/18 23:00 84 16 Room Air 07/27/18 22:52 98.2 84 16 98 Room Air Intake and Output 07/27/18 07/28/18 18:59 06:59 Intake Total 500 ml Balance 500 ml Intake IV Total 500 ml Laboratory Tests Test 07/27/18 23:00 07/28/18 03:16 White Blood Count 3.6 K/UL (4.8-10.8) L Red Blood Count 3.91 M/UL (4.20-5.40) L Hemoglobin 10.8 G/DL (12.0-16.0) L Hematocrit 35.0 % (37.0-47.0) L Mean Corpuscular Volume 89 FL (80-99) Mean Corpuscular Hemoglobin 27.7 PG (27.0-31.0) Mean Corpuscular Hemoglobin Concent 30.9 G/DL (32.0-36.0) L Red Cell Distribution Width 14.9 % (11.6-14.8) H Platelet Count 228 K/UL (150-450) Mean Platelet Volume 6.3 FL (6.5-10.1) L Neutrophils (%) (Auto) 50.7 % (45.0-75.0) Lymphocytes (%) (Auto) 34.8 % (20.0-45.0) Monocytes (%) (Auto) 13.4 % (1.0-10.0) H Eosinophils (%) (Auto) 0.2 % (0.0-3.0) Basophils (%) (Auto) 0.8 % (0.0-2.0) Prothrombin Time 10.0 SEC (9.30-11.50) Prothromb Time International Ratio 0.9 (0.9-1.1) Activated Partial Thromboplast Time 27 SEC (23-33) Sodium Level 142 MMOL/L (136-145) Potassium Level 3.8 MMOL/L (3.5-5.1) Chloride Level 104 MMOL/L (98-107) Carbon Dioxide Level 27 MMOL/L (21-32) Anion Gap 11 mmol/L (5-15) Blood Urea Nitrogen 10 mg/dL (7-18) Creatinine 0.8 MG/DL (0.55-1.30) Estimat Glomerular Filtration Rate > 60 mL/min (>60) Glucose Level 105 MG/DL (74-106) Calcium Level 9.0 MG/DL (8.5-10.1) Total Bilirubin 0.4 MG/DL (0.2-1.0) Aspartate Amino Transf (AST/SGOT) 150 U/L (15-37) H Alanine Aminotransferase (ALT/SGPT) 46 U/L (12-78) Alkaline Phosphatase 94 U/L (46-116) Total Protein 8.8 G/DL (6.4-8.2) H Albumin 3.4 G/DL (3.4-5.0) Globulin 5.4 g/dL Albumin/Globulin Ratio 0.6 (1.0-2.7) L Lipase 752 U/L (73-393) H Serum Alcohol 391 mg/dL Human Chorionic Gonadotropin, Qual Negative (NEGATIVE) Height (Feet): 5 Height (Inches): 2.00 Weight (Pounds): 120 Medications Current Medications Medications (Trade) Dose Ordered Sig/Leora Route PRN Reason Start Time Stop Time Status Last Admin Dose Admin Diazepam (Valium) 10 mg EVERY 2 HOURS PRN ORAL For Anxiety 07/28/18 09:00 08/04/18 08:59 Folic Acid (Folate) 1 mg DAILY ORAL 07/28/18 09:00 08/27/18 08:59 07/28/18 09:26 Morphine Sulfate (Morphine Sulfate) 4 mg Q4H PRN IVP Severe Pain (Pain Scale 7-10) 07/28/18 09:30 08/04/18 06:29 07/28/18 13:34 Ondansetron HCl (Zofran) 4 mg Q6H PRN IVP Nausea & Vomiting 07/28/18 06:30 08/27/18 06:29 Sodium Chloride 1,000 ml @ 70 mls/hr [id number] IV 07/28/18 06:45 08/27/18 06:44 07/28/18 06:53 Thiamine HCl (Vitamin B1) 100 mg DAILY ORAL 07/28/18 09:00 08/27/18 08:59 07/28/18 09:26 Assessment/Plan Assessment/Plan: Hematology Consultation DOS: 07/28/18 Reason for Hospitalization: Abdominal Pain Referring physician: MERCEDES Ordoñez Reason for Consultation: Leukopenia, hyperproteinemia, anemia ID This is a 23-year-old female with history of chronic abdominal pain. She also has a history of nonischemic cardiomyopathy and chronic CHF. She presents with chief complaint abdominal pain. Onset for about 2-3 days now. Pain is severe 10 out of 10. Epigastric and left upper quadrant. No diarrhea. Has nausea and vomiting. Nothing made it better. Pain is so severe that she can't walk. She was here earlier this morning for same thing. Was discharged home. Denies any other complaint. Asking for IV opioids. GI consulted for pancreatitis. Patient is known to us, with history of chronic alcohol abuse, iron deficiency, folate deficiency. Patient was seen, awake alert and oriented x4. Presents today with chief abdominal pain, elevated lipase levels of 1090 and AST of 92. Denies any diarrhea. Reported morning emesis after p.o. intake despite being n.p.o. no history of endoscopic colonoscopy. I personally last saw this patient about a month ago for a similar presentation. meds Active Scripts Famotidine (PEPCID AC) 20 Mg Tablet, 20 MG PO DAILY, #15 TAB Prov:Mercedes King DO 06/20/18 Spironolactone (ALDACTONE) 25 Mg Tablet, 25 MG ORAL DAILY for 10 Days, TAB Prov:Matteo Nguyen MD 01/25/18 Enalapril Maleate* (ENALAPRIL MALEATE*) 5 Mg Tablet, 5 MG ORAL DAILY for 10 Days , TAB Prov:Matteo Nguyen MD 01/25/18 Digoxin* (LANOXIN*) 250 Mcg Tablet, 0.25 MG ORAL DAILY for 10 Days, TAB Prov:Matteo Nguyen MD 01/25/18 Carvedilol (Coreg) 6.25 Mg Tablet, 6.25 MG ORAL EVERY 12 HOURS for 10 Days, TAB Prov:Matteo Nguyen MD 01/25/18 Reported Medications Ondansetron Odt* (ZOFRAN ODT*) 4 Mg Tab.rapdis, 4 MG BC EVERY 6 HOURS PRN for Nausea & Vomiting, #15 TAB 01/31/18 Furosemide* (LASIX*) 20 Mg Tablet, 40 MG ORAL DAILY, TAB 01/31/18 Pantoprazole* (PROTONIX*) 40 Mg Tablet.dr, 40 MG ORAL DAILY, TAB 01/21/18 Discontinued Scripts Furosemide* (LASIX*) 20 Mg Tablet, 20 MG ORAL DAILY for 30 Days, TAB Prov:Shonna Lovell MD 04/04/18 Med list reviewed/reconciled: Yes Allergies: Coded Allergies: AMOXICILLIN (Unverified Allergy, Unknown, 01/08/17) History Provided By: Patient, Medical Record PMH Narrative Past Medical History: see triage record, old chart reviewed, HTN, CHF Past Surgical History: other Pertinent Family History: none Social History: Denies: smoking Last Menstrual Period: 06/06 Now: No : 0 Para: 0 Immunizations: other Reviewed Nursing Documentation: PMH: Agreed; PSxH: Agreed Hx Cardiac Problems: Yes - CHF, anemia Hx Hypertension: Yes Hx Asthma: Yes Hx Cancer: No Hx Gastrointestinal Problems: Yes - GASTRITIS, pancreatitis Hx Neurological Problems: No Social History: Reports: alcohol use Review of Systems: negative except mentioned in HPI Laboratory Tests Current Medications Medications (Trade) Dose Ordered Sig/Leora Route PRN Reason Start Time Stop Time Status Last Admin Dose Admin Diazepam (Valium) 10 mg EVERY 2 HOURS PRN ORAL For Anxiety 07/28/18 09:00 08/04/18 08:59 Folic Acid (Folate) 1 mg DAILY ORAL 07/28/18 09:00 08/27/18 08:59 07/28/18 09:26 Morphine Sulfate (Morphine Sulfate) 4 mg Q4H PRN IVP Severe Pain (Pain Scale 7-10) 07/28/18 09:30 08/04/18 06:29 07/28/18 13:34 Ondansetron HCl (Zofran) 4 mg Q6H PRN IVP Nausea & Vomiting 07/28/18 06:30 08/27/18 06:29 Sodium Chloride 1,000 ml @ 70 mls/hr [id number] IV 07/28/18 06:45 08/27/18 06:44 07/28/18 06:53 Thiamine HCl (Vitamin B1) 100 mg DAILY ORAL 07/28/18 09:00 08/27/18 08:59 07/28/18 09:26 Last 24 Hour Vital Signs Date Time Temp Pulse Resp B/P (MAP) Pulse Ox O2 Delivery O2 Flow Rate FiO2 07/28/18 14:04 97.7 07/28/18 12:00 97.7 60 17 101/55 (70) 96 66 07/28/18 08:50 Room Air 07/28/18 08:00 98.1 74 16 101/67 (78) 96 66 07/28/18 04:29 Room Air 07/28/18 04:06 98.1 66 16 93/63 (73) 95 66 07/28/18 03:39 98.6 99 22 146/77 99 Room Air 07/27/18 23:00 98.2 91 16 113/72 98 Room Air 07/27/18 23:00 84 16 Room Air 07/27/18 22:52 98.2 84 16 98 Room Air Test 07/27/18 23:00 07/28/18 03:16 White Blood Count 3.6 K/UL (4.8-10.8) L Red Blood Count 3.91 M/UL (4.20-5.40) L Hemoglobin 10.8 G/DL (12.0-16.0) L Hematocrit 35.0 % (37.0-47.0) L Mean Corpuscular Volume 89 FL (80-99) Mean Corpuscular Hemoglobin 27.7 PG (27.0-31.0) Mean Corpuscular Hemoglobin Concent 30.9 G/DL (32.0-36.0) L Red Cell Distribution Width 14.9 % (11.6-14.8) H Platelet Count 228 K/UL (150-450) Mean Platelet Volume 6.3 FL (6.5-10.1) L Neutrophils (%) (Auto) 50.7 % (45.0-75.0) Lymphocytes (%) (Auto) 34.8 % (20.0-45.0) Monocytes (%) (Auto) 13.4 % (1.0-10.0) H Eosinophils (%) (Auto) 0.2 % (0.0-3.0) Basophils (%) (Auto) 0.8 % (0.0-2.0) Prothrombin Time 10.0 SEC (9.30-11.50) Prothromb Time International Ratio 0.9 (0.9-1.1) Activated Partial Thromboplast Time 27 SEC (23-33) Sodium Level 142 MMOL/L (136-145) Potassium Level 3.8 MMOL/L (3.5-5.1) Chloride Level 104 MMOL/L (98-107) Carbon Dioxide Level 27 MMOL/L (21-32) Anion Gap 11 mmol/L (5-15) Blood Urea Nitrogen 10 mg/dL (7-18) Creatinine 0.8 MG/DL (0.55-1.30) Estimat Glomerular Filtration Rate > 60 mL/min (>60) Glucose Level 105 MG/DL (74-106) Calcium Level 9.0 MG/DL (8.5-10.1) Total Bilirubin 0.4 MG/DL (0.2-1.0) Aspartate Amino Transf (AST/SGOT) 150 U/L (15-37) H Alanine Aminotransferase (ALT/SGPT) 46 U/L (12-78) Alkaline Phosphatase 94 U/L (46-116) Total Protein 8.8 G/DL (6.4-8.2) H Albumin 3.4 G/DL (3.4-5.0) Globulin 5.4 g/dL Albumin/Globulin Ratio 0.6 (1.0-2.7) L Lipase 752 U/L (73-393) H Serum Alcohol 391 mg/dL Human Chorionic Gonadotropin, Qual Negative (NEGATIVE) PE General Appearance: well appearing, no apparent distress, alert Head: normocephalic EENT: PERRL/EOMI, normal ENT inspection Neck: supple Respiratory: normal breath sounds, no respiratory distress Cardiovascular: normal rate Gastrointestinal: normal inspection, mild abd pain Rectal: deferred Genitourinary: no CVA tenderness Musculoskeletal: normal inspection, back normal Neurologic: normal inspection, alert, oriented x3, responsive Psychiatric: normal inspection, judgement/insight normal, memory normal Skin: normal inspection, normal color, no rash Lymphatic: normal inspection, no adenopathy Current Medications Current Medications Medications (Trade) Dose Ordered Sig/Leora Route PRN Reason Start Time Stop Time Status Last Admin Dose Admin Morphine Sulfate (Morphine Sulfate) 4 mg Q4H PRN IVP Severe Pain (Pain Scale 7-10) 06/21/18 05:00 06/28/18 04:59 06/21/18 09:26 Ondansetron HCl (Zofran) 4 mg Q6H PRN IVP Nausea & Vomiting 06/21/18 05:00 07/21/18 04:59 06/21/18 09:26 Sodium Chloride 1,000 ml @ 75 mls/hr [id number] IV 06/21/18 05:00 07/21/18 04:59 06/21/18 05:21 Assessment and Recs # Decreased white blood cell count, unspec (aka leukopenia) - wbc under 4k, could be related to infection/pancreatitis versus alcohol abuse --> if the total ANC is less than 2000, consider neupogen --> continue antibiotics with ID service, appreciate recs --> medications have been reviewed --> hepatitis and hiv have been ordered # Anemia of chronic disease (or of iron deficiency) due to underlying chronic medical issues, multifactorial --> Anemia workup has been reviewed,prior ferritin 95 --> No evidence of hemolysis is noted, peripheral smear has been reviewed. --> Hgb goal >7. Transfuse prn. --> Epogen or iron at this time is not particularly indicated --> Medications have been reviewed --> evaluate with Gi team prn # Alcoholic pancreatitis --> eval gi pain, monitor for symptoms # Pancreatitis, acute --> as per surg, gi # ETOH abuse # Electrolyte imbalance # Malnutrition # Abdominal pain The timing of this note does not necessarily reflect the time of the patient was seen. Greatly appreciate consultation! João Eng MD July 28, 2018 14:51
[2018-07-28 16:00] VITALS: BP 97/55
[2018-07-28 18:16] VITALS: BP 113/68
--- NOTE | 2018-07-28 19:07 | NUR ---
HAND-OFF: Report given to JULIA Wilkinson.
--- NOTE | 2018-07-28 19:31 | NUR ---
NURSE NOTES: Pt is in bed, awake and alert. No acute distress noted. 1/2Ns running at 70ml/hr. Bed locked low in position,side rails up and call light within reach.
[2018-07-28 20:00] VITALS: BP 115/70
--- NOTE | 2018-07-28 21:00 | Consultation ---
DATE OF CONSULTATION: 07/28/2018 PSYCHIATRIC EVALUATION: CONSULTING PHYSICIAN: Raciel Stout M.D. HISTORY OF PRESENT ILLNESS: The patient is a 23-year-old female with a history of opiate and alcohol abuse who has been admitted to the hospital due to acute abdominal pain. The patient was seen. She was calm. No signs of withdrawal. Her blood pressure actually was around 12 p.m. 101/55, pulse was 66. The patient denied any anxiety, was calm. She stated she actually drinks 1 or 2 shots of Tequila per day. Her system was positive for high alcohol level. The patient was already started on thiamine and folate as well as diazepam p.r.n. The patient is stable. No suicidal or homicidal ideations. No psychotic or manic symptoms. PAST PSYCHIATRIC HISTORY: She denied any psychiatric history. She stated that she has been diagnosed with depression and anxiety in the past. However, she is not taking any psychotropic medications. PAST MEDICAL HISTORY: Significant for anemia, electrolyte imbalance. ALLERGIES: Amoxicillin. SUBSTANCE ABUSE HISTORY: Significant for alcohol abuse, opiate abuse. MENTAL STATUS EXAMINATION: The patient is alert and oriented times self, place, date, and situation. Cooperative and calm. Mood is dysphoric. Affect is constricted, congruent with mood. Thought process is concrete. Thought content, no suicidal or homicidal ideations. Cognition is intact. Insight and judgment is fair. ASSESSMENT: [place] I Alcohol abuse. Opiate abuse. Anxiety disorder. MDD by history. [place] II Deferred. [place] III Electrolyte imbalance. Anemia. [place] IV Low. [place] V 50. PLAN: 1. Since the patient has alcoholic pancreatitis, we will continue Valium p.r.n. The patient may be minimizing her drinking habits. 2. Continue the thiamine. 3. Continue the folate. 4. Provide the patient with reality orientation and supportive therapy. Raciel Stout M.D. DR: PETRONA JOB#: [id number] CC:
--- NOTE | 2018-07-28 23:00 | NUR ---
HAND-OFF: Report given to Diane Barber RN.
--- NOTE | 2018-07-28 23:01 | NUR ---
NURSE NOTES: Pt is in bed, resting comfortably, awake and alert x4. No acute distress noted. 1/2 NS running at 70ml/hr. Bed locked low in position,side rails up and call light within reach. SCD's on, bed alarm on. Educated pt to call for assistance when needed. Will continue to monitor.
[2018-07-29] VITALS: BP 122/79
[2018-07-29] MEDS: Morphine Sulfate 4mg/ml Inj (IV USE ONLY) IVP PRN ×6 (02:05→22:32)
[2018-07-29 03:58] VITALS: BP 121/82
--- NOTE | 2018-07-29 07:20 | NUR ---
HAND-OFF: Report given to JULIA Pike.
--- NOTE | 2018-07-29 07:20 | NUR ---
NURSE NOTES: received patient in bed, resting comfortably, awake ,alert oriented x4. no sign of respiratory distress noted. 1/2 NS running at 70ml/hr. on fall precaution ,Bed locked low in position,side rails up and call light within reach. Educated pt to call for assistance when needed. Will continue to monitor richmond rees
[2018-07-29 07:22] LABS: ALANINE AMINOTRANSFERASE 40 U/L (12-78); ALBUMIN/GLOBULIN RATIO 0.6 (1.0-2.7); ALKALINE PHOSPHATASE 85 U/L (46-116); ANION GAP 8 mmol/L (5-15); ASPARTATE AMINO TRANSFERASE 123 U/L (15-37); BILIRUBIN,TOTAL 1.1 MG/DL (0.2-1.0); BLOOD UREA NITROGEN 9 mg/dL (7-18); CALCIUM 8.4 MG/DL (8.5-10.1); CARBON DIOXIDE 28 MMOL/L (21-32); CHLORIDE 95 MMOL/L (98-107); CREATININE 0.7 MG/DL (0.55-1.30); POTASSIUM 3.8 MMOL/L (3.5-5.1); SODIUM 131 MMOL/L (136-145)
[2018-07-29 07:23] LABS: BILIRUBIN,DIRECT 0.2 MG/DL (0.0-0.3)
[2018-07-29 07:38] LABS: HEMATOCRIT 32.2 % (37.0-47.0); HEMOGLOBIN 10.1 G/DL (12.0-16.0); MEAN CORPUSCULAR VOLUME 89 FL (80-99); PLATELET COUNT 172 K/UL (150-450); RED CELL DISTRIBUTION WIDTH 14.9 % (11.6-14.8); WHITE BLOOD COUNT 2.8 K/UL (4.8-10.8)
[2018-07-29 07:57] VITALS: BP 115/72
[2018-07-29] MEDS: Thiamine 100mg tab ORAL SCH (08:11)
[2018-07-29 12:00] VITALS: BP 121/59
--- NOTE | 2018-07-29 13:02 | NUR ---
CASE MANAGEMENT: REVIEW SI: ALCOHOLIC PANCREATITIS T 98.0 HR 58 RR 19 BP 121/59 SAT 99% ROOM AIR WBC 2.8 H/H 10.1/32.2 MAG 0.9 IS: MAG SULFATE IV X1 VIT B1 PO QD VALIUM PO PRN NS IVF @ 70ML/HR MED/SURG STATUS DCP: PATIENT IS FROM HOME HOME
[2018-07-29] MEDS ORDERED: Tubing IV Secondary IV ONE (14:18)
[2018-07-29] MEDS ORDERED: 1/2 NS 1000ml IV ONE (14:18)
[2018-07-29 15:52] VITALS: BP 117/54
--- NOTE | 2018-07-29 17:45 | History and Physical Report ---
DATE OF ADMISSION: 07/28/2018 HISTORY OF PRESENT ILLNESS: The patient basically comes in for alcoholic pancreatitis. The patient has been admitted for abdominal pain . She also has a history of at this time and pain was radiating to her back. She does have some nausea. Denies diarrhea. Denies rectal bleeding. Denies chills. PAST MEDICAL HISTORY: Hypertension, asthma, history of alcoholic pancreatitis, history of anemia, malnutrition, . SOCIAL HISTORY: She has history of alcohol abuse. FAMILY HISTORY: Noncontributory. REVIEW OF SYSTEMS: HEENT: Denies headaches. RESPIRATORY: Denies shortness of breath. Denies cough. CARDIOVASCULAR: Denies chest pain. GASTROINTESTINAL: Denies nausea, vomiting, or diarrhea. EXTREMITIES: PHYSICAL EXAMINATION: VITAL SIGNS: Temperature 97.7, pulse is 60, and blood pressure is 101/55. HEENT: PERRLA. NECK: Supple. No lymphadenopathy. CHEST: Clear to auscultation. CARDIOVASCULAR: Regular rate and rhythm. No murmurs or extra sounds. GASTROINTESTINAL: Soft and nontender. 01:56. EXTREMITIES: No edema. Reflexes in both sides. Moves all four extremities. LABORATORY DATA: WBC of 3.6, hemoglobin 10.8, and platelets of 328,000. Sodium 142, potassium 3.8, BUN of 10, creatinine of 0.8, and glucose of 105. Lipase of 752. ASSESSMENT AND PLAN: Alcoholic pancreatitis. IV fluids to be given. 02:20 repeat lipase. I have consulted Dr. Smith, Dr. Dinero, Dr. Weller, Dr. Stout for the above-mentioned diagnosis. Mercedes Diaz M.D. DR: DOTTY JOB#: [id number] CC:
--- NOTE | 2018-07-29 19:10 | NUR ---
HAND-OFF: Report given to JULIA Cedeño Accordingly julia rees.
[2018-07-29] MEDS ORDERED: ACETAMINOPHEN325 M1 ORAL (19:41)
--- NOTE | 2018-07-29 20:08 | NUR ---
NURSE NOTES: Received patient awake,alert,verbal,resting in bed,without complaints.
[2018-07-29 20:14] VITALS: BP 127/81
--- NOTE | 2018-07-29 23:40 | Psych Consult Progress Note ---
Psychiatry Progress Note Psychiatry Progress Note Medications Current Medications Medications (Trade) Dose Ordered Sig/Leora Route PRN Reason Start Time Stop Time Status Last Admin Dose Admin Diazepam (Valium) 10 mg EVERY 2 HOURS PRN ORAL For Anxiety 07/28/18 09:00 08/04/18 08:59 Folic Acid (Folate) 1 mg DAILY ORAL 07/28/18 09:00 08/27/18 08:59 07/29/18 08:11 Morphine Sulfate (Morphine Sulfate) 4 mg Q4H PRN IVP Severe Pain (Pain Scale 7-10) 07/28/18 09:30 08/04/18 06:29 07/29/18 22:32 Ondansetron HCl (Zofran) 4 mg Q6H PRN IVP Nausea & Vomiting 07/28/18 06:30 08/27/18 06:29 07/29/18 16:55 Sodium Chloride 1,000 ml @ 70 mls/hr [id number] IV 07/28/18 06:45 08/27/18 06:44 07/29/18 12:21 Thiamine HCl (Vitamin B1) 100 mg DAILY ORAL 07/28/18 09:00 08/27/18 08:59 07/29/18 08:11 Neurological/Psychiatric: Reports: anxiety, depressed, emotional problems Allergies: Coded Allergies: AMOXICILLIN (Unverified Allergy, Unknown, 01/08/17) Objective Data Height (Feet): 5 Height (Inches): 2.00 Weight (Pounds): 120 General Appearance: WD/WN, no apparent distress, alert, alert oriented x3 Appearance: no abnormalities noted Behavior Mannerisms: good eye contact Mental Status Exam - Affect: blunted Mental Status Exam - Mood: depressed Mental Status Exam - Thought P: no abnormalities, logical Mental Status Exam - Thought C: no abnormalities Mental Status Exam - Suicidal: not present Assessment/Plan [place] I: substance use do Status: stable Assessment/Plan: cont current meds provided ro/Raciel Nava MD July 29, 2018 23:40
[2018-07-30 00:05] VITALS: BP 129/91
[2018-07-30] MEDS: Morphine Sulfate 4mg/ml Inj (IV USE ONLY) IVP PRN ×6 (02:36→22:42)
[2018-07-30 04:00] VITALS: BP 126/80
--- NOTE | 2018-07-30 07:03 | NUR ---
HAND-OFF: Report given to Adri Valle RN.
--- NOTE | 2018-07-30 07:37 | NUR ---
NURSE NOTES: Patient alert x4, on room air, no sign of distress and shortness of breath; IV Right-AC 1/2NS running at 70cc; side rails up x2, breaks engaged, bed at lowest position. call light within reach, will keep monitoring.
--- NOTE | 2018-07-30 07:53 | NUR ---
NURSE NOTES: Patient's mg 0.9, MD Diaz aware, waiting for order.
[2018-07-30 08:00] VITALS: BP 113/71
[2018-07-30] MEDS: Thiamine 100mg tab ORAL SCH (09:00)
[2018-07-30 12:00] VITALS: BP 115/78
--- NOTE | 2018-07-30 12:11 | NUR ---
CASE MANAGEMENT: REVIEW 07/30/2018 SI:PANCREATITIS. T 98.3 HR 74 RR 18 B/P 115/78 SATS 97% ON RA NO LABS TODAY IS:IVF @ 70 mL/HR THIAMINE PO QD FOLATE PO QD MED/SURG STATUS PLAN OF CARE: SSW CONSULT
--- NOTE | 2018-07-30 12:33 | General Progress Note ---
Assessment/Plan Assessment/Plan: (1) Abdominal pain (2) Alcoholic Pancreatitis (3) Alcohol abuse (4) Chest pain (5) CHF Patient to be continued on Morphine. D/w Dr. Dinero and he concurred. Subjective Date patient seen: July 30, 2018 Time patient seen: 11:30 - am Allergies: Coded Allergies: AMOXICILLIN (Unverified Allergy, Unknown, 01/08/17) Subjective Constitutional: Reports: weakness Eye: Reports: no symptoms ENT: Reports: no symptoms Respiratory: Reports: no symptoms Cardiovascular: Reports: chest pain Gastrointestinal: Reports: abdominal pain Genitourinary: Reports: no symptoms Musculoskeletal: Reports: no symptoms Skin: Reports: no symptoms Psychiatric: Reports: no symptoms Neurological: Reports: no symptoms Endocrine: Reports: no symptoms Hematologic/Lymphatic: Reports: no symptoms SUBJECTIVE: Patient is in bed and continues to tolerate the pain on the Morphine as needed, no new complaints at this time. Objective Last 24 Hour Vital Signs Date Time Temp Pulse Resp B/P (MAP) Pulse Ox O2 Delivery O2 Flow Rate FiO2 07/30/18 12:00 98.2 74 18 115/78 (90) 97 07/30/18 11:03 98.2 07/30/18 09:00 Room Air 07/30/18 08:00 98.2 67 16 113/71 (85) 98 07/30/18 04:00 97.5 60 15 126/80 (95) 98 07/30/18 00:05 98.3 71 16 129/91 (104) 96 07/29/18 20:37 Room Air 07/29/18 20:14 98.3 66 16 127/81 (96) 98 07/29/18 15:52 97.2 61 19 117/54 (75) 98 Intake and Output 07/29/18 07/30/18 19:00 07:00 Intake Total 1700 ml 1610 ml Balance 1700 ml 1610 ml Intake Oral 750 ml 800 ml IV Total 950 ml 810 ml # Voids 3 2 Height (Feet): 5 Height (Inches): 2.00 Weight (Pounds): 120 Objective General Appearance: no apparent distress, alert HEENT: PERRL, EOMI Neck: non-tender, supple Respiratory/Chest: lungs clear, normal breath sounds Cardiovascular/Chest: normal rate, regular rhythm Abdomen: tender, soft Extremities: normal range of motion, non-tender Skin Exam: warm/dry Neurologic: alert, oriented x 3 Jeovanny Campo July 30, 2018 12:33
[2018-07-30] MEDS ORDERED: 1/2 NS 1000ml IV ONE (15:44)
[2018-07-30 16:00] VITALS: BP 131/83
--- NOTE | 2018-07-30 19:13 | NUR ---
HAND-OFF: Report given to JULIA Burris.
--- NOTE | 2018-07-30 19:49 | NUR ---
NURSE NOTES: Received patient awake,alert,verbal,resting in bed,comfortable.
[2018-07-30 20:06] VITALS: BP 120/67
--- NOTE | 2018-07-30 21:13 | General Progress Note ---
Assessment/Plan Problem List: (1) Anemia ICD Codes: D64.9 - Anemia, unspecified SNOMED: 848675703 (2) Alcoholic pancreatitis ICD Codes: K85.20 - Alcohol induced acute pancreatitis without necrosis or infection SNOMED: 522874923 (3) Malnutrition ICD Codes: E46 - Unspecified protein-calorie malnutrition SNOMED: 66852888 (4) Electrolyte imbalance ICD Codes: E87.8 - Other disorders of electrolyte and fluid balance, not elsewhere classified SNOMED: 717239065 Status: progressing Assessment/Plan: afebrile nac etoh pancreatitis is improving diet as per gi once diet is tolerated will dc afebrile needs gi clearance Subjective ROS Limited/Unobtainable: Yes Gastrointestinal/Abdominal: Reports: abdominal pain Allergies: Coded Allergies: AMOXICILLIN (Unverified Allergy, Unknown, 01/08/17) Objective Last 24 Hour Vital Signs Date Time Temp Pulse Resp B/P (MAP) Pulse Ox O2 Delivery O2 Flow Rate FiO2 07/30/18 20:24 Room Air 07/30/18 20:06 98.3 63 18 120/67 (84) 98 07/30/18 19:13 98.3 07/30/18 16:00 98.3 79 16 131/83 (99) 97 07/30/18 12:00 98.2 74 18 115/78 (90) 97 07/30/18 09:00 Room Air 07/30/18 08:00 98.2 67 16 113/71 (85) 98 07/30/18 04:00 97.5 60 15 126/80 (95) 98 07/30/18 00:05 98.3 71 16 129/91 (104) 96 Intake and Output 07/29/18 07/30/18 18:59 06:59 Intake Total 1700 ml 1680 ml Balance 1700 ml 1680 ml Intake Oral 750 ml 800 ml IV Total 950 ml 880 ml # Voids 3 2 Height (Feet): 5 Height (Inches): 2.00 Weight (Pounds): 120 Neck: supple Cardiovascular: normal rate Respiratory/Chest: lungs clear Abdomen: soft Mercedes Diaz MD July 30, 2018 21:12
--- NOTE | 2018-07-30 21:37 | General Progress Note ---
Assessment/Plan Status: progressing Assessment/Plan: Assessment and Recs # Decreased white blood cell count, unspec (aka leukopenia) - wbc under 4k, could be related to infection/pancreatitis versus alcohol abuse --> if the total ANC is less than 2000, consider neupogen --> continue antibiotics with ID service, appreciate recs --> medications have been reviewed --> hepatitis and hiv have been ordered # Anemia of chronic disease due to underlying chronic medical issues, multifactorial --> Anemia workup has been reviewed,prior ferritin 95, now 89 --> No evidence of hemolysis is noted, peripheral smear has been reviewed. --> Hgb goal >7. Transfuse prn. --> Epogen or iron at this time is not particularly indicated --> Medications have been reviewed --> evaluate with Gi team prn # Alcoholic pancreatitis --> eval gi pain, monitor for symptoms --> clearance as per gi for dc # Pancreatitis, acute --> as per surg, gi # ETOH abuse # Electrolyte imbalance # Malnutrition # Abdominal pain The timing of this note does not necessarily reflect the time of the patient was seen. Greatly appreciate consultation! Subjective HEENT: Denies: no symptoms, eye pain, blurred vision, tearing, double vision, ear pain, ear discharge, nose pain, nose congestion, throat pain, throat swelling, mouth pain, mouth swelling, other Cardiovascular: Denies: no symptoms, chest pain, edema, irregular heart rate, lightheadedness, palpitations, syncope, other Genitourinary: Denies: no symptoms, burning, discharge, frequency, flank pain, hematuria, incontinence, pain, urgency, other Neurologic/Psychiatric: Denies: no symptoms, anxiety, depressed, emotional problems, headache, numbness, paresthesia, pre-existing deficit, seizure, tingling, tremors, weakness, other Endocrine: Denies: no symptoms, excessive sweating, flushing, intolerance to cold, intolerance to heat, increased hunger, increased thirst, increased urine, unexplained weight gain, unexplained weight loss, other Allergies: Coded Allergies: AMOXICILLIN (Unverified Allergy, Unknown, 01/08/17) Subjective 07/30: no events to report, no f/c, no night sweats Objective Last 24 Hour Vital Signs Date Time Temp Pulse Resp B/P (MAP) Pulse Ox O2 Delivery O2 Flow Rate FiO2 07/30/18 20:24 Room Air 07/30/18 20:06 98.3 63 18 120/67 (84) 98 07/30/18 19:13 98.3 07/30/18 16:00 98.3 79 16 131/83 (99) 97 07/30/18 12:00 98.2 74 18 115/78 (90) 97 07/30/18 09:00 Room Air 07/30/18 08:00 98.2 67 16 113/71 (85) 98 07/30/18 04:00 97.5 60 15 126/80 (95) 98 07/30/18 00:05 98.3 71 16 129/91 (104) 96 Intake and Output 07/29/18 07/30/18 18:59 06:59 Intake Total 1700 ml 1680 ml Balance 1700 ml 1680 ml Intake Oral 750 ml 800 ml IV Total 950 ml 880 ml # Voids 3 2 Height (Feet): 5 Height (Inches): 2.00 Weight (Pounds): 120 Objective PE General Appearance: well appearing, no apparent distress, alert Head: normocephalic EENT: PERRL/EOMI, normal ENT inspection Neck: supple Respiratory: normal breath sounds, no respiratory distress Cardiovascular: normal rate Gastrointestinal: normal inspection, mild abd pain Rectal: deferred Genitourinary: no CVA tenderness Musculoskeletal: normal inspection, back normal Neurologic: normal inspection, alert, oriented x3, responsive Psychiatric: normal inspection, judgement/insight normal, memory normal Skin: normal inspection, normal color, no rash Lymphatic: normal inspection, no adenopathy João Eng MD July 30, 2018 21:37
[2018-07-31] VITALS: BP 112/76
[2018-07-31] MEDS: Morphine Sulfate 4mg/ml Inj (IV USE ONLY) IVP PRN ×5 (02:38→19:40)
[2018-07-31 04:00] VITALS: BP 123/69
[2018-07-31 08:00] VITALS: BP 94/59
--- NOTE | 2018-07-31 08:01 | NUR ---
NURSE NOTES: Patient received resting in bed. Alert and oriented, denies SOB or pain at this time. IV site on left arm patent and intact, fluids running at 70cc/hr. Bed locked in low position, call light placed within reach. Will continue to monitor.
--- NOTE | 2018-07-31 08:43 | General Progress Note ---
Assessment/Plan Status: progressing Assessment/Plan: (1) Abdominal pain (2) Alcoholic Pancreatitis (3) Alcohol abuse (4) Chest pain (5) CHF Patient to be continued on Morphine. D/w Dr. Dinero and he concurred. Subjective Date patient seen: July 31, 2018 Time patient seen: 07:00 - am Allergies: Coded Allergies: AMOXICILLIN (Unverified Allergy, Unknown, 01/08/17) Subjective Constitutional: Reports: weakness Eye: Reports: no symptoms ENT: Reports: no symptoms Respiratory: Reports: no symptoms Cardiovascular: Reports: chest pain Gastrointestinal: Reports: abdominal pain Genitourinary: Reports: no symptoms Musculoskeletal: Reports: no symptoms Skin: Reports: no symptoms Psychiatric: Reports: no symptoms Neurological: Reports: no symptoms Endocrine: Reports: no symptoms Hematologic/Lymphatic: Reports: no symptoms SUBJECTIVE: Patient has been c/o abdominal pain which has been tolerated on the morphine. She has no new complaints at this time. Objective Last 24 Hour Vital Signs Date Time Temp Pulse Resp B/P (MAP) Pulse Ox O2 Delivery O2 Flow Rate FiO2 07/31/18 08:00 97.9 65 18 94/59 (71) 100 07/31/18 04:00 98.1 71 18 123/69 (87) 96 07/31/18 03:08 98.2 07/31/18 00:00 98.2 79 18 112/76 (88) 98 07/30/18 20:24 Room Air 07/30/18 20:06 98.3 63 18 120/67 (84) 98 07/30/18 16:00 98.3 79 16 131/83 (99) 97 07/30/18 12:00 98.2 74 18 115/78 (90) 97 07/30/18 09:00 Room Air Intake and Output 07/30/18 07/31/18 19:00 07:00 Intake Total 2840 ml 770 ml Balance 2840 ml 770 ml Intake Oral 2000 ml IV Total 840 ml 770 ml # Voids 3 Height (Feet): 5 Height (Inches): 2.00 Weight (Pounds): 120 Objective General Appearance: no apparent distress, alert HEENT: PERRL, EOMI Neck: non-tender, supple Respiratory/Chest: lungs clear, normal breath sounds Cardiovascular/Chest: normal rate, regular rhythm Abdomen: tender, soft Extremities: normal range of motion, non-tender Skin Exam: warm/dry Neurologic: alert, oriented x 3 Jeovanny Campo July 31, 2018 08:43
[2018-07-31] MEDS: Thiamine 100mg tab ORAL SCH (09:00)
--- NOTE | 2018-07-31 10:27 | GI Progress Note ---
Assessment/Plan Problems: (1) Drug-seeking behavior ICD Codes: Z76.5 - Malingerer [conscious simulation] SNOMED: 165035341 (2) ETOH abuse ICD Codes: F10.10 - Alcohol abuse, uncomplicated SNOMED: 97073844 (3) Alcoholic pancreatitis ICD Codes: K85.20 - Alcohol induced acute pancreatitis without necrosis or infection SNOMED: 154272407 (4) Malnutrition ICD Codes: E46 - Unspecified protein-calorie malnutrition SNOMED: 69484998 (5) Anemia ICD Codes: D64.9 - Anemia, unspecified SNOMED: 848518835 (6) Electrolyte imbalance ICD Codes: E87.8 - Other disorders of electrolyte and fluid balance, not elsewhere classified SNOMED: 340906610 Status: stable Status Narrative Discussed with Dr. Smith Assessment/Plan Pancreatitis Resolved okay for DC per GI standpoint Advance diet as tolerated Pain management Avoid alcohol Folate PPI Zofran as needed electrolyte correction The patient was seen and examined at bedside and all new and available data was reviewed in the patients chart. I agree with the above findings, impression and plan. (Patient seen earlier today. Signature stamp does not reflect patient encounter time.). - Margarito Smith MD Subjective Subjective Generalized pain Objective Last 24 Hour Vital Signs Date Time Temp Pulse Resp B/P (MAP) Pulse Ox O2 Delivery O2 Flow Rate FiO2 07/31/18 09:00 Room Air 07/31/18 08:00 97.9 65 18 94/59 (71) 100 07/31/18 04:00 98.1 71 18 123/69 (87) 96 07/31/18 03:08 98.2 07/31/18 00:00 98.2 79 18 112/76 (88) 98 07/30/18 20:24 Room Air 07/30/18 20:06 98.3 63 18 120/67 (84) 98 07/30/18 16:00 98.3 79 16 131/83 (99) 97 07/30/18 12:00 98.2 74 18 115/78 (90) 97 Intake and Output 07/30/18 07/31/18 19:00 07:00 Intake Total 2840 ml 770 ml Balance 2840 ml 770 ml Intake Oral 2000 ml IV Total 840 ml 770 ml # Voids 3 Height (Feet): 5 Height (Inches): 2.00 Weight (Pounds): 120 General Appearance: WD/WN, no apparent distress, alert Cardiovascular: normal rate Respiratory/Chest: normal breath sounds, no respiratory distress Abdominal Exam: normal bowel sounds, non tender, soft Extremities: normal range of motion, non-tender Ayesha Chavarria NP July 31, 2018 10:27
[2018-07-31 10:56] LABS: HEMATOCRIT 34.3 % (37.0-47.0); HEMOGLOBIN 10.4 G/DL (12.0-16.0); MEAN CORPUSCULAR VOLUME 91 FL (80-99); PLATELET COUNT 187 K/UL (150-450); RED BLOOD COUNT 3.79 M/UL (4.20-5.40); RED CELL DISTRIBUTION WIDTH 15.5 % (11.6-14.8); WHITE BLOOD COUNT 2.7 K/UL (4.8-10.8)
[2018-07-31 11:07] LABS: ANION GAP 9 mmol/L (5-15); CALCIUM 9.3 MG/DL (8.5-10.1); CARBON DIOXIDE 28 MMOL/L (21-32); CHLORIDE 100 MMOL/L (98-107); CREATININE 0.6 MG/DL (0.55-1.30); POTASSIUM 4.6 MMOL/L (3.5-5.1); SODIUM 137 MMOL/L (136-145)
[2018-07-31 11:13] LABS: BLOOD UREA NITROGEN 11 mg/dL (7-18)
[2018-07-31 12:00] VITALS: BP 119/75
--- NOTE | 2018-07-31 12:32 | NUR ---
Social Service Note SW familiar with patient from previous admission 02/05. Patient in non-compliant, with medical care, shows pain medication seeking behaviors and continue to show alcohol dependency. Patient didn't want to respond to SW once SW entered the room to complete assessment. Patient with questionable homelessness. Will monitor and follow up.
--- NOTE | 2018-07-31 13:39 | General Progress Note ---
Assessment/Plan Status: stable Assessment/Plan: Assessment and Recs # Decreased white blood cell count, unspec (aka leukopenia) - wbc under 4k, could be related to infection/pancreatitis versus alcohol abuse, cirrhosis hx 06/21/18 us abd --> if the total ANC is less than 2000, consider neupogen --> continue antibiotics with ID service, appreciate recs --> medications have been reviewed --> hepatitis and hiv are negative --> us of the abd showing coarse liver echotexture, hepatomegaly # Anemia of chronic disease due to underlying chronic medical issues, multifactorial --> Anemia workup has been reviewed,prior ferritin 95, now 89 --> No evidence of hemolysis is noted, peripheral smear has been reviewed. --> Hgb goal >7. Transfuse prn. --> Epogen or iron at this time is not particularly indicated --> Medications have been reviewed --> evaluate with Gi team prn # Alcoholic pancreatitis --> eval gi pain, monitor for symptoms --> clearance as per gi for dc # Pancreatitis, acute --> as per surg, gi # ETOH abuse # Electrolyte imbalance # Malnutrition # Abdominal pain The timing of this note does not necessarily reflect the time of the patient was seen. Greatly appreciate consultation! Subjective Constitutional: Denies: no symptoms, chills, diaphoresis, fever, malaise, weakness, other HEENT: Denies: no symptoms, eye pain, blurred vision, tearing, double vision, ear pain, ear discharge, nose pain, nose congestion, throat pain, throat swelling, mouth pain, mouth swelling, other Cardiovascular: Denies: no symptoms, chest pain, edema, irregular heart rate, lightheadedness, palpitations, syncope, other Respiratory: Denies: no symptoms, cough, orthopnea, shortness of breath, SOB with excertion, SOB at rest, sputum, stridor, wheezing, other Gastrointestinal/Abdominal: Denies: no symptoms, abdomen distended, abdominal pain, black stools, tarry stools, blood in stool, constipated, diarrhea, difficulty swallowing, nausea, poor appetite, poor fluid intake, rectal bleeding , vomiting, other Genitourinary: Denies: no symptoms, burning, discharge, frequency, flank pain, hematuria, incontinence, pain, urgency, other Neurologic/Psychiatric: Denies: no symptoms, anxiety, depressed, emotional problems, headache, numbness, paresthesia, pre-existing deficit, seizure, tingling, tremors, weakness, other Endocrine: Denies: no symptoms, excessive sweating, flushing, intolerance to cold, intolerance to heat, increased hunger, increased thirst, increased urine, unexplained weight gain, unexplained weight loss, other Hematologic/Lymphatic: Denies: no symptoms, anemia, easy bleeding, easy bruising, other Allergies: Coded Allergies: AMOXICILLIN (Unverified Allergy, Unknown, 01/08/17) Subjective 07/30: no events to report, no f/c, no night sweats 07/31: able to eat, having gas, cleared per gi Objective Last 24 Hour Vital Signs Date Time Temp Pulse Resp B/P (MAP) Pulse Ox O2 Delivery O2 Flow Rate FiO2 07/31/18 12:00 97.0 66 19 119/75 (90) 97 07/31/18 09:00 Room Air 07/31/18 08:00 97.9 65 18 94/59 (71) 100 07/31/18 04:00 98.1 71 18 123/69 (87) 96 07/31/18 03:08 98.2 07/31/18 00:00 98.2 79 18 112/76 (88) 98 07/30/18 20:24 Room Air 07/30/18 20:06 98.3 63 18 120/67 (84) 98 07/30/18 16:00 98.3 79 16 131/83 (99) 97 Intake and Output 07/30/18 07/31/18 19:00 07:00 Intake Total 2840 ml 770 ml Balance 2840 ml 770 ml Intake Oral 2000 ml IV Total 840 ml 770 ml # Voids 3 Laboratory Tests 07/31/18 10:45: White Blood Count 2.7L, Red Blood Count 3.79L, Hemoglobin 10.4L, Hematocrit 34.3L, Mean Corpuscular Volume 91, Mean Corpuscular Hemoglobin 27.6, Mean Corpuscular Hemoglobin Concent 30.4L, Red Cell Distribution Width 15.5H, Platelet Count 187, Mean Platelet Volume 5.1L, Neutrophils (%) (Auto) , Lymphocytes (%) (Auto) , Monocytes (%) (Auto) , Eosinophils (%) (Auto) , Basophils (%) (Auto) , Differential Total Cells Counted 100, Neutrophils % ( Manual) 45, Lymphocytes % (Manual) 41, Monocytes % (Manual) 10, Eosinophils % ( Manual) 4H, Basophils % (Manual) 0, Band Neutrophils 0, Platelet Estimate Adequate, Platelet Morphology Normal, Hypochromasia 1+, Anisocytosis 1+, Sodium Level 137, Potassium Level 4.6, Chloride Level 100, Carbon Dioxide Level 28, Anion Gap 9, Blood Urea Nitrogen 11, Creatinine 0.6, Estimat Glomerular Filtration Rate > 60, Glucose Level 96, Calcium Level 9.3, Magnesium Level 1.4L Height (Feet): 5 Height (Inches): 2.00 Weight (Pounds): 120 Objective PE General Appearance: well appearing, no apparent distress, alert Head: normocephalic EENT: PERRL/EOMI, normal ENT inspection Neck: supple Respiratory: normal breath sounds, no respiratory distress Cardiovascular: normal rate Gastrointestinal: normal inspection, mild abd pain Rectal: deferred Genitourinary: no CVA tenderness Musculoskeletal: normal inspection, back normal Neurologic: normal inspection, alert, oriented x3, responsive Psychiatric: normal inspection, judgement/insight normal, memory normal Skin: normal inspection, normal color, no rash Lymphatic: normal inspection, no adenopathy João Eng MD July 31, 2018 13:39
--- NOTE | 2018-07-31 14:09 | NUR ---
GLOBAL ANALYTICS HEADBICYCLE SERVICE TECHNICIAN SI:PANCREATIS VS: BP 94/59, P 66, T 97.0, RR 79, SpO2 96 WBC 2.7, RBC 3.79, H&H 10.4/34.3, Mag 1.4 IS:MAGNESIUM SULFATE 100ml IVPB MORPHINE 4mg VALIUM 10mg NS: x1L IV
--- NOTE | 2018-07-31 14:57 | NUR ---
RD ASSESSMENT & RECOMMENDATIONS SEE CARE ACTIVITY FOR COMPLETE ASSESSMENT DAILY ESTIMATED NEEDS: Needs based on Pancreatitis 54kg 25-30 kcals/kg 6051-5086 total kcals 1-1.5 g protein/kg 54-81 g total protein 25-30 mL/kg 5304-8231 total fluid mLs NUTRITION DIAGNOSIS: Altered nutrition related lab values R/T alcoholic pancreatitis, clinical condition as evidenced by elev lipase (752 -> now wnl), elev T bili, elev LFTs, low mag (1.4), elev serum alcohol 391. CURRENT DIET:REGULAR PO DIET RECOMMENDATIONS: LOW FAT, LOW NA DIET ADDITIONAL RECOMMENDATIONS: 1) Standing wt as able for eval 2) Lytes daily- replete as needed 3) Rec to add: MVI daily; continue Thiamine + Folate 4) Monitor PO tolerance
--- NOTE | 2018-07-31 15:31 | NUR ---
NURSE NOTES: Infusion of 2 bags of Magnesium Sulfate IV completed.
[2018-07-31 15:58] VITALS: BP 115/61
--- NOTE | 2018-07-31 16:04 | NUR ---
HOMELESS COORDINATOR HC spoke with patient and patient is alert and oriented. Patient refuse to speak to HC until pain meds were given. HC spoke with nurse so patient can receive meds. Patient became compliant after meds. Patient has a contact number [phone], Patient states she is not homeless and provided an address [address] [place] [address]. Patient states her salesperson hosiery is her Mom, Diane Johnson [phone]. Patients states she has been living at this address for 4 months. Patient states she has a roommate and wouldn't provide any additional info. Patient states she has no income and denies any substance abuse and mental health disorders. patient does state she suffers from depression but is not taking any medication for it. Patient states she will return to her previous living situation after discharge. Patient states she will need a taxi voucher upon discharge. PCP is located [facility] with Dr. Echeverria, no address or phone number provide.
--- NOTE | 2018-07-31 19:32 | NUR ---
HAND-OFF: Report given to Minh DUMONT.
--- NOTE | 2018-07-31 19:46 | NUR ---
NURSE NOTES: Pt is in bed, awake and alert. Pt is ambulatory. No acute distress noted. Pt has a discharge order to a safe place. Pt states that she has a place, she stays with a roommate. She needs a taxi voucher. Nursing supervisor publications production will be contacted for taxi voucher.
[2018-07-31 20:00] VITALS: BP 125/81
--- NOTE | 2018-07-31 20:30 | NUR ---
NURSE NOTES: Pt is discharged home with taxi voucher in stable condition. Vitas stable. Pt is awake alert and ambulatory when left the unit. IV access removed, ID band removed. Pt's belonging all accounted for, and pt signed the belonging sheet. Discharge instructions and paperwork given to patient. Pt was accompanied downstairs by RN to the taxi cab. Pt states she has an apartment.
--- NOTE | 2018-08-01 03:00 | Progress Note ---
DATE: 07/31/2018 SUBJECTIVE: The patient is calm. No behavior issues. The patient does not endorse any anxiety or agitation. Denied any nausea or vomiting. No headaches. The patient is in denial of her substance use disorder including alcohol and opioids. The patient has poor insight. MENTAL STATUS EXAMINATION: The patient is alert, oriented times self, place, and situation she is in. Her mood is neutral. Affect is constricted. Congruent with mood. Thought process is concrete. Thought content, no suicidal or homicidal ideation. Cognition is intact. Insight and judgment are impaired. ASSESSMENT: 1. Opioid dependence. 2. Alcohol dependence/abuse. PLAN: 1. We will continue the diazepam p.r.n. 2. Continue folate. 3. Continue thiamine. 4. The patient is reluctant to take any psychotropic medications. Raciel Stout M.D. DR: Deandre JOB#: [id number] CC:
--- NOTE | 2018-08-01 03:15 | Progress Note ---
DATE: 07/31/2018 HISTORY: The patient has alcoholic pancreatitis, tolerated diet, had the low magnesium, and consulted Dr. Weller for that. Vital signs are normal. The abdominal pain is improved. No vomiting today. ASSESSMENT AND PLAN: Alcoholic pancreatitis, cleared by farm instructor. Low magnesium is currently being replaced. We will discharge the patient once he is cleared by the transport assistant for the low magnesium. Otherwise afebrile. No vomiting. Mercedes Diaz M.D. DR: Richard JOB#: [id number] CC:
--- NOTE | 2018-08-02 08:54 | Discharge Summary ---
Discharge Summary Discharge Summary _ DATE OF ADMISSION: 07/28/2018 DATE OF DISCHARGE: 07/31/2018 DISCHARGED BY: Dr Diaz REASON FOR ADMISSION: 23 years old female, with past medical history of asthma, hypertension, pancreatitis, alcohol abuse , presented with abdominal discomfort, located in epigastric area and radiating to the back. Patient denied fever or chills. Patient denied hematemesis or bloody stool. Patient had previous hospitalization about a month ago secondary to alcoholic pancreatitis. Upon evaluation vital signs were stable. Laboratory work-up revealed leukopenia with WBC 3.6 , hemoglobin 10.8, hematocrit 35. Stable electrolytes and renal parameters. AST 150 , ALT 46. Lipase 752. Serum alcohol level 391. Albumin 3.4. Patient received IV fluids and antiemetic in ED and admitted for alcoholic pancreatitis . CONSULTANTS: GI specialist Dr. Smith camera technician/oncologist Dr. Eng psychiatrist pain specialist Dr. Dinero HOSPITAL COURSE: Patient admitted to medical surgical floor. Patient initially was kept n.p.o. and started on the IV fluids. Thiamine and folate provided. Initial magnesium 0.9. Magnesium replaced. GI prophylaxis with PPI provided. Antiemetic were on board as needed. Lipase and LFTs were trending. GI specialist closely followed . Patient slowly started on liquid diet and was advanced as tolerated. Patient was able to tolerate diet. Pancreatitis resolved . Patient was counseled on abstinence from alcohol. Nutritional recommendations implemented in plan of care Media Analytics Manager / oncologist followed for leukopenia and anemia. Anemia work-up was consistent with anemia of chronic disease. No evidence of hemolysis . Hemoglobin hematocrit were closely monitored with goal to keep hemoglobin above 7. Epogen and iron at this time were not indicated. On previous admission: Hepatitis panel was negative. HIV test was nonreactive. Ultrasound of the abdomen showed coarse liver echotexture and hepatomegaly. n Pain management was addressed as per pain specialist recommendation. Psychiatrist followed. Reality orientation and supportive therapy provided. Patient was stabilized and ready for discharge home. Lipase down to 324. AST trending down. Abdominal pain resolved. Patient was able to tolerate diet. FINAL DIAGNOSES: Alcoholic pancreatitis Anemia Malnutrition ETOH abuse Electrolyte imbalance/hypomagnesemia Drug-seeking behavior Substance use disorder DISCHARGE MEDICATIONS: See Medication Reconciliation list. DISCHARGE INSTRUCTIONS: Patient was discharged home. Follow up with primary care provider in one week. Patient was counseled on abstinence from ETOH. I have been assigned to dictate discharge summary for this account. I was not involved in the patient's management. Hodan Stearns NP August 02, 2018 08:54
== END 2018-07-31 20:30 | disposition home or self-care (01) | DRG 282 ==
LOC: EDBD 22:58 → EMR 23:30 → 4E 07-28 02:17 → EDBEDREQ 07-28 03:23 → 4E 07-28 04:17
DX: K85.20 Alcohol induced acute pancreatitis without necrosis or infection (principal); E46 Unspecified protein-calorie malnutrition; E83.42 Hypomagnesemia; F11.20 Opioid dependence, uncomplicated; F10.10 Alcohol abuse, uncomplicated; F11.10 Opioid abuse, uncomplicated; D64.9 Anemia, unspecified; Z76.5 Malingerer [conscious simulation]; Z88.1 Allergy status to other antibiotic agents; I10 Essential (primary) hypertension; D63.8 Anemia in other chronic diseases classified elsewhere
CPT/HCPCS: 36415; 80048; 80053; 80329; 82248; 82728; 82746; 83690; 83735; 84100; 84703; 85007; 85025; 85610; 85730; 87081; 96374; 99285; J2405